=== PATIENT | male | born 1945 | race Caucasian/White ===

== ENCOUNTER 2017-12-19 10:21 | Emergency (ER) | payer MEDICARE, SELFPAY ==
[2017-12-19] VITALS (24 sets, daily range): BP systolic 137–190; BP diastolic 75–97; PULSE 69–99; RESP 9–35; TEMP 36.6–36.7; O2SAT 96–100
--- NOTE | 2017-12-19 10:35 | DI.RAD_ITS ---
SYMPTOMS/DIAGNOSIS: TACHYCARDIA, ? ACUTE DISEASE PORTABLE AP CHEST: The heart is normal in size. The lungs are clear. The mediastinal structures and pleura appear intact. CONCLUSION: Normal chest.
[2017-12-19 11:31] LABS: Abs Immature Grans 0.01 k/cumm (0.0-0.09); Absolute Basophil Count 0.04 k/cumm (0.0-0.2); Absolute Eosinophil Count 0.06 k/cumm (0.0-0.7); Absolute Lymphocyte Count 1.85 k/cumm (1.2-3.4); Absolute Monocyte Count 0.58 k/cumm (0.11-0.7); Absolute Neutrophil Count 5.48 k/cumm (1.2-6.7); Basophils % 0.5; Eosinophils % 0.7; HCT 45.9 % (40.0-50.0); HGB 15.8 g/dL (13.5-17.5); Immature Grans % 0.1; Lymphocytes % 23.1; Mean Corp. HGB Concentration 34.4 g/dL (32.0-36.0); Mean Corpuscular Volume 87.1 fL (80-95); Mean Platelet Volume 9.6 fL (8.0-11.0); Monocytes % 7.2; Neutrophils % 68.4; Platelet Count 258 x1000/uL (130-400); RBC 5.27 m/cumm (4.50-6.00); White Blood Cell Count 8.02 k/cumm (4.4-10.8)
[2017-12-19 11:57] LABS: ALT 37 U/L (12-78); AST 25 U/L (15-37); Albumin 4.1 g/dL (3.4-5.0); Alkaline Phosphatase 103 U/L (46-116); Anion Gap 5.3 mmol/L (3-11); BUN 19 mg/dL (7-18); Bilirubin, Total 0.4 mg/dL (0.2-1.0); CO2 27.7 mmol/L (21.0-32.0); CREATININE 0.86 mg/dL (0.70-1.30); Calcium 8.8 mg/dL (8.5-10.1); Chloride 106 mmol/L (98-107); Glucose 82 mg/dL (70-100); Magnesium 2.1 mg/dL (1.8-2.4); Potassium 3.8 mmol/L (3.5-5.1); Sodium 139 mmol/L (136-145); Total Protein 7.9 g/dL (6.4-8.2)
[2017-12-19 12:00] LABS: Troponin I < 0.02 ng/mL (0.00-0.06)
--- NOTE | 2017-12-19 12:32 | W.ED.GENAD ---
Discharge Plan Discharge Details Chief Complaint: Palpitatns Clinical Impression: Heart palpitations Primary Care Provider: Brooklyn Farah ED Provider: Gabriella Head Disposition Patient Disposition: HOME Home Meds and New Rx's Prescriptions: Continue calcium carbonate [Tums] 200 MG tablet,chewable 200 mg PO DAILY PRNRF: 0 chaga tea 1 DAILY PRNRF: 0 omeprazole 40 MG capsule,delayed release(DR/EC) 40 mg PO DAILY Qty: 90 RF: 3 No Action catheter [Rueda Catheter] 1 EACH misc 1 ea Miscellaneous PRN Qty: 30 RF: 0 Discharge Instructions Instructions: Palpitations (ED) Additional Instructions: Drink plenty of fluids and get plenty of rest. Call your primary care doctor today to schedule follow-up appointment within the next week. Follow the instructions regarding zio patch monitor given to you by respiratory. Return to the emergency department with any worsening or new concerning symptoms. Discharge Data Discharge Date/Time-TO BE ENTERED AT DEPARTURE: 12/19/17 13:37 Discharge Physician: Gabriella Head Medical Decision Making [facility] Narrative Medical decision making narrative: 72-year-old male who is generally healthy who presents with palpitations occurring in the morning for the past several months, worse over the past 4 days and worse today and that it persisted without relief with meditation. Episode today lasted 3 hours and then resolved. He denies any symptoms at present. He denies any chest pain or shortness of breath with his episodes. 1037 -- EKG with a rate of 94 and sinus with no acute ST findings on arrival. QTc 408. QRS 84. Blood pressure 190/97 but patient states he feels this is due to nervousness of being in the ED. He denies a history of hypertension and does not take medication for it. No acute findings on exam. Cardiac workup ordered on arrival. He has no DVT/PE risk factors or symptoms. He smokes marijuana daily but denies any change in this or the type of marijuana. Discussed with patient that as his symptoms are now resolved and if workup here negative, can send him with a cardiac nurse practitioner. Patient also states that he has a history of BPH and occasionally self catheterizes for the past [address] Mcgrath for this. States he has not needed to catheterize for the past 3-4 days and denies any fever or urinary symptoms. Will also check a urinalysis. 1245 --labs and imaging reviewed and negative. Troponin negative. Urinalysis pending. 1310 --urinalysis reviewed and negative. Patient denies any symptoms and states he feels good to go home. Pt states he feels good. Zio patch placed at bedside. Patient instructed to call his primary care doctor for reevaluation and to return to the ER with any worsening symptoms. Lab Data Lab Results 12/19/17 12/19/17 Range/Units 10:43 10:43 WBC 8.02 (4.4-10.8) k/cumm RBC 5.27 (4.50-6.00) m/cumm Hgb 15.8 (13.5-17.5) g/dL Hct 45.9 (40.0-50.0) % MCV 87.1 (80-95) fL MCH 30.0 (27.0-33.0) pg MCHC 34.4 (32.0-36.0) g/dL RDW 13.0 (11.8-14.1) % Plt Count 258 (130-400) x1000/uL MPV 9.6 (8.0-11.0) fL Immature Gran % 0.1 Neutrophils % 68.4 Lymphocytes % 23.1 Monocytes % 7.2 Eosinophils % 0.7 Basophils % 0.5 Absolute Neutrophils 5.48 (1.2-6.7) k/cumm Absolute Lymphocytes 1.85 (1.2-3.4) k/cumm Absolute Monocytes 0.58 (0.11-0.7) k/cumm Absolute Eosinophils 0.06 (0.0-0.7) k/cumm Absolute Basophils 0.04 (0.0-0.2) k/cumm Sodium 139 (136-145) mmol/L Potassium 3.8 (3.5-5.1) mmol/L Chloride 106 (98-107) mmol/L Carbon Dioxide 27.7 (21.0-32.0) mmol/L Anion Gap 5.3 (3-11) mmol/L BUN 19 H (7-18) mg/dL Creatinine 0.86 (0.70-1.30) mg/dL Estimated GFR/1.73 m2 >= 60.00 (mL/min/1.73m2) Glucose 82 (70-100) mg/dL Calcium 8.8 (8.5-10.1) mg/dL Magnesium 2.1 (1.8-2.4) mg/dL Total Bilirubin 0.4 (0.2-1.0) mg/dL AST 25 (15-37) U/L ALT 37 (12-78) U/L Alkaline Phosphatase 103 (46-116) U/L Troponin I < 0.02 (0.00-0.06) ng/mL Total Protein 7.9 (6.4-8.2) g/dL Albumin 4.1 (3.4-5.0) g/dL HPI - General Adult General Mode of arrival: ambulatory. Date/Time Provider Initiated Documentation: 12/19/17 10:35. Limitations to Documentation: no limitations. Information obtained by: patient. HPI Narrative: Patient is a 72-year-old male who presents with daily palpitations for the last few months, worse over the past 4 days. Patient states when he awakes in the morning he stretches in bed and developed heart pounding and palpitations. Patient states he is usually able to meditate and his symptoms have resolved with this over the past 3 mornings but this did not help this morning. Patient denies any chest pain or shortness of breath when these episodes occur. Patient states he wakes up in the morning and stretches his arms out, and feels the palpitations which lasts usually a few minutes and then resolve. Patient states the episode lasted 3 hours this morning and then resolved and this was the longest time so far yet. Patient denies any cardiac or pulmonary history. States he has never worn a cardiac nurse practitioner. Patient states he smokes marijuana daily but states it is the same marijuana he has been smoking for years and denies any new type. He states he drinks 1 beer daily. He denies any other new medications, recent travel, recent surgeries, leg pain or swelling. Related Data Home Medications Medication Instructions Recorded Confirmed catheter [Rueda Catheter] #30 ea 02/09/15 01/09/16 Chaga Tea 1 DAILY PRN 09/06/16 calcium carbonate [Tums] 200 mg PO DAILY PRN tab.chew 09/06/16 12/19/17 Allergies Allergy/AdvReac Type Severity Reaction Status Date / Time finasteride Allergy Unverified 12/19/17 10:42 terazosin HCl [From Hytrin] Allergy Unverified 12/19/17 10:42 General Stated Complaint: Palpitatns BEATRIZ: 2 Review of Systems Constitutional Denies excessive sweating, Denies fatigue, Denies fever(s) and Denies weakness Eyes Patient Denies loss of vision ENT Denies vertigo, Denies dizziness, Denies sore throat, Denies throat swelling and Denies tongue swelling Cardiovascular Denies chest pain and Denies dyspnea Respiratory Denies pain on inspiration, Denies dyspnea and Denies wheezing Gastrointestinal Denies abdominal pain, Denies diarrhea and Denies vomiting Genitourinary Denies dysuria and Denies urinary urgency Musculoskeletal Denies arthralgias and Denies joint swelling Neurologic Denies confusion, Denies vertigo, Denies dizziness, Denies loss of vision, Denies memory loss and Denies weakness Psychiatric Denies confusion and Denies memory loss Endocrine Denies excessive sweating and Denies fatigue Allergic/Immunologic Denies throat swelling, Denies tongue swelling and Denies wheezing PFSH Family History Mother No problems noted. Father No problems noted. Sister No problems noted. Medical History Benign prostate hyperplasia (12/11/07) Social History Smoking/Tobacco Use Status: Former Tobacco Use Surgical History EGD w/ BX (12/06/11) Repair of inguinal hernia (~1979) Tonsillectomy Vasectomy Exam Const General: cooperative, healthy appearing and comfortable Nutritional Appearance: average body habitus Orientation: alert and awake Limitations: mental status not altered [facility] Head: normal to inspection Ears: hearing grossly normal bilaterally General nose exam: external nose normal Mouth: moist mucous membranes Eyes General: appearance normal, both eyes and all related structures Eyelids: eyelids normal Pupils: PERRL EOM: EOM intact bilaterally Neck Neck: normal visual inspection Chest Chest: normal inspection of the chest Resp Effort & Inspection: normal respiratory effort Auscultation: clear to auscultation bilaterally Cardio Rate: regular rate Rhythm: regular rhythm GI Inspection: normal to inspection Palpation: soft, no hepatosplenomegaly and nontender Auscultation: normal bowel sounds Back/Spine/Pelvis Back: no CVA tenderness Thoracic/Lumbar Spine: thoracic and lumbar spine normal to inspection Skin General skin exam: no rashes or lesions noted Lesions: no lesions Neuro General: alert and awake Extrem General: normal to inspection, no calf tenderness bilaterally and no edema Psych Appearance: grossly normal Affect: normal affect Attitude: cooperative Course Vital Signs Temperature 98.1 F 12/19/17 10:39 Pulse 94 H 12/19/17 10:39 Respiratory Rate 12 12/19/17 10:39 Blood Pressure 190/97 H 12/19/17 10:39 Pulse Oximetry 98 12/19/17 10:39 Temperature 98.1 F 12/19/17 10:39 Pulse 94 H 12/19/17 10:39 Respiratory Rate 12 12/19/17 10:39 Blood Pressure 190/97 H 12/19/17 10:39 Pulse Oximetry 98 12/19/17 10:39 Lab/Test Results Lab/Test Results: Laboratory Tests 12/19/17 12/19/17 10:43 10:43 WBC 8.02 RBC 5.27 Hgb 15.8 Hct 45.9 MCV 87.1 MCH 30.0 MCHC 34.4 RDW 13.0 Plt Count 258 MPV 9.6 Immature Gran % 0.1 Neutrophils % 68.4 Lymphocytes % 23.1 Monocytes % 7.2 Eosinophils % 0.7 Basophils % 0.5 Absolute Neutrophils 5.48 Absolute Lymphocytes 1.85 Absolute Monocytes 0.58 Absolute Eosinophils 0.06 Absolute Basophils 0.04 Sodium 139 Potassium 3.8 Chloride 106 Carbon Dioxide 27.7 Anion Gap 5.3 BUN 19 H Creatinine 0.86 Estimated GFR/1.73 m2 >= 60.00 Glucose 82 Calcium 8.8 Magnesium 2.1 Total Bilirubin 0.4 AST 25 ALT 37 Alkaline Phosphatase 103 Troponin I < 0.02 Total Protein 7.9 Albumin 4.1
--- NOTE | 2017-12-19 12:36 | ED.GENADUL_ITS ---
Discharge Plan Discharge Details Chief Complaint: Palpitatns Clinical Impression: Heart palpitations Primary Care Provider: Brooklyn Farah ED Provider: Gabriella Head Disposition Patient Disposition: HOME Home Meds and New Rx's Prescriptions: Continue calcium carbonate [Tums] 200 MG tablet,chewable 200 mg PO DAILY PRNRF: 0 chaga tea 1 DAILY PRNRF: 0 omeprazole 40 MG capsule,delayed release(DR/EC) 40 mg PO DAILY Qty: 90 RF: 3 No Action catheter [Rueda Catheter] 1 EACH misc 1 ea Miscellaneous PRN Qty: 30 RF: 0 Discharge Instructions Instructions: Palpitations (ED) Additional Instructions: Drink plenty of fluids and get plenty of rest. Call your primary care doctor today to schedule follow-up appointment within the next week. Follow the instructions regarding zio patch monitor given to you by respiratory. Return to the emergency department with any worsening or new concerning symptoms. Discharge Data Discharge Date/Time-TO BE ENTERED AT DEPARTURE: 12/19/17 13:37 Discharge Physician: Gabriella Head Medical Decision Making [facility] Narrative Medical decision making narrative: 72-year-old male who is generally healthy who presents with palpitations occurring in the morning for the past several months, worse over the past 4 days and worse today and that it persisted without relief with meditation. Episode today lasted 3 hours and then resolved. He denies any symptoms at present. He denies any chest pain or shortness of breath with his episodes. 1037 -- EKG with a rate of 94 and sinus with no acute ST findings on arrival. QTc 408. QRS 84. Blood pressure 190/97 but patient states he feels this is due to nervousness of being in the ED. He denies a history of hypertension and does not take medication for it. No acute findings on exam. Cardiac workup ordered on arrival. He has no DVT/ PE risk factors or symptoms. He smokes marijuana daily but denies any change in this or the type of marijuana. Discussed with patient that as his symptoms are now resolved and if workup here negative, can send him with a financial aid administrator. Patient also states that he has a history of BPH and occasionally self catheterizes for the past [address] Mcgrath for this. States he has not needed to catheterize for the past 3 -4 days and denies any fever or urinary symptoms. Will also check a urinalysis. 1245 --labs and imaging reviewed and negative. Troponin negative. Urinalysis pending. 1310 --urinalysis reviewed and negative. Patient denies any symptoms and states he feels good to go home. Pt states he feels good. Zio patch placed at bedside. Patient instructed to call his primary care doctor for reevaluation and to return to the ER with any worsening symptoms. Lab Data Lab Results 12/19/17 12/19/17 Range/Units 10:43 10:43 WBC 8.02 (4.4-10.8) k/cumm RBC 5.27 (4.50-6.00) m/cumm Hgb 15.8 (13.5-17.5) g/dL Hct 45.9 (40.0-50.0) % MCV 87.1 (80-95) fL MCH 30.0 (27.0-33.0) pg MCHC 34.4 (32.0-36.0) g/dL RDW 13.0 (11.8-14.1) % Plt Count 258 (130-400) x1000/uL MPV 9.6 (8.0-11.0) fL Immature Gran % 0.1 Neutrophils % 68.4 Lymphocytes % 23.1 Monocytes % 7.2 Eosinophils % 0.7 Basophils % 0.5 Absolute Neutrophils 5.48 (1.2-6.7) k/cumm Absolute Lymphocytes 1.85 (1.2-3.4) k/cumm Absolute Monocytes 0.58 (0.11-0.7) k/cumm Absolute Eosinophils 0.06 (0.0-0.7) k/cumm Absolute Basophils 0.04 (0.0-0.2) k/cumm Sodium 139 (136-145) mmol/L Potassium 3.8 (3.5-5.1) mmol/L Chloride 106 (98-107) mmol/L Carbon Dioxide 27.7 (21.0-32.0) mmol/L Anion Gap 5.3 (3-11) mmol/L BUN 19 H (7-18) mg/dL Creatinine 0.86 (0.70-1.30) mg/dL Estimated GFR/1.73 m2 >= 60.00 (mL/min/1.73m2) Glucose 82 (70-100) mg/dL Calcium 8.8 (8.5-10.1) mg/dL Magnesium 2.1 (1.8-2.4) mg/dL Total Bilirubin 0.4 (0.2-1.0) mg/dL AST 25 (15-37) U/L ALT 37 (12-78) U/L Alkaline Phosphatase 103 (46-116) U/L Troponin I < 0.02 (0.00-0.06) ng/mL Total Protein 7.9 (6.4-8.2) g/dL Albumin 4.1 (3.4-5.0) g/dL HPI - General Adult General Mode of arrival: ambulatory . Date/Time Provider Initiated Documentation: 12/19/17 10:35 . Limitations to Documentation: no limitations . Information obtained by: patient . HPI Narrative: Patient is a 72-year-old male who presents with daily palpitations for the last few months, worse over the past 4 days. Patient states when he awakes in the morning he stretches in bed and developed heart pounding and palpitations. Patient states he is usually able to meditate and his symptoms have resolved with this over the past 3 mornings but this did not help this morning. Patient denies any chest pain or shortness of breath when these episodes occur. Patient states he wakes up in the morning and stretches his arms out, and feels the palpitations which lasts usually a few minutes and then resolve. Patient states the episode lasted 3 hours this morning and then resolved and this was the longest time so far yet. Patient denies any cardiac or pulmonary history. States he has never worn a financial aid administrator. Patient states he smokes marijuana daily but states it is the same marijuana he has been smoking for years and denies any new type. He states he drinks 1 beer daily. He denies any other new medications, recent travel, recent surgeries, leg pain or swelling. Related Data Home Medications Medication Instructions Recorded Confirmed catheter [Rueda Catheter] #30 ea 02/09/15 01/09/16 Chaga Tea 1 DAILY PRN 09/06/16 calcium carbonate [Tums] 200 mg PO DAILY PRN tab.chew 09/06/16 12/19/17 Allergies Allergy/AdvReac Type Severity Reaction Status Date / Time finasteride Allergy Unverified 12/19/17 10:42 terazosin HCl [From Hytrin] Allergy Unverified 12/19/17 10:42 General Stated Complaint: Palpitatns BEATRIZ: 2 Review of Systems Constitutional Denies excessive sweating, Denies fatigue, Denies fever(s) and Denies weakness Eyes Patient Denies loss of vision ENT Denies vertigo, Denies dizziness, Denies sore throat, Denies throat swelling and Denies tongue swelling Cardiovascular Denies chest pain and Denies dyspnea Respiratory Denies pain on inspiration, Denies dyspnea and Denies wheezing Gastrointestinal Denies abdominal pain, Denies diarrhea and Denies vomiting Genitourinary Denies dysuria and Denies urinary urgency Musculoskeletal Denies arthralgias and Denies joint swelling Neurologic Denies confusion, Denies vertigo, Denies dizziness, Denies loss of vision, Denies memory loss and Denies weakness Psychiatric Denies confusion and Denies memory loss Endocrine Denies excessive sweating and Denies fatigue Allergic/Immunologic Denies throat swelling, Denies tongue swelling and Denies wheezing PFSH Family History Mother No problems noted. Father No problems noted. Sister No problems noted. Medical History Benign prostate hyperplasia (12/11/07) Social History Smoking/Tobacco Use Status: Former Tobacco Use Surgical History EGD w/ BX (12/06/11) Repair of inguinal hernia (~1979) Tonsillectomy Vasectomy Exam Const General: cooperative, healthy appearing and comfortable Nutritional Appearance: average body habitus Orientation: alert and awake Limitations: mental status not altered [facility] Head: normal to inspection Ears: hearing grossly normal bilaterally General nose exam: external nose normal Mouth: moist mucous membranes Eyes General: appearance normal, both eyes and all related structures Eyelids: eyelids normal Pupils: PERRL EOM: EOM intact bilaterally Neck Neck: normal visual inspection Chest Chest: normal inspection of the chest Resp Effort & Inspection: normal respiratory effort Auscultation: clear to auscultation bilaterally Cardio Rate: regular rate Rhythm: regular rhythm GI Inspection: normal to inspection Palpation: soft, no hepatosplenomegaly and nontender Auscultation: normal bowel sounds Back/Spine/Pelvis Back: no CVA tenderness Thoracic/Lumbar Spine: thoracic and lumbar spine normal to inspection Skin General skin exam: no rashes or lesions noted Lesions: no lesions Neuro General: alert and awake Extrem General: normal to inspection, no calf tenderness bilaterally and no edema Psych Appearance: grossly normal Affect: normal affect Attitude: cooperative Course Vital Signs Temperature 98.1 F 12/19/17 10:39 Pulse 94 H 12/19/17 10:39 Respiratory Rate 12 12/19/17 10:39 Blood Pressure 190/97 H 12/19/17 10:39 Pulse Oximetry 98 12/19/17 10:39 Temperature 98.1 F 12/19/17 10:39 Pulse 94 H 12/19/17 10:39 Respiratory Rate 12 12/19/17 10:39 Blood Pressure 190/97 H 12/19/17 10:39 Pulse Oximetry 98 12/19/17 10:39 Lab/Test Results Lab/Test Results: Laboratory Tests 12/19/17 12/19/17 10:43 10:43 WBC 8.02 RBC 5.27 Hgb 15.8 Hct 45.9 MCV 87.1 MCH 30.0 MCHC 34.4 RDW 13.0 Plt Count 258 MPV 9.6 Immature Gran % 0.1 Neutrophils % 68.4 Lymphocytes % 23.1 Monocytes % 7.2 Eosinophils % 0.7 Basophils % 0.5 Absolute Neutrophils 5.48 Absolute Lymphocytes 1.85 Absolute Monocytes 0.58 Absolute Eosinophils 0.06 Absolute Basophils 0.04 Sodium 139 Potassium 3.8 Chloride 106 Carbon Dioxide 27.7 Anion Gap 5.3 BUN 19 H Creatinine 0.86 Estimated GFR/1.73 m2 >= 60.00 Glucose 82 Calcium 8.8 Magnesium 2.1 Total Bilirubin 0.4 AST 25 ALT 37 Alkaline Phosphatase 103 Troponin I < 0.02 Total Protein 7.9 Albumin 4.1
[2017-12-19 12:39] LABS: Bilirubin Negative (Negative); Blood Negative (Negative); Clarity Clear; Glucose Negative (Negative); Ketones Negative (Negative); Leukocyte Esterase Negative (Negative); Nitrite Negative (Negative); Urobilinogen 0.2 EU/dL (Up TO 0.2)
--- NOTE | 2018-01-09 17:08 | ZIOP_ITS ---
ZIO PATCH EVENT RECORDER REPORT DATE OF READING: January 09, 2018 ENROLLMENT: 13 days - 12/19/17 until 01/02/18 PRESCRIBING CLINICIAN: Vipin Cotto M.D. REFERRING CLINICIAN: Brooklyn Farah N.P. INDICATION: Palpitations. FINDINGS: 1. Baseline sinus rhythm, 52-164 bpm, average 84 bpm. 2. Rare PAC, less than 1%, 9 SVT runs, fastest and longest 1 minute and 21 seconds, average 200 bpm, consistent with ectopic atrial tachycardia, no atrial fibrillation. 3. Rare PVC, less than 1%, one 4-beat nonsustained VT run, 212 bpm. 4. No pauses. 5. Six triggered events: All sinus rhythm. 6. Eight symptom events: Fluttering/racing, skipped beats or shortness of breath, all with sinus rhythm, no arrhythmia.
== END 2017-12-19 13:37 | disposition home or self-care (01) ==
PROVIDERS: Emergency Provider Physician Assistant; PCP Nurse Practitioner
DX: R00.2 Palpitations (principal)
CPT/HCPCS: 36415; 80053; 93005; 93225; 99285; 71045; 81003; 83735; 84484; 85025; 93010

== ENCOUNTER 2018-01-09 16:06 | Outpatient (CLI) | payer MEDICARE, SELFPAY | END 2018-01-09 16:26 | PROVIDERS: PCP Nurse Practitioner; Visit Provider Internal Medicine Cardiovascular Disease | DX: R00.2 Palpitations (principal) | CPT/HCPCS: 0298T ==

== ENCOUNTER 2018-01-28 18:03 | Outpatient (REF) | payer MEDICARE, SELFPAY | END 2018-01-28 18:23 | LOC: LBN 18:03 | PROVIDERS: PCP Nurse Practitioner; Visit Provider Nurse Practitioner | DX: R31.9 Hematuria, unspecified (principal) | CPT/HCPCS: 87086 ==

== ENCOUNTER 2018-02-05 00:37 | Outpatient (CLI) | payer MEDICARE, SELFPAY ==
--- NOTE | 2018-02-05 14:05 | MERGE_ITS ---
*[facility]* *[facility]* [address] [place] [address] Date of study: 02/05/2018 Transthoracic Echocardiography M-mode, complete 2D, complete spectral Doppler, and color Doppler *STUDY CONCLUSIONS* Summary: 1. Left ventricle: The cavity size was normal. Wall thickness was increased in a pattern of mild LVH. There was severe focal basal hypertrophy of the septum at 1.7 cm. Systolic function was hyperdynamic. The estimated ejection fraction was 65-70%. There was no dynamic obstruction. Wall motion was normal; there were no regional wall motion abnormalities. Some parameters suggest diastolic dysfunction. 2. Aortic valve: Trileaflet; mildly thickened, mildly calcified leaflets. There was mild regurgitation. 3. Right ventricle: The cavity size was normal. Wall thickness was normal. Systolic function was normal. *PATIENT PRESENTATION* Height: 175.3cm ((69in) ) S/D Pressure: 147 / 73 Weight: 74.8kg ((164.7lb) ) BSA: 1.92m^2 Test start time: 02:15 PM. Test stop time: 03:00 PM. PERFORMING Unknown PERFORMING [facility] ZONING ADMINISTRATOR RT Shaheen Hung)(CT), [facility] ORDERING Brooklyn Farah REFERRING Brooklyn Farah *PROCEDURE DATA* Procedure information: The patient was identified by two identifiers. This study was interpreted by [facility]. Pertinent images and digital data are archived for permanent storage and are available for subsequent review. No prior study was available for comparison. Study status: Routine. Transthoracic echocardiography. M-mode, complete 2D, complete spectral Doppler, and color Doppler. A Transthoracic Echocardiogram was performed. Scanning was performed from the parasternal, apical, subcostal, and suprasternal notch acoustic windows. Images were obtained using an [id number] cardiac ultrasound machine. Image quality was adequate. Study completion: The patient tolerated the procedure well. There were no complications. History: PMH: Palpitations. Essential HTN. *CARDIAC ANATOMY* Left ventricle: The cavity size was normal. Wall thickness was increased in a pattern of mild LVH. There was severe focal basal hypertrophy of the septum at 1.7 cm. Systolic function was hyperdynamic. The estimated ejection fraction was 65-70%. There was no dynamic obstruction. Wall motion was normal; there were no regional wall motion abnormalities. Some parameters suggest diastolic dysfunction. Aortic valve: Trileaflet; mildly thickened, mildly calcified leaflets. Mobility was not restricted. Doppler: Transvalvular velocity was within the normal range. There was no stenosis. There was mild regurgitation. VTI ratio of LVOT to aortic valve: 0.72. Valve area (VTI): 2.6cm^2. Indexed valve area (VTI): 1.4cm^2/m^2. Peak velocity ratio of LVOT to aortic valve: 0.66. Valve area (Vmax): 2.4cm^2. Indexed valve area (Vmax): 1.3cm^2/m^2. Mean velocity ratio of LVOT to aortic valve: 0.68. Valve area (Vmean): 2.5cm^2. Indexed valve area (Vmean): 1.3cm^2/m^2. Mean gradient (S): 6.4mm Hg. Peak gradient (S): 10.3mm Hg. Aorta: Aortic root: The aortic root was normal in size. Ascending aorta: The ascending aorta was normal in size. Mitral valve: Structurally normal valve. Mobility was not restricted. Doppler: Transvalvular velocity was within the normal range. There was no evidence for stenosis. There was trivial regurgitation. Valve area by pressure half-time: 3.4cm^2. Indexed valve area by pressure half-time: 1.8cm^2/m^2. Peak gradient (D): 2.1mm Hg. Left atrium: The atrium was normal in size. Right ventricle: The cavity size was normal. Wall thickness was normal. Systolic function was normal. Pulmonic valve: Structurally normal valve. Doppler: Transvalvular velocity was within the normal range. There was no evidence for stenosis. There was mild regurgitation. Peak gradient (S): 4.3mm Hg. Tricuspid valve: Structurally normal valve. Doppler: Transvalvular velocity was within the normal range. There was no evidence for stenosis. There was mild regurgitation. Pulmonary artery: Pulmonary systolic pressure was within the normal range, in the range of 25mm Hg to 30mm Hg. Right atrium: The atrium was normal in size. Pericardium: There was no pericardial effusion. Systemic veins: Inferior vena cava: Well visualized. The vessel was patent and normal in size. The respirophasic diameter changes were in the normal range (greater than or equal to 50%). Baseline ECG: Normal sinus rhythm. Measurements Left ventricle Value Reference LV ID, ED, PLAX 4.1 cm 3.5 - 6.0 LV ID, ES, PLAX 2.6 cm 2.1 - 4.0 LV PW thickness, ED, PLAX 1.1 cm LV end-diastolic volume, 1-p A2C 59 ml LV ejection fraction, 1-p A2C 73 % LV end-diastolic volume, 1-p A4C 72 ml LV ejection fraction, 1-p A4C 67 % LV e', lateral 0.076 m/sec LV E/e', lateral 10 LV e', medial 0.064 m/sec LV E/e', medial 11 LV e', average 0.07 m/sec LV E/e', average 10 Ventricular septum Value Reference IVS thickness, ED, PLAX 1.2 cm LVOT Value Reference LVOT ID, A-P 2.2 cm LVOT area 3.7 cm^2 LVOT peak velocity, S 1.06 m/sec LVOT mean velocity, S 0.83 m/sec LVOT VTI, S 23.6 cm LVOT peak gradient, S 4.5 mm Hg LVOT mean gradient, S 2.9 mm Hg Stroke volume (SV), LVOT DP 87 ml Stroke index (SV/bsa), LVOT DP 45 ml/m^2 Aortic valve Value Reference Aortic valve peak velocity, S 1.6 m/sec Aortic valve mean velocity, S 1.21 m/sec Aortic valve VTI, S 33.0 cm Aortic mean gradient, S 6.4 mm Hg Aortic peak gradient, S 10.3 mm Hg VTI ratio, LVOT/AV 0.72 Aortic valve area, VTI 2.6 cm^2 Velocity ratio, peak, LVOT/AV 0.66 Aortic valve area, peak velocity 2.4 cm^2 Velocity ratio, mean, LVOT/AV 0.68 Aortic valve area, mean velocity 2.5 cm^2 Aortic valve area/bsa, mean velocity 1.3 cm^2/m^2 Aorta Value Reference Aortic root ID, ED 3.4 cm Ascending aorta ID, A-P, S 3.3 cm RVOT Value Reference RVOT VTI, S 18.5 cm Left atrium Value Reference LA ID, A-P, ES 3.6 cm LA ID/bsa, A-P 1.9 cm/m^2 <=2.2 LA area, ES, A4C 17.8 cm^2 8.8 - 23.4 LA area, ES, A2C 15 cm^2 LA volume/bsa, ES, 1-p A4C 28 ml/m^2 LA volume, ES, 2-p 43 ml LA volume/bsa, ES, 2-p 22 ml/m^2 LA/aortic root ratio 1.07 Mitral valve Value Reference Mitral E-wave peak velocity 0.73 m/sec Mitral A-wave peak velocity 0.74 m/sec Mitral deceleration time 222 ms 150 - 230 Mitral pressure half-time 64 ms Mitral peak gradient, D 2.1 mm Hg Mitral E/A ratio, peak 0.98 Mitral valve area, PHT, DP 3.4 cm^2 Tricuspid valve Value Reference Tricuspid regurg peak velocity 2.5 m/sec Tricuspid peak RV-RA gradient 24.1 mm Hg Right atrium Value Reference RA area, ES, A4C 16.1 cm^2 8.3 - 19.5 Pulmonic valve Value Reference Pulmonic peak gradient, S 4.3 mm Hg Legend: (L) and (H) doug values outside specified reference range. I have personally reviewed the images and have reviewed and edited the reported findings. Electronically signed by Barney Ross 02/05/2018 17:50
== END 2018-02-05 00:57 ==
PROVIDERS: PCP Nurse Practitioner; Visit Provider Nurse Practitioner
DX: R00.2 Palpitations (principal); I10 Essential (primary) hypertension; I35.1 Nonrheumatic aortic (valve) insufficiency
CPT/HCPCS: 93306

== ENCOUNTER → 2018-02-08 12:54 | Outpatient (BNVA) | payer MEDICARE, SELFPAY | PROVIDERS: PCP Nurse Practitioner; Visit Provider Urology | DX: N40.0 Benign prostatic hyperplasia without lower urinary tract symptoms (principal); Z87.898 Personal history of other specified conditions | CPT/HCPCS: 81003; 99213 ==

== ENCOUNTER 2018-02-08 14:18 | Outpatient (CLI) | payer MEDICARE, SELFPAY ==
[2018-02-08 15:02] LABS: HGB 14.2 g/dL (13.5-17.5); Mean Corp. HGB Concentration 33.8 g/dL (32.0-36.0); Mean Corpuscular Hemoglobin 29.3 pg (27.0-33.0); Mean Corpuscular Volume 86.8 fL (80-95); Mean Platelet Volume 8.5 fL (8.0-11.0); Platelet Count 299 x1000/uL (130-400); RBC 4.84 m/cumm (4.50-6.00); RBC Distribution Width 12.9 % (11.8-14.1); White Blood Cell Count 11.04 k/cumm (4.4-10.8)
[2018-02-08 15:39] LABS: ALT 31 U/L (12-78); AST 20 U/L (15-37); Albumin 3.6 g/dL (3.4-5.0); Alkaline Phosphatase 98 U/L (46-116); Anion Gap 8.8 mmol/L (3-11); BUN 19 mg/dL (7-18); Bilirubin, Total 0.3 mg/dL (0.2-1.0); CO2 27.2 mmol/L (21.0-32.0); Calcium 8.7 mg/dL (8.5-10.1); Chloride 104 mmol/L (98-107); Cholesterol 173 mg/dL (50-200); Glucose 87 mg/dL (70-100); HDL Cholesterol 35 mg/dL (40-60); LDL CHOLESTEROL 111 mg/dL (<100); Sodium 140 mmol/L (136-145); TSH (W/Ref FT4) 3.77 uIU/mL (0.358-3.74); Total Protein 6.9 g/dL (6.4-8.2); Triglyceride 183 mg/dL (30-150)
== END 2018-02-08 14:38 ==
PROVIDERS: PCP Nurse Practitioner; Visit Provider Nurse Practitioner
DX: E78.5 Hyperlipidemia, unspecified (principal); R00.2 Palpitations; I10 Essential (primary) hypertension
CPT/HCPCS: 36415; 80053; 80061; 81003; 83721; 85027; 99213; 84439; 84443

== ENCOUNTER 2018-03-25 10:12 | Outpatient (REF) | payer MEDICARE, SELFPAY | END 2018-03-25 10:32 | LOC: LBN 10:12 | PROVIDERS: PCP Nurse Practitioner; Visit Provider Urology | DX: R31.0 Gross hematuria (principal) | CPT/HCPCS: 87077; 87086 ==

== ENCOUNTER → 2018-05-22 12:21 | Outpatient (BNVA) | payer MEDICARE, SELFPAY | PROVIDERS: PCP Nurse Practitioner; Referring Provider Nurse Practitioner; Visit Provider Student in an Organized Health Care Education/Training Program | DX: R00.2 Palpitations (principal); R03.0 Elevated blood-pressure reading, without diagnosis of hypertension; E78.5 Hyperlipidemia, unspecified | CPT/HCPCS: 99204; 99214 ==

== ENCOUNTER 2018-05-30 10:44 | Emergency (ER) | payer MEDICARE, SELFPAY ==
[2018-05-30 11:00] VITALS: BP 175/98; PULSE 106; RESP 16; TEMP 37; O2SAT 97
[2018-05-30 11:36] LABS: Abs Immature Grans 0.01 k/cumm (0.0-0.09); Absolute Basophil Count 0.02 k/cumm (0.0-0.2); Absolute Eosinophil Count 0.03 k/cumm (0.0-0.7); Absolute Monocyte Count 0.43 k/cumm (0.11-0.7); Absolute Neutrophil Count 4.05 k/cumm (1.2-6.7); Basophils % 0.3; Eosinophils % 0.5; HCT 42.3 % (40.0-50.0); HGB 14.7 g/dL (13.5-17.5); Immature Grans % 0.2; Lymphocytes % 27.2; Mean Corp. HGB Concentration 34.8 g/dL (32.0-36.0); Mean Corpuscular Hemoglobin 29.9 pg (27.0-33.0); Mean Platelet Volume 9.2 fL (8.0-11.0); Monocytes % 6.9; Neutrophils % 64.9; Platelet Count 258 x1000/uL (130-400); RBC 4.92 m/cumm (4.50-6.00); RBC Distribution Width 13.2 % (11.8-14.1); White Blood Cell Count 6.24 k/cumm (4.4-10.8)
--- NOTE | 2018-05-30 11:46 | W.ED.GENAD ---
Discharge Plan Disposition Patient Disposition: HOME Condition: Good Discharge Details Chief Complaint: Palpitatns Clinical Impression: Palpitations Primary Care Provider: Brooklyn Farah ED Provider: Jarrett Lund Home Meds and New Rx's Prescriptions: No Action propranolol 10 mg tablet 10 mg PO HS Qty: 90 RF: 1 Rueda Catheter 1 EACH misc 1 ea Miscellaneous PRN Qty: 30 RF: 0 calcium carbonate [Tums] 200 MG tablet,chewable 200 mg PO DAILY PRNRF: 0 chaga tea 1 DAILY PRNRF: 0 omeprazole 40 MG capsule,delayed release(DR/EC) 40 mg PO DAILY Qty: 90 RF: 3 ciprofloxacin HCl 250 mg tablet 250 mg PO Q12H Qty: 20 RF: 0 Discharge Instructions Instructions: Palpitations (ED) Additional Instructions: Please resume taking her propanolol. Please follow-up promptly with your Brooklyn. If you notice any worsening of your symptoms, or any new symptoms such as vomiting, diarrhea, fever, chills, shortness of breath, chest pain, numbness, weakness, or fainting , please return immediately to the emergency department for reevaluation. Please follow up with your primary care provider as soon as possible for reassessment and reevaluation. As always, it was a pleasure participating in your medical care today. Referrals: Brooklyn Farah, [employer] [Primary Care Provider] - Medical Decision Making This is a pleasant 72-year-old male who presents for palpitations that have been present for the last 5 months. They only occur in the morning as he is waking up, they resolve as soon as he stands up. He has no exertional symptoms, no exertional syncope. He has been plowing his driveway and shoveling his driveway every day and has had no lightheadedness, no dizziness, no chest pain or shortness of breath. His symptoms are only present in the morning as he is getting up. He shows no risk flags of recent syncope, history of heart disease, chest pain or chest pressure. He had a Zeo patch which showed occasional elevated rhythm, but no other significant abnormalities. He was evaluated by cardiology who had no additional recommendations aside for continuing the propranolol. His echocardiogram aside from mild left ventricular hypertrophy was otherwise benign. He has been on no new medications otherwise. He has taken Cipro recently for UTI but this is medication is tolerated in the past. Physical exam shows no significant abnormalities, no concerning signs or symptoms. He came in today because he called his grain mill products inspector states that he was out of the office and recommended they come into the ED if he had concerns. Patient's physical exam, is benign, no significant abnormalities. Minimal tachycardia at 90-106, but no other abnormalities. I feel with the patient's extensive recent workup that there is no severe acute abnormality, however we will evaluate for PE, TSH abnormality, or other significant electrolyte disturbance. 12:51 PM Patient's laboratory workup is returned benign, no significant abnormalities. No thyroid abnormalities, signs of anemia, or other significant concerning issues for the electrolytes. EKG shows no significant abnormalities or changes. No evidence of significant tachycardia. D-dimer is negative. Patient is hemodynamically stable and shows no signs of SVT or other concerning cardiac arrhythmia at this time. I had an extensive conversation with the patient I do feel that he would be an appropriate candidate for discharge home with close follow-up with his PCP as he currently demonstrates no concerning emergent cardiac pathology or abnormality with an extensive outpatient workup and no change in his symptomatology for the last 5 months. I contacted Brooklyn Stout, And discussed the scenario with her, the cardiology findings, and the patient's current scenario. She too agrees with the plan. Patient will follow-up either tomorrow or early next week. I do recommend that the patient restart his propranolol at 10 mg. Patient agrees with current plan. I have extensively reviewed the treatment plan and discharge instructions with the patient and their family. I have addressed all patient concerns at this time. The patient and family was made aware of what symptoms to monitor for that would warrant a return to the emergency department. Discussed the plan with the patient and family, they demonstrate verbal understanding and agreement with our assessment and plan at this time. EKG 10: 56 Rate 94, intervals normal, sinus rhythm, no significant ST elevations or depressions, minimal less than 1 mm depression in V3 through V5 which is a nonspecific ST segment abnormality. No reciprocal elevations, no evidence of STEMI. These findings were consistent with EKG from 12/19/17 HPI General Date/Time Provider Initiated Documentation: 05/30/18 10:55. HPI Narrative: This is a 72-year-old male with a past medical history of reflux, prostate hypertrophy, and who was recently diagnosed with urinary tract infection by Dr. Mcgrath and started on Cipro, who presents today for palpitations. The patient states that back in December he started having palpitations that would occur in the morning as he was waking up. When he would get out of bed his symptoms would go away completely. He occasionally has very mild dizziness, but denies any headache, syncope, chest pain, arm, neck or shoulder pain, shortness of breath, chest pressure, tearing sensation in his chest, or other symptoms. Aside for the feeling of palpitations alone he is otherwise completely asymptomatic. The patient has had these symptoms persistently since then only when he wakes up. He had a Holter monitor and an echocardiogram. Holter monitor showed slight supraventricular arrhythmias that were exceedingly rare, and unrelated to the patient's symptoms/timing. He had an echocardiogram that showed minimal left ventricular hypertrophy but no other significant abnormality. He did see Dr. Menjivar just recently for his first evaluation of all of this, which point he was told that there was nothing overly concerning with the Holter monitor, or the echocardiogram, that there was nothing additional that they could do from a cardiology standpoint at this time. The patient continued to have his symptoms, and in an episode of frustration did contact the grain mill products inspector, who is currently not working today it was recommended that he come to the ER for further evaluation. Denies PE risk factors such as recent long car rides, immobilization, recent surgery, prior history of DVT or PE, family history of PE or DVT, morbid obesity, exogenous estrogen and smoking, hemoptysis, history of cancer. Patient denies any IV or illicit drug use, he has no additional complaints at this time. Aside for the Cipro he has not taken any new medications. Related Data Home Medications Medication Instructions Recorded Confirmed catheter [Rueda Catheter] #30 ea 02/09/15 05/22/18 Chaga Tea 1 DAILY PRN 09/06/16 05/22/18 calcium carbonate [Tums] 200 mg PO DAILY PRN tab.chew 09/06/16 05/30/18 omeprazole 40 mg PO DAILY #90 tab-cap 09/11/17 05/30/18 propranolol 10 mg tablet 10 mg PO HS #90 tab 03/20/18 05/30/18 ciprofloxacin 250 mg tablet 250 mg PO Q12H #20 tab 05/29/18 05/30/18 Previous Rx's Medication Instructions Recorded omeprazole 40 mg PO DAILY #90 tab-cap 09/11/17 propranolol 10 mg tablet 10 mg PO HS #90 tab 03/20/18 ciprofloxacin 250 mg tablet 250 mg PO Q12H #20 tab 05/29/18 Allergies Allergy/AdvReac Type Severity Reaction Status Date / Time finasteride Allergy Verified 05/30/18 11:16 terazosin HCl [From Hytrin] AdvReac sweats Verified 05/30/18 11:16 General Stated Complaint: Palpitatns BEATRIZ: 3 Review of Systems Review of Systems All systems reviewed & are unremarkable except as noted in HPI and below PFSH Social History adopted: No household members: spouse housing: house lives independently: Yes number of children: 3 number of grandchildren: 4 current occupational status: retired Smoking and Tabacco status: Former Tobacco Use alcohol intake: current alcohol intake frequency: a few times a week substance use type: marijuana Seatbelt use: always Helmet use: Yes Exam Narrative Exam Narrative: 1.Const: Well-nourished, Well-developed, appearing stated age 2.Eyes: PERRL, no conjunctival injection, and symmetrical lids. 3.ENT: Atraumatic external nose and ears. Moist MM. Neck: Symmetric, trachea midline, No thyromegaly. 4.CVS: +S1/S2, No murmurs or gallops. Peripheral pulses 2+ and equal in all extremities. Brisk capillary refill in all extremities. 5.RESP: Unlabored respiratory effort. Clear to auscultation bilaterally. No wheezes rales or rhonchi 6.GI: Soft, Nontender/Nondistended, No hepatosplenomegaly. No guarding or rebound. 7.MSK: Normocephalic/Atraumatic, Extremities w/o deformity or ttp No cyanosis or clubbing, Normal movement of all extremities 8.Skin: Warm, Dry. No rashes or lesions. 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 Sensation grossly intact, no focal neurologic deficits. 10.Psych: (AAO) x3. Appropriate mood and affect Course Vital Signs Temperature 37 C 05/30/18 11:00 Pulse 106 H 05/30/18 11:00 Respiratory Rate 16 05/30/18 11:00 Blood Pressure 175/98 H 05/30/18 11:00 Pulse Oximetry 97 05/30/18 11:00 Temperature 37 C 05/30/18 11:00 Temperature Source Skin 05/30/18 11:00 Pulse 106 H 05/30/18 11:00 Respiratory Rate 16 05/30/18 11:00 Respiratory Effort Non-Labored 05/30/18 11:00 Blood Pressure 175/98 H 05/30/18 11:00 Blood Pressure Position Supine 05/30/18 11:00 Pulse Oximetry 97 05/30/18 11:00 Oxygen Delivery Method Room Air 05/30/18 11:00 Oxygen Flow Rate 0 05/30/18 11:00 Pain Level 0 05/30/18 11:00 Lab/Test Results Lab/Test Results: Laboratory Tests Range/Units 05/30/18 11:30 WBC (4.4-10.8) k/cumm 6.24 RBC (4.50-6.00) m/cumm 4.92 Hgb (13.5-17.5) g/dL 14.7 Hct (40.0-50.0) % 42.3 MCV (80-95) fL 86.0 MCH (27.0-33.0) pg 29.9 MCHC (32.0-36.0) g/dL 34.8 RDW (11.8-14.1) % 13.2 Plt Count (130-400) x1000/uL 258 MPV (8.0-11.0) fL 9.2 Immature Gran % 0.2 Neutrophils % 64.9 Lymphocytes % 27.2 Monocytes % 6.9 Eosinophils % 0.5 Basophils % 0.3 Absolute Neutrophils (1.2-6.7) k/cumm 4.05 Absolute Lymphocytes (1.2-3.4) k/cumm 1.70 Absolute Monocytes (0.11-0.7) k/cumm 0.43 Absolute Eosinophils (0.0-0.7) k/cumm 0.03 Absolute Basophils (0.0-0.2) k/cumm 0.02
[2018-05-30] MEDS: Normal Saline 1,000 ML 1000 ML IV (11:50)
[2018-05-30 12:03] VITALS: BP 148/75; PULSE 90; RESP 24; O2SAT 97
[2018-05-30 12:05] LABS: ALT 28 U/L (12-78); AST 24 U/L (15-37); Albumin 3.8 g/dL (3.4-5.0); Alkaline Phosphatase 89 U/L (46-116); Anion Gap 11.9 mmol/L (3-11); BUN 18 mg/dL (7-18); Bilirubin, Total 0.3 mg/dL (0.2-1.0); CO2 25.1 mmol/L (21.0-32.0); Chloride 106 mmol/L (98-107); Glucose 93 mg/dL (70-100); Magnesium 1.9 mg/dL (1.8-2.4); Potassium 3.7 mmol/L (3.5-5.1); Sodium 143 mmol/L (136-145); TSH (W/Ref FT4) 2.88 uIU/mL (0.358-3.74); Total Protein 7.7 g/dL (6.4-8.2)
[2018-05-30 12:06] LABS: Troponin I < 0.02 ng/mL (0.00-0.06)
[2018-05-30 12:10] LABS: D-Dimer 453 ng/mlFEU (<500)
== END 2018-05-30 13:03 | disposition home or self-care (01) ==
PROVIDERS: Emergency Provider Student in an Organized Health Care Education/Training Program; PCP Nurse Practitioner
DX: R00.2 Palpitations (principal)
CPT/HCPCS: 36415; 80053; 93005; 96360; 99284; 83735; 84443; 84484; 85025; 85379; 93010

== ENCOUNTER 2018-06-04 15:08 | Outpatient (REF) | payer MEDICARE, SELFPAY | END 2018-06-04 15:28 | LOC: LBN 15:08 | PROVIDERS: PCP Nurse Practitioner; Visit Provider Nurse Practitioner | DX: R82.90 Unspecified abnormal findings in urine (principal) | CPT/HCPCS: 87086 ==

== ENCOUNTER → 2018-08-12 12:27 | Outpatient (BNVA) | payer MEDICARE, SELFPAY | PROVIDERS: PCP Nurse Practitioner; Visit Provider Urology | DX: R31.0 Gross hematuria (principal); Z80.52 Family history of malignant neoplasm of bladder; Z87.891 Personal history of nicotine dependence; I10 Essential (primary) hypertension | CPT/HCPCS: 99213 ==

== ENCOUNTER 2018-08-22 01:34 | Outpatient (CLI) | payer MEDICARE, SELFPAY ==
[2018-08-22 10:02] LABS: CREATININE 0.92 mg/dL (0.70-1.30)
[2018-08-22] MEDS: Omnipaque 350 MG/ML 100 ML BTL IJ (11:00)
--- NOTE | 2018-08-22 11:15 | DI.CT_ITS ---
SYMPTOM/DIAGNOSIS: HEMATURIA, R31.9, ? MASS OR STONE, ETC ABDOMEN AND PELVIC CT: CT examination of the abdomen and pelvis was performed utilizing CT urogram protocol with noncontrast CT followed by venous phase and 7 minute delayed images. Images obtained through the lung bases are unremarkable. Liver, spleen and pancreas appear normal. Abdominal aorta is of normal diameter and no major vascular abnormality is seen. Normal appearance of the appendix. No evidence of diverticulitis or bowel obstruction. No abdominal or pelvic adenopathy. No significant abdominal wall hernia. Adrenals are normal in appearance bilaterally. Prostate is enlarged and heterogenous measuring roughly 9 by 8 by 7 cm. in diameter and markedly indenting the floor of the urinary bladder. Urinary bladder shows markedly thickened wall. Renal cortex enhances normally bilateral except for apparent small bilateral renal cysts. No hydronephrosis. No nephrolithiasis or ureterolithiasis. There is normal transit time of urine to the urinary bladder. CONCLUSION: Marked prostatic enlargement and bladder wall thickening which may reflect chronic bladder outlet obstruction versus cystitis or other cause. No other significant findings.
== END 2018-08-22 01:54 ==
PROVIDERS: PCP Nurse Practitioner; Visit Provider Urology
DX: R31.0 Gross hematuria (principal); N40.0 Benign prostatic hyperplasia without lower urinary tract symptoms; N32.9 Bladder disorder, unspecified; I10 Essential (primary) hypertension
CPT/HCPCS: 99213; 74178; 82565; J3490

== ENCOUNTER → 2018-10-15 09:06 | Outpatient (BNVA) | payer MEDICARE, SELFPAY | PROVIDERS: PCP Nurse Practitioner; Visit Provider Urology | DX: R33.8 Other retention of urine (principal); N40.1 Benign prostatic hyperplasia with lower urinary tract symptoms | CPT/HCPCS: 99213 ==

== ENCOUNTER → 2018-11-04 07:57 | Outpatient (BNVA) | payer MEDICARE, MEDICAID, SELFPAY | PROVIDERS: PCP Nurse Practitioner; Visit Provider Urology | DX: R69 Illness, unspecified (principal) ==

== ENCOUNTER 2018-11-04 09:45 | Inpatient (IN) | payer MEDICARE, SELFPAY ==
[2018-11-04] VITALS (13 sets, daily range): BP systolic 85–155; BP diastolic 44–92; PULSE 66–83; RESP 8–21; TEMP 36.3–37; O2SAT 93–99
--- NOTE | 2018-11-04 11:13 | W.PM.HP.N ---
Date of service: 11/04/18 Time of Service: 11:13 Assessment and Plan (1) 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 hyperplasia: Current visit: No Status: Chronic He is unable to tolerate medical therapy. He is interested in moving away from intermittent catheterization. Since he does have a sensation of when he needs to void and he does void somewhat during the day, I think he is a candidate for his surgical treatment. We will move ahead with transurethral resection of the prostate and vaporization using the bipolar cautery. History of Present Illness Chief Complaint: Urinary retention Narrative: This is a 73-year-old who has a history of urinary retention. He is been unable to tolerate 5 alpha reductase inhibitors and alpha blockers. He has been voiding during the day but is performing intermittent catheterization at night. He is interested in surgical treatment to get away from CIC. He does have a sensation of needing to voidat night. He is now getting up to catheterize 2-3 times a night He does not have any dysuria or gross hematuria. He has no known history of prostate cancer. He has had an elevated PSA however. Review of Systems Review of Systems No fevers or chills No vision change or dysphasia No diabetes or thyroid No shortness of breath, cough or hemoptysis Hx palpatations. No chest pain. Hx GERD. No hepatitis, ulcers, jaundice, diarrhea or constipation No seizures, strokes or peripheral neuropathy No bleeding disorders or anemia No gout or arthralgia PFSH Surgical History (Updated 11/04/18 @ 10:36 by Tangela Mckeon) EGD w/ BX (12/06/11) H/O hernia repair (Chronic) Repair of inguinal hernia (~1979) Tonsillectomy Vasectomy Family History (Updated 11/04/18 @ 10:37 by Tangela Mckeon) Other Cancer Social History Smoking/Tobacco Use Status: Former Tobacco Use Alcohol Intake: current Alcohol Intake frequency: a few times a week Drug use: Occasionally Substance use type: marijuana Adopted: No Household members: spouse Housing: house Number of Children: 3 number of grandchildren: 4 Seatbelt use: always Helmet use: Yes Do you feel safe in your relationship?: Yes Meds Home Medications Medication Instructions Recorded Confirmed Type catheter [Rueda Catheter] #30 ea 02/09/15 10/14/18 History Chaga Tea 1 DAILY PRN 09/06/16 10/14/18 History calcium carbonate [Tums] 200 mg PO DAILY PRN tab.chew 09/06/16 10/30/18 History omeprazole 40 mg capsule,delayed 40 mg PO DAILY #90 tab-cap 09/30/18 11/04/18 Rx release losartan 25 mg tablet 25 mg PO DAILY #30 tab 10/14/18 11/04/18 Rx propranolol 10 mg tablet 10 mg PO HS tab 10/14/18 11/04/18 History Allergies Allergy/AdvReac Type Severity Reaction Status Date / Time finasteride Allergy Verified 11/04/18 10:30 terazosin HCl [From Hytrin] AdvReac sweats Verified 11/04/18 10:30 Exam Narrative Exam Narrative: He is a very pleasant gentleman in no current distress. He is cooperative. He does not appear septic or toxic. His vital signs are documented elsewhere in the chart His neck is supple Lungs are clear on auscultation Cardiac exam regular rate and rhythm Abdomen is soft with no masses He is awake, alert and oriented. Results Last Vital Signs Temp 36.5 C 11/04/18 10:59 Pulse 76 11/04/18 10:59 Resp 16 11/04/18 10:59 BP 153/90 H 11/04/18 10:59 Pulse Ox 99 11/04/18 10:59
[2018-11-04] MEDS: Lactated Ringers 1,000 ML 80 ML IV ×3 (11:26→16:15)
[2018-11-04] MEDS: ceFAZolin 1 GM/50 ML BAG IVPB (12:04)
[2018-11-04] MEDS: Lidocaine 2% Jelly 6 ML SYR (12:22)
--- NOTE | 2018-11-04 13:54 | PROST_PTH ---
PATIENT: Greyson Vicente LOC: U#:[id number] AGE/SX: 73/M ROOM: MS.218 RE11/04/[address]: Fredy Mcgrath MD : 1945 BED: A DIS: 11/06/2018 SPEC #: [id number] RECD: 11/04/18 15:04 STATUS: JAVIER REQ #: [id number] ALEXYS: 11/04/18 13:[address]: Fredy Mcgrath DEPT: Surgical Specimen RECD BY: Lissett Joyce ENTERED: 11/04/18 15:05 SP TYPE: PROST OTHR DR: Brooklyn Farah APRN Tissues: 1 - PROSTATE CURRETTINGS Procedures: GROSS AND MICRO LEVEL 4 Comments: [id number]
--- NOTE | 2018-11-04 16:01 | ROE_ITS ---
DATE OF PROCEDURE: November 04, 2018 PREOPERATIVE DIAGNOSIS: Urinary retention. POSTOPERATIVE DIAGNOSIS: Same. PROCEDURE: Cystoscopy; transurethral resection and vaporization of the prostate. SURGEON: Fredy Mcgrath M.D. ANESTHESIA: General. COMPLICATIONS: None. SPECIMEN: Prostate chips. ESTIMATED BLOOD LOSS: 500 cc's HISTORY: This is a 72-year-old gentleman who has a history of urinary retention. He is able to void through the day but is requiring intermittent catheterization at night. He is unable to tolerate me dical therapy with alpha blockers or 5-alpha reductase inhibitors. He presents for vaporization of h is prostate. OPERATIVE REPORT: The patient was brought to the Operating Room on 11/04/18. After successful induct ion of general anesthesia, he was placed in the dorsal lithotomy position. His genitalia was prepped and draped. A 22 Canadian rigid cystoscope was passed through the urethra into the bladder. The urethra and bladde r were inspected using a 30-degree lens. The pendulous, bulbous and membranous urethras all appeared normal with no strictures. The prostatic urethra was markedly enlarged with the left lobe being larger than the right. A large median lobe w as identified. The bladder was heavily trabeculated with multiple diverticula and cellules present. No bladder tumo rs were identified. We then removed the cystoscope and passed a 26 Canadian resectoscope sheath through the urethra into th e bladder. We began with the resection loop and the Patton resectoscope and took down the markedly enlarged median lobe. Once the median lobe was taken down, we switched to the plasma button and vaporized the lateral lobes from the bladder neck out to the verumontanum. All resected tissue was evacuated and sent to pathology for permanent section. With the markedly enlarged prostate there was a bit more bleeding than we normally see with these pro cedures, but he remained hemodynamically stable throughout the procedure. At the completion of the procedure we filled the bladder with irrigant. We removed the resectoscope and passed a 24 Canadian hematuria catheter through the urethra into the bladder. The catheter balloon was inflated with 50 cc's of sterile water. Traction was placed on the catheter and irrigation was started. The catheter was hand-irrigated until the irrigant became clear. The patient tolerated this procedure well with no complications.
[2018-11-04] MEDS: Docusate Sodium 100 MG CAP PO (20:45)
[2018-11-04] MEDS: Propranolol 10 MG TAB 5 MG PO (21:43)
[2018-11-05] MEDS: Lactated Ringers 1,000 ML 100 ML IV (01:44)
[2018-11-05 07:27] LABS: HGB 12.8 g/dL (13.5-17.5); Mean Corp. HGB Concentration 34.6 g/dL (32.0-36.0); Mean Corpuscular Hemoglobin 30.4 pg (27.0-33.0); Mean Corpuscular Volume 87.9 fL (80-95); Platelet Count 269 x1000/uL (130-400); RBC 4.21 m/cumm (4.50-6.00); RBC Distribution Width 12.2 % (11.8-14.1); White Blood Cell Count 12.41 k/cumm (4.4-10.8)
[2018-11-05 07:30] VITALS: BP 125/79; PULSE 64; RESP 18; TEMP 37.1; O2SAT 98
[2018-11-05 07:41] LABS: Anion Gap 9.7 mmol/L (3-11); BUN 15 mg/dL (7-18); CO2 27.3 mmol/L (21.0-32.0); CREATININE 0.94 mg/dL (0.70-1.30); Calcium 8.5 mg/dL (8.5-10.1); Chloride 103 mmol/L (98-107); Glucose 159 mg/dL (70-100); Sodium 140 mmol/L (136-145)
--- NOTE | 2018-11-05 07:56 | W.PM.PROGNOT ---
Date of Service Date of service: 11/05/18 Time of Service: 07:56 Assessment and Plan (1) 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 hyperplasia: Current visit: No Status: Chronic He had a bit of a rough night but he is doing quite a bit better this morning. As long as he is able to tolerate a regular diet, we can probably wean him off of his IV fluids later today. We will try stopping the bladder irrigation but restart it if the urine appears bloody. If we need to restart the bladder irrigation, he will be here in the hospital with this 1 more day Subjective Interval history since last seen: Chief complaint: Postoperative day #1 The patient had some nausea and emesis overnight. He is able to tolerate some liquid and toast this morning. His blood pressure was a bit low last evening, but has improved with fluids overnight. He is not having any abdominal pain. He had no clot retention. He has no fever or chills. Exam Narrative Exam Narrative: He looks well. He does not appear septic or toxic. His vital signs are documented elsewhere in the chart. His urine is clear with the continuous bladder irrigation running. His hemoglobin and serum creatinine are stable. Objective Objective Clinical Data: Abnormal lab results 11/05/18 11/05/18 Range/Units 07:09 07:09 WBC 12.41 H (4.4-10.8) k/cumm RBC 4.21 L (4.50-6.00) m/cumm Hgb 12.8 L (13.5-17.5) g/dL Hct 37.0 L (40.0-50.0) % Glucose 159 H (70-100) mg/dL Vital Signs Temperature 37.0 C 11/04/18 23:52 Temperature Source Tympanic 11/04/18 23:52 Pulse 72 11/04/18 23:52 Pulse Rhythm Regular 11/04/18 23:40 Respiratory Rate 18 11/04/18 23:52 Respiratory Effort 11/04/18 23:40 Respiratory Depth Normal 11/04/18 23:40 Respiratory Pattern Normal 11/04/18 23:40 Blood Pressure 155/90 H 11/04/18 23:52 Pulse Oximetry 99 11/04/18 23:52 Respiratory End-tidal CO2 29 11/04/18 15:25 Oxygen Delivery Method Room Air 11/04/18 23:52 Oxygen Flow Rate 0 11/04/18 23:52 Pain Level 0 11/04/18 23:52 Intake & Output 11/04/18 11/04/18 11/05/18 11:59 23:59 11:59 Intake Total 1219.333 / 1219.333 553.333 / 553.333 Output Total 500 / 500 400 / 400 Balance 719.333 / 719.333 153.333 / 153.333 Weight 74.2 kg Intake: IV 1219.333 / 1219.333 103.333 / 103.333 Oral 450 / 450 Output: Emesis 400 / 400 Estimated Blood Loss 500 / 500 Other: Urine Color Coleman Urine Appearance Hematuria Comment CBI. U/O IS [place] Emesis Description None Clear/Water Laboratory Results WBC 12.41 k/cumm (4.4-10.8) H 11/05/18 07:09 RBC 4.21 m/cumm (4.50-6.00) L 11/05/18 07:09 Hgb 12.8 g/dL (13.5-17.5) L 11/05/18 07:09 Hct 37.0 % (40.0-50.0) L 11/05/18 07:09 MCV 87.9 fL (80-95) 11/05/18 07:09 MCH 30.4 pg (27.0-33.0) 11/05/18 07:09 MCHC 34.6 g/dL (32.0-36.0) 11/05/18 07:09 RDW 12.2 % (11.8-14.1) 11/05/18 07:09 Plt Count 269 x1000/uL (130-400) 11/05/18 07:09 MPV 9.0 fL (8.0-11.0) 11/05/18 07:09 Sodium 140 mmol/L (136-145) 11/05/18 07:09 Potassium 4.0 mmol/L (3.5-5.1) 11/05/18 07:09 Chloride 103 mmol/L (98-107) 11/05/18 07:09 Carbon Dioxide 27.3 mmol/L (21.0-32.0) 11/05/18 07:09 9.7 mmol/L (3-11) 11/05/18 07:09 BUN 15 mg/dL (7-18) 11/05/18 07:09 0.94 mg/dL (0.70-1.30) 11/05/18 07:09 >= 60.00 (mL/min/1.73m2) 11/05/18 07:09 Glucose 159 mg/dL (70-100) H 11/05/18 07:09 Calcium 8.5 mg/dL (8.5-10.1) 11/05/18 07:09
[2018-11-05] MEDS: Omeprazole 20 MG CAPCR 40 MG PO (08:05)
[2018-11-05] MEDS: Losartan 25 MG TAB PO (09:00)
[2018-11-05 11:00] VITALS: BP 108/70; BP 121/77; PULSE 100; PULSE 114; TEMP 37.1; O2SAT 98
[2018-11-05 15:56] VITALS: BP 102/61; PULSE 112; RESP 20; TEMP 37.1; O2SAT 97
--- NOTE | 2018-11-05 16:02 | PDOC.CMIN ---
- If Service Date Differs Date of service: 11/05/18 Time of Service: 16:02 Care Management Initial Assess REASON FOR HOSPITALIZATION:: urinary retention PAST MEDICAL HISTORY/PAST SURGICAL HISTORY:: Past medical history: BPH. Surgical History: EGD w/ BX (12/06/11). H/O hernia repair (Chronic). Repair of inguinal hernia (~1979). Tonsillectomy. Vasectom PREVIOUS FUNCTIONAL STATUS/SOCIAL/FAMILY SUPPORTS:: Greyson lives in a single family home in [place] with his Monica. They have 3 daughters, 4 grandchildren and 2 great grandchildren. All of their family members live locally and provide strong support to Greyson and Monica. He states selena are very active and healthy for their age. He is independent with all activities and ADLs. 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 CURRENT FUNCTIONAL STATUS:: Greyson was sitting up in bed when CM came to his room. He had a CBI running with blood tinged urine. He stated that the plan was for him to be discharged tomorrow with the catheter in place for a few days. He denied pain but said he had a little bit of discomfort. Greyson was pleasnat and engaged readily in conversation. ADVANCE DIRECTIVES:: on file at [facility]. Monica [facility] [phone] Has patient been provided with information about the portal?: No Did the patient sign up for the portal?: No CODE STATUS:: Full Code INSURANCE COVERAGE / FINANCIAL ISSUES:: Medicare. Financial assist 100 CURRENT HOME/COMMUNITY SERVICES/EQUIPMENT:: none currently PRIMARY CARE PHYSICIAN:: Brooklyn Farah POTENTIAL DISCHARGE NEEDS:: Follow up with Urology and discharge plan of care PATIENT/FAMILY EDUCATION NEEDS:: Discharge plan, limitations, follow up plan, Ask Me Three. ANTICIPATED BARRIERS TO DISCHARGE:: none identified TRANSPORTATION:: via private vehicle with when ready. PLAN:: Greyson will be discharged home with no new services when ready. He will likely leave with a reyez catheter in place for a few days and follow up with Urology for removal. CM to continue to provide support to patient and family and discharge planning concerns and needs.
[2018-11-05] MEDS: Normal Saline Flush 10 ML SYR IV (19:42)
[2018-11-05] MEDS: Ketorolac 15 MG/ML VIAL IVP (19:43)
[2018-11-05] MEDS: Docusate Sodium 100 MG CAP PO (19:52)
[2018-11-05] MEDS: Propranolol 10 MG TAB 5 MG PO (22:50)
[2018-11-05] MEDS: Oxybutynin 5 MG TAB PO (22:53)
[2018-11-05 23:03] VITALS: BP 128/71; PULSE 89; RESP 18; TEMP 36.8; O2SAT 100
[2018-11-06] MEDS: Oxybutynin 5 MG TAB PO (05:23)
--- NOTE | 2018-11-06 07:06 | W.PM.DS.N ---
Date of service: 11/06/18 Time of Service: 07:06 DS: Diagnosis Discharge Diagnosis (1) 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 hyperplasia: Status: Chronic Discharge Plan Disposition Patient Disposition: HOME Condition: Stable Discharge Details Reason For Visit: URINARY RETENTION Admit Date/Time: 11/04/18 09:45 Admit Provider: Fredy Mcgrath Attending Provider: Fredy Mcgrath Primary Care Provider: Brooklyn Farah Hospital Course Hospital Course: The patient was brought to the operating room on 11/04/18. He underwent a TURP and vaporization of the prostate for a very large prostate. He was maintained on bladder irrigation. His Hgb and creatinine levels were stable on POD #1. He had nausea and vomiting throughout the first post op evening, so he remained in the hospital one additional day. He had spasms which have improved with the use of anticholinergics and decreasing the amount of water in his catheter balloon. He is being discharged with his catheter in place. Home Meds and New Rx's Prescriptions: New oxybutynin chloride 5 mg tablet 5 mg PO TID PRN (Reason: bladder spasm) Qty: 15 RF: 0 tramadol 50 mg tablet 50 mg PO Q8H PRN (Reason: pain) Qty: 10 RF: 0 cephalexin 250 mg tablet 250 mg PO Q8H Qty: 12 RF: 0 No Action propranolol 10 mg tablet 10 mg PO HS RF: 0 losartan 25 mg tablet 25 mg PO DAILY Qty: 30 RF: 3 omeprazole 40 mg capsule,delayed release(DR/EC) 40 mg PO DAILY Qty: 90 RF: 3 (DME) Reyez Catheter 1 EACH misc 1 ea Miscellaneous PRN Qty: 30 RF: 0 calcium carbonate [Tums] 200 MG tablet,chewable 200 mg PO DAILY PRNRF: 0 chaga tea 1 DAILY PRNRF: 0 Discharge Instructions Additional Instructions: Followup appt to have catheter removed either Sunday AM or Sunday Followup appt with me 1 to 2 weeks to review pathology results OK to shower Stand Alone Forms: Nursing Discharge Form Referrals: Fredy Mcgrath MD [ [facility] STAFF PHYSICIAN] - Activity:: no straining or lifting over 10 pounds Equipment/Supplies:: reyez to leg bag Diet:: As Tolerated Discharge Orders Discharge Orders: Discharge Order (Routine); Ordered 11/06/18 Ordered By: Fredy Mcgrath Exam Narrative Exam Narrative: He looks comfortable. His vital signs are documented elsewhere in chart His lungs are clear Cardiac exam shows a regular rate and rhythm Abdomen is soft with no mass. His bladder is not distended He is awake, alert and oriented DS: Data Vitals/I&O Vitals and I&O: Vital Signs Temperature 36.8 C 11/05/18 23:03 Temperature Source Tympanic 11/05/18 23:03 Pulse 89 11/05/18 23:03 Pulse Rhythm Regular 11/05/18 20:14 Respiratory Rate 18 11/05/18 23:03 Respiratory Effort Non-Labored 11/05/18 20:14 Respiratory Depth Normal 11/05/18 20:14 Respiratory Pattern Normal 11/05/18 20:14 Blood Pressure 128/71 11/05/18 23:03 Pulse Oximetry 100 11/05/18 23:03 Respiratory End-tidal CO2 29 11/04/18 15:25 Oxygen Delivery Method Room Air 11/05/18 23:03 Oxygen Flow Rate 0 11/05/18 23:03 Pain Level 0 11/05/18 23:03 Intake & Output 11/05/18 11/05/18 11/06/18 11:59 23:59 11:59 Intake Total 803.333 / 1383.333 580 / 1383.333 200 / 200 Output Total 400 / 26807 02862 / 31393 6000 / 6000 Balance 403.333 / -52055.667 -75618 / -39340.667 -5800 / -5800 Intake: IV 113.333 / 213.333 100 / 213.333 Oral 690 / 1170 480 / 1170 200 / 200 Output: Urine 33617 / 15778 6000 / 6000 Emesis 400 / 400 Other: Urine Color Coleman [place] Coleman Urine Appearance Clear Clear Clear Comment pt CBI is draining coleman colored urine with no clots at this time. Flow rate was decreased 11/05 at 0730 and resulting in more dark, thick urine. Flow rate increased shortly after to maintain proper drainage. Patient still complaining of strong urge to void. Dr Mcgrath on hand and i assit him he irrigated the bladder and feels the patient is having bladder spasms he orders medications for spasm relief Stool Occult Blood Positive Stool Size Moderate Stool Characteristics Soft Formed Emesis Description Clear/Water Labs on day of discharge: Labs from last 24 hours 11/05/18 11/05/18 07:09 07:09 WBC 12.41 H RBC 4.21 L Hgb 12.8 L Hct 37.0 L MCV 87.9 MCH 30.4 MCHC 34.6 RDW 12.2 Plt Count 269 MPV 9.0 Sodium 140 Potassium 4.0 Chloride 103 Carbon Dioxide 27.3 Anion Gap 9.7 BUN 15 Creatinine 0.94 Estimated GFR/1.73 m2 >= 60.00 Glucose 159 H Calcium 8.5 PFSH Medical History Benign prostate hyperplasia (12/11/07) Surgical History EGD w/ BX (12/06/11) H/O hernia repair (Chronic) Repair of inguinal hernia (~1979) Tonsillectomy Vasectomy Family History Other Cancer Social History Smoking/Tobacco Use Status: Former Tobacco Use Alcohol Intake: current Alcohol Intake frequency: a few times a week Drug use: Occasionally Substance use type: marijuana Adopted: No Household members: spouse Housing: house Number of Children: 3 number of grandchildren: 4 Seatbelt use: always Helmet use: Yes Do you feel safe in your relationship?: Yes
--- NOTE | 2018-11-06 07:18 | W.PM.PROGNOT ---
Date of Service Date of service: 11/06/18 Time of Service: 07:18 Assessment and Plan (1) 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 hyperplasia: Current visit: No Status: Chronic He can go home with his catheter to a leg bag. He will come to the office Sunday AM (or Sunday AM at the earliest) to have a voiding trial. Subjective Interval history since last seen: He had spasms overnight, but less bothersome since starting Oxybutynin. He no longer has nausea or vomiting Exam Narrative Exam Narrative: He looks well this AM His urine is clear with CBI - once CBI stopped, the urine becomes pink but remains transparent His vital signs are documented elsewhere He is awake and alert Objective Objective Clinical Data: Abnormal lab results 11/05/18 11/05/18 Range/Units 07:09 07:09 WBC 12.41 H (4.4-10.8) k/cumm RBC 4.21 L (4.50-6.00) m/cumm Hgb 12.8 L (13.5-17.5) g/dL Hct 37.0 L (40.0-50.0) % Glucose 159 H (70-100) mg/dL Vital Signs Temperature 36.8 C 11/05/18 23:03 Temperature Source Tympanic 11/05/18 23:03 Pulse 89 11/05/18 23:03 Pulse Rhythm Regular 11/05/18 20:14 Respiratory Rate 18 11/05/18 23:03 Respiratory Effort Non-Labored 11/05/18 20:14 Respiratory Depth Normal 11/05/18 20:14 Respiratory Pattern Normal 11/05/18 20:14 Blood Pressure 128/71 11/05/18 23:03 Pulse Oximetry 100 11/05/18 23:03 Respiratory End-tidal CO2 29 11/04/18 15:25 Oxygen Delivery Method Room Air 11/05/18 23:03 Oxygen Flow Rate 0 11/05/18 23:03 Pain Level 0 11/05/18 23:03 Intake & Output 11/05/18 11/05/18 11/06/18 11:59 23:59 11:59 Intake Total 803.333 / 1383.333 580 / 1383.333 200 / 200 Output Total 400 / 46309 95684 / 44534 6000 / 6000 Balance 403.333 / -38782.667 -60941 / -43590.667 -5800 / -5800 Intake: IV 113.333 / 213.333 100 / 213.333 Oral 690 / 1170 480 / 1170 200 / 200 Output: Urine 50749 / 70059 6000 / 6000 Emesis 400 / 400 Other: Urine Color Coleman [place] Coleman Urine Appearance Clear Clear Clear Comment pt CBI is draining coleman colored urine with no clots at this time. Flow rate was decreased 11/05 at 0730 and resulting in more dark, thick urine. Flow rate increased shortly after to maintain proper drainage. Patient still complaining of strong urge to void. Dr Mcgrath on hand and i assit him he irrigated the bladder and feels the patient is having bladder spasms he orders medications for spasm relief Stool Occult Blood Positive Stool Size Moderate Stool Characteristics Soft Formed Emesis Description Clear/Water Laboratory Results WBC 12.41 k/cumm (4.4-10.8) H 11/05/18 07:09 RBC 4.21 m/cumm (4.50-6.00) L 11/05/18 07:09 Hgb 12.8 g/dL (13.5-17.5) L 11/05/18 07:09 Hct 37.0 % (40.0-50.0) L 11/05/18 07:09 MCV 87.9 fL (80-95) 11/05/18 07:09 MCH 30.4 pg (27.0-33.0) 11/05/18 07:09 MCHC 34.6 g/dL (32.0-36.0) 11/05/18 07:09 RDW 12.2 % (11.8-14.1) 11/05/18 07:09 Plt Count 269 x1000/uL (130-400) 11/05/18 07:09 MPV 9.0 fL (8.0-11.0) 11/05/18 07:09 Sodium 140 mmol/L (136-145) 11/05/18 07:09 Potassium 4.0 mmol/L (3.5-5.1) 11/05/18 07:09 Chloride 103 mmol/L (98-107) 11/05/18 07:09 Carbon Dioxide 27.3 mmol/L (21.0-32.0) 11/05/18 07:09 9.7 mmol/L (3-11) 11/05/18 07:09 BUN 15 mg/dL (7-18) 11/05/18 07:09 0.94 mg/dL (0.70-1.30) 11/05/18 07:09 >= 60.00 (mL/min/1.73m2) 11/05/18 07:09 Glucose 159 mg/dL (70-100) H 11/05/18 07:09 Calcium 8.5 mg/dL (8.5-10.1) 11/05/18 07:09
[2018-11-06 07:25] VITALS: BP 140/70; PULSE 100; RESP 18; TEMP 37.7; O2SAT 98
[2018-11-06] MEDS: Omeprazole 20 MG CAPCR 40 MG PO (08:00)
[2018-11-06] MEDS: Losartan 25 MG TAB PO (08:35)
--- NOTE | 2018-11-06 15:18 | PDOC.CMDIS ---
- If Service Date Differs Date of service: 11/06/18 Time of Service: 15:18 LACE Index Scoring Tool - Questions: Length of Stay (in days): 2 Acuity (Admit via E.D.?): No E.D. Visits: 2 - Answers: Total Score: 4 Risk of Readmission: Low Risk Care Management Discharge Reason for Hospitalization: urinary retention Discharge Plan: Greyson will be discharged home with no new services. He will leave with a reyez catheter in place for a few days and follow up with Urology for removal. Greyson will be transported via private vehicle with his . He will follow up with his PCP and discharge plan of care. Patient/Family Education Needs: Discharge plan, limitations, follow up plan, Ask Me Three.
== END 2018-11-06 09:55 | disposition home or self-care (01) | DRG 714 ==
LOC: PDS 11:41 → MS 15:42
PROVIDERS: Admitting Provider Urology; PCP Nurse Practitioner; Visit Provider Urology
PROC: 0VT08ZZ Resection of Prostate, Via Natural or Artificial Opening Endoscopic (ICD-10-PCS; CPT 52601; principal; 2018-11-04 12:45)
DX: N40.1 Benign prostatic hyperplasia with lower urinary tract symptoms (principal); R33.8 Other retention of urine; N41.1 Chronic prostatitis; R97.20 Elevated prostate specific antigen [PSA]; N32.89 Other specified disorders of bladder; K91.0 Vomiting following gastrointestinal surgery
CPT/HCPCS: 52601; 36415; 80048; 85027; 88305; NC; J0690; J1100; J1885; J2310; J2405

== ENCOUNTER → 2018-11-11 08:10 | Outpatient (BNVA) | payer MEDICARE, SELFPAY | PROVIDERS: PCP Nurse Practitioner; Visit Provider Urology | DX: N40.1 Benign prostatic hyperplasia with lower urinary tract symptoms (principal); R33.9 Retention of urine, unspecified; Z48.816 Encounter for surgical aftercare following surgery on the genitourinary system ==

== ENCOUNTER → 2018-11-21 09:42 | Outpatient (BNVA) | payer MEDICARE, SELFPAY | PROVIDERS: PCP Nurse Practitioner; Visit Provider Urology | DX: Z48.816 Encounter for surgical aftercare following surgery on the genitourinary system (principal); N40.1 Benign prostatic hyperplasia with lower urinary tract symptoms; R33.8 Other retention of urine | CPT/HCPCS: 51798 ==

== ENCOUNTER 2018-12-03 12:14 | Outpatient (REF) | payer MEDICARE, SELFPAY | END 2018-12-03 12:34 | LOC: LBN 12:14 | PROVIDERS: PCP Nurse Practitioner; Visit Provider Urology | DX: R31.9 Hematuria, unspecified (principal) | CPT/HCPCS: 87077; 87086; 87186 ==

== ENCOUNTER → 2018-12-20 09:23 | Outpatient (BNVA) | payer MEDICARE, SELFPAY | PROVIDERS: PCP Nurse Practitioner; Visit Provider Urology | DX: N39.0 Urinary tract infection, site not specified (principal); N40.1 Benign prostatic hyperplasia with lower urinary tract symptoms; R33.8 Other retention of urine; Z48.816 Encounter for surgical aftercare following surgery on the genitourinary system | CPT/HCPCS: 51798; 81003 ==

== ENCOUNTER 2018-12-20 13:55 | Outpatient (REF) | payer MEDICARE, SELFPAY | END 2018-12-20 14:15 | LOC: LBN 13:55 | PROVIDERS: PCP Nurse Practitioner; Visit Provider Urology | DX: N39.0 Urinary tract infection, site not specified (principal) | CPT/HCPCS: 87077; 87086; 87186 ==

== ENCOUNTER 2018-12-26 01:24 | Outpatient (RCR) | payer MEDICARE, SELFPAY ==
[2018-12-24] MEDS: Normal Saline Flush 10 ML SYR IVP (13:43)
[2018-12-24] MEDS: DAPTOmycin 500 MG in Normal Saline 50 ML 100 MG IVPB (13:43)
[2018-12-25] MEDS: Normal Saline Flush 10 ML SYR IVP (13:43)
[2018-12-25] MEDS: DAPTOmycin 500 MG in Normal Saline 50 ML 100 MG IVPB (13:43)
[2018-12-26] MEDS: DAPTOmycin 500 MG in Normal Saline 50 ML 100 MG IVPB (13:43)
[2018-12-26] MEDS: Normal Saline Flush 10 ML SYR IVP (13:44)
== END 2019-01-13 23:59 | disposition home or self-care (01) ==
LOC: INF 01:24
PROVIDERS: PCP Nurse Practitioner; Visit Provider Urology
DX: N39.0 Urinary tract infection, site not specified (principal)
CPT/HCPCS: 96365; J0878

== ENCOUNTER → 2018-12-31 13:00 | Outpatient (BNVA) | payer MEDICARE, SELFPAY | PROVIDERS: PCP Nurse Practitioner; Visit Provider Nurse Practitioner Gerontology | DX: N40.1 Benign prostatic hyperplasia with lower urinary tract symptoms (principal); R33.8 Other retention of urine | CPT/HCPCS: 81003; 99213 ==

== ENCOUNTER 2018-12-31 14:25 | Outpatient (REF) | payer MEDICARE, SELFPAY | END 2018-12-31 14:45 | LOC: LBN 14:25 | PROVIDERS: PCP Nurse Practitioner; Visit Provider Nurse Practitioner Gerontology | DX: R33.8 Other retention of urine (principal); N40.1 Benign prostatic hyperplasia with lower urinary tract symptoms | CPT/HCPCS: 87086 ==

== ENCOUNTER → 2019-03-07 12:43 | Outpatient (BNVA) | payer MEDICARE, SELFPAY | PROVIDERS: PCP Nurse Practitioner; Referring Provider Nurse Practitioner; Visit Provider Urology | DX: N40.1 Benign prostatic hyperplasia with lower urinary tract symptoms (principal); R33.8 Other retention of urine; Z87.440 Personal history of urinary (tract) infections | CPT/HCPCS: 81003; 99213 ==

== ENCOUNTER 2019-09-10 10:16 | Outpatient (CLI) | payer MEDICARE, SELFPAY ==
[2019-09-10 12:04] LABS: ALT 30 U/L (16-63); AST 23 U/L (15-37); Albumin 4.1 g/dL (3.4-5.0); Alkaline Phosphatase 74 U/L (46-116); Anion Gap 9.9 mmol/L (3-11); BUN 20 mg/dL (7-18); Bilirubin, Total 0.6 mg/dL (0.2-1.0); CO2 26.1 mmol/L (21.0-32.0); CREATININE 1.08 mg/dL (0.70-1.30); Calcium 8.9 mg/dL (8.5-10.1); Calculated LDL 126 mg/dL (<100); Chloride 105 mmol/L (98-107); Cholesterol 200 mg/dL (<200); Glucose 85 mg/dL (74-106); HDL Cholesterol 38 mg/dL (40-60); Potassium 4.1 mmol/L (3.5-5.1); Sodium 141 mmol/L (136-145); Total Protein 7.1 g/dL (6.4-8.2); Triglyceride 181 mg/dL (<150)
== END 2019-09-10 10:36 ==
PROVIDERS: PCP Nurse Practitioner; Visit Provider Nurse Practitioner
DX: I10 Essential (primary) hypertension (principal); E78.5 Hyperlipidemia, unspecified
CPT/HCPCS: 36415; 80053; 80061

== ENCOUNTER → 2020-03-02 07:53 | Outpatient (BNVA) | payer MEDICARE, SELFPAY | PROVIDERS: PCP Nurse Practitioner; Referring Provider Nurse Practitioner; Visit Provider Urology | DX: N40.1 Benign prostatic hyperplasia with lower urinary tract symptoms (principal); R33.8 Other retention of urine | CPT/HCPCS: 99212; 99441 ==

== ENCOUNTER 2020-07-08 10:45 | Inpatient (IN) | payer MEDICARE, SELFPAY ==
[2020-07-08] VITALS (40 sets, daily range): BP systolic 131–195; BP diastolic 63–93; PULSE 53–96; RESP 10–27; TEMP 36.5–37.1; O2SAT 95–100
--- NOTE | 2020-07-08 10:45 | RT.EKG_ITS ---
APPROVED REPORT Exam: Resting ECG Patient Location: E HR:62 bpm ECG Measurements Heart Rate 62 AXIS NC 171 P 62 QRSd 80 QRS 6 QT 407 T 24 QTc 412 Conclusion Sinus rhythm...normal P axis, V-rate 60- 99 sinus rhythm at 62, normal axis, no acute ischemic changes, nondiagnostic EKG
[2020-07-08] MEDS: Normal Saline Flush 10 ML SYR IVP ×4 (11:12→19:58)
[2020-07-08] MEDS: nitroGLYcerin 0.4 MG TAB SL (11:12)
--- NOTE | 2020-07-08 11:15 | RT.EKG_ITS ---
APPROVED REPORT Exam: Resting ECG Patient Location: E HR:53 bpm ECG Measurements Heart Rate 53 AXIS NC 166 P 7 QRSd 80 QRS 10 QT 421 T 48 QTc 398 Conclusion Sinus bradycardia...rate< [address] elevation, anterior leads...ST >0.15mV in V1-V4 sinus bradycardia at 53, normal axis, no acute ischemic changes though significant artifact present, nondiagnostic EKG
--- NOTE | 2020-07-08 11:15 | RT.EKG_ITS ---
APPROVED REPORT Exam: Resting ECG Patient Location: E HR:57 bpm ECG Measurements Heart Rate 57 AXIS IL 172 P 6 QRSd 89 QRS 3 QT 434 T 32 QTc 425 Conclusion Sinus bradycardia...rate< 60 sinus bradycardia at 57, normal axis, no acute ischemic changes, nondiagnostic EKG
[2020-07-08 11:20] LABS: Abs Immature Grans 0.02 10^3/uL (0.0-0.06); Absolute Basophil Count 0.06 10^3/uL (0.0-0.2); Absolute Eosinophil Count 0.02 10^3/uL (0.0-0.7); Absolute Lymphocyte Count 1.64 10^3/uL (1.2-3.4); Absolute Monocyte Count 0.34 10^3/uL (0.1-0.8); Absolute Neutrophil Count 8.36 10^3/uL (1.2-6.7); Basophils % 0.6; Eosinophils % 0.2; HCT 45.9 % (40.0-50.0); HGB 15.4 g/dL (13.5-17.5); Immature Grans % 0.2; Lymphocytes % 15.7; MCH 28.7 pg (27.0-33.0); MCHC 33.6 % (32.0-36.0); MCV 85.5 fL (80-95); MPV 9.1 fL (8.0-11.0); Monocytes % 3.3; Nucleated RBC 0 %; Platelet Count 261 10^3/uL (130-400); RBC 5.37 10^6/uL (4.36-5.78); RDW 12.9 % (11.8-14.1); RDW-SD 40.1 fL; WBC 10.44 10^3/uL (4.4-10.8)
[2020-07-08] MEDS: Normal Saline 1,000 ML 1000 ML IV (11:20)
[2020-07-08] MEDS: Mylanta Suspension 30 ML CUP (11:25)
[2020-07-08] MEDS: Lidocaine 2% Viscous 15 ML CUP (11:25)
--- NOTE | 2020-07-08 11:30 | DI.CT_ITS ---
EXAM: CT THORAX ABD/PEL CTA CLINICAL HISTORY: chest pain/epigastric pain. TECHNIQUE: Imaging Protocol: Axial computed tomography images with coronal and sagittal reformatted images were created and reviewed CONTRAST MATERIAL: Intravenous: Omnipaque 350 Contrast volume:100 ml Oral: None COMPARISON: CT CT ABDOMEN PELVIS WO/W from 08/22/2018 FINDINGS: CHEST: LUNGS: There are no confluent infiltrates nor pleural effusions. No ominous pulmonary nodules noted. No significant focal findings in the trachea and mainstem bronchi. There is no bronchiectasis.. MEDIASTINUM: There is no hilar nor mediastinal adenopathy. Visualized thyroid unremarkable. CARDIAC/AORTA: Heart size is upper normal. There is no pericardial effusion. Diameter of the ascend ing thoracic aorta is minimally prominent, measuring 3.9 cm. There is no evidence of aortic dissecti on.. The diameter of the aortic arch is 2.5 cm. Diameter of the proximal descending thoracic aorta is 3 cm. Diameter of the mid-distal thoracic aorta is 2.7 cm. The abdominal aorta is atherosclerotic but without significant dilatation. The maximum external diam eter is 2 cm. Diameter of the common iliac arteries upper normal. There is no prominent stenosis at the origin of the main vessels off of the abdominal aorta. The inferior mesenteric artery is noted to be patent. There is no evidence of embolus within the superior mesenteric artery. Some plaque bu t no critical stenosis at the of the aortic bifurcation. No significant stenosis in the common and e xternal iliac arteries nor within the common femoral arteries. Both internal iliac arteries are barrera nt. The visualized origins of the SFA arteries are patent. ABDOMEN: There is no ascites. LIVER: Liver is hypodense implying steatosis but there are no discrete focal hepatic lesions identifi ed. GALLBLADDER/BILIARY: No obvious gallbladder pathology. CBD is not dilated. PANCREAS: No evidence of pancreatic mass nor dilatation of the pancreatic duct. SPLEEN: Spleen is not enlarged. There are no intrasplenic lesions. Splenic and portal veins are barrera nt. No evidence of aneurysm in the serpiginous splenic artery ADRENALS: There are no significant adrenal masses. KIDNEYS: No significant focal renal findings. No hydronephrosis.. ABDOMINAL AORTA: As above. LYMPH NODES: There is some adenopathy interposed between the aorta and IVC. This measures 2.3 cm wid e by 1.5 cm AP. There is no adenopathy around the aortic bifurcation. Few slightly prominent lymph nodes are noted in the pelvis. No obvious mesenteric masses. ABDOMINAL WALL/GI: No evidence of significant anterior abdominal wall hernia. There are multiple dil ated small bowel loops in the central and left abdomen with average diameter 3 cm. More distal small bowel loops are not dilated. Transition point is somewhat difficult determine because of breathing motion artifact here. Colon is collapsed. PELVIS: LYMPH NODES: Few slightly enlarged lymph nodes. GI: Appendix is not seen due to respiratory motion artifact.The colon is collapsed. URINARY BLADDER: Not distended REPRODUCTIVE: Grossly enlarged prostate gland OSSEOUS: No significant osseous lesions. IMPRESSION: 1. No evidence of aortic dissection, as per request. There is no pericardial effusion. Heart size i s minimally prominent. Diameter of the thoracic aorta is slightly prominent but without evidence int imal flap. No aneurysm nor dissection in the abdominal aorta and aortoiliac segments. Note tight at herosclerotic stenoses evident. 2. Lungs are clear. No pleural effusions. No intrathoracic adenopathy. 3. There is a distal small bowel obstruction pattern. The colon is collapsed. 4. There are few enlarged right para-aortic lymph nodes. Also few slightly enlarged lymph nodes are noted in the pelvis. There is no splenomegaly. There is no ascites. 5. The prostate gland is grossly enlarged and lobulated. The urinary bladder is not distended. RADIATION DOSE DELIVERED: 874.5mGy.cm Total DLP DATA REPOSITORY: All CT scans at this facility are submitted to the National Radiology Data Registry (NRDR) Dose Index Registry (DIR) with the [employer] (ACR). RADIATION OPTIMIZATION: All CT scans at this facility use at least one of these dose optimization te chniques: automated exposure control; mA and/or kV adjustment per patient size (includes targeted exa ms where dose is matched to clinical indication); or iterative reconstruction.
[2020-07-08 11:40] LABS: ALT 34 U/L (16-63); AST 29 U/L (15-37); Albumin 4.3 g/dL (3.4-5.0); Alkaline Phosphatase 88 U/L (46-116); Anion Gap 11.1 mmol/L (3-11); BUN 18 mg/dL (7-18); Bilirubin, Total 0.9 mg/dL (0.2-1.0); CO2 27.9 mmol/L (21.0-32.0); CREATININE 0.9 mg/dL (0.70-1.30); Calcium 9.4 mg/dL (8.5-10.1); Chloride 102 mmol/L (98-107); Glucose 104 mg/dL (74-106); NT-proBNP 144 pg/mL (<300); Potassium 3.5 mmol/L (3.5-5.1); Sodium 141 mmol/L (136-145); Total Protein 8.2 g/dL (6.4-8.2); Troponin I < 0.05 ng/mL (<0.06)
[2020-07-08 11:49] LABS: D-Dimer 658 ng/mlFEU (<500)
[2020-07-08] MEDS: Omnipaque 350 MG/ML 100 ML BTL IJ (12:06)
[2020-07-08] MEDS: Normal Saline - Diluent 50 ML VIAL IV (12:07)
--- NOTE | 2020-07-08 12:47 | SCONE_ITS ---
Date of service: 07/08/20 Time of Service: 12:47 Assessment and Plan Assessment and plan (1) Intra-abdominal lymphadenopathy: Status: Acute (2) GERD with esophagitis: Status: Acute (3) Essential hypertension: Status: Chronic (4) Hyperlipidemia: Status: Acute Qualifiers: Hyperlipidemia type: mixed hyperlipidemia Qualified Code(s): E78.2 - Mixed hyperlipidemia (5) SBO (small bowel obstruction): Status: Acute Assessment and plan: unsure of etiology supportive care- GI/DVT proophalaxis dont think the adenopathy is anything of consequence or concern if not improved in am CT- w/ contrast IV protonix no indication for abx at this time History of Present Illness Narrative: Pt overate last night and just didn't feel good- he can't really quantify it more than that. He does have a hx of reflux. He has been on omprazole for >5yrs, which general relieves his s/s. He c/o generalised abdominal pain, that starts in the epigastric position. no N/v. He had a BM today that was nl for him. He has not been passing gas. He denies eating any different or unusual foods. Today is 14 days from his #2 Covid vaccine. He denies travel outside of the state. He denies any unusual or different foods or supplements. He denies any accide nts or trauma. He was cutting wood yesterday. He has never had any abdominal surgery. He has never had a colonscopy. Pt had a TURP in the past and no problems w/ anesthesia. He denies any pain or difficulty moving his bowels. No changes in his bowels. No blood or back tarry stools. No wt loss. Appetite is good. No pain or difficulty swallowing. He is active and does not get CP or SOB. He denies any recent fevers/sore throat/diarrhea/muscle aches/rashes or other viral type s/s. Consults Consult date: 07/08/20 Review of Systems All systems reviewed & are unremarkable except as noted in HPI and below PFSH Medical History Benign prostate hyperplasia (12/11/07) Done by Colonoscopy refused Erectile dysfunction Essential hypertension (07/27/16) Gastroesophageal reflux disease (07/27/16) GERD with esophagitis (12/06/11) Hyperlipidemia (07/27/16) Statin declined Surgical History EGD w/ BX (12/06/11) Weeks H/O hernia repair Repair of inguinal hernia (~1979) Left S/P right inguinal hernia repair S/P TURP Tonsillectomy Vasectomy Family History Other Cancer Social History Smoking/Tobacco Use Status: Former Tobacco Use Quit Date: 04/16/73 Pack-years: 16 Tobacco: How many years used: 16 Smoking risk assessment performed?: Yes Alcohol Intake: current Alcohol Intake frequency: a few times a week Drug use: Occasionally Substance use type: marijuana Adopted: No Household members: spouse Housing: house Number of Children: 3 number of grandchildren: 4 Seatbelt use: always Helmet use: Yes Do you feel safe at home: Yes Do you feel safe in your relationship?: Yes Exam Const General: cooperative, healthy appearing, comfortable, no acute distress, well developed and well groomed Nutritional Appearance: average body habitus and well nourished Orientation: alert, awake and oriented x3 HENMT Head: normal to inspection, normocephalic and atraumatic Ears: hearing grossly normal bilaterally and external ears normal General nose exam: external nose normal Face and sinus: normal facial exam and sinuses nontender Mouth: oral mucosae normal, lip normal, tongue normal and moist mucous membranes Teeth and gingiva: dentition normal Eyes General: appearance normal, both eyes and all related structures Conjunctivae: conjunctivae normal Sclera: sclerae normal Pupils: PERRL Neck Neck: normal visual inspection and full ROM Chest Chest: normal inspection of the chest Resp Effort & Inspection: normal respiratory effort, able to speak in complete sentences, no cough, no nasal flaring, not tachypneic and no use of accessory muscles Auscultation: clear to auscultation bilaterally, no rales, no rhonchi and no wheezes Cardio Jugular venous pressure: no JVD Rate: regular rate Rhythm: regular rhythm GI Inspection: normal to inspection, no edema and distended Palpation: soft, no masses, tender and No ascites Auscultation: absent bowel sounds Other: no hernias - groin or femeral. Skin General skin exam: no rashes or lesions noted Trauma: no lacerations or abrasions Neuro General: patient alert, patient oriented x3, oriented, gait normal, moves all extremities, no focal motor deficits and CN's II-XI intact bilaterally Cognition: normal cognition Speech: speech normal Gait: normal gait Motor: muscle tone normal throughout Extrem General: normal to inspection, full ROM and no clubbing, cyanosis or edema Psych Appearance: grossly normal and well kempt Mental Status: mental status grossly normal Speech and Movement: speech and movement normal Affect: normal affect Results Last Vital Signs Temp 36.5 C 07/08/20 10:48 Pulse 59 L 07/08/20 11:46 Resp 14 07/08/20 11:46 BP 171/82 H 07/08/20 11:46 Pulse Ox 98 07/08/20 11:40 Labs Result diagrams: 07/08/20 10:55 07/08/20 10:55 Labs: Laboratory Results - last 24 hr 07/08/20 07/08/20 07/08/20 10:55 10:55 10:55 WBC 10.44 RBC 5.37 Hgb 15.4 Hct 45.9 MCV 85.5 MCH 28.7 MCHC 33.6 RDW 12.9 Plt Count 261 MPV 9.1 Immature Gran % 0.2 Neutrophils % 80.0 Lymphocytes % 15.7 Monocytes % 3.3 Eosinophils % 0.2 Basophils % 0.6 Nucleated RBC % 0 Absolute Neutrophils 8.36 H Absolute Lymphocytes 1.64 Absolute Monocytes 0.34 Absolute Eosinophils 0.02 Absolute Basophils 0.06 D-Dimer 658 H Sodium 141 Potassium 3.5 Chloride 102 Carbon Dioxide 27.9 Anion Gap 11.1 H BUN 18 Creatinine 0.9 Estimated GFR/1.73 m2 >= 60.00 Glucose 104 Calcium 9.4 Magnesium 2.0 Total Bilirubin 0.9 AST 29 ALT 34 Alkaline Phosphatase 88 Troponin I < 0.05 NT-Pro-B Natriuret Pep 144 Total Protein 8.2 Albumin 4.3
[2020-07-08 13:32] LABS: Source Nasal/Nares
[2020-07-08] MEDS: Ondansetron 4 MG/2 ML VIAL (13:51)
[2020-07-08 14:18] LABS: Troponin I < 0.05 ng/mL (<0.06)
--- NOTE | 2020-07-08 14:37 | ED.GENADUL_ITS ---
Discharge Plan Discharge Details Chief Complaint: Chest Pain Admit Date/Time: 07/08/20 12:55 Admit Provider: Naya Montiel Attending Provider: Naya Montiel Primary Care Provider: Brooklyn Farah ED Provider: Soila Abdalla Discharge Data Discharge Date/Time-TO BE ENTERED AT DEPARTURE: 07/08/20 14:01 Medical Decision Making Greyson Vicente is a 74 y/o man who presented to the emergency department with chest pain, SOB, lightheadedness this am, now improved. On exam Pt is very well and non-toic appearing. Benign cardiopulmonary exam, benign abd exam. Concern for ACS, GERD, other. Doubt PE, aortic pathology. Exam/hx at this time not c/w sepsis. EKG non-diagnostic. Plan for screening labs, CXR, SLNG, telemetry. Pt reports last dose cialis >2 weeks ago. Pt reported feeling significant worsening after SLNG with general sense of unwell, lightheadedness, and return of chest pain. Pt briefly bradycardic in 40s with SBP 130s, no change in sats. Concern for possible aortic patholog, will obtain CTA c/a/p. Rpt EKG obtained with sig artifact, EKG again repeated without major change from initial. CTA shows SBO. Pt denies h/o abdominal surgeries. I discussed Pt presentation and results with Dr. Frye of surgery, who will follow Pt, requests NGT and admit to medicine. Pt admitted to Dr. Montiel. Clinical Impression: SBO Disposition: [facility] inpt Medical Records Medical records reviewed: Yes I reviewed the patient's medical records. Imaging Data Radiologic Study: Attestation: I personally reviewed and interpreted this imaging study as follows: Radiologist's impression: EXAM: CT THORAX ABD/PEL CTA CLINICAL HISTORY: chest pain/epigastric pain. TECHNIQUE: Imaging Protocol: Axial computed tomography images with coronal and sagittal reformatted images were created and reviewed CONTRAST MATERIAL: Intravenous: Omnipaque 350 Contrast volume:100 ml Oral: None COMPARISON: CT CT ABDOMEN PELVIS WO/W from 08/22/2018 FINDINGS: CHEST: LUNGS: There are no confluent infiltrates nor pleural effusions. No ominous pulmonary nodules noted. No significant focal findings in the trachea and mainstem bronchi. There is no bronchiectasis.. MEDIASTINUM: There is no hilar nor mediastinal adenopathy. Visualized thyroid unremarkable. CARDIAC/AORTA: Heart size is upper normal. There is no pericardial effusion. Diameter of the ascending thoracic aorta is minimally prominent, measuring 3.9 cm. There is no evidence of aortic dissection.. The diameter of the aortic arch is 2.5 cm. Diameter of the proximal descending thoracic aorta is 3 cm. Diameter of the mid-distal thoracic aorta is 2.7 cm. The abdominal aorta is atherosclerotic but without significant dilatation. The maximum external diameter is 2 cm. Diameter of the common iliac arteries upper normal. There is no prominent stenosis at the origin of the main vessels off of the abdominal aorta. The inferior mesenteric artery is noted to be patent. There is no evidence of embolus within the superior mesenteric artery. Some plaque but no critical stenosis at the of the aortic bifurcation. No significant stenosis in the common and external iliac arteries nor within the common femoral arteries. Both internal iliac arteries are patent. The visualized origins of the SFA arteries are patent. ABDOMEN: There is no ascites. LIVER: Liver is hypodense implying steatosis but there are no discrete focal hepatic lesions identified. GALLBLADDER/BILIARY: No obvious gallbladder pathology. CBD is not dilated. PANCREAS: No evidence of pancreatic mass nor dilatation of the pancreatic duct. SPLEEN: Spleen is not enlarged. There are no intrasplenic lesions. Splenic and portal veins are patent. No evidence of aneurysm in the serpiginous splenic artery ADRENALS: There are no significant adrenal masses. KIDNEYS: No significant focal renal findings. No hydronephrosis.. ABDOMINAL AORTA: As above. LYMPH NODES: There is some adenopathy interposed between the aorta and IVC. This measures 2.3 cm wide by 1.5 cm AP. There is no adenopathy around the aortic bifurcation. Few slightly prominent lymph nodes are noted in the pelvis. No obvious mesenteric masses. ABDOMINAL WALL/GI: No evidence of significant anterior abdominal wall hernia. There are multiple dilated small bowel loops in the central and left abdomen with average diameter 3 cm. More distal small bowel loops are not dilated. Transition point is somewhat difficult determine because of breathing motion artifact here. Colon is collapsed. PELVIS: LYMPH NODES: Few slightly enlarged lymph nodes. GI: Appendix is not seen due to respiratory motion artifact.The colon is collapsed. URINARY BLADDER: Not distended REPRODUCTIVE: Grossly enlarged prostate gland OSSEOUS: No significant osseous lesions. IMPRESSION: 1. No evidence of aortic dissection, as per request. There is no pericardial effusion. Heart size is minimally prominent. Diameter of the thoracic aorta is slightly prominent but without evidence intimal flap. No aneurysm nor dissection in the abdominal aorta and aortoiliac segments. Note tight atherosclerotic stenoses evident. 2. Lungs are clear. No pleural effusions. No intrathoracic adenopathy. 3. There is a distal small bowel obstruction pattern. The colon is collapsed. 4. There are few enlarged right para-aortic lymph nodes. Also few slightly enlarged lymph nodes are noted in the pelvis. There is no splenomegaly. There is no ascites. 5. The prostate gland is grossly enlarged and lobulated. The urinary bladder is not distended. Lab Data Lab results reviewed: Yes I reviewed the patient's lab results. Labs: Laboratory Tests Range/Units 07/08/20 07/08/20 07/08/20 10:55 10:55 10:55 WBC (4.4-10.8) 10^3/uL 10.44 RBC (4.36-5.78) 10^6/uL 5.37 Hgb (13.5-17.5) g/dL 15.4 Hct (40.0-50.0) % 45.9 MCV (80-95) fL 85.5 MCH (27.0-33.0) pg 28.7 MCHC (32.0-36.0) % 33.6 RDW (11.8-14.1) % 12.9 Plt Count (130-400) 10^3/uL 261 MPV (8.0-11.0) fL 9.1 Immature Gran % 0.2 Neutrophils % 80.0 Lymphocytes % 15.7 Monocytes % 3.3 Eosinophils % 0.2 Basophils % 0.6 Nucleated RBC % % 0 Absolute Neutrophils (1.2-6.7) 10^3/uL 8.36 H Absolute Lymphocytes (1.2-3.4) 10^3/uL 1.64 Absolute Monocytes (0.1-0.8) 10^3/uL 0.34 Absolute Eosinophils (0.0-0.7) 10^3/uL 0.02 Absolute Basophils (0.0-0.2) 10^3/uL 0.06 D-Dimer (<500) ng/mlFEU 658 H Sodium (136-145) mmol/L 141 Potassium (3.5-5.1) mmol/L 3.5 Chloride (98-107) mmol/L 102 Carbon Dioxide (21.0-32.0) mmol/L 27.9 Anion Gap (3-11) mmol/L 11.1 H BUN (7-18) mg/dL 18 Creatinine (0.70-1.30) mg/dL 0.9 Estimated GFR/1.73 m2 (mL/min/1.73m2) >= 60.00 Glucose (74-106) mg/dL 104 Calcium (8.5-10.1) mg/dL 9.4 Magnesium (1.8-2.4) mg/dL 2.0 Total Bilirubin (0.2-1.0) mg/dL 0.9 AST (15-37) U/L 29 ALT (16-63) U/L 34 Alkaline Phosphatase (46-116) U/L 88 Troponin I (<0.06) ng/mL < 0.05 NT-Pro-B Natriuret Pep (<300) pg/mL 144 Total Protein (6.4-8.2) g/dL 8.2 Albumin (3.4-5.0) g/dL 4.3 ECG Data Attestation: I personally reviewed and interpreted this ECG (s) as follows: Interpretation: EKG 10:51 shows sinus rhythm at 62, normal axis, no acute ischemic changes, nondiagnostic EKG EKG 11:22 shows sinus bradycardia at 53, normal axis, no acute ischemic changes though significant artifact present, nondiagnostic EKG EKG 11: 31 shows sinus bradycardia at 57, normal axis, no acute ischemic changes, nondiagnostic EKG HPI General Mode of arrival: EMS . Date/Time Provider Initiated Documentation: 07/08/20 10:47 . Limitations to Documentation: no limitations . Information obtained by: patient, RN notes reviewed and old records reviewed . HPI Narrative: Greyson Vicente is a 74 y/o man with h/o HTN, HLD, GERD presenting to the emergency department with chest pain. Pt reports that at 7:30 this am he developed chest pressure that he attributed to GERD, however pain was worse than is typical for him. He also felt overall unwell, SOB, and lightheaded. Pt reports that he took an extra dose of omeprazole without change in symptoms. Pt states that symptoms have improved significantly since arriving in the ED, but he reports that he still has mild chest discomfort. Pt reports that he is very active cutting wood and doing other activities daily and has never had symptoms during exertion. He denies fever, cough, vomiting, diarrhea, focal weakness. Normal BM this am. Related Data Home Medications Medication Instructions Recorded Confirmed calcium carbonate [Tums] 200 mg PO DAILY PRN tab.chew 09/06/16 07/08/20 omeprazole 40 mg capsule,delayed 40 mg PO DAILY #90 tab-cap 09/22/19 07/08/20 release propranolol 20 mg tablet 20 mg PO QHS #90 tab 09/22/19 07/08/20 Previous Rx's Medication Instructions Recorded omeprazole 40 mg capsule,delayed 40 mg PO DAILY #90 tab-cap 09/22/19 release propranolol 20 mg tablet 20 mg PO QHS #90 tab 09/22/19 Allergies Allergy/AdvReac Type Severity Reaction Status Date / Time finasteride Allergy Verified 07/08/20 10:54 terazosin HCl [From Hytrin] AdvReac sweats Verified 07/08/20 10:54 General Stated Complaint: Chest Pain BEATRIZ: 2 Review of Systems Narrative: Constitutional: denies fevers Eyes: denies eye pain ENT: denies ear pain, dental pain, sore throat Cardiovascular: denies edema, reports chest pain as per HPI Respiratory: denies cough, SOB as per HPI, no longer occurring GI: denies abdominal pain, vomiting, diarrhea : denies flank pain MSK: denies back pain, neck pain, arthralgias, myalgias Skin: denies rash Neuro: denies headaches, numbness, weakness PFSH Medical History Benign prostate hyperplasia (12/11/07) Done by Colonoscopy refused Erectile dysfunction Essential hypertension (07/27/16) Gastroesophageal reflux disease (07/27/16) GERD with esophagitis (12/06/11) Hyperlipidemia (07/27/16) Statin declined Surgical History EGD w/ BX (12/06/11) Weeks H/O hernia repair Repair of inguinal hernia (~1979) Left S/P right inguinal hernia repair S/P TURP Tonsillectomy Vasectomy Family History Other Cancer Social History Smoking/Tobacco Use Status: Former Tobacco Use Quit Date: 04/16/73 Pack-years: 16 Tobacco: How many years used: 16 Smoking risk assessment performed?: Yes Alcohol Intake: current Alcohol Intake frequency: a few times a week Drug use: Occasionally Substance use type: marijuana Adopted: No Household members: spouse Housing: house Number of Children: 3 number of grandchildren: 4 Seatbelt use: always Helmet use: Yes Do you feel safe at home: Yes Do you feel safe in your relationship?: Yes Exam Narrative Exam Narrative: Constitutional: well and [id number], pleasant, conversing normally HENT: head atraumatic/normocephalic/normal inspection, mucous membranes moist Eyes: conjunctiva normal, sclera normal, pupils 3mm b/l Neck: no stridor, normal ROM, trachea midline Chest: normal inspection Resp: normal work of breathing, LCTAB Cardio: normal rate, normal rhythm, no murmur appreciated GI: abdomen soft, non-tender, non-distended Back: normal inspection, no rash Skin: warm, dry, normal color, no rash Neuro: alert, not altered, grossly non-focal, normal tone Ext: no edema Psych: normal mood, normal affect, normal behavior Course Vital Signs Vital signs: Vital Signs Temperature 36.5 C 07/08/20 10:48 Pulse 62 07/08/20 10:48 Respiratory Rate 15 07/08/20 10:48 Blood Pressure 186/87 H 07/08/20 10:48 Pulse Oximetry 99 07/08/20 10:48 Temperature 36.9 C 07/08/20 14:23 Temperature Source Tympanic 07/08/20 14:23 Pulse 78 07/08/20 14:23 Pulse 85 07/08/20 13:50 Respiratory Rate 14 07/08/20 14:23 Respiratory Effort 07/08/20 11:14 Respiratory Depth Normal 07/08/20 11:14 Respiratory Pattern Normal 07/08/20 11:14 Blood Pressure 152/89 H 07/08/20 14:23 Blood Pressure Mean 107 07/08/20 13:31 Blood Pressure Position Supine 07/08/20 10:48 Pulse Oximetry 99 07/08/20 14:23 Oxygen Delivery Method Room Air 07/08/20 14:23 Oxygen Flow Rate 0 07/08/20 14:23 Pain Level 0 07/08/20 14:23 Lab/Test Results Lab/Test Results: Laboratory Tests Range/Units 07/08/20 07/08/20 07/08/20 10:55 10:55 10:55 WBC (4.4-10.8) 10^3/uL 10.44 RBC (4.36-5.78) 10^6/uL 5.37 Hgb (13.5-17.5) g/dL 15.4 Hct (40.0-50.0) % 45.9 MCV (80-95) fL 85.5 MCH (27.0-33.0) pg 28.7 MCHC (32.0-36.0) % 33.6 RDW (11.8-14.1) % 12.9 Plt Count (130-400) 10^3/uL 261 MPV (8.0-11.0) fL 9.1 Immature Gran % 0.2 Neutrophils % 80.0 Lymphocytes % 15.7 Monocytes % 3.3 Eosinophils % 0.2 Basophils % 0.6 Nucleated RBC % % 0 Absolute Neutrophils (1.2-6.7) 10^3/uL 8.36 H Absolute Lymphocytes (1.2-3.4) 10^3/uL 1.64 Absolute Monocytes (0.1-0.8) 10^3/uL 0.34 Absolute Eosinophils (0.0-0.7) 10^3/uL 0.02 Absolute Basophils (0.0-0.2) 10^3/uL 0.06 D-Dimer (<500) ng/mlFEU 658 H Sodium (136-145) mmol/L 141 Potassium (3.5-5.1) mmol/L 3.5 Chloride (98-107) mmol/L 102 Carbon Dioxide (21.0-32.0) mmol/L 27.9 Anion Gap (3-11) mmol/L 11.1 H BUN (7-18) mg/dL 18 Creatinine (0.70-1.30) mg/dL 0.9 Estimated GFR/1.73 m2 (mL/min/1.73m2) >= 60.00 Glucose (74-106) mg/dL 104 Calcium (8.5-10.1) mg/dL 9.4 Magnesium (1.8-2.4) mg/dL 2.0 Total Bilirubin (0.2-1.0) mg/dL 0.9 AST (15-37) U/L 29 ALT (16-63) U/L 34 Alkaline Phosphatase (46-116) U/L 88 Troponin I (<0.06) ng/mL < 0.05 NT-Pro-B Natriuret Pep (<300) pg/mL 144 Total Protein (6.4-8.2) g/dL 8.2 Albumin (3.4-5.0) g/dL 4.3
[2020-07-08] MEDS: Normal Saline 1,000 ML 125 ML IV ×2 (14:42→21:21)
[2020-07-08] MEDS: Pantoprazole 40 MG VIAL IVP (14:46)
[2020-07-08] MEDS: Heparin 5,000 UNITS/ML VIAL 5000 UNITS SC ×2 (14:47→23:15)
--- NOTE | 2020-07-08 15:46 | DI.RAD_ITS ---
EXAM: XR LINE PLACEMENT PICC/CVA CLINICAL HISTORY: post ng placement. TECHNIQUE: 2D digital imaging was performed. COMPARISON: CR XR PORTABLE CHEST AP from 12/19/2017 FINDINGS: Heart size normal. The mediastinum is not widened. Lungs remain clear. The distal tip of the NG tu be is in the stomach at the proximal aspect of the greater curvature. There is no abnormal kinking o f the NG tube. IMPRESSION: NG tube is in the stomach. Lungs are clear. Sign rib DATA REPOSITORY: RADIATION DOSE DELIVERED:
--- NOTE | 2020-07-08 16:05 | W.PM.HP.N ---
Date of service: 07/08/20 Time of Service: 16:05 Assessment and Plan Assessment and plan (1) SBO (small bowel obstruction): Status: Acute Assessment and plan: Admit with surgical consult. NGT. IVF. Serial acute abdominal series. (2) Intra-abdominal lymphadenopathy: Status: Acute Assessment and plan: Likely related to Moderna COVID-19 vaccination and may be contributing to SBO. (3) Gastroesophageal reflux disease: Status: Chronic Assessment and plan: PPI via IV. (4) 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 tract symptoms: Status: Chronic Assessment and plan: Monitor bladder scans (5) Essential hypertension: Status: Chronic Assessment and plan: Not normally on medications. Will monitor. (6) DVT prophylaxis: Status: Acute Assessment and plan: SC heparin (7) Discharge planning issues: Status: Acute Assessment and plan: DNR/DNI History of Present Illness History of Present Illness Chief Complaint: abdominal pain Narrative: Mr Vicente is a 74 year old male with PMHx of HTN, hyperlipidemia, GERD, palpitations, whom the hospitalist service was asked to admit for an SBO. The patient has had epigastric abdominal pain since this morning. Last BM this morning - normal. No flatus or BM since. He has never had abdominal surgery. He received his 2nd dose of the Moderna Covid vaccine 2 weeks ago. His imaging is c/w SBO as well as para-aortic lymphadenopathy and pelvic lymphadenopathy. General surgery is consulted and recommended NGT placement for the SBO. Review of Systems All systems reviewed & are unremarkable except as noted in HPI and below PFSH Medical History (Updated 07/08/20 @ 16:39 by Naya Montiel MD) Benign prostate hyperplasia (12/11/07) Done by Colonoscopy refused Erectile dysfunction Essential hypertension (07/27/16) Gastroesophageal reflux disease (07/27/16) GERD with esophagitis (12/06/11) Hyperlipidemia (07/27/16) Statin declined Surgical History (Updated 07/08/20 @ 16:37 by Naya Montiel MD) EGD w/ BX (12/06/11) Weeks H/O hernia repair Repair of inguinal hernia (~1979) Left S/P right inguinal hernia repair S/P TURP Tonsillectomy Vasectomy Family History Other Cancer Social History Smoking/Tobacco Use Status: Former Tobacco Use Quit Date: 04/16/73 Pack-years: 16 Tobacco: How many years used: 16 Smoking risk assessment performed?: Yes Alcohol Intake: current Alcohol Intake frequency: a few times a week Drug use: Occasionally Substance use type: marijuana Adopted: No Household members: spouse Housing: house Number of Children: 3 number of grandchildren: 4 Seatbelt use: always Helmet use: Yes Do you feel safe at home: Yes Do you feel safe in your relationship?: Yes Meds Home Medications and Allergies Allergies Allergy/AdvReac Type Severity Reaction Status Date / Time finasteride Allergy Verified 07/08/20 10:54 terazosin HCl [From Hytrin] AdvReac sweats Verified 07/08/20 10:54 Home Medications Medication Instructions Recorded Confirmed Type calcium carbonate [Tums] 200 mg PO DAILY PRN tab.chew 09/06/16 07/08/20 History omeprazole 40 mg capsule,delayed 40 mg PO DAILY #90 tab-cap 09/22/19 07/08/20 Rx release propranolol 20 mg tablet 20 mg PO QHS #90 tab 09/22/19 07/08/20 Rx Exam Narrative Exam Narrative: General: Pleasant elderly male, visibly uncomfortable, NGT in, A&Ox3 Neurological: A&Ox3, no focal deficits Psychiatric: appropriate speech pattern/content Skin: Visible skin intact HEENT: Atraumatic, normocephalic, EOMI, dry MM, clear oropharynx, no submandibular or cervical lymphadenopathy, no goiter or JVD Cardiovascular: RRR, no m/r/g Lungs: CTAB Gastrointestinal: soft, tender in epigastrium, hyperactive bowel sounds Genitourinary: deferred Extremities: no edema BLE's, +1 pedal pulses B Results Labs Result diagrams: 07/08/20 10:55 07/08/20 10:55 Labs: Laboratory Results - last 24 hr 07/08/20 07/08/20 07/08/20 10:55 10:55 10:55 WBC 10.44 RBC 5.37 Hgb 15.4 Hct 45.9 MCV 85.5 MCH 28.7 MCHC 33.6 RDW 12.9 Plt Count 261 MPV 9.1 Immature Gran % 0.2 Neutrophils % 80.0 Lymphocytes % 15.7 Monocytes % 3.3 Eosinophils % 0.2 Basophils % 0.6 Nucleated RBC % 0 Absolute Neutrophils 8.36 H Absolute Lymphocytes 1.64 Absolute Monocytes 0.34 Absolute Eosinophils 0.02 Absolute Basophils 0.06 D-Dimer 658 H Sodium 141 Potassium 3.5 Chloride 102 Carbon Dioxide 27.9 Anion Gap 11.1 H BUN 18 Creatinine 0.9 Estimated GFR/1.73 m2 >= 60.00 Glucose 104 Calcium 9.4 Magnesium 2.0 Total Bilirubin 0.9 AST 29 ALT 34 Alkaline Phosphatase 88 Troponin I < 0.05 NT-Pro-B Natriuret Pep 144 Total Protein 8.2 Albumin 4.3 COVID-19 Source 07/08/20 07/08/20 13:25 13:55 WBC RBC Hgb Hct MCV MCH MCHC RDW Plt Count MPV Immature Gran % Neutrophils % Lymphocytes % Monocytes % Eosinophils % Basophils % Nucleated RBC % Absolute Neutrophils Absolute Lymphocytes Absolute Monocytes Absolute Eosinophils Absolute Basophils D-Dimer Sodium Potassium Chloride Carbon Dioxide Anion Gap BUN Creatinine Estimated GFR/1.73 m2 Glucose Calcium Magnesium Total Bilirubin AST ALT Alkaline Phosphatase Troponin I < 0.05 NT-Pro-B Natriuret Pep Total Protein Albumin COVID-19 Source Nasal/nares Last Vital Signs Temp 36.9 C 07/08/20 14:59 Pulse 78 07/08/20 14:59 Resp 14 07/08/20 14:59 BP 152/89 H 07/08/20 14:59 Pulse Ox 99 07/08/20 14:59 COVID-19 Screening Have you, or household traveled for leisure in last 14 days?: No Had IN PERSON contact w/suspected or confirmed C-19 person: No
--- NOTE | 2020-07-08 16:23 | DI.VRAD_ITS ---
PROCEDURE INFORMATION: Exam: XR Chest Exam date and time: 07/08/2020 4:02 PM Age: 74 years old Clinical indication: Device placement; Patient HX: Ng tube placement TECHNIQUE: Imaging protocol: XR of the chest Views: 1 view. COMPARISON: CT THORAX ABD/PEL CTA 07/08/2020 12:00 PM FINDINGS: Tubes, catheters and devices: The NG tube ends in the mid stomach. Lungs: Unremarkable. No consolidation. Pleural spaces: Unremarkable. No pleural effusion. No pneumothorax. Heart/Mediastinum: Unremarkable. No cardiomegaly. Vasculature: Atherosclerosis. Bones/joints: Degenerative changes in the spine. IMPRESSION: The NG tube ends in the mid stomach. Dictated and Authenticated by: Lorraine Resendez MD. Ordering:ADELIA Almanza MD
[2020-07-08] MEDS: MORPHine 2 MG/ML SYR IVP ×2 (16:37→19:56)
[2020-07-08] MEDS: Ondansetron 4 MG/2 ML VIAL IVP (16:40)
[2020-07-08 21:58] LABS: COVID-19 PCR Negative (Negative)
[2020-07-09 03:51] VITALS: BP 154/78; PULSE 86; RESP 18; TEMP 36.8; O2SAT 98
[2020-07-09] MEDS: Normal Saline 1,000 ML 125 ML IV ×2 (05:20→18:17)
[2020-07-09] MEDS: Heparin 5,000 UNITS/ML VIAL 5000 UNITS SC ×3 (05:55→21:24)
[2020-07-09 06:50] LABS: Abs Immature Grans 0.03 10^3/uL (0.0-0.06); Absolute Basophil Count 0.03 10^3/uL (0.0-0.2); Absolute Eosinophil Count 0.01 10^3/uL (0.0-0.7); Absolute Lymphocyte Count 2.37 10^3/uL (1.2-3.4); Absolute Monocyte Count 0.92 10^3/uL (0.1-0.8); Absolute Neutrophil Count 9.47 10^3/uL (1.2-6.7); Basophils % 0.2; Eosinophils % 0.1; HCT 41.1 % (40.0-50.0); HGB 13.9 g/dL (13.5-17.5); Immature Grans % 0.2; Lymphocytes % 18.5; MCH 28.5 pg (27.0-33.0); MCHC 33.8 % (32.0-36.0); MCV 84.2 fL (80-95); MPV 9.4 fL (8.0-11.0); Monocytes % 7.2; Neutrophils % 73.8; Nucleated RBC 0 %; Platelet Count 256 10^3/uL (130-400); RBC 4.88 10^6/uL (4.36-5.78); RDW 13.2 % (11.8-14.1); RDW-SD 40.6 fL; WBC 12.83 10^3/uL (4.4-10.8)
[2020-07-09 06:57] LABS: Anion Gap 8.5 mmol/L (3-11); BUN 13 mg/dL (7-18); CO2 24.5 mmol/L (21.0-32.0); CREATININE 0.9 mg/dL (0.70-1.30); Calcium 8.1 mg/dL (8.5-10.1); Chloride 107 mmol/L (98-107); Glucose 93 mg/dL (74-106); Magnesium 1.7 mg/dL (1.8-2.4); Potassium 3.3 mmol/L (3.5-5.1); Sodium 140 mmol/L (136-145)
[2020-07-09 07:22] VITALS: BP 149/79; PULSE 85; RESP 19; TEMP 36.9; O2SAT 98
[2020-07-09] MEDS: Pantoprazole 40 MG VIAL IVP (07:50)
[2020-07-09] MEDS: Normal Saline Flush 10 ML SYR IVP ×2 (07:51→11:02)
--- NOTE | 2020-07-09 08:08 | W.PM.PROGNOT ---
Date of Service Date of service: 07/09/20 Time of Service: 08:09 Assessment and Plan Assessment and plan (1) Intra-abdominal lymphadenopathy: Status: Acute (2) GERD with esophagitis: Status: Acute (3) Essential hypertension: Status: Chronic (4) Hyperlipidemia: Status: Acute Qualifiers: Hyperlipidemia type: mixed hyperlipidemia Qualified Code(s): E78.2 - Mixed hyperlipidemia (5) Gastroesophageal reflux disease: Status: Chronic (6) SBO (small bowel obstruction): Status: Acute Assessment and plan: -I do not have a good answer as to why he developed a small bowel obstruction. Dr. Montiel think it the adenopathy. He had his Covid shot 2 weeks ago to the date. It may or may not be related to this person other antecedent viral illness had a subclinical presentation. There is no family history of colon cancer. He has no had no unexplained weight loss. He has never had any signs or symptoms like this before. His bowels are regular with no changes in caliber amount or frequency. He has had no rectal bleeding. He never has had a colonoscopy. He is very active and eats well. Today we are going to clamp his NG tube most likely be able to DC and start clear liquids. Patient will continue walking and pulmonary toilet He will need a small bowel follow-through and colonoscopy and possibly EGD as outpatient. Electrolytes adjusted Continue supportive care 30 minutes spent in follow-up patient reviewing his x-rays, reviewing his labs including CBC/comp/CRP, discussing his current prognosis and diagnosis(or lack thereof) and further abdomen Subjective Subjective Interval history since last seen: Pt is doing well. no headaches. No CP or SOB. no productive cough. no dysuria. no leg pain or swelling. He has had no nausea or distention. He is passing gas. He has had no fevers or chills. He has not had a bowel movement. He is urinating problems. He is up walking around. His x-ray looks normal today Exam Narrative Exam Narrative: PHYSICAL EXAM GENERAL APPEARANCE: Alert, healthy appearance, oriented, in no acute distress SKIN: No rashes. No breakdown HYDRATION: Well hydrated HEAD, EYES, EARS, NECK, THROAT: Head is normocephalic, pupils equal, round, reactive to light and accommodation, ocular movement intact, sclera clear and no jaundice. Dentition intact. No sore throat. No jaw pain. No thrush NECK: Supple, Trachea midline. No JVD. LUNGS: normal respiration/nl chest excursion. Clear to auscultation B/l no R/R/W HEART: Regular rate and rhythm, EXTREMITY: No edema or cyanosis no leg pain, redness, swelling. No IV infiltration ABDOMEN: non tender to palpation, no distention. Normal bowel sounds NEURO: no focal neuro deficits. Objective Last Vital Signs Temp 36.9 C 07/09/20 07:22 Pulse 85 07/09/20 07:22 Resp 19 07/09/20 07:22 BP 149/79 H 07/09/20 07:22 Pulse Ox 98 07/09/20 07:22 Laboratory Results - last 24 hr 07/08/20 07/08/20 07/08/20 10:55 10:55 10:55 WBC 10.44 RBC 5.37 Hgb 15.4 Hct 45.9 MCV 85.5 MCH 28.7 MCHC 33.6 RDW 12.9 Plt Count 261 MPV 9.1 Immature Gran % 0.2 Neutrophils % 80.0 Lymphocytes % 15.7 Monocytes % 3.3 Eosinophils % 0.2 Basophils % 0.6 Nucleated RBC % 0 Absolute Neutrophils 8.36 H Absolute Lymphocytes 1.64 Absolute Monocytes 0.34 Absolute Eosinophils 0.02 Absolute Basophils 0.06 D-Dimer 658 H Sodium 141 Potassium 3.5 Chloride 102 Carbon Dioxide 27.9 Anion Gap 11.1 H BUN 18 Creatinine 0.9 Estimated GFR/1.73 m2 >= 60.00 Glucose 104 Calcium 9.4 Magnesium 2.0 Total Bilirubin 0.9 AST 29 ALT 34 Alkaline Phosphatase 88 Troponin I < 0.05 NT-Pro-B Natriuret Pep 144 Total Protein 8.2 Albumin 4.3 COVID-19 Source SARS-CoV-2 (PCR) 07/08/20 07/08/20 07/09/20 13:25 13:55 06:18 WBC RBC Hgb Hct MCV MCH MCHC RDW Plt Count MPV Immature Gran % Neutrophils % Lymphocytes % Monocytes % Eosinophils % Basophils % Nucleated RBC % Absolute Neutrophils Absolute Lymphocytes Absolute Monocytes Absolute Eosinophils Absolute Basophils D-Dimer Sodium 140 Potassium 3.3 L Chloride 107 Carbon Dioxide 24.5 Anion Gap 8.5 BUN 13 Creatinine 0.9 Estimated GFR/1.73 m2 >= 60.00 Glucose 93 Calcium 8.1 L Magnesium 1.7 L Total Bilirubin AST ALT Alkaline Phosphatase Troponin I < 0.05 NT-Pro-B Natriuret Pep Total Protein Albumin COVID-19 Source Nasal/nares SARS-CoV-2 (PCR) Negative 07/09/20 06:18 WBC 12.83 H RBC 4.88 Hgb 13.9 Hct 41.1 MCV 84.2 MCH 28.5 MCHC 33.8 RDW 13.2 Plt Count 256 MPV 9.4 Immature Gran % 0.2 Neutrophils % 73.8 Lymphocytes % 18.5 Monocytes % 7.2 Eosinophils % 0.1 Basophils % 0.2 Nucleated RBC % 0 Absolute Neutrophils 9.47 H Absolute Lymphocytes 2.37 Absolute Monocytes 0.92 H Absolute Eosinophils 0.01 Absolute Basophils 0.03 D-Dimer Sodium Potassium Chloride Carbon Dioxide Anion Gap BUN Creatinine Estimated GFR/1.73 m2 Glucose Calcium Magnesium Total Bilirubin AST ALT Alkaline Phosphatase Troponin I NT-Pro-B Natriuret Pep Total Protein Albumin COVID-19 Source SARS-CoV-2 (PCR)
--- NOTE | 2020-07-09 08:20 | DI.RAD_ITS ---
EXAM: XR ABDOMEN FLAT UPRIGHT CLINICAL HISTORY: sbo TECHNIQUE: COMPARISON: CT CT THORAX ABD/PEL CTA from 07/08/2020 FINDINGS: Three views were obtained. There is an NG tube in position. Bowel gas pattern appears within normal limits except for a couple of mildly dilated loops of small bowel in mid abdomen. No free intraperi toneal air seen on upright view. Lung bases appear clear IMPRESSION: No evidence of acute process, NG tube in place in the stomach RADIATION DOSE DELIVERED: Total DLP
--- NOTE | 2020-07-09 08:51 | INITIAL_ITS ---
- If Service Date Differs Date of service: 07/09/20 Time of Service: 08:51 Care Management Initial Assess REASON FOR HOSPITALIZATION:: SBO PAST MEDICAL HISTORY/PAST SURGICAL HISTORY:: Medical History (Updated 07/08/20 @ 16:39 by Naya Montiel MD). Benign prostate hyperplasia (12/11/07). Done by . Colonoscopy refused. Erectile dysfunction. Essential hypertension (07/27/16). Gastroesophageal reflux disease (07/27/16). GERD with esophagitis (12/06/11). Hyperlipidemia (07/27/16). Statin declined. Surgical History (Updated 07/08/20 @ 16:37 by Naya Montiel MD). EGD w/ BX (12/06/11). Weeks. H/O hernia repair. Repair of inguinal hernia (~1979). Left. S/P right inguinal hernia repair. S/P TURP. Tonsillectomy. Vasectomy PREVIOUS FUNCTIONAL STATUS/SOCIAL/FAMILY SUPPORTS:: Freya lives in a single [facility] in [place], [place] with his of 58 years, Monica. They have 3 daughters, 2 grand daughters and 2 great granddaughters. Greyson describes himself as very active, as is his . They heat with wood and care for their property and home independently. CURRENT FUNCTIONAL STATUS:: Greyson was sitting up in bed when CM met with him. He was very pleasant and engaged readily with CM. Greyson talked about his many blessings which include good health, a happy family and a good life. He hopes to be able to go home within a day or two. Greyson also talked about how appreciative he is of [facility]. He shared that he feels very nik[place] to have such a wonderful hospital within 25 miles of home. ADVANCE DIRECTIVES:: none on file Has patient been provided with info about the portal/API?: Yes Did the patient sign up for the portal?: No CODE STATUS:: DNR/DNI INSURANCE COVERAGE / FINANCIAL ISSUES:: Medicare CURRENT HOME/COMMUNITY SERVICES/EQUIPMENT:: none PRIMARY CARE PHYSICIAN:: Brooklyn Farah POTENTIAL DISCHARGE NEEDS:: Follow up with PCP anfd dicharge plan of care PATIENT/FAMILY EDUCATION NEEDS:: Review of discharge plan, limitations, follow up plan, Ask Me Three TRANSPORTATION:: via private vehicle with family PLAN:: Greyson will likely be discharged home with no new services. He will follow up with his surgeon and PCP and discharge plan of care and transport with family. CM will continue to support Greyson and his discharge planning needs.
[2020-07-09 10:59] VITALS: BP 153/99; PULSE 80; RESP 20; TEMP 37.1; O2SAT 96
[2020-07-09] MEDS: POTASSIUM CHLORIDE 10 MEQ/100 ML BAG 100 MEQ IVPB ×2 (11:02→13:57)
[2020-07-09] MEDS: MAGNESIUM SULFATE 2 GM/50 ML BAG IVPB (11:03)
--- NOTE | 2020-07-09 12:15 | W.PM.PROGNOT ---
Date of Service Date of service: 07/09/20 Time of Service: 12:15 Assessment and Plan Assessment and plan (1) SBO (small bowel obstruction): Status: Acute Assessment and plan: Improvement on XR today. NGT. Continue IVF. Defer management to surgery. (2) Intra-abdominal lymphadenopathy: Status: Acute Assessment and plan: Likely related to Moderna COVID-19 vaccination. I do not think this warrants further investigation at this time. (3) Gastroesophageal reflux disease: Status: Chronic Assessment and plan: PPI via IV. (4) 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 tract symptoms: Status: Chronic Assessment and plan: Monitor bladder scans (5) Essential hypertension: Status: Chronic Assessment and plan: Not normally on medications. Will monitor. (6) DVT prophylaxis: Status: Acute Assessment and plan: SC heparin (7) Discharge planning issues: Status: Acute Assessment and plan: DNR/DNI Subjective Subjective Interval history since last seen: Feels better today. Denies dizziness, chest pain, shortness of breath, nausea. +flatus this am x 1; no BM. Less pain. Exam Narrative Exam Narrative: General: Pleasant elderly male, NGT in, A&Ox3 HEENT: EOMI, MMM Cardiovascular: RRR, no m/r/g Lungs: CTAB Gastrointestinal: soft, nontender, hyperactive bowel sounds Extremities: no edema BLE's, +1 pedal pulses B Objective Last Vital Signs Temp 37.1 C 07/09/20 10:59 Pulse 80 07/09/20 10:59 Resp 20 07/09/20 10:59 BP 153/99 H 07/09/20 10:59 Pulse Ox 96 07/09/20 10:59 Laboratory Results - last 24 hr 07/08/20 07/08/20 07/09/20 13:25 13:55 06:18 WBC RBC Hgb Hct MCV MCH MCHC RDW Plt Count MPV Immature Gran % Neutrophils % Lymphocytes % Monocytes % Eosinophils % Basophils % Nucleated RBC % Absolute Neutrophils Absolute Lymphocytes Absolute Monocytes Absolute Eosinophils Absolute Basophils Sodium 140 Potassium 3.3 L Chloride 107 Carbon Dioxide 24.5 Anion Gap 8.5 BUN 13 Creatinine 0.9 Estimated GFR/1.73 m2 >= 60.00 Glucose 93 Calcium 8.1 L Magnesium 1.7 L Troponin I < 0.05 COVID-19 Source Nasal/nares SARS-CoV-2 (PCR) Negative 07/09/20 06:18 WBC 12.83 H RBC 4.88 Hgb 13.9 Hct 41.1 MCV 84.2 MCH 28.5 MCHC 33.8 RDW 13.2 Plt Count 256 MPV 9.4 Immature Gran % 0.2 Neutrophils % 73.8 Lymphocytes % 18.5 Monocytes % 7.2 Eosinophils % 0.1 Basophils % 0.2 Nucleated RBC % 0 Absolute Neutrophils 9.47 H Absolute Lymphocytes 2.37 Absolute Monocytes 0.92 H Absolute Eosinophils 0.01 Absolute Basophils 0.03 Sodium Potassium Chloride Carbon Dioxide Anion Gap BUN Creatinine Estimated GFR/1.73 m2 Glucose Calcium Magnesium Troponin I COVID-19 Source SARS-CoV-2 (PCR) Objective Narrative Objective Narrative: XR abdomen flat: No evidence of acute process, NG tube in place in the stomach
[2020-07-09 15:15] VITALS: BP 154/82; PULSE 78; RESP 19; TEMP 37; O2SAT 98
--- NOTE | 2020-07-09 15:18 | CHAPLAIN ---
Greyson was resting in bed when I visited. He talked about uncomfortable he had been, but is feeling better, and shared his appreciation for having such a good hospital 25 miles from home. He has been in touch with this , who is keeping other family members up to date on his progress. He and his live in [place].
[2020-07-09 19:50] VITALS: BP 163/82; PULSE 77; RESP 20; TEMP 36.7; O2SAT 98
[2020-07-10 00:39] VITALS: BP 148/74; PULSE 74; RESP 20; TEMP 36.8; O2SAT 97
[2020-07-10] MEDS: Normal Saline 1,000 ML 125 ML IV (02:36)
[2020-07-10] MEDS: Normal Saline Flush 10 ML SYR IVP ×2 (02:37→07:47)
[2020-07-10 02:55] VITALS: BP 149/67; PULSE 73; RESP 18; TEMP 37.2; O2SAT 99
[2020-07-10] MEDS: Heparin 5,000 UNITS/ML VIAL 5000 UNITS SC (06:56)
[2020-07-10 07:04] LABS: Abs Immature Grans 0.03 10^3/uL (0.0-0.06); Absolute Basophil Count 0.04 10^3/uL (0.0-0.2); Absolute Eosinophil Count 0.07 10^3/uL (0.0-0.7); Absolute Lymphocyte Count 2.35 10^3/uL (1.2-3.4); Absolute Monocyte Count 0.58 10^3/uL (0.1-0.8); Absolute Neutrophil Count 6.07 10^3/uL (1.2-6.7); Basophils % 0.4; Eosinophils % 0.8; HCT 40.4 % (40.0-50.0); HGB 13.3 g/dL (13.5-17.5); Immature Grans % 0.3; Lymphocytes % 25.7; MCH 28.6 pg (27.0-33.0); MCHC 32.9 % (32.0-36.0); MCV 86.9 fL (80-95); Monocytes % 6.3; Neutrophils % 66.5; Nucleated RBC 0 %; Platelet Count 223 10^3/uL (130-400); RBC 4.65 10^6/uL (4.36-5.78); RDW 13.1 % (11.8-14.1); RDW-SD 41.2 fL; WBC 9.14 10^3/uL (4.4-10.8)
[2020-07-10 07:10] LABS: Anion Gap 10.3 mmol/L (3-11); BUN 13 mg/dL (7-18); CO2 24.7 mmol/L (21.0-32.0); CREATININE 0.9 mg/dL (0.70-1.30); Calcium 7.9 mg/dL (8.5-10.1); Chloride 107 mmol/L (98-107); Glucose 77 mg/dL (74-106); Potassium 3.5 mmol/L (3.5-5.1); Sodium 142 mmol/L (136-145)
[2020-07-10] MEDS: Pantoprazole 40 MG VIAL IVP (07:47)
[2020-07-10 08:14] VITALS: BP 136/74; PULSE 73; RESP 19; TEMP 36.5; O2SAT 98
--- NOTE | 2020-07-10 10:26 | CMPROGNOTE_ITS ---
- If Service Date Differs Date of service: 07/10/20 Time of Service: 10:26 Care Management Progress Note S/O: A: Greyson is a 74 year old male admitted to [facility] on 07/08/20 with SBO. P: Greyson will likely be discharged home with no new services. He will follow up with his surgeon and PCP and discharge plan of care and transport with family. CM will continue to support Greyson and his discharge planning needs.
[2020-07-10 11:20] VITALS: BP 121/77; PULSE 83; RESP 20; TEMP 37; O2SAT 97
--- NOTE | 2020-07-10 13:59 | W.PM.DS.N ---
Date of service: 07/10/20 Time of Service: 13:59 DS: Diagnosis Discharge Diagnosis (1) SBO (small bowel obstruction): Status: Acute (2) Intra-abdominal lymphadenopathy: Status: Acute (3) Gastroesophageal reflux disease: Status: Chronic (4) 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 tract symptoms: Status: Chronic (5) Essential hypertension: Status: Chronic (6) DVT prophylaxis: Status: Acute (7) Discharge planning issues: Status: Acute Discharge Plan Disposition Patient Disposition: HOME Condition: Good Discharge Details Reason For Visit: SBO Admit Date/Time: 07/08/20 16:41 Admit Provider: Naya Montiel Attending Provider: Claudette Frye Primary Care Provider: Brooklyn Farah Home Meds and New Rx's Prescriptions: No Action omeprazole 40 mg capsule,delayed release(DR/EC) 40 mg PO DAILY Qty: 90 RF: 3 propranolol 20 mg tablet 20 mg PO QHS Qty: 90 RF: 3 calcium carbonate [Tums] 200 MG tablet,chewable 200 mg PO DAILY PRNRF: 0 Discharge Instructions Additional Instructions: -soft bland diet x 1 week -push fluids. 8-12 glasses of water a day. No alcohol -no strenuous activity/no lifting over 20#'s x1 week. You health care team does want you up walking around to avoid pneumonia and blood clots. -you may find that you are more tired than usual. This is normal and will resolve within the next 5 to 10 days. -You may find that your appetite is normal. Eat small meals throughout the course of the day rather than 3 large meals. -You can take Tylenol or ibuprofen as needed for aches and pains or headache. -Your bowel function should return to normal in a day or two. If you find you are severely constipated you can use a laxative. Try to avoid using laxatives unless absolutely necessary. -Follow-up with Dr. Frye on in the office. My office will contact you on Sunday to schedule an appointment. Gastrointestinal Soft Diet Overview Overview What is a gastrointestinal soft diet? This diet is soft in texture, low in fiber, and easy to digest. The goal is to decrease) in the bowel that may cause and discomfort. This diet is often used after abdominal surgery or as a transitional diet after flares. Meats & Meat Substitutes ? Foods Allowed: Chicken, turkey, fish, tender cuts of beef and pork, ground meats, eggs, creamy nut butters, tofu, skinless hot dogs, sausage patties without whole spices ? Foods to Avoid : Tough, fibrous meats with gristle, meat with casings (hot dogs, sausage, kielbasa), lunch meats with whole spices, shellfish, beans, chunky peanut butter, nuts Fruits and Juices ? Foods Allowed: Fruit juices without pulp, banana, avocado, applesauce, canned peaches and pears, cooked fruit without the skin/seeds ? Foods to Avoid: Juices with pulp, fresh fruit (except banana and avocado), dried fruits, canned fruit cocktail and pineapple, coconut, frozen/thawed berries Vegetables ? Foods Allowed: Well-cooked or canned vegetables, potatoes without skin, tomato sauces, vegetable juice ? Foods to Avoid: Raw vegetables, all corn, all mushrooms, stewed tomatoes, potato skins, stir-brandt vegetables, sauerkraut, pickles, olives, all dried beans, peas, and legumes Cereals and Grains ? Foods Allowed: Low- fiber dry or cooked cereals (less than 2 grams fiber per serving), white rice, pasta, macaroni, or noodles ? Foods to Avoid: Cereals with nuts, berries, dried fruits, whole grain cereals, bran cereals, granola, brown or wild rice, whole grain pasta Breads and Crackers ? Foods Allowed: White/refined breads and rolls, plain bagel, toast, plain crackers, lopez crackers ? Foods to Avoid: Whole grain breads- including white whole grain; bread/ rolls with raisins, nuts or seeds, multi-grain crackers Dairy ? Foods Allowed: Milk, cheese, yogurt, milkshakes, pudding, ice cream, cottage cheese, sherbet ; lactose free or low lactose versions if lactose intolerant ? Foods to Avoid: Dairy product mixed with fresh fruit (except banana), berries, nuts or seeds Desserts ? Foods Allowed: Plain cake, pudding, custard, ice cream, sherbet, gelatin, fruit whips ? Foods to Avoid: Any dessert that contains nuts, dried fruits, coconut, or fruits with seeds Herbs and Spices ? Foods Allowed: All ground spices or herbs, salt ? Foods to Avoid: Whole spices such as peppercorns, whole cloves, anise seeds, celery seeds, dasha, allan seeds, and fresh herbs Snacks/Other Foods ? Foods Allowed: Sugar, honey, jelly, mayonnaise, mustard, soy sauce, oil, butter, margarine, marshmallows, cookies without dried fruits or nuts, snack chips and pretzels using refined flours ? Foods to Avoid: Carbonated beverages, jams or jellies with seeds, popcorn After several weeks, slowly start to reintroduce the ?Foods to Avoid? back into your diet unless your doctor has told you otherwise. Try a small portion of one of these foods each day. If it does not bother you within 24 hours, it can be added to your diet. Continue to add new foods in this way. Some people may continue to have food sensitivities and may need to continue to avoid certain foods. If you cannot tolerate a food, avoid that food for a few weeks before you try it again. Guidelines when eating 1. Avoid any food that you cannot tolerate or that causes gas, bloating, or stomach pain. 2. Make time for your meals. Do not eat while you are in a hurry. Cut your food into small pieces. Chew each bite to a mashed potato consistency. Do not eat when you cannot concentrate on chewing well. 3. Drink at least 6-8 cups of fluid per day Fluids include: water, coffee, tea, juice, milk, popsicles, soups, gelatin, pudding, ice cream, sherbet, and yogurt. In addition, choose caffeine-free beverages more often, especially if you are having diarrhea. Stand Alone Forms: Nursing Discharge Form Activity:: see above Equipment/Supplies:: No Equipment Needed Diet:: see above Discharge Orders Discharge Orders: Discharge Order (Routine); Ordered 07/10/20 Ordered By: Claudette Frye DS: Summary Time Spent with Patient providing and/or coordinating discharge services: Less than 30 minutes Status at Discharge Functional status at discharge: independent ambulation Overall status at discharge: patient is back to baseline Mental Status: mental status grossly normal Speech and Movement: speech and movement normal Mood: congruent mood Affect: normal affect Exam Psych Mental Status: mental status grossly normal Speech and Movement: speech and movement normal Mood: congruent mood Affect: normal affect DS: Data Vitals/I&O Vitals and I&O: Vital Signs Temperature 37.0 C 07/10/20 11:20 Temperature Source Tympanic 07/10/20 11:20 Pulse 83 07/10/20 11:20 Pulse Rhythm Regular 07/10/20 07:50 Pulse 85 07/08/20 13:50 Respiratory Rate 20 07/10/20 11:20 Respiratory Effort Non-Labored 07/10/20 07:50 Respiratory Depth Normal 07/10/20 07:50 Respiratory Pattern Normal 07/10/20 07:50 Blood Pressure 121/77 07/10/20 11:20 Blood Pressure Mean 107 07/08/20 13:31 Blood Pressure Position Supine 07/08/20 10:48 Pulse Oximetry 97 07/10/20 11:20 Oxygen Delivery Method Room Air 07/10/20 11:20 Oxygen Flow Rate 0 07/10/20 11:20 Pain Level 0 07/10/20 11:20 Intake & Output 07/09/20 07/10/20 07/10/20 23:59 11:59 23:59 Intake Total 935.417 / 2247.917 1000 / 1150 150 / 1150 Output Total 1050 / 1700 1425 / 1425 Balance -114.583 / 547.917 -425 / -275 150 / -275 Intake: IV 935.417 / 2247.917 1000 / 1000 Oral 150 / 150 Output: Urine 1050 / 1700 1425 / 1425 Other: Urine Color Yellow Yellow Urine Appearance Clear Clear Urine Odor Normal Normal Comment Patient had 320mL post void in his bladder. Patient informed that he needs to be straight cathed but he refused at this time. Will continue to educate on straight cathing. Patient had 320mL post void in his bladder. Patient informed that he needs to be straight cathed but he refused at this time. Will continue to educate on straight cathing. Voiding Methods Urinal Urinal Data Completed and Pending Labs on day of discharge: Labs from last 24 hours 07/10/20 07/10/20 06:40 06:40 WBC 9.14 RBC 4.65 Hgb 13.3 L Hct 40.4 MCV 86.9 MCH 28.6 MCHC 32.9 RDW 13.1 Plt Count 223 MPV 9.0 Immature Gran % 0.3 Neutrophils % 66.5 Lymphocytes % 25.7 Monocytes % 6.3 Eosinophils % 0.8 Basophils % 0.4 Nucleated RBC % 0 Absolute Neutrophils 6.07 Absolute Lymphocytes 2.35 Absolute Monocytes 0.58 Absolute Eosinophils 0.07 Absolute Basophils 0.04 Sodium 142 Potassium 3.5 Chloride 107 Carbon Dioxide 24.7 Anion Gap 10.3 BUN 13 Creatinine 0.9 Estimated GFR/1.73 m2 >= 60.00 Glucose 77 Calcium 7.9 L Magnesium 2.0 PFSH Medical History Benign prostate hyperplasia (12/11/07) Done by Colonoscopy refused Erectile dysfunction Essential hypertension (07/27/16) Gastroesophageal reflux disease (07/27/16) GERD with esophagitis (12/06/11) Hyperlipidemia (07/27/16) Statin declined Surgical History EGD w/ BX (12/06/11) Weeks H/O hernia repair Repair of inguinal hernia (~1979) Left S/P right inguinal hernia repair S/P TURP Tonsillectomy Vasectomy Family History Other Cancer Social History Smoking/Tobacco Use Status: Former Tobacco Use Quit Date: 04/16/73 Pack-years: 16 Tobacco: How many years used: 16 Smoking risk assessment performed?: Yes Alcohol Intake: current Alcohol Intake frequency: a few times a week Drug use: Occasionally Substance use type: marijuana Adopted: No Household members: spouse Housing: house Number of Children: 3 number of grandchildren: 4 Seatbelt use: always Helmet use: Yes Do you feel safe at home: Yes Do you feel safe in your relationship?: Yes
--- NOTE | 2020-07-10 14:10 | W.PM.PROGNOT ---
Date of Service Date of service: 07/10/20 Time of Service: 14:10 Assessment and Plan Assessment and plan (1) Intra-abdominal lymphadenopathy: Status: Acute (2) GERD with esophagitis: Status: Acute (3) Essential hypertension: Status: Chronic (4) Hyperlipidemia: Status: Acute Qualifiers: Hyperlipidemia type: mixed hyperlipidemia Qualified Code(s): E78.2 - Mixed hyperlipidemia (5) Gastroesophageal reflux disease: Status: Chronic (6) SBO (small bowel obstruction): Status: Acute Assessment and plan: pt is feeling good. He is up walking around. He feels good and would like to go home. I still don't have a good answer to why he had SBO. He should stay on a soft diet and continue to walk. avoid strenuous activity F/u in clinic on - will schedule for a CE and SB follow through. 20 min spent in f/u today Subjective Subjective Interval history since last seen: Pt is doing well. no headaches. No CP or SOB. no productive cough. no dysuria. no leg pain or swelling. He is tolerating a full liquid diet. He is not having any pain or nausea. He is passing gas. He has not had a BM. Exam Narrative Exam Narrative: PHYSICAL EXAM GENERAL APPEARANCE: Alert, healthy appearance, oriented, in no acute distress SKIN: No rashes. No breakdown HYDRATION: Well hydrated HEAD, EYES, EARS, NECK, THROAT: Head is normocephalic, pupils equal, round, reactive to light and accommodation, ocular movement intact, sclera clear and no jaundice. Dentition intact. No sore throat. No jaw pain. No thrush NECK: Supple, Trachea midline. No JVD. LUNGS: normal respiration/nl chest excursion. Clear to auscultation B/l no R/R/W HEART: Regular rate and rhythm, EXTREMITY: No edema or cyanosis no leg pain, redness, swelling. No IV infiltration ABDOMEN: non tender to palpation, no masses or distention, no hernias. Normal bowel sounds NEURO: no focal neuro deficits. Objective Last Vital Signs Temp 37.0 C 07/10/20 11:20 Pulse 83 07/10/20 11:20 Resp 20 07/10/20 11:20 BP 121/77 07/10/20 11:20 Pulse Ox 97 07/10/20 11:20 Laboratory Results - last 24 hr 07/10/20 07/10/20 06:40 06:40 WBC 9.14 RBC 4.65 Hgb 13.3 L Hct 40.4 MCV 86.9 MCH 28.6 MCHC 32.9 RDW 13.1 Plt Count 223 MPV 9.0 Immature Gran % 0.3 Neutrophils % 66.5 Lymphocytes % 25.7 Monocytes % 6.3 Eosinophils % 0.8 Basophils % 0.4 Nucleated RBC % 0 Absolute Neutrophils 6.07 Absolute Lymphocytes 2.35 Absolute Monocytes 0.58 Absolute Eosinophils 0.07 Absolute Basophils 0.04 Sodium 142 Potassium 3.5 Chloride 107 Carbon Dioxide 24.7 Anion Gap 10.3 BUN 13 Creatinine 0.9 Estimated GFR/1.73 m2 >= 60.00 Glucose 77 Calcium 7.9 L Magnesium 2.0
--- NOTE | 2020-07-10 17:31 | PDOC.CMDIS ---
- If Service Date Differs Date of service: 07/10/20 Time of Service: 17:31 LACE Index Scoring Tool - Questions: Length of Stay (in days): 2 Acuity (Admit via E.D.?): Yes E.D. Visits: 1 - Answers: Total Score: 6 Risk of Readmission: Low Risk Care Management Discharge Reason for Hospitalization: SBO Discharge Plan: Greyson will return home today with no additional services. His will drive him home via private vehicle. He will follow up with his PCP and discharge plan of care. He is happy to be going home. Patient/Family Education Needs: Review discharge instructions regarding activity levels and medications, discussion of self care needs and goals of care.
== END 2020-07-10 14:42 | disposition home or self-care (01) | DRG 389 ==
LOC: ER 11:42 → MS 14:05
PROVIDERS: Admitting Provider Internal Medicine; Emergency Provider Student in an Organized Health Care Education/Training Program; PCP Nurse Practitioner; Visit Provider Surgery
DX: K56.609 Unspecified intestinal obstruction, unspecified as to partial versus complete obstruction (principal); T88.1XXA Other complications following immunization, not elsewhere classified, initial encounter; R59.0 Localized enlarged lymph nodes; I10 Essential (primary) hypertension; E78.2 Mixed hyperlipidemia; N40.0 Benign prostatic hyperplasia without lower urinary tract symptoms; T50.B95A Adverse effect of other viral vaccines, initial encounter; K21.9 Gastro-esophageal reflux disease without esophagitis
CPT/HCPCS: 36415; 71275; 74177; 77001; 80048; 80053; 87635; 93005; 96361; 96374; 99214; 99223; 99231; 99232; 99238; 99252; 99285; 74019; 83735; 83880; 84484; 85025; 85379; 93010; 94667; 99220; J1644; J2270; J2405; J3480; J3490

== ENCOUNTER → 2020-07-15 13:43 | Outpatient (BNVA) | payer MEDICARE, SELFPAY | PROVIDERS: PCP Nurse Practitioner; Referring Provider Nurse Practitioner; Visit Provider Surgery | DX: K56.609 Unspecified intestinal obstruction, unspecified as to partial versus complete obstruction (principal); R59.0 Localized enlarged lymph nodes | CPT/HCPCS: 99213 ==

== ENCOUNTER 2020-07-28 02:22 | Outpatient (CLI) | payer MEDICARE, SELFPAY ==
--- NOTE | 2020-07-28 06:30 | DI.RAD_ITS ---
EXAM: RF SMALL BOWEL SERIES CLINICAL HISTORY: SMALL BOWEL OBSTRUCTION,UNKNOWN ETIOLOGY,NL CT,ENLARGED LYMPH NODES TECHNIQUE: 2D and realtime digital imaging was performed. CONTRAST MATERIAL: Oral barium Oral water soluble contrast was administered. COMPARISON: Recent plain films July 09, 2020 reviewed FINDINGS: This study revealed normal course and caliber of small bowel loops with no abnormal fold thickening n or abnormal nodularity. Stomach was not distended. Spot views of the terminal ileum appear unremark able No delayed transit time to the colon. Oral contrast was seen in the colon in less than 1 hour post i ngestion oral contrast. There is also no evidence of malrotation. IMPRESSION: No evidence of small-bowel obstruction. No obvious focal lesion nor stricture in the small bowel. N o abnormal fold pattern. No abnormal dilatation of small bowel loops. RADIATION DOSE DELIVERED: margy Granados= mGy
[2020-07-28] MEDS: Barium Sulfate 60% W/V 355 ML BTL PO ×2 (10:32→10:33)
== END 2020-07-28 02:42 ==
PROVIDERS: PCP Nurse Practitioner; Visit Provider Surgery
DX: K56.609 Unspecified intestinal obstruction, unspecified as to partial versus complete obstruction (principal); R59.0 Localized enlarged lymph nodes
CPT/HCPCS: 74250

== ENCOUNTER 2020-08-04 02:37 | Outpatient (CLI) | payer MEDICARE, SELFPAY ==
[2020-08-04 10:30] LABS: Source Nasal/Nares
[2020-08-04 15:51] LABS: COVID-19 PCR Negative (Negative)
== END 2020-08-04 02:38 | disposition home or self-care (01) ==
LOC: LBO 02:37
PROVIDERS: PCP Nurse Practitioner; Visit Provider Surgery
DX: Z20.822 Contact with and (suspected) exposure to COVID-19 (principal); Z01.818 Encounter for other preprocedural examination
CPT/HCPCS: 87635

== ENCOUNTER 2020-08-06 07:42 | Day surgery (SDC) | payer MEDICARE, SELFPAY ==
[2020-08-06 08:08] VITALS: BP 149/84; PULSE 81; RESP 16; TEMP 36.2; O2SAT 98
[2020-08-06] MEDS: Lactated Ringers 1,000 ML 100 ML IV (08:23)
--- NOTE | 2020-08-06 11:03 | BOWEL_PTH ---
PATIENT: Greyson Vicente LOC: [facility] U#:[id number] AGE/SX: 74/M ROOM: RE08/06/[address]: Claudette Frye : 1945 BED: DIS: 08/06/2020 SPEC #: [id number] RECD: 08/06/20 12:47 STATUS: JAVIER RE #: [id number] ALEXYS: 08/06/20 11:[address]: Claudette Frye DEPT: Surgical Specimen RECD BY: Rosie Lau ENTERED: 08/06/20 12:49 SP TYPE: Bowel OTHR DR: Brooklyn Farah APRN Tissues: 1 - BIOPSY BOWEL 2 - BIOPSY BOWEL 3 - STOMACH BIOPSY 4 - STOMACH BIOPSY 5 - ESOPHAGUS BIOPSY 6 - ESOPHAGUS BIOPSY Procedures: GROSS AND MICRO LEVEL 4 Comments: [id number]
--- NOTE | 2020-08-06 11:31 | W.PM.ENDDOP ---
Date of service: 08/06/20 Time of Service: 11:32 Endoscopy Report DATE OF PROCEDURE: 08/06/20 PRE-OP DIAGNOSIS: SBO POST-OP DIAGNOSIS: other (very small hiatal hernia ) SURGEON: Claudette Frye ANESTHESIA TYPE: General:No Airway ESTIMATED BLOOD LOSS: 0 PATHOLOGY: other COMPLICATIONS: None DISPOSITION: same day PROCEDURE DESCRIPTION: After informed consent was obtained the patient was take to the procedure room and placed in a supine position. Monitors were applied and a time out was done. The patients name, date of , procedure type, allergies to medications and metal in their body was reviewed. A bite block was placed and the patient was sedated. Once sedated and comfortable the gastroscope was advanced through the oropharynx which was grossly normal into the esophagus. The proximal and mid-esophagus were nl. In the distal esophagus there are no: Esophageal erosions, varices, diverticula or stricture apparent. He does have a very small hiatal hernia. The scope was advanced into the stomach and through the pylorus into the 3rd portion of the duodenum. The duodenum was noted to be normal. Biopsies were done, all specimens are retrieved and no bleeding is noted. The scope was retracted back into the stomach and biopsies were done to rule out H. pylori. There were no ulcers or gastritis . The scope was retroflexed. The cardia and fundus were noted to be normal. There small a hiatal hernia noted. The scope was retracted back into the esophagus and biopsies were done of the GE junction to rule out Dc's. The Z line was regular. The scope was removed and the patient was woken up and taken back to [facility] in stable condition. Follow up: prn
--- NOTE | 2020-08-06 11:34 | W.COLOREPORT ---
Date of service: 08/06/20 Time of Service: 11:34 Colonoscopy Report Date of procedure: 08/06/20 Pre-op diagnosis general: SBO Post-op diagnosis procedure note: other (Nl) Surgeon: Claudette Frye Anesthesia Type: General:No Airway Estimated blood loss (mL): 0 Pathology: none sent Complications: None Disposition: same day Prep: Miralax/Dulcolax Retraction Time: 8 mins Procedure Description: After informed consent was obtained the patient was taken to the procedure room and placed in a left decubitous position. Monitors were applied and a time out was done. The patients name, date of , procedure, allergies to medications and metal in their body was reviewed. The patient was then sedated. Once sedated and comfortable a rectal exam was done. External exam was normal. Internal exam revealed a normal sphincter tone and no palpable masses. The prostate nl. The scope was then introduced and retrofelexed. Grade I internal hemorrhoids were identified. The scope was then advanced to the cecum w/out difficulty. The TI and appendiceal orifice were identified. The prep was good. The scope was then slowly retracted over 8 minutes back into the rectum. There were no polyps, AVMs, or diverticula apparent. The mucosa appears pink and healthy. The scope was removed and the patient was woken up and taken back to Same day surgery in stable condition. The patient tolerated the procedure well and there were no immediate complications. Follow up: The patient does not require any further colonoscopies, unless they develop changes in bowel habits or other new gastrointestinal complaints.
--- NOTE | 2020-08-06 11:37 | W.PM.DSUDISC ---
Discharge Plan Disposition Patient Disposition: HOME Condition: Good Discharge Details Reason For Visit: stomach and colon scope Attending Provider: Claudette Frye Primary Care Provider: Brooklyn Faarh Home Meds and New Rx's Prescriptions: No Action omeprazole 40 mg capsule,delayed release(DR/EC) 40 mg PO DAILY Qty: 90 RF: 3 propranolol 20 mg tablet 20 mg PO QHS Qty: 90 RF: 3 calcium carbonate [Tums] 200 MG tablet,chewable 200 mg PO DAILY PRNRF: 0 Discharge Instructions Additional Instructions: Findings: small hiatal hernia otherwise normal esophagus/stomach colon is normal Follow up: as needed Please call if you develop: fevers >101.5 Nausea or Vomiting Abdominal pain that is not transient DAY SURGERY UNIT POST COLONOSCOPY INSTRUCTIONS 1. Because there will be medication in your system for the next 24 hours, you may feel a little sleepy. Your coordination will be affected. Therefore: a. Do not drive or operate dangerous equipment for 24 hours. b. Do not drink alcohol beverages for 24 hours (not even beer). c. Plan to go home and rest for the day. 2. Generally there are no restrictions on your activity after a day or so has gone by, but you may feel a bit fatigued for a few days. 3 After you arrive home you may have a light meal and return to a normal diet as you can tolerate it without feeling sick to your stomach. 4. After surgery, you may feel pain or discomfort. This should be only transient, but if it persists please contact your doctor. 5. If there are any questions regarding the findings of your procedure, please feel free to contact your doctor. 6. If you are unable to contact your doctor with a problem, contact the hospital at [phone]. 7. Continue all your regular medications unless directed otherwise. I understand the above instructions and have no questions. Signature of Patient or Responsible Adult Escort Date/Time Name of Responsible Adult Escort Signature of Nurse Date/Time Activity:: No strenuous activity or lifting over 20 pounds x 24 hours. Diet:: Small light meals x24 hours Discharge Orders Discharge Orders: Discharge Order (Routine); Ordered 08/06/20 Ordered By: Claudette Frye DS: Diagnosis Discharge Diagnosis (1) GERD with esophagitis: Status: Acute (2) Gastroesophageal reflux disease: Status: Chronic (3) SBO (small bowel obstruction): Status: Acute
[2020-08-06 12:14] VITALS: BP 138/90; PULSE 77; RESP 16; TEMP 36.2; O2SAT 99
== END 2020-08-06 12:50 | disposition home or self-care (01) ==
PROVIDERS: PCP Nurse Practitioner; Visit Provider Surgery
PROC: (CPT 43239; principal; 2020-08-06 09:15)
DX: K56.609 Unspecified intestinal obstruction, unspecified as to partial versus complete obstruction (principal); K44.9 Diaphragmatic hernia without obstruction or gangrene; K64.0 First degree hemorrhoids
CPT/HCPCS: 43239; 45378; 88305; J2001

== ENCOUNTER → 2020-11-19 11:37 | Outpatient (BNVA) | payer MEDICARE, SELFPAY | PROVIDERS: PCP Nurse Practitioner; Referring Provider Nurse Practitioner; Visit Provider Urology | DX: N40.1 Benign prostatic hyperplasia with lower urinary tract symptoms (principal); R33.8 Other retention of urine; R31.0 Gross hematuria | CPT/HCPCS: 81003; 99213 ==

== ENCOUNTER 2021-05-04 09:03 | Outpatient (CLI) | payer MEDICARE, SELFPAY ==
--- NOTE | 2021-05-04 09:00 | RT.EKG_ITS ---
APPROVED REPORT Exam: Resting ECG Reason for Exam: Racing heart Patient Location: O HR:70 bpm ECG Measurements Heart Rate 70 AXIS MO 171 P 12 QRSd 79 QRS 11 QT 360 T 14 QTc 388 Conclusion Sinus rhythm...normal P axis, V-rate 60- 99 Normal Electrocardiogram
== END 2021-05-04 09:04 | disposition home or self-care (01) ==
LOC: DI.KIM 09:05
PROVIDERS: PCP Nurse Practitioner; Visit Provider Nurse Practitioner
DX: R00.0 Tachycardia, unspecified (principal)
CPT/HCPCS: 93010

== ENCOUNTER 2021-05-04 10:03 | Outpatient (REF) | payer MEDICARE, SELFPAY ==
[2021-05-04 15:03] LABS: HCT 45.6 % (40.0-50.0); HGB 15.3 g/dL (13.5-17.5); MCH 30.2 pg (27.0-33.0); MCHC 33.6 % (32.0-36.0); MCV 89.9 fL (80-95); MPV 9.6 fL (8.0-11.0); Platelet Count 261 10^3/uL (130-400); RBC 5.07 10^6/uL (4.36-5.78); RDW 12.4 % (11.8-14.1); RDW-SD 40.9 fL; WBC 8.78 10^3/uL (4.4-10.8)
[2021-05-04 16:22] LABS: ALT 30 U/L (16-63); AST 20 U/L (15-37); Alkaline Phosphatase 71 U/L (46-116); BUN 20 mg/dL (7-18); Bilirubin, Total 0.6 mg/dL (0.2-1.0); CREATININE 0.9 mg/dL (0.70-1.30); Calcium 8.8 mg/dL (8.5-10.1); Calculated LDL 139 mg/dL (<100); Chloride 105 mmol/L (98-107); Cholesterol 217 mg/dL (<200); Glucose 82 mg/dL (74-106); HDL Cholesterol 42 mg/dL (40-60); Potassium 4.2 mmol/L (3.5-5.1); Sodium 140 mmol/L (136-145); TSH (W/Ref FT4) 2.26 uIU/mL (0.36-3.74); Total Protein 7.1 g/dL (6.4-8.2); Triglyceride 184 mg/dL (<150)
== END 2021-05-04 10:04 | disposition home or self-care (01) ==
LOC: LBN 10:03
PROVIDERS: PCP Nurse Practitioner; Visit Provider Nurse Practitioner
DX: I10 Essential (primary) hypertension (principal); K21.00 Gastro-esophageal reflux disease with esophagitis, without bleeding; R00.2 Palpitations; R00.0 Tachycardia, unspecified
CPT/HCPCS: 80053; 80061; 85027; 84443

== ENCOUNTER 2021-05-06 07:30 | Outpatient (CLI) | payer MEDICARE, SELFPAY ==
--- NOTE | 2021-05-23 08:35 | W.CARDEVENT ---
Date of service: 05/23/21 Time of Service: 08:35 Cardiac Event Recorder Referring Provider:: Brooklyn Farah Indications:: Palpitations Cardiac Event Note: This is a 14-day event monitor ordered for symptoms of palpitations. Predominant rhythm was sinus with an average heart rate of 77. Minimum was 52, maximum 159 There were occasional atrial premature beats. A total of 17 self-limited atrial runs occurred, the longest of which was 11 beats in duration. There were rare ventricular ectopic beats. There was no ventricular tachycardia. The episode labeled ventricular tachycardia appeared to be SVT with aberrancy There was no atrial fibrillation, no high-grade AV block, no pauses greater than 3 seconds Patient symptoms did not correspond to any dysrhythmia
== END 2021-05-06 07:31 | disposition home or self-care (01) ==
PROVIDERS: PCP Nurse Practitioner; Visit Provider Nurse Practitioner
DX: R00.2 Palpitations (principal)
CPT/HCPCS: 93246

== ENCOUNTER 2021-05-23 08:35 | Outpatient (CLI) | payer MEDICARE, SELFPAY | END 2021-05-23 08:36 | LOC: CARDO 05-25 10:28 | PROVIDERS: PCP Nurse Practitioner; Referring Provider Nurse Practitioner; Visit Provider Internal Medicine Cardiovascular Disease | DX: R00.2 Palpitations (principal); I49.1 Atrial premature depolarization | CPT/HCPCS: 93248 ==

== ENCOUNTER 2021-05-23 11:29 | Outpatient (REF) | payer MEDICARE, SELFPAY | END 2021-05-23 11:30 | disposition home or self-care (01) | LOC: LBN 11:29 | PROVIDERS: PCP Nurse Practitioner; Visit Provider Nurse Practitioner | DX: R35.0 Frequency of micturition (principal) | CPT/HCPCS: 87086 ==

== ENCOUNTER 2021-05-26 02:20 | Outpatient (CLI) | payer MEDICARE, SELFPAY ==
--- NOTE | 2021-05-26 14:03 | DI.US_ITS ---
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 Estimated ejection fraction is 60%. Wall m otion is normal Normal right ventricular size and systolic function Both atria are normal in size Very mildly sclerotic trileaflet aortic valve with mild regurgitation Mildly dilated ascending aorta measuring 3.54 cm Wall motion Left Ventricle The left ventricle is normal size. The left ventricular systolic function is normal. The left ventric ular ejection fraction is within the normal range. There is normal left ventricular wall thickness. T here is normal LV segmental wall motion. There is no ventricular septal defect visualized. LVEF is 59 %. Right Ventricle The right ventricle is normal size. The right ventricular systolic function is normal. Atria The left atrium size is normal. The right atrium size is normal. The interatrial septum is intact wit h no evidence for an atrial septal defect. Aortic Valve Aortic valve is trileaflet, very mild sclerosis There is no aortic valvular stenosis. Mild aortic reg urgitation. Mitral Valve The mitral valve is normal in structure. No evidence of mitral valve stenosis. Trace mitral regurgita tion. Tricuspid Valve The tricuspid valve is normal in structure. There is no tricuspid valve stenosis. Trace tricuspid reg urgitation. Pulmonic Valve The pulmonary valve is normal in structure. There is no pulmonic valvular stenosis. Trace pulmonic re gurgitation. Great Vessels The aortic root is normal in size. The ascending aorta is mildly dilated.3.54 cm Aortic arch is not w ell visualized. IVC is normal in size and collapses >50% with inspiration. Pericardium There is no pericardial effusion. 2D Dimensions IVSD d PLAX 0.97 cm M: 0.6-1.2 LV Vol A2C d MOD 88.4 mL LVPW d PLAX 0.93 cm M: 0.6 - 1.2 LV Vol A4C d MOD 111.2 mL LVID d PLAX 4.41 cm M: 4.2 - 5.8 LA vol/ BSA A2C s A-L 24.2 mL/m2 LVDs 2.95 cm M: 2.5 - 4.0 LA vol/ BSA A4C s A-L 26.3 mL/m2 Ao Root d 3.30 cm M: 3.1 - 3.7 LA Vol/ BSA Biplane s A-L 26.4 mL/m2 RA Area A4C 16.85 cm2 LA Area A4C s MOD 17.79 cm2 RA Vol/ BSA A4C s A-L 25.1 mL/m2 LA Area A2C s MOD 16.32 cm2 Ao Asc Diam d 3.54 cm M: 2.6 - 3.4 LV EF A4C MOD 58.1 % LV EF Teichholz 60.9 % LV EF A2C MOD 58.9 % LVEF (Zamarripa's) 58.42 % M: 52 - 72 LV EF Biplane MOD 58.4 % LV Volume 76.92 mL M: 62 - 150 SV 59.13 mL LV Volume Index 40.06 mL/m2 M: 34 - 74 SV Index 30.74 mL/m2 LV Vol Biplane MOD 101.2 mL FS 32.35 % M-Mode TAPSE 2.20 cm (M/F) >1.7 LV Diastology MV E' medial 0.083 (>0.07 m/s) E/A Ratio 0.9 LV E/e MED 7.70 (<14) MV E Vmax 0.64 (0.4-1.3 m/s) MV E' lateral 0.087 (>0.1 m/s) MV A Vmax 0.70 (0.4-1.3 m/s) LV E/e LAT 7.35 (<14) MV E/A Ratio 0.89 MV E/E' medial 7.70 MV E/E' lateral 7.36 Aortic Valve LVOT Area 3.03 cm2 AoV Area Vmax 2.08 cm2 LVOT Vmax 0.99 m/s AoV Area/ BSA (Vmax) 1.08 cm2/m2 LVOT Mean Saud. 0.66 m/s DEAN Mean Saud. 2.14 cm2 LVOT Peak Grad 3.9 mmHg DEAN Mean Saud. Index 1.11 cm2/m2 LVOT Mean Grad 2.0 mmHg AR DT 1873 msec LVOT VTI 0.209 m AR PHT 543 msec LVOT Diam s 1.95 cm AoV Vmax 1.43 m/s Velocity Ratio 0.69 AoV Mean Saud. 0.93 m/s AoV Peak Grad 8.2 mmHg LVOT SV 63.22 mL AoV Mean Grad 4.0 mmHg AoV VTI 0.258 m AoV Area VTI 2.45 cm2 AoV Area/ BSA (VTI) 1.27 cm/m2 Mitral Valve MV DT 236 (160-240 msec) MV PHT 68 msec MV Area PHT 3.21 cm2 MV VTI 0.184 m MV Area VTI 3.44 (4.0-6.0 cm2) Pulmonary Valve PV Vmax 0.90 (0.5-1.5 m/s) RVOT Peak Gr. 2.36 mmHg PV Peak Grad 3.3 mmHg RVOT Mean Gr. 1.15 mmHg PV Mean Grad 1.9 mmHg RVOT VTI 0.152 m PV VTI 0.151 m RVOT Vmax 0.77 m/s Tricuspid Valve TR Peak Grad 17.5 mmHg TR Vmax 2.10 m/s RA Pressure 3.00 mmHg RVSP (TR) 20.6 mmHg
== END 2021-05-26 02:40 ==
PROVIDERS: PCP Nurse Practitioner; Visit Provider Nurse Practitioner
DX: I10 Essential (primary) hypertension (principal); R00.0 Tachycardia, unspecified; R00.2 Palpitations
CPT/HCPCS: 93306

== ENCOUNTER → 2021-06-07 15:59 | Outpatient (BNVA) | payer MEDICARE, SELFPAY | PROVIDERS: PCP Nurse Practitioner; Referring Provider Nurse Practitioner; Visit Provider Urology | DX: R31.0 Gross hematuria (principal) | CPT/HCPCS: 81003 ==

== ENCOUNTER 2021-06-07 17:19 | Outpatient (REF) | payer MEDICARE, SELFPAY | END 2021-06-07 17:20 | disposition home or self-care (01) | LOC: LBN 17:19 | PROVIDERS: PCP Nurse Practitioner; Visit Provider Urology | DX: R31.0 Gross hematuria (principal); N40.0 Benign prostatic hyperplasia without lower urinary tract symptoms | CPT/HCPCS: 87086 ==

== ENCOUNTER 2021-06-10 21:03 | Emergency (ER) | payer MEDICARE, SELFPAY ==
[2021-06-10 21:07] VITALS: BP 170/96; PULSE 82; RESP 20; TEMP 36.7; O2SAT 98
[2021-06-10 21:48] LABS: Abs Immature Grans 0.02 10^3/uL (0.0-0.06); Absolute Basophil Count 0.06 10^3/uL (0.0-0.2); Absolute Eosinophil Count 0.11 10^3/uL (0.0-0.7); Absolute Lymphocyte Count 3.41 10^3/uL (1.2-3.4); Absolute Monocyte Count 0.53 10^3/uL (0.1-0.8); Absolute Neutrophil Count 5.23 10^3/uL (1.2-6.7); Basophils % 0.6; Eosinophils % 1.2; HCT 43.6 % (40.0-50.0); HGB 14.7 g/dL (13.5-17.5); Immature Grans % 0.2; Lymphocytes % 36.4; MCH 30.2 pg (27.0-33.0); MCHC 33.7 % (32.0-36.0); MCV 89.5 fL (80-95); MPV 8.6 fL (8.0-11.0); Monocytes % 5.7; Neutrophils % 55.9; Nucleated RBC 0 %; Platelet Count 255 10^3/uL (130-400); RBC 4.87 10^6/uL (4.36-5.78); RDW 12.1 % (11.8-14.1); RDW-SD 40.1 fL; WBC 9.36 10^3/uL (4.4-10.8)
[2021-06-10 21:55] LABS: Clarity Turbid (Clear)
[2021-06-10 21:56] LABS: Bilirubin Color Interference (Negative); Blood Color Interference (Negative); Glucose Color Interference mg/dL (Negative); Ketones Color Interference mg/dL (Negative); Leukocyte Esterase Color Interference (Negative); Nitrite Color Interference (Negative); Urobilinogen Color Interference EU/dL (Up TO 0.2)
[2021-06-10 21:57] LABS: C & S Indicated? Yes; RBC >50 HPF (0-2)
[2021-06-10 22:02] LABS: ALT 25 U/L (16-63); AST 20 U/L (15-37); Albumin 4.1 g/dL (3.4-5.0); Alkaline Phosphatase 77 U/L (46-116); BUN 20 mg/dL (7-18); Bilirubin, Total 0.6 mg/dL (0.2-1.0); CREATININE 0.9 mg/dL (0.70-1.30); Calcium 8.9 mg/dL (8.5-10.1); Chloride 104 mmol/L (98-107); Glucose 101 mg/dL (74-106); Potassium 3.6 mmol/L (3.5-5.1); Sodium 140 mmol/L (136-145); Total Protein 7.4 g/dL (6.4-8.2)
--- NOTE | 2021-06-10 22:12 | ED.GENADUL_ITS ---
Discharge Plan Disposition Patient Disposition: HOME Condition: Stable Discharge Details Clinical Impression: Hematuria, Acute UTI Primary Care Provider: Brooklyn Farah ED Provider: Lex Ardon Home Meds and New Rx's Prescriptions: Continued omeprazole 40 mg capsule,delayed release(DR/EC) 40 mg PO DAILY Qty: 90 3RF calcium carbonate [Tums] 200 MG tablet,chewable 200 mg PO DAILY PRN0RF sildenafil 100 mg tablet See Rx Instructions PO DAILY PRN (Reason: sexual activity) Qty: 4 6RF Rx Instructions: 1/2 to 1 tab PO daily PRN; metoprolol succinate 25 mg tablet extended release 24 hr 12.5 mg PO DAILY Qty: 30 0RF Rx Instructions: Trial 1/2 tab at HS. If tolerates, increase to 1 tab. No Action cephalexin 500 mg tablet 500 mg PO QHS Qty: 90 1RF Rx Instructions: may increase to 4 times/day if UTI occurs Discharge Instructions Instructions: Urinary Tract Infection in Men (ED), Hematuria (ED) Additional Instructions: Please continue to stay well-hydrated and feel free to return to the emergency department for any new or significant worsening of your symptoms. If you develop fever chills, nausea vomiting, flank pain or further concerns you should return immediately. Otherwise please follow-up with urology for further evaluation if your hematuria continues. Referrals: Fredy Mcgrath MD [ [facility] STAFF PHYSICIAN] - Discharge Data Discharge Date/Time-TO BE ENTERED AT DEPARTURE: 06/10/21 22:43 Medical Decision Making Patient presenting to the emergency department for chief complaint of hematuria. Patient states previous issues with hematuria due to BPH but since TURP has significantly minimized these complaints. 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 Patient denies flank pain, fever chills, nausea vomiting, pain with urination sores or lesions. Physical exam is unremarkable for any acute findings. Patient does state that earlier in the week he had cloudy urine which she was told was not infectious but then today started having more bleeding. Plan to check labs and UA. Labs were reviewed and show unremarkable CBC with only slight elevation of lymphocytes, CMP unremarkable again with only slight elevation of BUN. Due to significant amount of blood in urine urinalysis was difficult to determine but culture was reflexed. Reviewed patient's previous cultures that seem to be contaminated specimens with gram-positive mat. Given this I do feel that treating patient with antibiotics pending culture is appropriate due to suspicion of cystitis. Patient agreeable to this plan of care and was placed upon care management list for follow-up with urology for further evaluation of hematuria if not improving. HPI General Mode of arrival: ambulatory . Date/Time Provider Initiated Documentation: 06/10/21 21:16 . Limitations to Documentation: no limitations . Information obtained by: patient . History of Present Illness 75 year old M presents to the emergency department with the chief complaint of Hematuria, described as similar to prior episodes, Quality is described as other (Denies pain), Patient started experiencing this hour(s) (5) and it has been constant. improves with No relieving factors improve symptom(s), Patient notes no other symptoms.. Patient did receive the following treatments prior to arrival, none Related Data Home Medications Medication Instructions Recorded Confirmed calcium carbonate 200 mg calcium 200 mg PO DAILY PRN tab.chew 09/06/16 06/17/21 (500 mg) chewable tablet (Tums) omeprazole 40 mg capsule,delayed 40 mg PO DAILY #90 tab-cap 09/20/20 06/17/21 release sildenafil 100 mg tablet See Rx Instructions PO DAILY PRN 11/09/20 06/17/21 #4 tab metoprolol succinate 25 mg 12.5 mg PO DAILY #30 tab 05/19/21 06/17/21 tablet,extended release 24 hr cephalexin 500 mg tablet 500 mg PO QHS #90 tab 06/16/21 06/16/21 Previous Rx's Medication Instructions Recorded omeprazole 40 mg capsule,delayed 40 mg PO DAILY #90 tab-cap 09/20/20 release sildenafil 100 mg tablet See Rx Instructions PO DAILY PRN 11/09/20 #4 tab metoprolol succinate 25 mg 12.5 mg PO DAILY #30 tab 05/19/21 tablet,extended release 24 hr cephalexin 500 mg tablet 500 mg PO QHS #90 tab 06/16/21 Allergies Allergy/AdvReac Type Severity Reaction Status Date / Time finasteride Allergy Verified 05/12/21 11:22 terazosin HCl [From Hytrin] AdvReac sweats Verified 05/12/21 11:22 General Stated Complaint: Urinary BEATRIZ: 3 Review of Systems Constitutional Constitutional: Denies body ache(s), Denies chills, Denies fever(s), Denies malaise and Denies weakness Cardiovascular Cardiovascular: Denies chest pain Respiratory Respiratory: Reports system reviewed and no additional complaints, except as documented Gastrointestinal Gastrointestinal: Denies abdominal pain, Denies nausea and Denies vomiting Genitourinary Genitourinary: Reports as per HPI, Reports hematuria, Denies difficulty urinating, Denies dysuria and Denies urinary urgency Neurologic Neurologic: Denies confusion and Denies weakness Psychiatric Psychiatric: Denies confusion PFSH All Active Problems Hematuria (Acute) Acute UTI (Acute) Palpitations (Chronic) Intra-abdominal lymphadenopathy (Acute) GERD with esophagitis (Acute 12/06/11) Essential hypertension (Chronic 07/27/16) Hyperlipidemia (Acute 07/27/16) Gastroesophageal reflux disease (Chronic 07/27/16) Discharge planning issues (Acute) DVT prophylaxis (Acute) SBO (small bowel obstruction) (Acute) Statin declined (Acute) Erectile dysfunction (Acute) 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 tract symptoms (Chronic 02/09/15) Elevated BP without diagnosis of hypertension (Acute 12/21/16) History of elevated prostate specific antigen (PSA) (Acute 01/18/16) 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) Medical History Benign prostate hyperplasia (12/11/07) Done by Surgical History EGD w/ BX (07/2020) Weeks, 07/2020 @ [facility] H/O hernia repair History of colonoscopy (~08/06/20) History of esophagogastroduodenoscopy (EGD) (~08/06/20) Repair of inguinal hernia (~1979) Left S/P right inguinal hernia repair S/P TURP Tonsillectomy Vasectomy Family History Other Cancer Social History Smoking/Tobacco Use Status: Former Tobacco Use Quit Date: 04/16/73 Pack-years: 16 Tobacco: How many years used: 16 Smoking risk assessment performed?: Yes Alcohol Intake: current Alcohol Intake frequency: a few times a week Drug use: Occasionally Substance use type: marijuana Adopted: No Household members: spouse Housing: house Number of Children: 3 number of grandchildren: 4 Seatbelt use: always Helmet use: Yes Do you feel safe at home: Yes Do you feel safe in your relationship?: Yes Exam Const General: cooperative and no acute distress Orientation: alert, awake and oriented x3 Resp Effort & Inspection: normal respiratory effort and able to speak in complete sentences Auscultation: clear to auscultation bilaterally Cardio Rate: regular rate Rhythm: regular rhythm Heart Sounds: S1 normal and S2 normal GI Palpation: nontender Back/Spine/Pelvis Back: no CVA tenderness Neuro General: patient alert, patient awake and patient oriented x3 Extrem General: capillary refill normal Course Vital Signs Vital signs: Vital Signs Temperature 36.7 C 06/10/21 21:07 Pulse 82 06/10/21 21:07 Respiratory Rate 20 06/10/21 21:07 Blood Pressure 170/96 H 06/10/21 21:07 Pulse Oximetry 98 06/10/21 21:07 Temperature 36.7 C 06/10/21 21:07 Temperature Source Temporal Artery Scan 06/10/21 21:07 Pulse 82 06/10/21 21:07 Respiratory Rate 20 06/10/21 21:07 Blood Pressure 170/96 H 06/10/21 21:07 Blood Pressure Position Sitting 06/10/21 21:07 Pulse Oximetry 98 06/10/21 21:07 Oxygen Delivery Method Room Air 06/10/21 21:07 Oxygen Flow Rate 0 06/10/21 21:07 Pain Level 1 06/10/21 22:04 Lab/Test Results Lab/Test Results: 06/10/21 21:37 Urine - Reflex from Ua Urine Culture - Pending Laboratory Tests Range/Units 06/10/21 06/10/21 06/10/21 21:37 21:37 21:37 WBC (4.4-10.8) 10^3/uL 9.36 RBC (4.36-5.78) 10^6/uL 4.87 Hgb (13.5-17.5) g/dL 14.7 Hct (40.0-50.0) % 43.6 MCV (80-95) fL 89.5 MCH (27.0-33.0) pg 30.2 MCHC (32.0-36.0) % 33.7 RDW (11.8-14.1) % 12.1 Plt Count (130-400) 10^3/uL 255 MPV (8.0-11.0) fL 8.6 Immature Gran % 0.2 Neutrophils % 55.9 Lymphocytes % 36.4 Monocytes % 5.7 Eosinophils % 1.2 Basophils % 0.6 Nucleated RBC % % 0 Absolute Neutrophils (1.2-6.7) 10^3/uL 5.23 Absolute Lymphocytes (1.2-3.4) 10^3/uL 3.41 H Absolute Monocytes (0.1-0.8) 10^3/uL 0.53 Absolute Eosinophils (0.0-0.7) 10^3/uL 0.11 Absolute Basophils (0.0-0.2) 10^3/uL 0.06 Sodium (136-145) mmol/L 140 Potassium (3.5-5.1) mmol/L 3.6 Chloride (98-107) mmol/L 104 Carbon Dioxide (21.0-32.0) mmol/L 26.0 Anion Gap (3-11) mmol/L 10.0 BUN (7-18) mg/dL 20 H Creatinine (0.70-1.30) mg/dL 0.9 Estimated GFR/1.73 m2 (mL/min/1.73m2) >= 60.00 Glucose (74-106) mg/dL 101 Calcium (8.5-10.1) mg/dL 8.9 Total Bilirubin (0.2-1.0) mg/dL 0.6 AST (15-37) U/L 20 ALT (16-63) U/L 25 Alkaline Phosphatase (46-116) U/L 77 Total Protein (6.4-8.2) g/dL 7.4 Albumin (3.4-5.0) g/dL 4.1 Urine Color (Yellow) Red Urine Clarity (Clear) Turbid Urine pH (5-8) Ur Specific [place] (1.005-1.025) Urine Protein (Negative) mg/dL Color Interference Urine Ketones (Negative) mg/dL Color Interference Urine Blood (Negative) Color Interference Urine Nitrite (Negative) Color Interference Urine Bilirubin (Negative) Color Interference Urine Urobilinogen (Up TO 0.2) EU/dL Color Interference Ur Leukocyte Esterase (Negative) Color Interference Urine RBC (0-2) HPF >50 H Urine WBC Not Applicable Ur Epithelial Cells Not Applicable Urine Crystals Not Applicable Urine Bacteria Not Applicable Urine Mucus Not Applicable Ur Culture Indicated? Yes Urine Glucose (Negative) mg/dL Color Interference
[2021-06-10] MEDS: Cephalexin 500 MG CAP PO (22:28)
[2021-06-10 22:29] VITALS: BP 148/97; PULSE 82; RESP 16; O2SAT 98
== END 2021-06-10 22:43 | disposition home or self-care (01) ==
PROVIDERS: Emergency Provider Nurse Practitioner Family; PCP Nurse Practitioner
DX: N31.9 Neuromuscular dysfunction of bladder, unspecified (principal); N39.0 Urinary tract infection, site not specified; B96.89 Other specified bacterial agents as the cause of diseases classified elsewhere
CPT/HCPCS: 80053; 99283; 81003; 81015; 85025; 87086

== ENCOUNTER → 2021-06-16 14:32 | Outpatient (BNVA) | payer MEDICARE, SELFPAY | PROVIDERS: PCP Nurse Practitioner; Referring Provider Nurse Practitioner; Visit Provider Urology | DX: R31.0 Gross hematuria (principal) | CPT/HCPCS: 99214 ==

== ENCOUNTER → 2021-06-27 09:23 | Outpatient (BNVA) | payer MEDICARE, SELFPAY | PROVIDERS: PCP Nurse Practitioner; Referring Provider Nurse Practitioner; Visit Provider Internal Medicine Cardiovascular Disease | DX: R00.2 Palpitations (principal); R03.0 Elevated blood-pressure reading, without diagnosis of hypertension | CPT/HCPCS: 99203; 99214 ==

== ENCOUNTER → 2021-09-16 09:36 | Outpatient (BNVA) | payer MEDICARE, SELFPAY | PROVIDERS: PCP Nurse Practitioner; Referring Provider Nurse Practitioner; Visit Provider Urology | DX: N40.1 Benign prostatic hyperplasia with lower urinary tract symptoms (principal); R31.0 Gross hematuria; R33.8 Other retention of urine | CPT/HCPCS: 81003; 99213 ==

== ENCOUNTER 2022-08-25 16:31 | Emergency (ER) | payer MEDICARE, SELFPAY ==
--- NOTE | 2022-08-25 16:30 | RT.EKG_ITS ---
APPROVED REPORT Exam: Resting ECG Reason for Exam: chest pain Patient Location: E HR:72 bpm ECG Measurements Heart Rate 72 AXIS UT 185 P 25 QRSd 85 QRS 14 QT 379 T 19 QTc 417 Conclusion Sinus rhythm...normal P axis, V-rate 60- 99 nO INTERUM CHANGE
[2022-08-25 16:35] VITALS: BP 171/87; PULSE 90; RESP 18; O2SAT 95
--- NOTE | 2022-08-25 17:05 | W.ED.GENAD ---
Discharge Plan Disposition Patient Disposition: Home Discharge Details Clinical Impression: Acute dehydration Primary Care Provider: Brooklyn Farah ED Provider: Kamille Kendrick Home Meds and New Rx's Prescriptions: Continued cephalexin 500 mg tablet 500 mg PO QHS Qty: 90 1RF Hold Instructions: Home Medication placed on hold at Doctor's office Patient Comments: pt states finished Rx Instructions: may increase to 4 times/day if UTI occurs calcium carbonate [Tums] 200 MG tablet,chewable 200 mg PO DAILY PRN omeprazole 40 mg capsule,delayed release(DR/EC) 40 mg PO DAILY Qty: 90 3RF sildenafil 100 mg tablet See Rx Instructions PO DAILY PRN (Reason: sexual activity) Qty: 4 6RF Rx Instructions: 1/2 to 1 tab PO daily PRN; Discharge Instructions Instructions: Dehydration (ED) Additional Instructions: Drink plenty of fluids over the next few days. Recheck with your primary care doc on Sunday if still feeling poorly. Return to the ED for fever of 100.4 or above, shaking chills, chest pain, abdominal pain, difficulty breathing, any other concerns. Discharge Data Discharge Date/Time-TO BE ENTERED AT DEPARTURE: 08/25/22 19:55 Medical Decision Making Patient's BUN/creatinine ratio are greater than 20 and he was only able to give a small amount of urine. Think he may have been a little bit dry. He has had a liter of fluid and is no longer dizzy when he stands up. He has been up and able to walk to the bathroom without any difficulty. He is certain that the tick he found on his leg was a dog tick and not a deer tick. He certainly has no symptoms to suggest Elsie spotted fever or tularemia. He will keep an eye out for fever, shaking chills, URI symptoms, chest pain, shortness of breath, abdominal pain, or any other concerns. Imaging Data Radiologic Study: Attestation: I personally reviewed and interpreted this imaging study as follows: (NAD) Lab Data Lab results reviewed: Yes I reviewed the patient's lab results. Lab results narrative: Labs are benign with the exception of an elevated BUN. ECG Data Attestation: I personally reviewed and interpreted this ECG (s) as follows: (EKG: Normal sinus rhythm at 70, T wave flattening in 3 and aVF, no other ST-T changes, no change versus 05/04/2021) HPI General Date/Time Provider Initiated Documentation: 08/25/22 17:05. HPI Narrative: This 76-year-old male patient presents with a chief complaint of weakness, dizziness, decreased energy, and fatigue that began yesterday. The patient states that he was doing some outdoor work yesterday and ran out of energy more quickly than normal. This morning he ended up taking a long nap that was a little bit unusual; he does nap every day. He states that usually after weed whacking he is a little bit achy and he does complain somewhat of this in his upper thorax. He reports that it is a discomfort and not a pain; it has been constant since yesterday. He says it is very mild though he cannot give me an estimate on the 0-10 scale. The patient denies fever or URI symptoms. There is no shortness of breath. He has no abdominal pain, nausea, vomiting, or diarrhea. There is no dysuria. He was recently on antibiotics for UTI. He has no pedal edema or calf pain. He has no back pain. He denies headache or focal neurologic change. He describes the dizziness as lightheadedness when he stands up. He says he feels like he is under the influence of something when he stands up. He denies spinning or movement. Related Data Home Medications Medication Instructions Recorded Confirmed calcium carbonate 200 mg calcium 200 mg PO DAILY PRN 09/06/16 08/25/22 (500 mg) chewable tablet (Tums) cephalexin 500 mg tablet 500 mg PO QHS antibiotic #90 tabs 09/16/21 06/22/22 omeprazole 40 mg capsule,delayed 40 mg PO DAILY #90 tab-caps 10/24/21 08/25/22 release sildenafil 100 mg tablet See Rx Instructions PO DAILY PRN 01/02/22 08/25/22 sexual activity #4 tabs Previous Rx's Medication Instructions Recorded cephalexin 500 mg tablet 500 mg PO QHS antibiotic #90 tabs 09/16/21 omeprazole 40 mg capsule,delayed 40 mg PO DAILY #90 tab-caps 10/24/21 release sildenafil 100 mg tablet See Rx Instructions PO DAILY PRN 01/02/22 sexual activity #4 tabs Allergies Allergy/AdvReac Type Severity Reaction Status Date / Time finasteride Allergy Verified 06/22/22 09:14 terazosin HCl [From Hytrin] AdvReac sweats Verified 06/22/22 09:14 General Stated Complaint: GenMedical BEATRIZ: 3 Review of Systems Constitutional Constitutional: Denies chills, Denies fever(s), Denies headache(s) and Reports weakness Eyes Eyes: Denies diplopia and Reports other (no redness) ENT Ears, Nose, Mouth, and Throat: Denies vertigo, Reports dizziness, Denies otalgia, Denies headache(s), Denies nasal congestion, Denies nasal discharge, Denies neck pain and Denies sore throat Cardiovascular Cardiovascular: Reports chest pain (Vague discomfort), Denies palpitations and Denies dyspnea Respiratory Respiratory: Denies cough and Denies dyspnea Gastrointestinal Gastrointestinal: Denies abdominal pain, Denies diarrhea, Denies nausea and Denies vomiting Genitourinary Genitourinary: Denies difficulty urinating and Denies dysuria Musculoskeletal Musculoskeletal: Denies myalgias, Denies muscle weakness, Denies neck pain, Denies numbness and Reports other (edema) Integumentary/Breasts Skin/Breast: Denies change in pigmentation and Denies rash Neurologic Neurologic: Denies vertigo, Reports dizziness, Denies headache(s), Denies numbness and Reports weakness Endocrine Endocrine: Denies palpitations PFSH All Active Problems (Updated 08/25/22 @ 19:01 by Kamille Kendrick MD) Acute dehydration (Acute) Palpitations (Chronic) Intra-abdominal lymphadenopathy (Acute) GERD with esophagitis (Acute 12/06/11) Essential hypertension (Chronic 07/27/16) Hyperlipidemia (Acute 07/27/16) Gastroesophageal reflux disease (Chronic 07/27/16) Discharge planning issues (Acute) DVT prophylaxis (Acute) SBO (small bowel obstruction) (Acute) Statin declined (Acute) Erectile dysfunction (Acute) 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 tract symptoms (Chronic 02/09/15) Elevated BP without diagnosis of hypertension (Acute 12/21/16) History of elevated prostate specific antigen (PSA) (Acute 01/18/16) 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) Medical History Benign prostate hyperplasia (12/11/07) Done by Surgical History EGD w/ BX (07/2020) Weeks, 07/2020 @ [place] H/O hernia repair History of colonoscopy (~08/06/20) History of esophagogastroduodenoscopy (EGD) (~08/06/20) Repair of inguinal hernia (~1979) Left S/P right inguinal hernia repair S/P TURP Tonsillectomy Vasectomy Family History Other Cancer Social History Smoking/Tobacco Use Status: Former Tobacco Use Quit Date: 04/16/73 Pack-years: 16 Tobacco: How many years used: 16 Smoking risk assessment performed?: Yes Alcohol Intake: current Alcohol Intake frequency: a few times a week Alcohol type: beer and hard liquor Counseling given: No Drug use: Occasionally Substance use type: marijuana Adopted: No Household members: spouse Housing: house Number of Children: 3 number of grandchildren: 4 Communication Needs: Corrective Lenses Do you need help understanding health information?: Rarely 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 What is your relationship status?: How often do you talk on the phone with friends or family?: three or more times per week How often do you get together with friends or relatives?: three or more times per week Panel score (0-1 are the most socially isolated patients): 2 What type of physical activity do you participate in: other Details: physically active daily with work around his home Seatbelt use: always Helmet use: Yes Working smoke detector in home: Yes Carbon monox detector in home: Yes Do you feel safe at home: Yes Do you feel safe in your relationship?: Yes Exam Const General: no acute distress, well developed, well groomed and not in acute distress Nutritional Appearance: well nourished Orientation: alert and oriented x3 HENMT Head: normocephalic and atraumatic Ears: external ears normal Mouth: oropharynx normal and moist mucous membranes Throat: posterior oropharynx normal Eyes Conjunctivae: conjunctivae normal Neck Neck: full ROM and supple Chest Chest: normal inspection of the chest and normal palpation of entire chest wall Resp Effort & Inspection: normal respiratory effort Auscultation: clear to auscultation bilaterally Cardio Rate: regular rate Rhythm: regular rhythm Heart Sounds: no murmurs and no rubs GI Inspection: normal to inspection Palpation: soft, nontender and other (non distended) Auscultation: normal bowel sounds Skin General skin exam: no rashes or lesions noted and other (pink, warm, dry) Neuro General: patient alert, patient awake and patient oriented x3 Cranial Nerves: CN's II-XI intact bilaterally Speech: speech normal Gait: normal gait Motor: strength 5/5 throughout and other (CORDOVA) Sensory Exam: no sensory deficits noted Extrem General: normal to inspection, full ROM and pedal edema present Psych Mental Status: mental status grossly normal Speech and Movement: speech and movement normal Affect: normal affect Course Vital Signs Vital signs: Vital Signs Pulse 90 08/25/22 16:35 Respiratory Rate 18 08/25/22 16:35 Blood Pressure 171/87 H 08/25/22 16:35 Pulse Oximetry 95 08/25/22 16:35 Temperature Source Temporal Artery Scan 08/25/22 16:35 Pulse 90 08/25/22 16:35 Respiratory Rate 18 08/25/22 16:35 Blood Pressure 171/87 H 08/25/22 16:35 Blood Pressure Position Sitting 08/25/22 16:35 Pulse Oximetry 95 08/25/22 16:35 Oxygen Delivery Method Room Air 08/25/22 16:35 Oxygen Flow Rate 0 08/25/22 16:35
--- NOTE | 2022-08-25 17:15 | DI.RAD_ITS ---
Exam(s) XR CHEST 2V PA LATERAL EXAM: XR CHEST 2V PA LATERAL CLINICAL HISTORY: cp TECHNIQUE: 2D digital imaging was performed. COMPARISON: CR,XR XR LINE PLACEMENT PICC/CVA from 07/08/2020 CR,RF RF SMALL BOWEL SERIES from 07/28/2020 FINDINGS: HEART: Normal size. Aorta: Not dilated. Mildly tortuous. PULMONARY VASCULATURE: Normal. LUNGS: Clear. PLEURAL SPACE: No pleural effusion or pneumothorax. BONE: Degenerative changes. IMPRESSION: No acute abnormality. DATA REPOSITORY: RADIATION DOSE DELIVERED:
[2022-08-25 17:29] VITALS: PULSE 74; O2SAT 99
[2022-08-25] MEDS: Normal Saline 1,000 ML 1000 ML IV (17:29)
[2022-08-25 17:30] VITALS: PULSE 72
[2022-08-25 17:33] VITALS: RESP 18
[2022-08-25 17:40] VITALS: PULSE 70
[2022-08-25 17:40] LABS: Abs Immature Grans 0.03 10^3/uL (0.0-0.06); Absolute Basophil Count 0.05 10^3/uL (0.0-0.2); Absolute Eosinophil Count 0.09 10^3/uL (0.0-0.7); Absolute Lymphocyte Count 3.24 10^3/uL (1.2-3.4); Absolute Monocyte Count 0.46 10^3/uL (0.1-0.8); Absolute Neutrophil Count 5.75 10^3/uL (1.2-6.7); Basophils % 0.5; Eosinophils % 0.9; HCT 40.3 % (40.0-50.0); HGB 13.3 g/dL (13.5-17.5); Immature Grans % 0.3; Lymphocytes % 33.7; MCH 27.6 pg (27.0-33.0); MCV 84 fL (80-95); MPV 8.8 fL (8.0-11.0); Monocytes % 4.8; Neutrophils % 59.8; Platelet Count 238 10^3/uL (130-400); RBC 4.82 10^6/uL (4.36-5.78); RDW 14.1 % (11.8-14.1); RDW-SD 42.8 fL; WBC 9.62 10^3/uL (4.4-10.8)
[2022-08-25 17:52] LABS: Lipase 34 U/L (16-77); Troponin I < 50 ng/L (<or=60)
[2022-08-25 18:06] LABS: ALT 29 U/L (16-63); AST 25 U/L (15-37); Alkaline Phosphatase 86 U/L (46-116); Anion Gap 8.7 mmol/L (3-11); BUN 23 mg/dL (7-18); Bilirubin, Total 0.3 mg/dL (0.2-1.0); CO2 26.3 mmol/L (21.0-32.0); Chloride 107 mmol/L (98-107); Estimated GFR 77.04 (mL/min/1.73m2); Glucose 94 mg/dL (74-106); Magnesium 1.9 mg/dL (1.8-2.4); Potassium 3.6 mmol/L (3.5-5.1); Sodium 142 mmol/L (136-145); Total Protein 7.3 g/dL (6.4-8.2)
--- NOTE | 2022-08-25 18:14 | DI.VRAD_ITS ---
PROCEDURE INFORMATION: Exam: XR Chest Exam date and time: 08/25/2022 5:46 PM Age: 76 years old Clinical indication: Other: Chest pain TECHNIQUE: Imaging protocol: Radiologic exam of the chest. Views: 2 views. COMPARISON: CT THORAX ABD/PEL CTA 07/08/2020 12:00 PM FINDINGS: Lungs: Unremarkable. No consolidation. Pleural spaces: Unremarkable. No pleural effusion. No pneumothorax. Heart/Mediastinum: Unremarkable. No cardiomegaly. Bones/joints: Moderate degenerative changes noted in the spine and shoulders. IMPRESSION: No acute disease Dictated and Authenticated by: Hamilton Martinez MD. Ordering:YUMIKO Simental MD
[2022-08-25 18:51] LABS: Bilirubin Negative (Negative); Blood Negative (Negative); Clarity Clear (Clear); Glucose Negative (Negative); Ketones Negative (Negative); Leukocyte Esterase Negative (Negative); Nitrite Negative (Negative); Specific Gravity 1.015 (1.005-1.025); Urobilinogen 0.2 mg/dL (Up to 0.2); pH 6.5 (5-8)
[2022-08-25 18:59] LABS: Bacteria Negative HPF (Negative); C & S Indicated? No; Casts Negative LPF (Negative); Crystals Negative HPF (Negative); Epithelial Cells Rare HPF (Negative); Mucus Negative (Negative); RBC 0-2 HPF (0-2); WBC 0-2 HPF (0-5)
[2022-08-25 19:53] VITALS: BP 128/82; PULSE 75; RESP 18; O2SAT 98
--- NOTE | 2022-08-26 08:48 | NUR.NOTE ---
Nursing Note:Accessed chart to determine orders for EKG and to determine whether or not one needs to be cancelled.
== END 2022-08-25 19:55 | disposition home or self-care (01) ==
PROVIDERS: Emergency Provider Emergency Medicine; PCP Nurse Practitioner
DX: E86.0 Dehydration (principal); R07.9 Chest pain, unspecified
CPT/HCPCS: 36415; 80053; 83690; 93005; 96360; 99284; 71046; 81003; 81015; 83735; 84484; 85025; 93010

== ENCOUNTER 2022-10-05 08:48 | Inpatient (IN) | payer MEDICARE, SELFPAY ==
[2022-10-05] VITALS (42 sets, daily range): BP systolic 72–189; BP diastolic 55–115; PULSE 66–89; RESP 10–22; TEMP 36.1–36.6; O2SAT 94–100
--- NOTE | 2022-10-05 | DI.MRI_ITS ---
Exam(s) MR ANGIO BRAIN WO CLINICAL HISTORY: CVA. TECHNIQUE: 3D [id number] study was performed without contrast. COMPARISON: Brain MRI performed earlier the same day FINDINGS: Carotid Arteries: Petrous: Normal. Cavernous: Normal. Cerebral: Normal. Middle Cerebral Arteries: Right: No aneurysm or significant stenosis. Left: No aneurysm or significant stenosis. Anterior Cerebral Arteries: Right: No aneurysm or significant stenosis. Left: No aneurysm or significant stenosis. Posterior cerebral arteries: Right: No aneurysm or significant stenosis Left: No aneurysm or significant stenosis Vertebral Arteries: Right: Dominant. No aneurysm or significant stenosis. No dissection. Left: No aneurysm or significant stenosis. No dissection.. Basilar Artery: No aneurysm or significant stenosis. Small Vessels: No evidence of beading. IMPRESSION: Normal MRA examination of the [place] [address]. DATA REPOSITORY:
--- NOTE | 2022-10-05 08:45 | RT.EKG_ITS ---
APPROVED REPORT Exam: Resting ECG Reason for Exam: stroke Patient Location: E HR:70 bpm ECG Measurements Heart Rate 70 AXIS NJ 168 P 24 QRSd 78 QRS -1 QT 375 T 11 QTc 405 Conclusion Sinus rhythm...normal P axis, V-rate 60- 99 Ventricular premature complex...V complex w/ short R-R interval Consider anteroseptal infarct...Q >30mS, dimin R, V1-V2 Sinus rhythm with PVC. When compared to 08/25/22 PVC is new.
--- NOTE | 2022-10-05 09:00 | DI.CT_ITS ---
Exam(s) CT HEAD - STROKE PROTOCOL EXAM: CT HEAD - STROKE PROTOCOL CLINICAL HISTORY: speech difficulty. TECHNIQUE: Imaging Protocol: Axial computed tomography images with coronal and sagittal reformatted images were created and reviewed COMPARISON: No exams were available for comparison FINDINGS: Ventricles and Extra axial spaces: Normal in size and morphology for the patient's age. Hemorrhage: None. Cerebral parenchyma: Mild atrophy consistent with the patient's age. No infarct or mass visible. Midline shift: None. Brainstem/Cerebellum: Normal. Calvarium: Normal. Visualized Paranasal sinuses/Mastoids: Clear. Soft Tissues: Unremarkable. IMPRESSION: No acute intracranial process. RADIATION DOSE DELIVERED: 863.43mGy.cm Total DLP DATA REPOSITORY: All CT scans at this facility are submitted to the National Radiology Data Registry (NRDR) Dose Index Registry (DIR) with the [employer] (ACR). RADIATION OPTIMIZATION: All CT scans at this facility use at least one of these dose optimization te chniques: automated exposure control; mA and/or kV adjustment per patient size (includes targeted exa ms where dose is matched to clinical indication); or iterative reconstruction.
--- NOTE | 2022-10-05 09:00 | DI.RAD_ITS ---
Exam(s) XR PORTABLE CHEST AP EXAM: XR PORTABLE CHEST AP CLINICAL HISTORY: speech difficulty TECHNIQUE: 2D digital imaging was performed. COMPARISON: CR,XR XR CHEST 2V PA LATERAL from 08/25/2022 FINDINGS: LUNGS: Clear. No pleural abnormality seen. HEART: Normal size. AORTA: Normal diameter. Mildly tortuous. BONES: Unremarkable for age. Degenerative changes in the spine. Soft tissues: Unremarkable. IMPRESSION: No acute findings. DATA REPOSITORY: RADIATION DOSE DELIVERED:
--- NOTE | 2022-10-05 09:01 | ED.GENADUL_ITS ---
Discharge Plan Disposition Patient Disposition: Admit to [facility] Condition: Stable Discharge Details Clinical Impression: Stroke Primary Care Provider: Brooklyn Farah ED Provider: Debra Alexis Home Meds and New Rx's Prescriptions: No Action cephalexin 500 mg tablet 500 mg PO QHS Qty: 90 1RF Hold Instructions: Home Medication placed on hold at Doctor's office Patient Comments: pt states finished Rx Instructions: may increase to 4 times/day if UTI occurs calcium carbonate [Tums] 200 MG tablet,chewable 200 mg PO DAILY PRN omeprazole 40 mg capsule,delayed release(DR/EC) 40 mg PO DAILY Qty: 90 3RF sildenafil 100 mg tablet See Rx Instructions PO DAILY PRN (Reason: sexual activity) Qty: 4 6RF Rx Instructions: 1/2 to 1 tab PO daily PRN; Medical Decision Making 76-year-old male presents for evaluation of dizziness, gait instability, speech difficulty, and left arm weakness. Last known well was 10 PM 10/04/2022. At time of my evaluation NIH stroke score = 3 mild facial droop and speech difficulties. Stroke protocol was initiated. Head CT was unremarkable. Patient was able to swallow without difficulty and therefore given aspirin. MRI, echo, carotid ultrasound were ordered. Laboratory studies were unremarkable with normal troponin. EKG was unremarkable. Case was discussed with neurology at [facility] who recommended completion of stroke work-up. MRI confirmed acute stroke. Patient was able to ambulate to the bathroom without difficulty. He is not having any limb weakness at this time. He is not a candidate for tPA given the time since last known well. Patient was given low- dose statin at this time awaiting remainder of work-up to determine if they will require high-dose statin. Case was discussed with hospitalist will admit to their service. HPI General Date/Time Provider Initiated Documentation: 10/05/22 08:51 . HPI Narrative: 76-year-old male presents for evaluation of dizziness, speech difficulty, and difficulty with coordination. Patient last known well was 10 PM last night upon going to bed. 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 This morning upon awakening he felt dizzy and had some difficulty with ambulation. He states when he went to the bathroom he had difficulty wiping with his left arm. He is having difficulty coordinating his left arm at this time. He states that she wanted to touch his ear and he was unable to reach it. His also noted that he had some difficulty getting his words out prior to arrival. Patient does not have a history of stroke. He is not on any blood thinners. He has had some intermittent high blood pressure in the past but currently is not being treated for hypertension. No history of high cholesterol or diabetes. Non-smoker. He denies any chest pain or shortness of breath. No fevers or chills. No cough or cold. Denies any leg pain or weakness. At time of my evaluation he felt that his hands and feet were tingly bilaterally. Related Data Home Medications Medication Instructions Recorded Confirmed calcium carbonate 200 mg calcium 200 mg PO DAILY PRN 09/06/16 08/25/22 (500 mg) chewable tablet (Tums) cephalexin 500 mg tablet 500 mg PO QHS antibiotic #90 tabs 09/16/21 06/22/22 omeprazole 40 mg capsule,delayed 40 mg PO DAILY #90 tab-caps 10/24/21 08/25/22 release sildenafil 100 mg tablet See Rx Instructions PO DAILY PRN 01/02/22 08/25/22 sexual activity #4 tabs Previous Rx's Medication Instructions Recorded cephalexin 500 mg tablet 500 mg PO QHS antibiotic #90 tabs 09/16/21 omeprazole 40 mg capsule,delayed 40 mg PO DAILY #90 tab-caps 10/24/21 release sildenafil 100 mg tablet See Rx Instructions PO DAILY PRN 01/02/22 sexual activity #4 tabs Allergies Allergy/AdvReac Type Severity Reaction Status Date / Time finasteride Allergy Verified 06/22/22 09:14 terazosin HCl [From Hytrin] AdvReac sweats Verified 06/22/22 09:14 General Stated Complaint: CVA/TIA BEATRIZ: 2 Review of Systems Narrative: Remainder of review of systems otherwise negative except for as noted in the HPI x10. PFSH All Active Problems (Updated 10/05/22 @ 11:31 by Debra Alexis MD) Stroke (Chronic) Palpitations (Chronic) Intra-abdominal lymphadenopathy (Acute) GERD with esophagitis (Acute 12/06/11) Essential hypertension (Chronic 07/27/16) Hyperlipidemia (Acute 07/27/16) Gastroesophageal reflux disease (Chronic 07/27/16) Discharge planning issues (Acute) DVT prophylaxis (Acute) SBO (small bowel obstruction) (Acute) Statin declined (Acute) Erectile dysfunction (Acute) 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 tract symptoms (Chronic 02/09/15) Elevated BP without diagnosis of hypertension (Acute 12/21/16) History of elevated prostate specific antigen (PSA) (Acute 01/18/16) 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) Medical History Benign prostate hyperplasia (12/11/07) Done by Surgical History EGD w/ BX (07/2020) Weeks, 07/2020 @ [facility] H/O hernia repair History of colonoscopy (~08/06/20) History of esophagogastroduodenoscopy (EGD) (~08/06/20) Repair of inguinal hernia (~1979) Left S/P right inguinal hernia repair S/P TURP Tonsillectomy Vasectomy Family History Other Cancer Social History Smoking/Tobacco Use Status: Former Tobacco Use Quit Date: 04/16/73 Pack-years: 16 Tobacco: How many years used: 16 Smoking risk assessment performed?: Yes Alcohol Intake: current Alcohol Intake frequency: a few times a week Alcohol type: beer and hard liquor Counseling given: No Drug use: Occasionally Substance use type: marijuana Adopted: No Household members: spouse Housing: house Number of Children: 3 number of grandchildren: 4 Communication Needs: Corrective Lenses Do you need help understanding health information?: Rarely 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 What is your relationship status?: How often do you talk on the phone with friends or family?: three or more times per week How often do you get together with friends or relatives?: three or more times per week Panel score (0-1 are the most socially isolated patients): 2 What type of physical activity do you participate in: other Details: physically active daily with work around his home Seatbelt use: always Helmet use: Yes Working smoke detector in home: Yes Carbon monox detector in home: Yes Do you feel safe at home: Yes Do you feel safe in your relationship?: Yes Exam Narrative Exam Narrative: General: non-toxic, no respiratory distress, comfortable HEENT: normocephalic, atraumatic, lids and lashes normal, PERRL, EOMI, anicteric sclera, no conjunctival injection, moist oral mucosa, mild right facial droop Card: regular rate and rhythm, S1S2, no murmurs, rubs, or gallops Lungs: good air entry, clear to auscultation bilaterally. no wheezes, rales, rhonchi, or retractions Abd: soft, non-tender, non-distended, normal bowel sounds, no rebound or guarding, no peritoneal signs Musculoskeletal: full range of motion of arms and legs, no tenderness to palpation. no clubbing, cyanosis, or edema Neurologic: GSC 15, CN 2-12 intact bilaterally, slow slurred speech, strength normal, sensation intact distally in all four extremities, 2+ biceps tendon reflexes, slow [id number] on left, right finger to nose normal, normal rapid alternating movements, no pronator drift Psych: alert and oriented Skin: no petechiae, no lesions, warm and dry Course Consultations Consultation #1: [facility] neurology Dr. Jernigan -recommends dual antiplatelet therapy. Will review MRI results. Vital Signs Vital signs: Vital Signs Temperature 36.4 C L 10/05/22 08:50 Pulse 80 10/05/22 08:50 Respiratory Rate 16 10/05/22 08:50 Blood Pressure 189/91 H 10/05/22 08:50 Pulse Oximetry 98 10/05/22 08:50 Temperature 36.4 C L 10/05/22 08:50 Temperature Source Skin 10/05/22 08:50 Pulse 80 10/05/22 08:50 Respiratory Rate 16 10/05/22 08:50 Blood Pressure 189/91 H 10/05/22 08:50 Pulse Oximetry 98 10/05/22 08:50 Oxygen Delivery Method Room Air 10/05/22 08:50 Oxygen Flow Rate 0 10/05/22 08:50 Pain Level 0 10/05/22 08:50
[2022-10-05 09:12] LABS: Abs Immature Grans 0.03 10^3/uL (0.0-0.06); Absolute Basophil Count 0.05 10^3/uL (0.0-0.2); Absolute Eosinophil Count 0.04 10^3/uL (0.0-0.7); Absolute Monocyte Count 0.34 10^3/uL (0.1-0.8); Absolute Neutrophil Count 4.73 10^3/uL (1.2-6.7); Basophils % 0.7; Eosinophils % 0.5; HCT 42.7 % (40.0-50.0); HGB 14.2 g/dL (13.5-17.5); Immature Grans % 0.4; Lymphocytes % 28.8; MCHC 33.3 % (32.0-36.0); MCV 84 fL (80-95); MPV 9.1 fL (8.0-11.0); Monocytes % 4.7; Neutrophils % 64.9; Platelet Count 224 10^3/uL (130-400); RBC 5.08 10^6/uL (4.36-5.78); RDW 13.4 % (11.8-14.1); RDW-SD 41.4 fL; WBC 7.29 10^3/uL (4.4-10.8)
--- NOTE | 2022-10-05 09:15 | DI.US_ITS ---
APPROVED REPORT EXAM: Comprehensive 2D, Doppler, and color-flow Echocardiogram Patient Location: ER Room/Bed: 3 Catering Administrative Assistant: Nirav Bishop RDMS, RVT Indications: stroke symptoms, HTN Other Information Study Quality: Adequate Conclusion Normal left ventricular wall thickness and chamber size. Ejection fraction is 55 to 60%. Wall motio n is normal Normal right ventricular size and systolic function Both atria are normal in size Aortic valve is mildly sclerotic and trileaflet with mild regurgitation Estimated right ventricular systolic pressure is 26 mmHg Wall motion Left Ventricle The left ventricle is normal size. The left ventricular systolic function is normal. The left ventric ular ejection fraction is within the normal range. There is normal left ventricular wall thickness. T here is normal LV segmental wall motion. There is no ventricular septal defect visualized. LVEF is 57 %. Right Ventricle The right ventricle is normal size. The right ventricular systolic function is normal. The RVSP is 26 .0 mmHg. Atria The left atrium size is normal. The right atrium size is normal. The interatrial septum is intact wit h no evidence for an atrial septal defect. Aortic Valve The Aortic valve is mildly sclerotic. Aortic valve is trileaflet. There is no aortic valvular stenosi s. mild aortic regurgitation. Mitral Valve The mitral valve is normal in structure. No evidence of mitral valve stenosis. Trace mitral regurgita tion. Tricuspid Valve The tricuspid valve is normal in structure. There is no tricuspid valve stenosis. Mild tricuspid regu rgitation. Pulmonic Valve The pulmonary valve is normal in structure. There is no pulmonic valvular stenosis. Trace pulmonic re gurgitation. Great Vessels Aortic root is normal in size. Ascending aorta is not well visualized. Aortic arch is normal in calib er. IVC is normal in size and collapses >50% with inspiration. Pericardium There is no pericardial effusion. 2D Dimensions IVSD d PLAX 0.73 cm M: 0.6-1.2 LV Vol A2C d MOD 86.0 mL LVPW d PLAX 0.73 cm M: 0.6 - 1.2 LV Vol A4C d MOD 84.2 mL LVID d PLAX 3.07 cm M: 4.2 - 5.8 LA vol/ BSA A4C s A-L 22.4 mL/m2 LVDs 2.00 cm M: 2.5 - 4.0 LA Area A4C s MOD 17.04 cm2 Ao Root d 3.35 cm M: 3.1 - 3.7 LV EF A4C MOD 56.3 % LV EF Teichholz 63.5 % LV EF A2C MOD 57.6 % LVEF (Zamarripa's) 57.90 % M: 52 - 72 LV EF Biplane MOD 57.9 % LV Volume 68.13 mL M: 62 - 150 SV 51.53 mL LV Volume Index 36.23 mL/m2 M: 34 - 74 SV Index 27.36 mL/m2 LV Vol Biplane MOD 89.0 mL FS 33.25 % M-Mode TAPSE 2.85 cm (M/F) >1.7 LV Diastology MV E' medial 0.074 (>0.07 m/s) E/A Ratio 0.8 LV E/e MED 7.85 (<14) MV E Vmax 0.59 (0.4-1.3 m/s) MV E' lateral 0.105 (>0.1 m/s) MV A Vmax 0.70 (0.4-1.3 m/s) LV E/e LAT 5.60 (<14) MV E/A Ratio 0.81 MV E/E' medial 7.89 MV E/E' lateral 5.61 Aortic Valve LVOT Area 3.49 cm2 AoV Area Vmax 2.41 cm2 LVOT Vmax 0.86 m/s AoV Area/ BSA (Vmax) 1.28 cm2/m2 LVOT Mean Saud. 0.54 m/s DEAN Mean Saud. 2.13 cm2 LVOT Peak Grad 3.0 mmHg DEAN Mean Saud. Index 1.13 cm2/m2 LVOT Mean Grad 1.4 mmHg AR DT 1946 msec LVOT VTI 0.189 m AR PHT 564 msec LVOT Diam s 2.10 cm AoV Vmax 1.25 m/s Velocity Ratio 0.69 AoV Mean Saud. 0.88 m/s AoV Peak Grad 6.2 mmHg LVOT SV 66.11 mL AoV Mean Grad 3.5 mmHg AoV VTI 0.248 m AoV Area VTI 2.67 cm2 AoV Area/ BSA (VTI) 1.42 cm/m2 Mitral Valve MV DT 193 (160-240 msec) MV PHT 56 msec MV Area PHT 3.94 cm2 MV VTI 0.173 m MV Area VTI 3.83 (4.0-6.0 cm2) Pulmonary Valve PV Vmax 0.77 (0.5-1.5 m/s) RVOT Peak Gr. 0.87 mmHg PV Peak Grad 2.3 mmHg RVOT Mean Gr. 0.40 mmHg PV Mean Grad 1.3 mmHg RVOT VTI 0.089 m PV VTI 0.126 m RVOT Vmax 0.47 m/s Tricuspid Valve TR Peak Grad 22.9 mmHg TR Vmax 2.40 m/s RA Pressure 3.00 mmHg RVSP (TR) 26.0 mmHg
--- NOTE | 2022-10-05 09:15 | DI.US_ITS ---
Exam(s) US CAROTID EXAM: US CAROTID CLINICAL HISTORY: stroke symptoms. TECHNIQUE: Ultrasound carotids performed using grayscale, color-flow, and spectral Doppler imaging. COMPARISON: No exams were available for comparison FINDINGS: RIGHT CAROTID ARTERY: Plaque: Moderate mixed plaque in the common carotid bulbs and proximal internal carotid artery Velocity elevation: None. LEFT CAROTID ARTERY: Plaque: Moderate mixed plaque in the common carotid bulb and proximal internal carotid artery. Velocity elevation: None. VERTEBRAL ARTERIES: Antegrade flow. Measurements: R Bulb: 65cm/s PS / 13.2cm/s ED R CCA: 60.8cm/s PS / 15.4cm/s ED R ECA: 74.5cm/s PS / 9.1cm/s ED R ICA Prox: 67.6cm/s PS / 16.2cm/s ED R ICA Mid: 54.8cm/s PS / 13.6cm/s ED R ICA Distal: 73cm/s PS /22.1cm/s ED R Vert: 68.1cm/s PS / 14.8cm/s ED R SVR: 1.2 R DVR: 1.4 L Bulb: 75.2cm/s PS / 20.4cm/s ED L CCA: 58.4cm/s PS / 14.8cm/s ED L ECA: 73.4cm/s PS / 7.7cm/s ED L ICA Prox: 78.9cm/s PS / 24.1cm/s ED L ICA Mid: 46.8cm/s PS / 19.8cm/s ED L ICA Distal: 78.4cm/s PS / 27.6cm/s ED L Vert: 44.8cm/s PS / 12.7cm/s ED L SVR: 1.3 L DVR: 1.6 IMPRESSION: Moderate mixed plaque in the common carotid bulbs and proximal internal carotid arteries. No velocit y elevations. Findings consistent with less than 50 percent stenosis. Criteria for Carotid Stenosis: Normal: ICA PSV <125 cm/s no plaque or intimal thickening is visible. <50% stenosis: ICA PSV <125 cm/s and plaque or intimal thickening is visible. 50-69% stenosis: ICA PSV is 125-250 cm/s and plaque is visible. >70% stenosis to near occlusion: ICA PSV >250 cm/s with visible plaque and luminal narrowing. DATA REPOSITORY:
[2022-10-05 09:23] LABS: Prothrombin Time 9.8 sec (9.3-11.0)
--- NOTE | 2022-10-05 09:26 | DI.MRI_ITS ---
Exam(s) MR BRAIN WO EXAM: MR BRAIN WO CLINICAL HISTORY: stroke symptoms TECHNIQUE: Multiplanar multisequence MRI of the brain was performed. COMPARISON: CT CT HEAD - STROKE PROTOCOL from 10/05/2022 FINDINGS: VENTRICLES AND EXTRA AXIAL SPACES: Normal in size and morphology for the patient's age. MIDLINE SHIFT: None. CEREBRAL PARENCHYMA: Small areas of restricted diffusion seen along the cortex of the high right goran etal lobe. Findings consistent with acute peripheral cortical infarcts. No space-occupying lesion i dentified. HEMORRHAGE: None. BRAINSTEM/CEREBELLUM: Normal. VISUALIZED PARANASAL SINUSES/MASTOIDS:Clear. Vasculature: Normal flow void. PITUITARY GLAND: Unremarkable. ORBITS: Unremarkable. IMPRESSION: Acute peripheral cortical infarcts in the high right parietal lobe. Findings called to Dr. Trinidad of the emergency department. DATA REPOSITORY:
[2022-10-05] MEDS: Aspirin 325 MG TAB PO (09:29)
[2022-10-05 09:30] LABS: ALT 28 U/L (16-63); AST 22 U/L (15-37); Albumin 4.3 g/dL (3.4-5.0); Alkaline Phosphatase 87 U/L (46-116); Anion Gap 8.9 mmol/L (3-11); BUN 17 mg/dL (7-18); Bilirubin, Total 0.6 mg/dL (0.2-1.0); CO2 28.1 mmol/L (21.0-32.0); Calcium 9.1 mg/dL (8.5-10.1); Chloride 107 mmol/L (98-107); Estimated GFR 77.04 (mL/min/1.73m2); Glucose 98 mg/dL (74-106); Magnesium 2.1 mg/dL (1.8-2.4); Potassium 4.1 mmol/L (3.5-5.1); Sodium 144 mmol/L (136-145); Total Protein 7.8 g/dL (6.4-8.2); Troponin I < 50 ng/L (<or=60)
--- NOTE | 2022-10-05 09:43 | NUR.NOTE ---
Nursing Note: this RN had patient sip water before swallowing pill. Patient reported he did not need to cough and it seemed to go down okay This RN administered ASA tablet patient had no swallowing difficultly with tablet
[2022-10-05 10:00] LABS: Calculated LDL 127 mg/dL (<100); Cholesterol 202 mg/dL (<200); HDL Cholesterol 47 mg/dL (40-60); Triglyceride 143 mg/dL (<150)
[2022-10-05] MEDS: Clopidogrel 300 MG TAB PO (10:50)
[2022-10-05 12:13] LABS: Lab Add On Test DONE
[2022-10-05] MEDS: Atorvastatin 40 MG TAB PO ×2 (13:01→20:10)
[2022-10-05] MEDS: Normal Saline 1,000 ML 80 ML IV (15:05)
[2022-10-05] MEDS: Normal Saline Flush 10 ML SYR IVP (15:05)
[2022-10-05 15:36] LABS: Troponin I < 50 ng/L (<or=60)
--- NOTE | 2022-10-05 16:48 | W.NEUROCONSU ---
Date of service: 10/05/22 Time of Service: 16:48 Assessment and Plan Assessment and plan (1) Stroke: Status: Chronic Assessment and plan: Mr. Vicente is a 76 year-old admitted with ischemic stroke manifested by transient L face and arm weakness and dysarthria with ?L arm discooridination, ?imbalance, ?dizziness. Etiology unclear at this time. Work-up: -Telemetry with 30 day potline monitor at discharge -A1c Medications: -aspirin 81mg daily for secondary stroke prevention -clopidogrel 75mg daily for secondary stroke prevention x30 days -atrovastatin 80mg daily for secondary stroke prevention which can be reduced to 40mg at discharge Other: -Allow permissive hypertension He should follow-up with the neurology clinic in 6-8 weeks. History of Present Illness History of Present Illness Chief Complaint: stroke Narrative: Handedness: right. HPI: Mr. Vicente is a 76 year-old man with hypertension, hyperlipidemia, GERD, BPH, and ED. He awoke this am with feeling dizzy, imbalanced, and L arm weakness/discooridination. On the way to the ER, he developed dysarthria. In the ER, he was noted to have L face weakness and dysarthria. His symptoms have since resolved. He was started on DAPT + statin, none of which he was on at home; and underwent the work-up as below. Work-up: -CTH (10/05/22): No acute findings. I reviewed these images personally and this is my personal interpretation. -MRI brain w/o (10/05/22): Acute R parietal high cortical scattered ischemia. I reviewed these images personally and this is my personal interpretation. -MRA head (10/05/22): Rad report pending. 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 I reviewed these images personally and this is my personal interpretation. -CUS (10/05/22): plaques bilaterally at the carotids without significant stenosis. -TTE (10/05/22): EF 55-60% with no wall motion abnormalities. LA normal. -LDL 127 Review of Systems All systems reviewed & are unremarkable except as noted in HPI and below PFSH All Active Problems (Updated 10/05/22 @ 11:31 by Debra Alexis MD) Stroke (Chronic) Palpitations (Chronic) Intra-abdominal lymphadenopathy (Acute) GERD with esophagitis (Acute 12/06/11) Essential hypertension (Chronic 07/27/16) Hyperlipidemia (Acute 07/27/16) Gastroesophageal reflux disease (Chronic 07/27/16) Discharge planning issues (Acute) DVT prophylaxis (Acute) SBO (small bowel obstruction) (Acute) Statin declined (Acute) Erectile dysfunction (Acute) 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 tract symptoms (Chronic 02/09/15) Elevated BP without diagnosis of hypertension (Acute 12/21/16) History of elevated prostate specific antigen (PSA) (Acute 01/18/16) 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) Medical History Benign prostate hyperplasia (12/11/07) Done by Surgical History EGD w/ BX (07/2020) Weeks, 07/2020 @ [facility] H/O hernia repair History of colonoscopy (~08/06/20) History of esophagogastroduodenoscopy (EGD) (~08/06/20) Repair of inguinal hernia (~1979) Left S/P right inguinal hernia repair S/P TURP Tonsillectomy Vasectomy Family History Other Cancer Social History Smoking/Tobacco Use Status: Former Tobacco Use Quit Date: 04/16/73 Pack-years: 16 Tobacco: How many years used: 16 Smoking risk assessment performed?: Yes Alcohol Intake: current Alcohol Intake frequency: a few times a week Alcohol type: beer and hard liquor Counseling given: No Drug use: Occasionally Substance use type: marijuana Adopted: No Household members: spouse Housing: house Number of Children: 3 number of grandchildren: 4 Communication Needs: Corrective Lenses Do you need help understanding health information?: Rarely 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 What is your relationship status?: How often do you talk on the phone with friends or family?: three or more times per week How often do you get together with friends or relatives?: three or more times per week Panel score (0-1 are the most socially isolated patients): 2 What type of physical activity do you participate in: other Details: physically active daily with work around his home Seatbelt use: always Helmet use: Yes Working smoke detector in home: Yes Carbon monox detector in home: Yes Do you feel safe at home: Yes Do you feel safe in your relationship?: Yes Visit Medication and Allergies Active Medications Generic Name Dose Route Start Last Admin Trade Name Freq PRN Reason Stop Dose Admin Acetaminophen 0 mg 10/05/22 11:43 Acetaminophen 325 Mg Tab PO Q4H PRN PRN Al Hydrox/Mg Hydrox/Simethicone 30 ml 10/05/22 11:43 Mylanta Suspension 30 Ml Cup PO Q2H PRN PRN Aspirin 81 mg 10/06/22 08:30 Aspirin 81 Mg Chew PO DAILY [facility] Atorvastatin Calcium 80 mg 10/06/22 20:00 Atorvastatin 40 Mg Tab PO QPM SRAVAN Atorvastatin Calcium 40 mg 10/05/22 20:00 Atorvastatin 40 Mg Tab PO 10/05/22 20:01 ONCE ONE Clopidogrel Bisulfate 75 mg 10/06/22 08:30 Clopidogrel 75 Mg Tab PO DAILY SRAVAN Dimethicone/Zinc Oxide 0 gm 10/05/22 11:43 Jj Protect Cream 142 Gm Tube TP PRN PRN Sodium Chloride 1,000 mls @ 80 mls/hr 10/05/22 11:45 10/05/22 15:05 Saline 1000ml Bag IV 80 mls/hr INFUSION [facility] Administration IV Miscellaneous Supplies 1 each 10/05/22 09:00 Iv Access-Emergency Dept IV DIRECTED [facility] Magnesium Hydroxide 30 ml 10/05/22 11:43 Milk Of Magnesia 30 Ml Cup PO DAILY PRN PRN Pantoprazole Sodium 20 mg 10/06/22 07:30 Pantoprazole 20 Mg Tabcr PO DAILY@0730 SRAVAN Polyethylene Glycol 17 gm 10/05/22 11:43 Polyethylene Glycol 3350 17 Gm Packet PO DAILY PRN PRN Constipation Sodium Chloride 0 ml 10/05/22 08:59 10/05/22 15:05 Normal Saline Flush 10 Ml Syr IVP 20 ml PRN PRN Administration Allergies finasteride Allergy (Verified 06/22/22 09:14) terazosin HCl [From Hytrin] Adverse Reaction (Verified 06/22/22 09:14) sweats Exam Narrative Exam Narrative: Physical Exam: Gen: Patient of apparent stated age, NAD Head and face: no facial or cranial abnormalities Neck: Supple, no meningismus, no occipital tenderness CV: + S1, S2, RRR, no murmur Resp: CTA B/L Abd: soft, nontender, nondistended Ext: No edema. No clubbing or cyanosis. No bony deformity. Neuro Exam: Language: fluency, naming, repetition, and comprehension intact; Mental Status: AAOx3, current events intact, fund of knowledge intact; Speech: no dysarthria Cranial nerves: Funduscopy: not performed CN II: visual espinal intact CN III, IV, : extraocular movements intact, no nystagmus, pupils symmetric and reactive to light CN V: face sensation intact to LT and PP CN VII: no facial asymmetry noted CN VIII: hearing intact bilaterally CN IX, X: palate rises symmetrically CN XI: trapezius/SCM 5/5 bilaterally CN XII: protrudes tongue symmetrically Sensory: intact to LT, PP, vibration, and joint position in all extremities Motor: bulk and tone intact. Fine motor movements intact bilaterally. No pronator drift. Strength 5/5 throughout including the deltoids, biceps, triceps, wrist extensors, hip flexors, knee flexors, knee extensors, ankle flexors, and ankle extensors. Reflexes: 2+ at the biceps, triceps, brachioradialis, patella, and achilles tendons bilaterally; toes neutral bilaterally; Coordination: FTN and HTS intact bilaterally Gait: not tested Results Last Vital Signs Temp 97.0 F L 10/05/22 15:10 Pulse 77 10/05/22 15:10 Resp 16 10/05/22 15:10 BP 181/86 H 10/05/22 15:10 Pulse Ox 96 10/05/22 15:10 Labs 10/05/22 09:00 10/05/22 09:00 Labs: Laboratory Results - last 24 hr 10/05/22 10/05/22 10/05/22 09:00 09:00 09:00 WBC 7.29 RBC 5.08 Hgb 14.2 Hct 42.7 MCV 84 MCH 28.0 MCHC 33.3 RDW 13.4 Plt Count 224 MPV 9.1 Immature Gran % 0.4 Neutrophils % 64.9 Lymphocytes % 28.8 Monocytes % 4.7 Eosinophils % 0.5 Basophils % 0.7 Nucleated RBC % 0.0 Absolute Neutrophils 4.73 Absolute Lymphocytes 2.10 Absolute Monocytes 0.34 Absolute Eosinophils 0.04 Absolute Basophils 0.05 PT 9.8 INR 1.0 Sodium 144 Potassium 4.1 Chloride 107 Carbon Dioxide 28.1 Anion Gap 8.9 BUN 17 Creatinine 1.0 Est GFR (CKD-EPI 2020) 77.04 Glucose 98 Calcium 9.1 Magnesium 2.1 Total Bilirubin 0.6 AST 22 ALT 28 Alkaline Phosphatase 87 Troponin I < 50 Total Protein 7.8 Albumin 4.3 Triglycerides Total Cholesterol LDL Cholesterol, Calc HDL Cholesterol Add-On Test Request 10/05/22 10/05/22 10/05/22 09:00 09:00 15:10 WBC RBC Hgb Hct MCV MCH MCHC RDW Plt Count MPV Immature Gran % Neutrophils % Lymphocytes % Monocytes % Eosinophils % Basophils % Nucleated RBC % Absolute Neutrophils Absolute Lymphocytes Absolute Monocytes Absolute Eosinophils Absolute Basophils PT INR Sodium Potassium Chloride Carbon Dioxide Anion Gap BUN Creatinine Est GFR (CKD-EPI 2020) Glucose Calcium Magnesium Total Bilirubin AST ALT Alkaline Phosphatase Troponin I < 50 Total Protein Albumin Triglycerides 143 Total Cholesterol 202 H LDL Cholesterol, Calc 127 H HDL Cholesterol 47 Add-On Test Request DONE
--- NOTE | 2022-10-05 19:01 | W.PM.HP.N ---
Date of service: 10/05/22 Time of Service: 19:01 Assessment and Plan Assessment and plan (1) Stroke: Status: Chronic Assessment and plan: acute peripheral cortical infarcts in the high right parietal lobe. Neurology consulted. Telemetry overnight and then, on discharge, 30 day cardiac rehabilitation specialist. ASA 81 mg daily. Clopidogrel 75mg daily. Atorvastatin 80mg daily; reduce to 40mg at discharge. Permissive HTN No PT/OT/Speech given resolution of symptoms. Neurology f/u in 6-8 weeks. (2) Gastroesophageal reflux disease: Status: Chronic Assessment and plan: On omeprazole at home. Change to pantoprazole d/t interaction with clopidogrel. (3) 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 hyperplasia: Status: Chronic Assessment and plan: Previous TURP. Still has intermittent need for self catheterization. (4) Discharge planning issues: Status: Acute Assessment and plan: Likely home tomorrow on above secondary prevention medications. History of Present Illness History of Present Illness Chief Complaint: Left sided incoordination, dizziness, difficulty with speech. Narrative: This is a 76 yo male with a PMH of GERD on a PPI, BPH s/p TURP. He presented after getting out of bed at 6 AM on the morning of admission and noting dizziness and difficulty ambulation. He had trouble wiping after a BM and using his left arm/hand to scratch his ear. No falls. He had woken at 5 AM and self catheterized, which he does prn but not routinely, and did not have difficulty coordinating the procedure. He gone to bed at 10PM feeling well. His noted a mild left sided facial droop and mild intermittent slurring of some words. No SOB, CP/palpitations. No F/C, GONCALVES. In the ED his NIH score was 3. CT head unremarkable. An aspirin was administered. A loading 300mg dose of Plavix initiated. [facility] neurology consulted. MRI performed with finding of acute peripheral cortical infarcts in the high right parietal lobe. Carotid US showed moderate mixed plaque in the common carotid bulbs and proximal internal carotid arteries.? No velocity elevations.? Findings consistent with less than 50 percent stenosis. Echocardiogram: Normal left ventricular wall thickness and chamber size.? Ejection fraction is 55 to 60%.? Wall motion is normal Normal right ventricular size and systolic function Both atria are normal in size Aortic valve is mildly sclerotic and trileaflet with mild regurgitation Estimated right ventricular systolic pressure is [address] Garzon consulted. In the ED his symptoms essentially resolved. Review of Systems All systems reviewed & are unremarkable except as noted in HPI and below PFSH All Active Problems (Updated 10/05/22 @ 11:31 by Debra Alexis MD) Stroke (Chronic) Palpitations (Chronic) Intra-abdominal lymphadenopathy (Acute) GERD with esophagitis (Acute 12/06/11) Essential hypertension (Chronic 07/27/16) Hyperlipidemia (Acute 07/27/16) Gastroesophageal reflux disease (Chronic 07/27/16) Discharge planning issues (Acute) DVT prophylaxis (Acute) SBO (small bowel obstruction) (Acute) Statin declined (Acute) Erectile dysfunction (Acute) 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 tract symptoms (Chronic 02/09/15) Elevated BP without diagnosis of hypertension (Acute 12/21/16) History of elevated prostate specific antigen (PSA) (Acute 01/18/16) 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) Medical History Benign prostate hyperplasia (12/11/07) Done by Surgical History EGD w/ BX (07/2020) Weeks, 07/2020 @ [facility] H/O hernia repair History of colonoscopy (~08/06/20) History of esophagogastroduodenoscopy (EGD) (~08/06/20) Repair of inguinal hernia (~1979) Left S/P right inguinal hernia repair S/P TURP Tonsillectomy Vasectomy Family History Other Cancer Social History Smoking/Tobacco Use Status: Former Tobacco Use Quit Date: 04/16/73 Pack-years: 16 Tobacco: How many years used: 16 Smoking risk assessment performed?: Yes Alcohol Intake: current Alcohol Intake frequency: a few times a week Alcohol type: beer and hard liquor Counseling given: No Drug use: Occasionally Substance use type: marijuana Adopted: No Household members: spouse Housing: house Number of Children: 3 number of grandchildren: 4 Communication Needs: Corrective Lenses Do you need help understanding health information?: Rarely 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 What is your relationship status?: How often do you talk on the phone with friends or family?: three or more times per week How often do you get together with friends or relatives?: three or more times per week Panel score (0-1 are the most socially isolated patients): 2 What type of physical activity do you participate in: other Details: physically active daily with work around his home Seatbelt use: always Helmet use: Yes Working smoke detector in home: Yes Carbon monox detector in home: Yes Do you feel safe at home: Yes Do you feel safe in your relationship?: Yes Meds Allergies and Home Medications Allergies Allergy/AdvReac Type Severity Reaction Status Date / Time finasteride Allergy Verified 06/22/22 09:14 terazosin HCl [From Hytrin] AdvReac sweats Verified 06/22/22 09:14 Home Medications Medication Instructions Recorded Confirmed Type calcium carbonate 200 mg calcium 200 mg PO DAILY PRN 09/06/16 08/25/22 History (500 mg) chewable tablet (Tums) cephalexin 500 mg tablet 500 mg PO QHS antibiotic #90 tabs 09/16/21 06/22/22 Rx omeprazole 40 mg capsule,delayed 40 mg PO DAILY #90 tab-caps 10/24/21 08/25/22 Rx release sildenafil 100 mg tablet See Rx Instructions PO DAILY PRN 01/02/22 08/25/22 Rx sexual activity #4 tabs Exam Narrative Exam Narrative: General: Lying in bed. Pleasant. Articulate and conversant. HEENT: MMM, sclera clear. EOMI. Card: regular rate and rhythm, S1S2, no murmur Lungs: Clear. Nonlabored breathing. Abd: soft, non-tender, non-distended, normal bowel sounds Musculoskeletal: full range of motion of arms and legs. Neurologic: GSC 15, CN 2-12 intact bilaterally,speech clear, strength normal, sensation intact distally in all four extremities, no pronator drift. Psych: alert and oriented. Affect appropriate. Skin: No rashes, lesions. Results Labs 10/05/22 09:00 10/05/22 09:00 Labs: Laboratory Results - last 24 hr 10/05/22 10/05/22 10/05/22 09:00 09:00 09:00 WBC 7.29 RBC 5.08 Hgb 14.2 Hct 42.7 MCV 84 MCH 28.0 MCHC 33.3 RDW 13.4 Plt Count 224 MPV 9.1 Immature Gran % 0.4 Neutrophils % 64.9 Lymphocytes % 28.8 Monocytes % 4.7 Eosinophils % 0.5 Basophils % 0.7 Nucleated RBC % 0.0 Absolute Neutrophils 4.73 Absolute Lymphocytes 2.10 Absolute Monocytes 0.34 Absolute Eosinophils 0.04 Absolute Basophils 0.05 PT 9.8 INR 1.0 Sodium 144 Potassium 4.1 Chloride 107 Carbon Dioxide 28.1 Anion Gap 8.9 BUN 17 Creatinine 1.0 Est GFR (CKD-EPI 2020) 77.04 Glucose 98 Calcium 9.1 Magnesium 2.1 Total Bilirubin 0.6 AST 22 ALT 28 Alkaline Phosphatase 87 Troponin I < 50 Total Protein 7.8 Albumin 4.3 Triglycerides Total Cholesterol LDL Cholesterol, Calc HDL Cholesterol Add-On Test Request 10/05/22 10/05/22 10/05/22 09:00 09:00 15:10 WBC RBC Hgb Hct MCV MCH MCHC RDW Plt Count MPV Immature Gran % Neutrophils % Lymphocytes % Monocytes % Eosinophils % Basophils % Nucleated RBC % Absolute Neutrophils Absolute Lymphocytes Absolute Monocytes Absolute Eosinophils Absolute Basophils PT INR Sodium Potassium Chloride Carbon Dioxide Anion Gap BUN Creatinine Est GFR (CKD-EPI 2020) Glucose Calcium Magnesium Total Bilirubin AST ALT Alkaline Phosphatase Troponin I < 50 Total Protein Albumin Triglycerides 143 Total Cholesterol 202 H LDL Cholesterol, Calc 127 H HDL Cholesterol 47 Add-On Test Request DONE Last Vital Signs Temp 36.1 C L 10/05/22 15:10 Pulse 77 10/05/22 15:10 Resp 16 10/05/22 15:10 BP 181/86 H 10/05/22 15:10 Pulse Ox 96 10/05/22 15:10 PAWSS Have you Been Recently Intoxicated or Drunk Within the Last 30 days?: No Have you Ever Experienced Previous Episodes of Alcohol Withdrawal?: No Have you ever Experienced Withdrawal Seizures?: No Have you ever Experienced Delirium Tremens(DT)s?: No Have you ever undergone Alcohol Rehabilitation Treatment (i.e, inpt ot outpatient treatment programs)?: No Have you ever Experienced Blackouts?: No Have you ever Combined Alcohol with other Downers within the last 90 days?: No Have you ever Combined Alcohol with any other Substance of Abuse during the last 90 days?: No Result: 0 Time Spent Time spent with Patient: 40-54 minutes Time was spent: preparing to see the patient(eg.review tests), obtaining and/or reviewing separately otained hiistory, ordering medications,tests, procedures, referring, communicating with other health post acute care nurse practitioner, indepentently interpreting results and counseling the patient
[2022-10-05 22:27] LABS: PSA, Diagnostic 21.1 ng/mL (<=6.5)
[2022-10-06 04:36] VITALS: BP 149/70; PULSE 75; RESP 20; TEMP 36.4; O2SAT 99
[2022-10-06 06:59] VITALS: PULSE 73
[2022-10-06] MEDS: Pantoprazole 20 MG TABCR PO (07:55)
[2022-10-06] MEDS: Aspirin 81 MG CHEW PO (07:55)
[2022-10-06] MEDS: Clopidogrel 75 MG TAB PO (07:55)
[2022-10-06 08:09] VITALS: BP 156/86; PULSE 93; RESP 16; TEMP 37.4; O2SAT 98
[2022-10-06 08:41] VITALS: PULSE 97
--- NOTE | 2022-10-06 09:00 | DI.RAD_ITS ---
Exam(s) XR PORTABLE CHEST AP EXAM: XR PORTABLE CHEST AP CLINICAL HISTORY: speech difficulty TECHNIQUE: 2D digital imaging was performed of the chest. One image was obtained. An AP view was ob tained. COMPARISON: CR XR PORTABLE CHEST AP from 10/05/2022 FINDINGS: MEDIASTINUM: Normal. HEART: Normal. PULMONARY VASCULATURE: There is atherosclerosis and tortuosity of the thoracic aorta. LUNGS: No focal consolidating infiltrates are present. PLEURAL SPACE: No pleural effusion or pneumothorax. BONE:Within normal limits for the patient's age. OTHER FINDINGS:Normal. IMPRESSION: No acute pulmonary findings. DATA REPOSITORY: RADIATION DOSE DELIVERED:
--- NOTE | 2022-10-06 09:42 | W.PM.DS.N ---
Date of service: 10/06/22 Time of Service: 09:42 DS: Diagnosis Discharge Diagnosis (1) Stroke: Status: Chronic Discharge Plan Disposition Patient Disposition: Home Condition: Good Discharge Details Reason For Visit: CVA Admit Date/Time: 10/05/22 11:43 Admit Provider: Guillermo Jaffe Attending Provider: Guillermo Jaffe Primary Care Provider: Brooklyn Farah Hospital Course Hospital Course: This is a 76 yo male with a PMH of GERD on a PPI, BPH s/p TURP.? He presented after getting out of bed at 6 AM on the morning of admission and noting dizziness and difficulty ambulation. He had trouble wiping after a BM and using his left arm/hand to scratch his ear.? No falls. He had woken at 5 AM and self catheterized, which he does prn but not routinely, and did not have difficulty coordinating the procedure.? He gone to bed at 10PM feeling well.? His noted a mild left sided facial droop and mild intermittent slurring of some words.? No SOB, CP/palpitations.? No F/C, GONCALVES. In the ED his NIH score was 3.? CT head unremarkable.? An aspirin was administered. A loading 300mg dose of Plavix initiated. [facility]. MRI performed with finding of?acute peripheral cortical infarcts in the high right parietal lobe. Carotid US showed moderate mixed plaque in the common carotid bulbs and proximal internal carotid arteries.? No velocity elevations.? Findings consistent with less than 50 percent stenosis. Echocardiogram: Normal left ventricular wall thickness and chamber size.? Ejection fraction is 55 to 60%.? Wall motion is normal Normal right ventricular size and systolic function Both atria are normal in size Aortic valve is mildly sclerotic and trileaflet with mild regurgitation Estimated right ventricular systolic pressure is [address] Garzon consulted. In the ED his symptoms essentially resolved. Famotadine substituted for omeprazole d/t omeprazole and atorvastatin interaction. He ambulated w/o assistance. No dysarthria, facial droop or extremity weakness noted. Discharged with a 30 day cardiac rn. Discharged on DAPT and atorvastatin 40mg nightly. PCP f/u in 1-2 weeks. Neurology f/u in 6-8 weeks. Home Meds and New Rx's Prescriptions: New aspirin [Children's Aspirin] 81 mg Tablet,Chewable 81 mg PO DAILY Qty: 0 0RF atorvastatin 40 mg Tablet 40 mg PO QPM Qty: 30 0RF clopidogrel 75 mg Tablet 75 mg PO DAILY Qty: 30 0RF famotidine 40 mg tablet 40 mg PO DAILY Qty: 30 0RF Continued calcium carbonate [Tums] 200 MG tablet,chewable 200 mg PO DAILY PRN sildenafil 100 mg tablet See Rx Instructions PO DAILY PRN (Reason: sexual activity) Qty: 4 6RF Rx Instructions: 1/2 to 1 tab PO daily PRN; Discontinued cephalexin 500 mg tablet 500 mg PO QHS Qty: 90 1RF Hold Instructions: Home Medication placed on hold at Doctor's office Patient Comments: pt states finished Rx Instructions: may increase to 4 times/day if UTI occurs omeprazole 40 mg capsule,delayed release(DR/EC) 40 mg PO DAILY Qty: 90 3RF Discharge Instructions Referrals: Eliza Garzon MD [ [facility] STAFF PHYSICIAN] - (CVA f/u in 6-8 weeks.) Brooklyn Farah NP [Primary Care Provider] - (Follow up CVA) Activity:: Activity as Tolerated Equipment/Supplies:: No Equipment Needed Diet:: Heart Healthy Diet Discharge Orders Discharge Orders: Discharge Order (Routine); Ordered 10/06/22 Ordered By: Guillermo Jaffe Other Ambulatory Orders: Cardiac Event Recorder (Routine) Timeframe: 1 Month Facility: [facility] - Location: Respiratory Therapy Ordered By: Guillermo Jaffe DS: Summary Time Spent with Patient providing and/or coordinating discharge services: Greater than 30 minutes Status at Discharge Functional status at discharge: independent ambulation Overall status at discharge: patient is back to baseline Mental Status: mental status grossly normal Speech and Movement: speech and movement normal Mood: congruent mood Affect: normal affect Exam Narrative Exam Narrative: General: Walking in hallway. Pleasant. NAD HEENT: MMM, sclera clear. EOMI. Card: regular rate and rhythm, S1S2, no murmur Lungs: Clear. Nonlabored breathing. Neurologic: Ambulating w/o ataxia, shuffling, hesitancy. No facial droop. BUE strength 5/5. Psych: alert and oriented. Affect appropriate. Psych Mental Status: mental status grossly normal Speech and Movement: speech and movement normal Mood: congruent mood Affect: normal affect DS: Data Vitals/I&O Vitals and I&O: Vital Signs Temperature 37.4 C 10/06/22 08:09 Temperature Source Tympanic 10/06/22 08:09 Pulse 93 H 10/06/22 08:09 Pulse Rhythm Regular 10/06/22 07:30 Pulse 71 10/05/22 14:01 Respiratory Rate 16 10/06/22 08:09 Respiratory Effort Normal, Non-Labored 10/06/22 07:30 Respiratory Depth Normal 10/06/22 07:30 Respiratory Pattern Normal 10/06/22 07:30 Blood Pressure 156/86 H 10/06/22 08:09 Blood Pressure Mean 102 10/05/22 14:01 Pulse Oximetry 98 10/06/22 08:09 Oxygen Delivery Method Room Air 10/06/22 08:09 Oxygen Flow Rate 0 10/06/22 08:09 Pain Level 0 10/06/22 08:09 Comment Notified rn hemodialysis chargeDEION Meraz of BP 10/05/22 15:10 Intake & Output 10/05/22 10/05/22 10/06/22 11:59 23:59 11:59 Intake Total Output Total 930 / 930 Balance -930 / -930 Weight 71.5 kg 74.843 kg Intake: IV Output: Urine 930 / 930 Other: Urine Color Pale Urine Appearance Clear Urine Odor None Comment occasional straight cath Voiding Methods Urinal Data Completed and Pending Labs on day of discharge: Labs from last 24 hours 10/05/22 10/05/22 10/05/22 15:10 09:00 09:00 Troponin I < 50 Triglycerides Total Cholesterol LDL Cholesterol, Calc HDL Cholesterol Prostate Specific Ag 21.1 H Add-On Test Request DONE 10/05/22 09:00 Troponin I Triglycerides 143 Total Cholesterol 202 H LDL Cholesterol, Calc 127 H HDL Cholesterol 47 Prostate Specific Ag Add-On Test Request PFSH All Active Problems Stroke (Chronic) Palpitations (Chronic) Intra-abdominal lymphadenopathy (Acute) GERD with esophagitis (Acute 12/06/11) Essential hypertension (Chronic 07/27/16) Hyperlipidemia (Acute 07/27/16) Gastroesophageal reflux disease (Chronic 07/27/16) Discharge planning issues (Acute) DVT prophylaxis (Acute) SBO (small bowel obstruction) (Acute) Statin declined (Acute) Erectile dysfunction (Acute) 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 tract symptoms (Chronic 02/09/15) Elevated BP without diagnosis of hypertension (Acute 12/21/16) History of elevated prostate specific antigen (PSA) (Acute 01/18/16) 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) Medical History Benign prostate hyperplasia (12/11/07) Done by Surgical History EGD w/ BX (07/2020) Weeks, 07/2020 @ [place] H/O hernia repair History of colonoscopy (~08/06/20) History of esophagogastroduodenoscopy (EGD) (~08/06/20) Repair of inguinal hernia (~1979) Left S/P right inguinal hernia repair S/P TURP Tonsillectomy Vasectomy Family History Other Cancer Social History Smoking/Tobacco Use Status: Former Tobacco Use Quit Date: 04/16/73 Pack-years: 16 Tobacco: How many years used: 16 Smoking risk assessment performed?: Yes Alcohol Intake: current Alcohol Intake frequency: a few times a week Alcohol type: beer and hard liquor Counseling given: No Drug use: Occasionally Substance use type: marijuana Adopted: No Household members: spouse Housing: house Number of Children: 3 number of grandchildren: 4 Communication Needs: Corrective Lenses Do you need help understanding health information?: Rarely 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 What is your relationship status?: How often do you talk on the phone with friends or family?: three or more times per week How often do you get together with friends or relatives?: three or more times per week Panel score (0-1 are the most socially isolated patients): 2 What type of physical activity do you participate in: other Details: physically active daily with work around his home Seatbelt use: always Helmet use: Yes Working smoke detector in home: Yes Carbon monox detector in home: Yes Do you feel safe at home: Yes Do you feel safe in your relationship?: Yes Time Spent with Patient Time Spent with Patient: 45-69 minutes Time was spent: preparing to see the patient(eg.review tests), obtaining and/or reviewing separately otained hiistory, referring, communicating with other health rn progressive care unit, indepentently interpreting results, counseling the patient and care coordination
--- NOTE | 2022-10-06 09:45 | W.PALLCONSUL ---
History of Present Illness Narrative: Mr. Mix is a 77-year-old gentleman from [facility] who was admitted from [facility] yesterday with new right-sided ischemic parietal stroke manifesting as transient left face and arm weakness and dysarthria along with imbalance. Other medical problems include hypertension hyperlipidemia, GERD, BPH. 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 Palliative care team has been asked to meet with him to discuss goals of care. Care Team: Primary Care physician: Dr. Brooklyn Farah Social HX: Impression of currents health status: What bothers you the most: What worries you the most: Current information preferences: Function: Ambulation: ADLs: iADLs: Hearing: Vision: Spiritual history: Palliative review of systems: Pain: Dyspnea: GI symptoms: Appetite: Depression: Anxiety: None Emotional Distress: Spiritual/Existential Distress: Labs: Cr: 1.0 Liver panel: Normal Albumin: Normal CBC: Normal Advanced Care Planning: Advanced Directive: Health Care Agent: COLST: Limitations: PFSH All Active Problems Stroke (Chronic) Palpitations (Chronic) Intra-abdominal lymphadenopathy (Acute) GERD with esophagitis (Acute 12/06/11) Essential hypertension (Chronic 07/27/16) Hyperlipidemia (Acute 07/27/16) Gastroesophageal reflux disease (Chronic 07/27/16) Discharge planning issues (Acute) DVT prophylaxis (Acute) SBO (small bowel obstruction) (Acute) Statin declined (Acute) Erectile dysfunction (Acute) 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 tract symptoms (Chronic 02/09/15) Elevated BP without diagnosis of hypertension (Acute 12/21/16) History of elevated prostate specific antigen (PSA) (Acute 01/18/16) 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) Medical History Benign prostate hyperplasia (12/11/07) Done by Surgical History EGD w/ BX (07/2020) Weeks, 07/2020 @ [facility] H/O hernia repair History of colonoscopy (~08/06/20) History of esophagogastroduodenoscopy (EGD) (~08/06/20) Repair of inguinal hernia (~1979) Left S/P right inguinal hernia repair S/P TURP Tonsillectomy Vasectomy Family History Other Cancer Social History Smoking/Tobacco Use Status: Former Tobacco Use Quit Date: 04/16/73 Pack-years: 16 Tobacco: How many years used: 16 Smoking risk assessment performed?: Yes Alcohol Intake: current Alcohol Intake frequency: a few times a week Alcohol type: beer and hard liquor Counseling given: No Drug use: Occasionally Substance use type: marijuana Adopted: No Household members: spouse Housing: house Number of Children: 3 number of grandchildren: 4 Communication Needs: Corrective Lenses Do you need help understanding health information?: Rarely 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 What is your relationship status?: How often do you talk on the phone with friends or family?: three or more times per week How often do you get together with friends or relatives?: three or more times per week Panel score (0-1 are the most socially isolated patients): 2 What type of physical activity do you participate in: other Details: physically active daily with work around his home Seatbelt use: always Helmet use: Yes Working smoke detector in home: Yes Carbon monox detector in home: Yes Do you feel safe at home: Yes Do you feel safe in your relationship?: Yes Results Last Vital Signs Temp 37.4 C 10/06/22 08:09 Pulse 93 H 10/06/22 08:09 Resp 16 10/06/22 08:09 BP 156/86 H 10/06/22 08:09 Pulse Ox 98 10/06/22 08:09 Labs 10/05/22 09:00 10/05/22 09:00 Labs: Laboratory Results - last 24 hr 10/05/22 10/05/22 10/05/22 09:00 09:00 09:00 Troponin I Triglycerides 143 Total Cholesterol 202 H LDL Cholesterol, Calc 127 H HDL Cholesterol 47 Prostate Specific Ag 21.1 H Add-On Test Request DONE 10/05/22 15:10 Troponin I < 50 Triglycerides Total Cholesterol LDL Cholesterol, Calc HDL Cholesterol Prostate Specific Ag Add-On Test Request
[2022-10-06 11:10] VITALS: BP 130/84; PULSE 82; RESP 18; TEMP 37; O2SAT 98
--- NOTE | 2022-10-06 13:12 | PT.INNT ---
PT Notes Visit Reasons: Cerebrovascular accident PT referral cancelled per Dr. Jaffe on 10/05/22 given resolution of symptoms. Patient discharged home early today. No skilled services provided for this episode of care.
== END 2022-10-06 11:49 | disposition home or self-care (01) | DRG 66 ==
LOC: ER 11:31 → MS 14:28
PROVIDERS: Admitting Provider Family Medicine; Emergency Provider Emergency Medicine Emergency Medical Services; PCP Nurse Practitioner; Visit Provider Family Medicine
DX: I63.9 Cerebral infarction, unspecified (principal); I10 Essential (primary) hypertension; E78.5 Hyperlipidemia, unspecified; R29.810 Facial weakness; R47.1 Dysarthria and anarthria; R59.0 Localized enlarged lymph nodes; K21.00 Gastro-esophageal reflux disease with esophagitis, without bleeding; N40.1 Benign prostatic hyperplasia with lower urinary tract symptoms; R33.9 Retention of urine, unspecified; I65.23 Occlusion and stenosis of bilateral carotid arteries; R29.703 NIHSS score 3
CPT/HCPCS: 70544; 80053; 80061; 93005; 93270; 93306; 99223; 70450; 70551; 71045; 83735; 84153; 84484; 85025; 85610; 93010; 93880; 99239

== ENCOUNTER → 2022-10-13 07:50 | Outpatient (BNVA) | payer MEDICARE, SELFPAY | PROVIDERS: PCP Nurse Practitioner; Visit Provider Urology | DX: N40.0 Benign prostatic hyperplasia without lower urinary tract symptoms (principal); Z87.898 Personal history of other specified conditions | CPT/HCPCS: 99213 ==

== ENCOUNTER 2022-11-13 08:36 | Outpatient (CLI) | payer MEDICARE, SELFPAY ==
--- NOTE | 2022-11-13 09:16 | W.CARDEVENT ---
Date of service: 11/13/22 Time of Service: 09:16 Cardiac Event Recorder Referring Provider:: Brooklyn Farah Indications:: Stroke Cardiac Event Note: This is a cardiac event monitor ordered for stroke. Patient was monitored for 17 days and 20 hours Rhythm throughout was sinus. Average heart rate was 79. Minimum was 57, maximum 109 There were occasional ventricular ectopic beats There was no atrial fibrillation, no SVT, no high-grade AV block, no pauses greater than 3 seconds No patient symptoms were reported
== END 2022-11-13 08:37 | disposition home or self-care (01) ==
LOC: CARDOPNVT 08:36
PROVIDERS: PCP Nurse Practitioner; Visit Provider Internal Medicine Cardiovascular Disease
DX: I63.9 Cerebral infarction, unspecified (principal); I49.3 Ventricular premature depolarization
CPT/HCPCS: 93272

== ENCOUNTER 2022-11-13 12:26 | Outpatient (REF) | payer MEDICARE, SELFPAY ==
[2022-11-13 13:09] LABS: Clarity Cloudy (Clear); Glucose Color Interference mg/dL (Negative); Leukocyte Esterase Color Interference (Negative); Nitrite Color Interference (Negative); Specific Gravity 1.012 (1.005-1.025)
[2022-11-13 13:10] LABS: Bilirubin Color Interference (Negative); Blood Color Interference (Negative); Ketones Color Interference mg/dL (Negative); Urobilinogen Color Interference mg/dL (Up to 0.2)
[2022-11-13 13:11] LABS: C & S Indicated? C&S Done As Ordered; RBC >50 HPF (0-2)
== END 2022-11-13 12:27 | disposition home or self-care (01) ==
LOC: LBN 12:26
PROVIDERS: PCP Nurse Practitioner; Visit Provider Urology
DX: R31.9 Hematuria, unspecified (principal)
CPT/HCPCS: 81003; 81015; 87086

== ENCOUNTER 2022-11-14 07:22 | Emergency (ER) | payer MEDICARE, SELFPAY ==
[2022-11-14] VITALS (33 sets, daily range): BP systolic 120–199; BP diastolic 69–166; PULSE 68–102; RESP 18; O2SAT 98–100
--- NOTE | 2022-11-14 07:14 | W.ED.GENAD ---
Discharge Plan Discharge Details Chief Complaint: Male Reproductive Problem Clinical Impression: Gross hematuria Primary Care Provider: Brooklyn Farah ED Provider: Jose Luis Muir Home Meds and New Rx's Prescriptions: No Action calcium carbonate [Tums] 200 MG tablet,chewable 200 mg PO DAILY PRN sildenafil 100 mg tablet See Rx Instructions PO DAILY PRN (Reason: sexual activity) Qty: 4 6RF Rx Instructions: 1/2 to 1 tab PO daily PRN; pantoprazole 20 mg tablet,delayed release (DR/EC) 20 mg PO DAILY Qty: 90 0RF Hold Instructions: per Brooklyn Farah Rx Instructions: Take 20 mg daily once daily in the morning at least 30-60 minutes before first meal of the day atorvastatin 40 mg tablet 20 mg PO DAILY Patient Comments: -pt is questioning side effects. Trial of decr dose ok per JV-LH clopidogrel 75 mg tablet 75 mg PO DAILY Qty: 90 0RF pantoprazole 20 mg tablet,delayed release (DR/EC) 10 mg PO DAILY Rx Instructions: 11/07/22- per JV try taking half (10mg) daily. previous rx for 20mg placed on hold. aspirin [Children's Aspirin] 81 mg Tablet,Chewable 81 mg PO DAILY Qty: 0 0RF atorvastatin 40 mg Tablet 40 mg PO QPM Qty: 30 0RF Hold Instructions: trialing decr dose Medical Decision Making 77-year-old male with history of stroke, BPH status post TURP and still intermittently self caths is now presenting with bloody urine. Certainly could be from starting aspirin and Plavix 1 month ago. His initial bladder scan is only showing to 91 mL in his bladder postvoid. He is peeing philly blood so will place Rueda catheter and will attempt to place a three-way catheter in case the patient needs irrigation for retention. We will get urinalysis to look presented to UTI though I think that this is less likely. We will check broad labs look for electrolyte or metabolic derangement secondary to the hematuria and any renal dysfunction. Other causes of the hematuria are still possible but less likely. Will await initial testing and response to therapy and reevaluate. 0746 Labs and urine testing still pending. Not about 300 mL out immediately when irrigating Rueda catheter was placed. It is all gross hematuria. No blood clots. Labs and urine testing still pending. I, Jose Luis Muir, have signed out care to the oncoming team pending labs and urine testing and reevaluation. Medical Records Medical records reviewed: Yes I reviewed the patient's medical records. HPI General Mode of arrival: EMS. Date/Time Provider Initiated Documentation: 11/14/22 07:45. Limitations to Documentation: no limitations. Information obtained by: EMS. HPI Narrative: 77-year-old gentleman history of stroke, BPH status post TURP and intermittently caths for retention is now presenting with bloody urine and retention. Over the last 24 hours has been peeing blood. Called his urology office yesterday as he sees Dr. Mcgrath. He dropped off a urine sample that they ordered. Overnight he started to develop more frequent urination and then had incomplete bladder emptying this morning. [place] very weak. Was worried and came here. Denies any other complaints. He was just started on the aspirin and Plavix 1 month ago after his admission for a TIA. Related Data Home Medications Medication Instructions Recorded Confirmed calcium carbonate 200 mg calcium 200 mg PO DAILY PRN 09/06/16 10/13/22 (500 mg) chewable tablet (Tums) sildenafil 100 mg tablet See Rx Instructions PO DAILY PRN 01/02/22 10/13/22 sexual activity #4 tabs aspirin 81 mg chewable tablet 81 mg PO DAILY #0 tabs 10/06/22 10/13/22 (Children's Aspirin) atorvastatin 40 mg tablet 40 mg PO QPM #30 tabs 10/06/22 10/13/22 pantoprazole 20 mg tablet,delayed 20 mg PO DAILY #90 tab-caps 10/19/22 release atorvastatin 40 mg tablet 20 mg PO DAILY 10/31/22 clopidogrel 75 mg tablet 75 mg PO DAILY #90 tabs 11/07/22 pantoprazole 20 mg tablet,delayed 10 mg PO DAILY 11/07/22 release Previous Rx's Medication Instructions Recorded sildenafil 100 mg tablet See Rx Instructions PO DAILY PRN 01/02/22 sexual activity #4 tabs aspirin 81 mg chewable tablet 81 mg PO DAILY #0 tabs 10/06/22 (Children's Aspirin) atorvastatin 40 mg tablet 40 mg PO QPM #30 tabs 10/06/22 pantoprazole 20 mg tablet,delayed 20 mg PO DAILY #90 tab-caps 10/19/22 release clopidogrel 75 mg tablet 75 mg PO DAILY #90 tabs 11/07/22 Allergies Allergy/AdvReac Type Severity Reaction Status Date / Time finasteride AdvReac Verified 11/14/22 07:24 terazosin HCl [From Hytrin] AdvReac sweats Verified 10/13/22 09:58 General Stated Complaint: Male Reproductive Problem BEATRIZ: 3 Review of Systems Constitutional Constitutional: Denies chills, Denies fever(s) and Denies headache(s) Eyes Eyes: Denies change in vision ENT Ears, Nose, Mouth, and Throat: Denies headache(s) and Denies odynophagia Cardiovascular Cardiovascular: Denies chest pain and Denies dyspnea Respiratory Respiratory: Denies dyspnea Gastrointestinal Gastrointestinal: Denies abdominal pain, Denies diarrhea, Denies nausea, Denies odynophagia and Denies vomiting Genitourinary Genitourinary: Reports hematuria and Denies dysuria Comments: Urinary retention Musculoskeletal Musculoskeletal: Denies myalgias Integumentary/Breasts Skin/Breast: Denies changing lesions Neurologic Neurologic: Denies behavioral changes and Denies headache(s) Psychiatric Psychiatric: Denies behavioral changes Endocrine Endocrine: Denies heat intolerance Hematologic/Lymphatic Hematologic/Lymphatic: Denies lymphadenopathy PFSH All Active Problems (Updated 11/14/22 @ 07:50 by Jose Luis Muir MD) Gross hematuria (Acute) Stroke (Chronic) Palpitations (Chronic) Intra-abdominal lymphadenopathy (Acute) GERD with esophagitis (Acute 12/06/11) Essential hypertension (Chronic 07/27/16) Hyperlipidemia (Acute 07/27/16) Gastroesophageal reflux disease (Chronic 07/27/16) SBO (small bowel obstruction) (Acute) Statin declined (Acute) Erectile dysfunction (Acute) 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 tract symptoms (Chronic 02/09/15) Elevated BP without diagnosis of hypertension (Acute 12/21/16) History of elevated prostate specific antigen (PSA) (Acute 01/18/16) 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) Medical History Benign prostate hyperplasia (12/11/07) Done by Surgical History EGD w/ BX (07/2020) Weeks, 07/2020 @ [facility] H/O hernia repair History of colonoscopy (~08/06/20) History of esophagogastroduodenoscopy (EGD) (~08/06/20) Repair of inguinal hernia (~1979) Left S/P right inguinal hernia repair S/P TURP Tonsillectomy Vasectomy Family History Other Cancer Social History Smoking/Tobacco Use Status: Former Tobacco Use Quit Date: 04/16/73 Pack-years: 16 Tobacco: How many years used: 16 Smoking risk assessment performed?: Yes Alcohol Intake: current Alcohol Intake frequency: a few times a week Alcohol type: beer and hard liquor Counseling given: No Drug use: Occasionally Substance use type: marijuana Adopted: No Household members: spouse Housing: house Number of Children: 3 number of grandchildren: 4 Communication Needs: Corrective Lenses Do you need help understanding health information?: Rarely 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 What is your relationship status?: How often do you talk on the phone with friends or family?: three or more times per week How often do you get together with friends or relatives?: three or more times per week Panel score (0-1 are the most socially isolated patients): 2 What type of physical activity do you participate in: other Details: physically active daily with work around his home Seatbelt use: always Helmet use: Yes Working smoke detector in home: Yes Carbon monox detector in home: Yes Do you feel safe at home: Yes Do you feel safe in your relationship?: Yes Exam Const General: cooperative Nutritional Appearance: average body habitus Orientation: alert, awake and oriented x3 HENMT Head: normal to inspection Ears: external ears normal Mouth: moist mucous membranes Eyes Pupils: PERRL EOM: EOM intact bilaterally and No nystagmus Neck Neck: full ROM and no tracheal deviation Chest Chest: normal inspection of the chest Resp Auscultation: clear to auscultation bilaterally Cardio Rate: regular rate Rhythm: regular rhythm GI Inspection: normal to inspection Palpation: soft, no guarding, not rigid and nontender Back/Spine/Pelvis Back: No no CVA tenderness Thoracic/Lumbar Spine: thoracic and lumbar spine normal to inspection Skin General skin exam: no rashes or lesions noted Neuro General: patient alert, patient awake and patient oriented x3 Cranial Nerves: CN's II-XI intact bilaterally, PERRL and no nystagmus Cognition: normal cognition Motor: muscle tone normal throughout and strength 5/5 throughout Sensory Exam: no sensory deficits noted Extrem General: normal to inspection Course Vital Signs Vital signs: Vital Signs Pulse 98 H 11/14/22 07:06 Respiratory Rate 18 11/14/22 07:06 Blood Pressure 185/112 H 11/14/22 07:06 Pulse Oximetry 99 11/14/22 07:06 Pulse 98 H 11/14/22 07:06 Respiratory Rate 18 11/14/22 07:06 Blood Pressure 185/112 H 11/14/22 07:06 Blood Pressure Position Sitting 11/14/22 07:06 Pulse Oximetry 99 11/14/22 07:06 Oxygen Delivery Method Room Air 11/14/22 07:06 Oxygen Flow Rate 0 11/14/22 07:06
[2022-11-14 07:48] LABS: Abs Immature Grans 0.04 10^3/uL (0.0-0.06); Absolute Basophil Count 0.04 10^3/uL (0.0-0.2); Absolute Eosinophil Count 0.04 10^3/uL (0.0-0.7); Absolute Lymphocyte Count 1.95 10^3/uL (1.2-3.4); Absolute Monocyte Count 0.42 10^3/uL (0.1-0.8); Absolute Neutrophil Count 7.34 10^3/uL (1.2-6.7); Basophils % 0.4; Eosinophils % 0.4; HCT 41.9 % (40.0-50.0); HGB 13.6 g/dL (13.5-17.5); Immature Grans % 0.4; Lymphocytes % 19.8; MCH 27.9 pg (27.0-33.0); MCHC 32.5 % (32.0-36.0); MCV 86 fL (80-95); MPV 8.8 fL (8.0-11.0); Monocytes % 4.3; Neutrophils % 74.7; Platelet Count 229 10^3/uL (130-400); RBC 4.88 10^6/uL (4.36-5.78); RDW 13.5 % (11.8-14.1); RDW-SD 42.3 fL; WBC 9.83 10^3/uL (4.4-10.8)
[2022-11-14 08:01] LABS: PTT Activated 22.9 sec (21.5-31.9); Prothrombin Time 9.8 sec (9.3-11.0)
[2022-11-14 08:02] LABS: ALT 28 U/L (16-63); AST 24 U/L (15-37); Albumin 4.1 g/dL (3.4-5.0); Alkaline Phosphatase 81 U/L (46-116); Anion Gap 9.8 mmol/L (3-11); BUN 17 mg/dL (7-18); Bilirubin, Total 0.6 mg/dL (0.2-1.0); CO2 26.2 mmol/L (21.0-32.0); Calcium 8.7 mg/dL (8.5-10.1); Chloride 104 mmol/L (98-107); Estimated GFR 76.56 (mL/min/1.73m2); Glucose 103 mg/dL (74-106); Lipase 37 U/L (16-77); Potassium 3.7 mmol/L (3.5-5.1); Sodium 140 mmol/L (136-145); Total Protein 7.3 g/dL (6.4-8.2)
[2022-11-14] MEDS: Lidocaine 2% Jelly 6 ML SYR ×2 (08:06)
[2022-11-14 08:30] LABS: Bilirubin Negative (Negative); Blood Large (Negative); Clarity Cloudy (Clear); Glucose Negative (Negative); Ketones Negative (Negative); Leukocyte Esterase Trace (Negative); Nitrite Negative (Negative); Urobilinogen 0.2 mg/dL (Up to 0.2); pH 8.5 (5-8)
[2022-11-14 08:38] LABS: C & S Indicated? Yes; RBC >50 HPF (0-2)
[2022-11-14] MEDS: Normal Saline 500 ML IV (09:20)
--- NOTE | 2022-11-14 10:34 | NUR.NOTE ---
Nursing Note: RN continuing irrigation and also intermittently pushing saline into the bladder with syringe and drawing back clots and bloody urine.
--- NOTE | 2022-11-14 12:02 | ED.PROG_ITS ---
Date of service: 11/14/22 Time of Service: 12:04 Medical Decision Making Patient was signed out to me by my colleague Dr. Muir. Please refer to his HPI, physical exam, assessment and plan. At time of signout we are awaiting reassessment after labs and bladder washout. After multiple liters of washout the patient's clots have now resolved for the most part. He is able to urinate freely with the Rueda catheter in. There does not appear to be any clogging from blood clots at this time. Patient feels much better. I did discuss the case with Dr. Mcgrath, and at this time he recommends Avodart for treatment as the patient has had finasteride reactions in the past. We will trial this at home. We are unable to get a hold of the patient's primary care provider when we called their office, for further discussion of antiplatelet therapy. So at this time we will continue the dual antiplatelet therapy secondary to his previous risk factors. Rueda catheter will remain in and he will follow-up closely with Dr. Mcgrath. Discussed red flags for which to return. I have extensively reviewed the treatment plan and discharge instructions with the patient and their family. I have addressed all patient concerns at this time. The patient and family was made aware of what symptoms to monitor for that would warrant a return to the emergency department. Discussed the plan with the patient and family, they demonstrate verbal understanding and agreement with our assessment and plan at this time. The documentation in this chart was dictated using [employer] dictation software. Please excuse any dictation errors. Sign Out Sign Out Data: Sign Out Comment: 77-year-old male presents with gross hematuria. History of BPH with TURP. Stroke 1 month ago and started on aspirin and clopidogrel. 24 hours of gross hematuria. Some borderline retention and had 300 and Rueda catheter that was placed. Irrigating Rueda catheter placed. Labs still pending. If no signs of retention after labs are unremarkable may be able to go home. Otherwise would recommend consider urology consult. Last updated by Jose Luis Muir MD at 11/14/22 07:51 Discharge Plan Disposition Patient Disposition: Home Condition: Good Discharge Details Clinical Impression: Gross hematuria Primary Care Provider: Brooklyn Farah ED Provider: Jarrett Lund Home Meds and New Rx's Prescriptions: New dutasteride [Avodart] 0.5 mg capsule 0.5 mg PO DAILY Qty: 30 0RF No Action calcium carbonate [Tums] 200 MG tablet,chewable 200 mg PO DAILY PRN sildenafil 100 mg tablet See Rx Instructions PO DAILY PRN (Reason: sexual activity) Qty: 4 6RF Rx Instructions: 1/2 to 1 tab PO daily PRN; pantoprazole 20 mg tablet,delayed release (DR/EC) 20 mg PO DAILY Qty: 90 0RF Hold Instructions: per Brooklyn Farah Rx Instructions: Take 20 mg daily once daily in the morning at least 30-60 minutes before first meal of the day atorvastatin 40 mg tablet 20 mg PO DAILY Patient Comments: -pt is questioning side effects. Trial of decr dose ok per [facility] clopidogrel 75 mg tablet 75 mg PO DAILY Qty: 90 0RF pantoprazole 20 mg tablet,delayed release (DR/EC) 10 mg PO DAILY Rx Instructions: 11/07/22- per JV try taking half (10mg) daily. previous rx for 20mg placed on hold. aspirin [Children's Aspirin] 81 mg Tablet,Chewable 81 mg PO DAILY Qty: 0 0RF atorvastatin 40 mg Tablet 40 mg PO QPM Qty: 30 0RF Hold Instructions: trialing decr dose Discharge Instructions Instructions: Hematuria (ED) Additional Instructions: At this time urology does recommend utilizing Avodart to help decrease the bleeding. Please keep the leg bag on and follow-up closely with Dr. Mcgrath's office. Please take the medication as directed. We were unable to get a hold of your family doctor, please continue to take your Plavix and aspirin as directed. If you do have continued bleeding even with the Avodart you may need to change these medications. Please discuss this closely with your primary care provider. If you notice any worsening of your symptoms, or any new symptoms such as vomiting, diarrhea, fever, chills, shortness of breath, chest pain, numbness, weakness, or fainting , please return immediately to the emergency department for reevaluation. Please follow up with your primary care provider as soon as possible for reassessment and reevaluation. As always, it was a pleasure participating in your medical care today. Referrals: Brooklyn Farah NP [Primary Care Provider] -
--- NOTE | 2022-11-14 12:09 | NUR.NOTE ---
Referral sent to [facility] Urology for hematuria. next two days.Nursing Note:
== END 2022-11-14 13:28 | disposition home or self-care (01) ==
PROVIDERS: Student in an Organized Health Care Education/Training Program; Emergency Provider Student in an Organized Health Care Education/Training Program; PCP Nurse Practitioner
DX: R31.9 Hematuria, unspecified (principal); N40.1 Benign prostatic hyperplasia with lower urinary tract symptoms; R33.8 Other retention of urine; I10 Essential (primary) hypertension; E78.5 Hyperlipidemia, unspecified; Z79.02 Long term (current) use of antithrombotics/antiplatelets; Z86.73 Personal history of transient ischemic attack (TIA), and cerebral infarction without residual deficits; Z87.891 Personal history of nicotine dependence
CPT/HCPCS: 36415; 51702; 80053; 83690; 99284; 81003; 81015; 83735; 85025; 85610; 85730; 87086

== ENCOUNTER → 2022-11-15 08:30 | Outpatient (BNVA) | payer MEDICARE, SELFPAY | PROVIDERS: PCP Nurse Practitioner; Referring Provider Nurse Practitioner; Visit Provider Nurse Practitioner Gerontology | DX: R31.0 Gross hematuria (principal); Z96.0 Presence of urogenital implants | CPT/HCPCS: 99213 ==

== ENCOUNTER 2022-12-03 06:54 | Inpatient (IN) | payer MEDICARE, SELFPAY ==
[2022-12-03] VITALS (50 sets, daily range): BP systolic 116–178; BP diastolic 57–109; PULSE 67–99; RESP 16; TEMP 36.8–37; O2SAT 94–100
--- NOTE | 2022-12-03 07:19 | W.ED.GENAD ---
Discharge Plan Discharge Details Chief Complaint: Urinary Primary Care Provider: Brooklyn Farah ED Provider: Vipin Muir Home Meds and New Rx's Prescriptions: No Action atorvastatin 40 mg tablet 40 mg PO QPM Qty: 90 3RF Hold Instructions: trialing decr dose pantoprazole 20 mg tablet,delayed release (DR/EC) 10 mg PO DAILY Qty: 45 3RF calcium carbonate [Tums] 200 MG tablet,chewable 200 mg PO DAILY PRN sildenafil 100 mg tablet See Rx Instructions PO DAILY PRN (Reason: sexual activity) Qty: 4 6RF Rx Instructions: 1/2 to 1 tab PO daily PRN; aspirin [Children's Aspirin] 81 mg Tablet,Chewable 81 mg PO DAILY Qty: 0 0RF dutasteride [Avodart] 0.5 mg capsule 0.5 mg PO DAILY Qty: 30 0RF Medical Decision Making 77 year male with hx of bph s/p turp who self catheterizes, earlier this month required reyez placement and irrigation due to hematuria with clots, and comes in with similar problem. HE states yesterday he noticed blood in his urine, and this morning he catheterized him self and the catheter got clogged and he got out a clot so came here. Denies other symptoms, no fevers, chills, back pain abdomen pain. Arrives stable and appears well in no distress. Soft nondistended abdomen. Suspect he again has clots causing intermittent obstuction of his catheter, will have nursing place reyez and irrigate. pt signed out to oncoming provider pending reyez placement and reassessment after irrigation Differential Diagnosis Differential Diagnosis: hematuria, blood clots HPI General Mode of arrival: ambulatory. Date/Time Provider Initiated Documentation: 12/03/22 06:56. Limitations to Documentation: no limitations. Information obtained by: patient. History of Present Illness 77 year old M presents to the emergency department with the chief complaint of bloody urine, described as moderate, Patient started experiencing this day(s) (1) and it has been constant. No relieving factors improve symptom(s), No exacerbating factors reported . Patient notes no other symptoms.. Patient did receive the following treatments prior to arrival, none Related Data Home Medications Medication Instructions Recorded Confirmed calcium carbonate 200 mg calcium 200 mg PO DAILY PRN 09/06/16 12/03/22 (500 mg) chewable tablet (Tums) sildenafil 100 mg tablet See Rx Instructions PO DAILY PRN 01/02/22 12/03/22 sexual activity #4 tabs aspirin 81 mg chewable tablet 81 mg PO DAILY #0 tabs 10/06/22 12/03/22 (Children's Aspirin) dutasteride 0.5 mg capsule 0.5 mg PO DAILY #30 caps 11/14/22 12/03/22 (Avodart) atorvastatin 40 mg tablet 40 mg PO QPM #90 tabs 11/29/22 12/03/22 pantoprazole 20 mg tablet,delayed 10 mg PO DAILY #45 tabs 11/29/22 12/03/22 release Previous Rx's Medication Instructions Recorded sildenafil 100 mg tablet See Rx Instructions PO DAILY PRN 01/02/22 sexual activity #4 tabs aspirin 81 mg chewable tablet 81 mg PO DAILY #0 tabs 10/06/22 (Children's Aspirin) dutasteride 0.5 mg capsule 0.5 mg PO DAILY #30 caps 11/14/22 (Avodart) atorvastatin 40 mg tablet 40 mg PO QPM #90 tabs 11/29/22 pantoprazole 20 mg tablet,delayed 10 mg PO DAILY #45 tabs 11/29/22 release Allergies Allergy/AdvReac Type Severity Reaction Status Date / Time finasteride AdvReac Intermediate pale, weak Verified 12/03/22 07:14 sweating terazosin HCl [From Hytrin] AdvReac sweats Verified 12/03/22 07:14 General Stated Complaint: Urinary BEATRIZ: 3 Review of Systems All systems reviewed & are unremarkable except as noted in HPI and below Constitutional Constitutional: Denies chills and Denies fever(s) Cardiovascular Cardiovascular: Denies chest pain and Denies dyspnea Respiratory Respiratory: Denies cough and Denies dyspnea Gastrointestinal Gastrointestinal: Denies abdominal pain, Denies nausea and Denies vomiting Integumentary/Breasts Skin/Breast: Denies rash PFSH All Active Problems (Updated 11/14/22 @ 07:50 by Jose Luis Muir MD) Gross hematuria (Acute) Stroke (Chronic) Palpitations (Chronic) Intra-abdominal lymphadenopathy (Acute) GERD with esophagitis (Acute 12/06/11) Essential hypertension (Chronic 07/27/16) Hyperlipidemia (Acute 07/27/16) Gastroesophageal reflux disease (Chronic 07/27/16) SBO (small bowel obstruction) (Acute) Statin declined (Acute) Erectile dysfunction (Acute) 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 tract symptoms (Chronic 02/09/15) Elevated BP without diagnosis of hypertension (Acute 12/21/16) History of elevated prostate specific antigen (PSA) (Acute 01/18/16) 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) Medical History Benign prostate hyperplasia (12/11/07) Done by Surgical History EGD w/ BX (07/2020) Weeks, 07/2020 @ [place] H/O hernia repair History of colonoscopy (~08/06/20) History of esophagogastroduodenoscopy (EGD) (~08/06/20) Repair of inguinal hernia (~1979) Left S/P right inguinal hernia repair S/P TURP Tonsillectomy Vasectomy Family History Other Cancer Social History Smoking/Tobacco Use Status: Former Tobacco Use Quit Date: 04/16/73 Pack-years: 16 Tobacco: How many years used: 16 Smoking risk assessment performed?: Yes Alcohol Intake: current Alcohol Intake frequency: a few times a week Alcohol type: beer and hard liquor Counseling given: No Drug use: Occasionally Substance use type: marijuana Adopted: No Household members: spouse Housing: house Number of Children: 3 number of grandchildren: 4 Communication Needs: Corrective Lenses Do you need help understanding health information?: Rarely 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 What is your relationship status?: How often do you talk on the phone with friends or family?: three or more times per week How often do you get together with friends or relatives?: three or more times per week Panel score (0-1 are the most socially isolated patients): 2 What type of physical activity do you participate in: other Details: physically active daily with work around his home Seatbelt use: always Helmet use: Yes Working smoke detector in home: Yes Carbon monox detector in home: Yes Do you feel safe at home: Yes Do you feel safe in your relationship?: Yes Exam Const General: no acute distress Orientation: alert HENMT Head: normal to inspection Ears: external ears normal General nose exam: external nose normal Mouth: moist mucous membranes Eyes General: appearance normal, both eyes and all related structures Neck Neck: normal visual inspection Resp Effort & Inspection: normal respiratory effort and able to speak in complete sentences Cardio Rate: regular rate GI Palpation: soft and nontender Skin General skin exam: no rashes or lesions noted Neuro General: patient alert and patient oriented x3 Extrem General: normal to inspection Psych Mental Status: mental status grossly normal Course Vital Signs Vital signs: Vital Signs Temperature 36.8 C 12/03/22 07:02 Pulse 81 12/03/22 07:02 Respiratory Rate 16 12/03/22 07:02 Blood Pressure 178/78 H 12/03/22 07:02 Pulse Oximetry 100 12/03/22 07:02 Temperature 36.8 C 12/03/22 07:02 Temperature Source Temporal Artery Scan 12/03/22 07:02 Pulse 81 12/03/22 07:02 Respiratory Rate 16 12/03/22 07:02 Respiratory Effort Normal, Non-Labored 12/03/22 07:06 Blood Pressure 178/78 H 12/03/22 07:02 Blood Pressure Position Sitting 12/03/22 07:02 Pulse Oximetry 100 12/03/22 07:02 Oxygen Delivery Method Room Air 12/03/22 07:02 Oxygen Flow Rate 0 12/03/22 07:02 Pain Level 0 12/03/22 07:06
--- NOTE | 2022-12-03 09:15 | DI.CT_ITS ---
Exam(s) CT ABDOMEN PELVIS W EXAM: CT ABDOMEN PELVIS W CLINICAL HISTORY: urinary outflow obstruction, hx BPH. TECHNIQUE: Imaging Protocol: Axial computed tomography images with coronal and sagittal reformatted images were created and reviewed CONTRAST MATERIAL: Intravenous: Omnipaque-350 100cc Oral: None COMPARISON: CT CT THORAX ABD/PEL CTA from 07/08/2020 FINDINGS: VISUALIZED LUNG BASES: No nodules nor pleural effusions evident. ABDOMEN: There is no ascites. LIVER: There are no focal hepatic lesions evident. No dilated intrahepatic ducts. GALLBLADDER/BILIARY: No obvious gallbladder pathology. CBD is not dilated. PANCREAS: No evidence of pancreatic mass nor dilatation of the pancreatic duct. SPLEEN: Spleen is not enlarged. No obvious intrasplenic lesions. Splenic and portal veins are paten t. ADRENALS: There are no significant adrenal masses. KIDNEYS:There is a small benign cyst in the superior pole of the right kidney measuring 0.8 x 0.8 cm. Does not require imaging follow-up. No solid renal masses nor calculi. The ureters are slightly d ilated bilaterally, not previously the case. This is most probably related to the findings in the bl adder and enlarged prostate.. URINARY BLADDER: There is now a Rueda catheter in the urinary bladder. The prostate gland is a again noted be grossly enlarged and lobulated and there is now abnormal thickening of the urinary bladder wall, both generalize and asymmetric. Suspect neoplasm, probably related to the enlarged and lobulat ed prostate ingrowth into the bladder wall and/or bladder wall neoplasm. There is also some density in the bladder lumen which may be clot. ABDOMINAL AORTA: Atherosclerotic. Mild fusiform aneurysmal dilatation but unchanged from previous. Maximum diameter 2.3 cm. There is mild arterial megaly of the left common iliac artery at its origin . LYMPH NODES:There is no retroperitoneal nor paraaortic adenopathy. ABDOMINAL WALL: No evidence of significant anterior abdominal wall nor inguinal hernia. GI: There is no evidence of bowel obstruction, free air, nor abscess. PELVIS: GI: No evidence of appendicitis.No evidence of sigmoid diverticulitis. LYMPH NODES: There is no intrapelvic nor inguinal adenopathy. REPRODUCTIVE: See above. Grossly enlarged prostate URINARY BLADDER: Abnormal. See above. OSSEOUS: No fractures and no significant osseous lesions. No lytic nor blastic osseous lesions. IMPRESSION: 1. Grossly enlarged and lobulated prostate gland which measures approximately 8 x 9 cm. Projects int o the urinary bladder with bladder wall mass. Rueda catheter in place. Urology consultation recomme nded. Suspect neoplasm here. 2. There is mild dilatation of both ureters, most probably related to the obstruction caused by the b ladder wall/prostate mass. First read by [facility]. RADIATION DOSE DELIVERED: 668.24mGy.cm Total DLP DATA REPOSITORY: All CT scans at this facility are submitted to the National Radiology Data Registry (NRDR) Dose Index Registry (DIR) with the [employer] (ACR). RADIATION OPTIMIZATION: All CT scans at this facility use at least one of these dose optimization te chniques: automated exposure control; mA and/or kV adjustment per patient size (includes targeted exa ms where dose is matched to clinical indication); or iterative reconstruction.
[2022-12-03 09:17] LABS: Clarity Cloudy (Clear)
[2022-12-03 09:18] LABS: Bilirubin Color Interference (Negative); Blood Color Interference (Negative); Glucose Color Interference mg/dL (Negative); Ketones Color Interference mg/dL (Negative); Leukocyte Esterase Color Interference (Negative); Nitrite Color Interference (Negative); Specific Gravity 1.005 (1.005-1.025); Urobilinogen Color Interference mg/dL (Up to 0.2)
--- NOTE | 2022-12-03 09:19 | ED.PROG_ITS ---
Date of service: 12/03/22 Time of Service: 09:19 Medical Decision Making Patient resting comfortably no acute distress, three-way Reyez catheter inserted at bedside however is not irrigating, bedside ultrasound showing what appears to be large amount of hypoechoic mixed echogenicity within the bladder likely large clot, able to get some flow through irrigation system when performing fundal massage however immediately stops after ceasing massage. Will obtain basic labs, coags, CT abdomen pelvis to assess bladder contour prostate anatomy and presumed clot burden within the bladder. May benefit from uroscopic guided irrigation. 12: [address] Mcgrath of urology who will admit for uroscopy tomorrow. Patient be kept n.p.o. at midnight. Sign Out Sign Out Data: Sign Out Comment: earlier this month had hematuria with clots requiring reyez and irrigation, started again yesterday with hematuria and now has clots. Pending reyez placement and irrigation, reassessment Last updated by Vipin Muir MD at 12/03/22 07:27 Discharge Plan Disposition Patient Disposition: Admit to [facility] Condition: Stable Discharge Details Chief Complaint: Urinary Clinical Impression: Hematuria Primary Care Provider: Brooklyn Farah ED Provider: Guillermo Garrison Home Meds and New Rx's Prescriptions: No Action atorvastatin 40 mg tablet 40 mg PO QPM Qty: 90 3RF Hold Instructions: trialing decr dose pantoprazole 20 mg tablet,delayed release (DR/EC) 10 mg PO DAILY Qty: 45 3RF calcium carbonate [Tums] 200 MG tablet,chewable 200 mg PO DAILY PRN sildenafil 100 mg tablet See Rx Instructions PO DAILY PRN (Reason: sexual activity) Qty: 4 6RF Rx Instructions: 1/2 to 1 tab PO daily PRN; aspirin [Children's Aspirin] 81 mg Tablet,Chewable 81 mg PO DAILY Qty: 0 0RF dutasteride [Avodart] 0.5 mg capsule 0.5 mg PO DAILY Qty: 30 0RF
[2022-12-03 09:22] LABS: C & S Indicated? Yes; RBC >50 HPF (0-2)
[2022-12-03 09:54] LABS: Abs Immature Grans 0.02 10^3/uL (0.0-0.06); Absolute Basophil Count 0.03 10^3/uL (0.0-0.2); Absolute Eosinophil Count 0.01 10^3/uL (0.0-0.7); Absolute Lymphocyte Count 1.72 10^3/uL (1.2-3.4); Absolute Monocyte Count 0.32 10^3/uL (0.1-0.8); Absolute Neutrophil Count 6.77 10^3/uL (1.2-6.7); Basophils % 0.3; Eosinophils % 0.1; HCT 36.3 % (40.0-50.0); Immature Grans % 0.2; Lymphocytes % 19.4; MCH 27.7 pg (27.0-33.0); MCHC 33.1 % (32.0-36.0); MCV 84 fL (80-95); MPV 8.8 fL (8.0-11.0); Monocytes % 3.6; Neutrophils % 76.4; Platelet Count 296 10^3/uL (130-400); RBC 4.33 10^6/uL (4.36-5.78); RDW-SD 39.4 fL; WBC 8.87 10^3/uL (4.4-10.8)
[2022-12-03 10:09] LABS: ALT 29 U/L (16-63); AST 22 U/L (15-37); Albumin 3.9 g/dL (3.4-5.0); Alkaline Phosphatase 88 U/L (46-116); Anion Gap 12.3 mmol/L (3-11); BUN 12 mg/dL (7-18); Bilirubin, Total 0.8 mg/dL (0.2-1.0); CO2 23.7 mmol/L (21.0-32.0); CREATININE 0.9 mg/dL (0.70-1.30); Calcium 8.9 mg/dL (8.5-10.1); Chloride 108 mmol/L (98-107); Estimated GFR 86.88 (mL/min/1.73m2); Glucose 100 mg/dL (74-106); Potassium 3.7 mmol/L (3.5-5.1); Sodium 144 mmol/L (136-145); Total Protein 6.8 g/dL (6.4-8.2)
[2022-12-03 10:17] LABS: PTT Activated 23.6 sec (21.5-31.9)
[2022-12-03] MEDS: Normal Saline - Diluent 50 ML VIAL IJ (10:41)
[2022-12-03] MEDS: Omnipaque 350 MG/ML 100 ML BTL IJ (10:41)
[2022-12-03] MEDS: Normal Saline Flush 10 ML SYR IVP (10:42)
--- NOTE | 2022-12-03 11:21 | DI.VRAD_ITS ---
Addendum created by Haider Brambila MD on 12/03/2022 11:24:55 AM EDT: THIS REPORT CONTAINS FINDINGS THAT MAY BE CRITICAL TO PATIENT CARE. The findings were verbally communicated via telephone conference with Guillermo Garrison at 11:24 AM EDT on 12/03/2022. The findings were acknowledged and understood. Initial report created on 12/03/2022 11:21:23 AM EDT: PROCEDURE INFORMATION: Exam: CT Abdomen And Pelvis With Contrast Exam date and time: 12/03/2022 10:43 AM Age: 77 years old Clinical indication: Other: Urinary outflow obstruction, HX bph TECHNIQUE: Imaging protocol: Computed tomography of the abdomen and pelvis with contrast. Contrast material: OMNIPAQUE 350; Contrast volume: 100 ml; Contrast route: INTRAVENOUS (IV); COMPARISON: CT THORAX ABD/PEL CTA 07/08/2020 12:00 PM FINDINGS: Liver: Normal. No mass. Gallbladder and bile ducts: Normal. No calcified stones. No ductal dilation. Pancreas: Normal. No ductal dilation. Spleen: Normal. No splenomegaly. Adrenal glands: Normal. No mass. Kidneys and ureters: 10 mm simple cyst posterior right kidney. Mild dilatation of both ureters. Both ureters are likely obstructed by the enlarged prostate Stomach and bowel: The stomach is not distended. Gastric pathology cannot be ruled out Appendix: No evidence of appendicitis. Intraperitoneal space: Unremarkable. No free air. No significant fluid collection. Vasculature: Varices in the hilum of the spleen. Series 6, image 270 Lymph nodes: Unremarkable. No enlarged lymph nodes. Urinary bladder: Rueda catheter in the bladder. The bladder wall measures 8-9 mm. This is nonspecific and may represent inflammation or infection. Neoplastic process is included in the differential. . Reproductive: Grossly enlarged prostate. It measures 7.6 by 9.1 cm.. Possible mass projecting from the prostate into the bladder. This asymmetric density measures 3 x 2 cm in the right anterior bladder. Series 7, image 70 Bones/joints: Unremarkable. No acute fracture. Soft tissues: Unremarkable. IMPRESSION: 1. Grossly enlarged prostate. It measures 7.6 by 9.1 cm.. Recommend urology consult 2. Possible mass projecting from the prostate into the bladder. This asymmetric density measures 3 x 2 cm in the right anterior bladder. Series 7, image 70 3. The bladder wall measures 8-9 mm. This is nonspecific and may represent inflammation or infection. Neoplastic process is included in the differential. . 4. Mild dilatation of both ureters. They are most likely obstructed by the enlarged prostate Dictated and Authenticated by: Haider Brambila MD. Ordering:NIGEL Li MD
--- NOTE | 2022-12-03 13:48 | NUR.NOTE ---
Nursing Note: Urinary catheter filling very slowly. MD aware. Trial of no irrigation attempted in concert with bladder massage. Urine color improving and few clots observed in reyez bag. Nursing will continue to monitor.
[2022-12-04] VITALS (10 sets, daily range): BP systolic 107–157; BP diastolic 62–90; PULSE 78–109; RESP 16–27; TEMP 36.3–36.9; O2SAT 93–100; BMI 23.6
--- NOTE | 2022-12-04 07:25 | HPE_ITS ---
Date of service: 12/04/22 Time of Service: 07:25 Assessment and Plan Assessment and plan (1) Gross hematuria: Status: Acute Assessment and plan: We will bring him to the OR later today for a cystoscopy and clot evacuation. We will be prepared to cauterize any obvious bleeding site. His ultimate treatment plan will depend on what we see during cystoscopy. History of Present Illness History of Present Illness Chief Complaint: Clot retention Narrative: This is a 77-year-old gentleman who has a history of urinary retention. For years, he was managed with intermittent catheterization. Ultimately, he underwent a channel TURP and was able to void on his own. Recently, he had a stroke, was started on anticoagulants. He then developed gross hematuria with clots. His anticoagulant was discontinued and he was started on Avodart. His hematuria improved until the day prior to this admission. He performed self catheterization when he was unable to void. The catheter became completely occluded with what sounds to be old blood clots. He then presented to the emergency department. While in the emergency room, an irrigating catheter was placed and continuous b ladder irrigation was begun. He does have a history of an elevated PSA, but has no diagnosis of prostate cancer. Review of Systems Narrative: No fevers or chills No vision change or dysphasia No diabetes or thyroid dysfunction No shortness of breath, cough or hemoptysis No chest pain or palpitations Hx GERD. No hepatitis, ulcers, jaundice Recent stroke. No seizures or peripheral neuropathy No bleeding disorders or anemia No gout PFSH All Active Problems (Updated 12/03/22 @ 12:16 by Guillermo Garrison MD) Hematuria (Acute) Gross hematuria (Acute) Stroke (Chronic) Palpitations (Chronic) Intra-abdominal lymphadenopathy (Acute) GERD with esophagitis (Acute 12/06/11) Essential hypertension (Chronic 07/27/16) Hyperlipidemia (Acute 07/27/16) Gastroesophageal reflux disease (Chronic 07/27/16) SBO (small bowel obstruction) (Acute) Statin declined (Acute) Erectile dysfunction (Acute) 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 tract symptoms (Chronic 02/09/15) Elevated BP without diagnosis of hypertension (Acute 12/21/16) History of elevated prostate specific antigen (PSA) (Acute 01/18/16) 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) Medical History Benign prostate hyperplasia (12/11/07) Done by Surgical History EGD w/ BX (07/2020) Weeks, 07/2020 @ [facility] H/O hernia repair History of colonoscopy (~08/06/20) History of esophagogastroduodenoscopy (EGD) (~08/06/20) Repair of inguinal hernia (~1979) Left S/P right inguinal hernia repair S/P TURP Tonsillectomy Vasectomy Family History Other Cancer Social History Smoking/Tobacco Use Status: Former Tobacco Use Quit Date: 04/16/73 Pack-years: 16 Tobacco: How many years used: 16 Smoking risk assessment performed?: Yes Alcohol Intake: current Alcohol Intake frequency: a few times a week Alcohol type: beer and hard liquor Counseling given: No Drug use: Occasionally Substance use type: marijuana Adopted: No Household members: spouse Housing: house Number of Children: 3 number of grandchildren: 4 Communication Needs: Corrective Lenses Do you need help understanding health information?: Rarely 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 What is your relationship status?: How often do you talk on the phone with friends or family?: three or more times per week How often do you get together with friends or relatives?: three or more times per week Panel score (0-1 are the most socially isolated patients): 2 What type of physical activity do you participate in: other Details: physically active daily with work around his home Seatbelt use: always Helmet use: Yes Working smoke detector in home: Yes Carbon monox detector in home: Yes Do you feel safe at home: Yes Do you feel safe in your relationship?: Yes Meds Allergies and Home Medications Allergies Allergy/AdvReac Type Severity Reaction Status Date / Time finasteride AdvReac Intermediate pale, weak Verified 12/03/22 07:14 sweating terazosin HCl [From Hytrin] AdvReac sweats Verified 12/03/22 07:14 Home Medications Medication Instructions Recorded Confirmed Type calcium carbonate 200 mg calcium 200 mg PO DAILY PRN 09/06/16 12/03/22 History (500 mg) chewable tablet (Tums) sildenafil 100 mg tablet See Rx Instructions PO DAILY PRN 01/02/22 12/03/22 Rx sexual activity #4 tabs aspirin 81 mg chewable tablet 81 mg PO DAILY #0 tabs 10/06/22 12/03/22 Rx (Children's Aspirin) dutasteride 0.5 mg capsule 0.5 mg PO DAILY #30 caps 11/14/22 12/03/22 Rx (Avodart) atorvastatin 40 mg tablet 40 mg PO QPM #90 tabs 11/29/22 12/03/22 Rx pantoprazole 20 mg tablet,delayed 10 mg PO DAILY #45 tabs 11/29/22 12/03/22 Rx release Exam Const General: cooperative and comfortable Neck Neck: supple Resp Effort & Inspection: normal respiratory effort Auscultation: clear to auscultation bilaterally Cardio Rate: regular rate Rhythm: regular rhythm GI Palpation: soft Other: reyez in place with clear irrigation Neuro General: patient alert, patient awake and patient oriented x3 Other: facial droop Results Labs 12/03/22 09:30 12/03/22 09:30 Labs: Laboratory Results - last 24 hr 12/03/22 12/03/22 12/03/22 08:27 09:30 09:30 WBC 8.87 RBC 4.33 L Hgb 12.0 L Hct 36.3 L MCV 84 MCH 27.7 MCHC 33.1 RDW 13.0 Plt Count 296 MPV 8.8 Immature Gran % 0.2 Neutrophils % 76.4 Lymphocytes % 19.4 Monocytes % 3.6 Eosinophils % 0.1 Basophils % 0.3 Nucleated RBC % 0.0 Absolute Neutrophils 6.77 H Absolute Lymphocytes 1.72 Absolute Monocytes 0.32 Absolute Eosinophils 0.01 Absolute Basophils 0.03 PT INR APTT Sodium 144 Potassium 3.7 Chloride 108 H Carbon Dioxide 23.7 Anion Gap 12.3 H BUN 12 Creatinine 0.9 Est GFR (CKD-EPI 2020) 86.88 Glucose 100 Calcium 8.9 Total Bilirubin 0.8 AST 22 ALT 29 Alkaline Phosphatase 88 Total Protein 6.8 Albumin 3.9 Urine Color Red Urine Clarity Cloudy Urine pH Ur Specific [place] 1.005 Urine Protein Color Interference Urine Ketones Color Interference Urine Blood Color Interference Urine Nitrite Color Interference Urine Bilirubin Color Interference Urine Urobilinogen Color Interference Ur Leukocyte Esterase Color Interference Urine RBC >50 H Urine WBC Not Applicable Ur Epithelial Cells Not Applicable Urine Crystals Not Applicable Urine Bacteria Not Applicable Urine Mucus Not Applicable Ur Culture Indicated? Yes Urine Glucose Color Interference 12/03/22 09:30 WBC RBC Hgb Hct MCV MCH MCHC RDW Plt Count MPV Immature Gran % Neutrophils % Lymphocytes % Monocytes % Eosinophils % Basophils % Nucleated RBC % Absolute Neutrophils Absolute Lymphocytes Absolute Monocytes Absolute Eosinophils Absolute Basophils PT 10.0 INR 1.0 APTT 23.6 Sodium Potassium Chloride Carbon Dioxide Anion Gap BUN Creatinine Est GFR (CKD-EPI 2020) Glucose Calcium Total Bilirubin AST ALT Alkaline Phosphatase Total Protein Albumin Urine Color Urine Clarity Urine pH Ur Specific [place] Urine Protein Urine Ketones Urine Blood Urine Nitrite Urine Bilirubin Urine Urobilinogen Ur Leukocyte Esterase Urine RBC Urine WBC Ur Epithelial Cells Urine Crystals Urine Bacteria Urine Mucus Ur Culture Indicated? Urine Glucose Last Vital Signs Temp 36.8 C 12/04/22 06:45 Pulse 85 12/04/22 06:45 Resp 16 12/04/22 06:45 BP 125/79 12/04/22 06:45 Pulse Ox 95 12/04/22 06:45 Time Spent Time spent with Patient: 40-54 minutes Time was spent: preparing to see the patient(eg.review tests), obtaining and/or reviewing separately otained hiistory, referring, communicating with other health cattle care worker, indepentently interpreting results and counseling the patient
[2022-12-04] MEDS: Pantoprazole 20 MG TABCR 10 MG PO (08:24)
--- NOTE | 2022-12-04 08:54 | PDOC.CMIN ---
Date of service: 12/04/22 Time of Service: 08:54 Care Management Initial Assmt Initial Assessment REASON FOR HOSPITALIZATION:: hematuria PREVIOUS FUNCTIONAL STATUS/SOCIAL/FAMILY SUPPORTS:: Greyson lives in a single family home in [place], [place] with his Monica and marcella Hoyt. They have 4 grown children and 4 grandchildren, all of whom live locally and are supportive. 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 He was very active until the past few months when he developed problems with his urinary tract. He had a TURP performed about [address] Mcgrath and was ok until recently, when he began to develop hematuria with large clots. Darshan also a mild stroke in September, however his deficits are mainly visual. CURRENT FUNCTIONAL STATUS:: Greyson was in the OR when CM came to see him, however his was in the room and was able to provide information. She stated that until recently Greyson has always been very active. They continue to heat with wood and have been working on the woodpile this summer. Monica informed CM that Darshan has become very weak and fatigues easily. She stated that out of 7 days, he might feel good on 2 of those days. She verbalized that they hope to get more information about what is causing the hematuria and what can be done to address the issue. ADVANCE DIRECTIVES:: On file. Monica ACKERMAN and daughter Garret Tejeda alternate Has patient been provided with info about the portal/API?: Yes Did the patient sign up for the portal?: No CODE STATUS:: Full Code INSURANCE COVERAGE / FINANCIAL ISSUES:: Medicare CURRENT HOME/COMMUNITY SERVICES/EQUIPMENT:: none currently PRIMARY CARE PHYSICIAN:: Brooklyn Farah POTENTIAL DISCHARGE NEEDS:: follow up with Urology, PCP and plan of care PATIENT/FAMILY EDUCATION NEEDS:: review of discharge instructions, limitations, activity, follow up plan, discuss Ask Me Three TRANSPORTATION:: via private vehicle with family PLAN:: Anticipate Greyson will be discharged home, possibly with new home health services, when medically cleared . He will follow up with his community providers ands plan of care and transport with family. CM will follow and assess for discharge needs. PFSH All Active Problems (Updated 12/03/22 @ 12:16 by Guillermo Garrison MD) Hematuria (Acute) Gross hematuria (Acute) Stroke (Chronic) Palpitations (Chronic) Intra-abdominal lymphadenopathy (Acute) GERD with esophagitis (Acute 12/06/11) Essential hypertension (Chronic 07/27/16) Hyperlipidemia (Acute 07/27/16) Gastroesophageal reflux disease (Chronic 07/27/16) SBO (small bowel obstruction) (Acute) Statin declined (Acute) Erectile dysfunction (Acute) 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 tract symptoms (Chronic 02/09/15) Elevated BP without diagnosis of hypertension (Acute 12/21/16) History of elevated prostate specific antigen (PSA) (Acute 01/18/16) 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) Medical History Benign prostate hyperplasia (12/11/07) Done by Surgical History EGD w/ BX (07/2020) Weeks, 07/2020 @ [facility] H/O hernia repair History of colonoscopy (~08/06/20) History of esophagogastroduodenoscopy (EGD) (~08/06/20) Repair of inguinal hernia (~1979) Left S/P right inguinal hernia repair S/P TURP Tonsillectomy Vasectomy Family History Other Cancer Social History Smoking/Tobacco Use Status: Former Tobacco Use Quit Date: 04/16/73 Pack-years: 16 Tobacco: How many years used: 16 Smoking risk assessment performed?: Yes Alcohol Intake: current Alcohol Intake frequency: a few times a week Alcohol type: beer and hard liquor Counseling given: No Drug use: Occasionally Substance use type: marijuana Adopted: No Household members: spouse Housing: house Number of Children: 3 number of grandchildren: 4 Communication Needs: Corrective Lenses Do you need help understanding health information?: Rarely 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
--- NOTE | 2022-12-04 10:24 | W.ANESPRE ---
General Info Date of Service Date Performed: 12/04/22 Height: 5 ft 10 in Weight: 74.843 kg Body Mass Index (BMI): 23.6 Surgical Procedure: Operation Date: 12/04/22 11:40 Proposed Procedure Side Surgeon p Cystoscopy w/Clot Evacuation Fredy Mcgrath MD Meds Allergies and Home Medications Allergies Allergy/AdvReac Type Severity Reaction Status Date / Time finasteride AdvReac Intermediate pale, weak Verified 12/03/22 07:14 sweating terazosin HCl [From Hytrin] AdvReac sweats Verified 12/03/22 07:14 Home Medication Medication Instructions Recorded calcium carbonate 200 mg calcium 200 mg PO DAILY PRN 09/06/16 (500 mg) chewable tablet (Tums) sildenafil 100 mg tablet See Rx Instructions PO DAILY PRN 01/02/22 sexual activity #4 tabs aspirin 81 mg chewable tablet 81 mg PO DAILY #0 tabs 10/06/22 (Children's Aspirin) dutasteride 0.5 mg capsule 0.5 mg PO DAILY #30 caps 11/14/22 (Avodart) atorvastatin 40 mg tablet 40 mg PO QPM #90 tabs 11/29/22 pantoprazole 20 mg tablet,delayed 10 mg PO DAILY #45 tabs 11/29/22 release Current Visit Medications: Current Medications Generic Name Dose Route Start Last Admin Trade Name Freq PRN Reason Stop Dose Admin Atorvastatin Calcium 40 mg 12/04/22 20:00 Atorvastatin 40 Mg Tab PO QPM SRAVAN Cefazolin Sodium/Dextrose 2 gm in 50 mls @ 100 mls/hr 12/04/22 07:45 Ancef Duplex IVPB PREOP SRAVAN IV Miscellaneous Supplies 1 each 12/03/22 12:30 Iv Access-Emergency Dept IV DIRECTED SRAVAN Pantoprazole Sodium 10 mg 12/04/22 08:30 12/04/22 08:24 Pantoprazole 20 Mg Tabcr PO 10 mg DAILY SRAVAN Administration Sodium Chloride 0 ml 12/03/22 12:16 Normal Saline Flush 10 Ml Syr IVP PRN PRN PFSH Active Problems Active Problems: Problem Status Onset Code Hematuria R31.9 Gross hematuria R31.0 Stroke I63.9 Palpitations R00.2 Intra-abdominal lymphadenopathy R59.0 GERD with esophagitis 12/06/11 K21.0 Essential hypertension 07/27/16 I10 Hyperlipidemia 07/27/16 E78.5 Gastroesophageal reflux disease 07/27/16 K21.9 SBO (small bowel obstruction) K56.609 Statin declined Z53.20 Erectile dysfunction N52.9 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 tract symptoms 02/09/15 N40.0 Elevated BP without diagnosis of hypertension 12/21/16 R03.0 History of elevated prostate specific antigen (PSA) 01/18/16 Z87.898 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 hyperplasia N40.1, R33.8 Medical History Medical History Benign prostate hyperplasia (12/11/07) Done by Surgical History Surgical History EGD w/ BX (07/2020) Weeks, 07/2020 @ [facility] H/O hernia repair History of colonoscopy (~08/06/20) History of esophagogastroduodenoscopy (EGD) (~08/06/20) Repair of inguinal hernia (~1979) Left S/P right inguinal hernia repair S/P TURP Tonsillectomy Vasectomy Tobacco Smoking/Tobacco Use Status: Former Tobacco Use Alcohol Alcohol Intake: current Alcohol intake frequency: a few times a week Alcohol type: beer and hard liquor Substance Use Substance use: Occasionally Substance use type: marijuana Vital Signs and Lab Results Vital Signs Most Recent Vital Signs in EMR: Most Recent Vital Signs Temp Pulse Resp BP Pulse Ox 36.8 C 85 16 125/79 95 12/04/22 06:45 12/04/22 06:45 12/04/22 06:45 12/04/22 06:45 12/04/22 06:45 Lab Results 12/03/22 09:30 12/03/22 09:30 Blood Type / Crossmatch: No Data to Display Complete Blood Count: White Blood Count 8.87 10^3/uL (4.4-10.8) 12/03/22 09:30 Red Blood Count 4.33 10^6/uL (4.36-5.78) L 12/03/22 09:30 Hemoglobin 12.0 g/dL (13.5-17.5) L 12/03/22 09:30 Hematocrit 36.3 % (40.0-50.0) L 12/03/22 09:30 Platelet Count 296 10^3/uL (130-400) 12/03/22 09:30 Complete Metabolic Panel: Sodium 144 mmol/L (136-145) 12/03/22 09:30 Potassium 3.7 mmol/L (3.5-5.1) 12/03/22 09:30 Chloride 108 mmol/L (98-107) H 12/03/22 09:30 Carbon Dioxide 23.7 mmol/L (21.0-32.0) 12/03/22 09:30 BUN 12 mg/dL (7-18) 12/03/22 09:30 Creatinine 0.9 mg/dL (0.70-1.30) 12/03/22 09:30 Est GFR (CKD-EPI 2020) 86.88 (mL/min/1.73m2) 12/03/22 09:30 Magnesium 2.0 mg/dL (1.8-2.4) 11/14/22 07:15 Calcium 8.9 mg/dL (8.5-10.1) 12/03/22 09:30 Albumin 3.9 g/dL (3.4-5.0) 12/03/22 09:30 Glucose 100 mg/dL (74-106) 12/03/22 09:30 Liver Function Panel: Alanine Aminotransferase (ALT/SGPT) 29 U/L (16-63) 12/03/22 09:30 Aspartate Amino Transf (AST/SGOT) 22 U/L (15-37) 12/03/22 09:30 Coagulation Panel: INR International Normalized Ratio 1.0 (0.9-1.1) 12/03/22 09:30 Prothrombin Time 10.0 sec (9.3-11.0) 12/03/22 09:30 Activated Partial Thromboplast Time 23.6 sec (21.5-31.9) 12/03/22 09:30 Cardiac Panel: No Data to Display Arterial Blood Gas: No Data to Display Venous Blood Gas: No Data to Display Pancreas Panel: Lipase 37 U/L (16-77) 11/14/22 07:15 Thyroid Panel: No Data to Display Infectious Disease: No Data to Display Blood Cultures: No Data to Display Toxicology Panel: No Data to Display Imaging and Studies Imaging and Studies Study information below may be from another EMR and interpreted by another provider. Please see original notes in EMR for more complete details. EKG Summary: 10/06: sinus rhythm, PVCs. Echocardiogram Summary: 10/06: LVEF 55-60%, mild Av sclerosis, mild AR, RVSP 26 mmhg. Carotid Artery Summary:: 10/06: Moderate mixed plaque in the common carotid bulbs and proximal internal carotid arteries. No velocity elevations. Findings consistent with less than 50 percent stenosis Anesthesia Assessment and Plan Anesthesia History Personal History: No History of Anesthesia Complications Family History: No Family History of Anesthesia Complications Exercise Tolerance Exercise Tolerance: Metabolic Equivalents>4 Cardiac & Pulmonary Exam Cardiac Exam: Normal S1/S2 Heart Sounds Pulmonary Exam: Clear Bilateral Breath Sounds Implantable Cardiac Device Does patient have a Pacemaker or an ICD?: No Airway Exam Known Difficult Airway: No Mallampati Class: 1 Mouth Opening: Normal (> 3cm) Thyromental Distance: Greater than 3 cm Neck Range of Motion: Full ROM Neck Circumference: Normal Teeth Condition: Generalized Poor Dentition ASA Classification ASA Score: ASA 2 Emergency Case?: No NPO Status NPO Status: NPO Clears >2 hours, Solids >8 hours Anesthesia Plan Resuscitation Status: Full Code Anesthesia Technique: MAC Anesthesia Airway Planned: Natural Airway Monitors Used: Standard Monitors Preoperative Comments:: 77 yo male with hematuria for cyst. Sig PMHx: HTN, GERD, CVA (10/06 ischemia, transient left face and arm numbness/right parietal scattered ischemia. started on plavix, aspirin, atorvastatin, and to allow permissive hypertension) , former smoker, occ EtOH. Previous Anes: - TURP, LMA 4 with leak -> mac 4 grade 1 - egd/colo, prop, natural airway, no issues. Discussed risks associated with recent stroke and performing anesthesia here. He would like to have his clot evacuation performed here today. He understands that he is at increased risk for stroke given his history. He understands that he would likely better served at a larger center given his recent stoke, but would like to proceed today with clot evacuation.
[2022-12-04] MEDS: Lactated Ringers 1,000 ML 30 ML IV (11:36)
[2022-12-04] MEDS: ceFAZolin 2 GM/50 ML BAG IVPB (11:43)
[2022-12-04] MEDS: Lidocaine 2% Jelly 11 ML SYR (11:53)
--- NOTE | 2022-12-04 11:59 | ROE_ITS ---
Date of service: 12/04/22 Time of Service: 11:59 Operative Note Operative Note DATE OF PROCEDURE: 12/04/22 PRE-OP DIAGNOSIS: Clot retention PROCEDURE: cystoscopy with clot evacuation SURGEON: Fredy Mcgrath ANESTHESIA TYPE: Local By Surgeon and General:No Airway Refer to Anesthesia Record ESTIMATED BLOOD LOSS: 5 PATHOLOGY: none sent COMPLICATIONS: None Patient was transported to: PACU Patient's condition: stable Implants: 20 Georgian Coude tipped irrigating catheter with 10 cc sterile water in balloon Indications: This is a 77-year-old gentleman who has a history of urinary retention. He had been performing CIC 4 years, but ultimately had a channel TURP which allowed him to void spontaneously. About 2 months ago, he had a stroke. He was started on anticoagulants and he began having gross hematuria. The anticoagulants were discontinued and he was started on Avodart. He presented to the emergency department this weekend with clot retention. He presents for cystoscopy with clot evacuation Findings: Clot in bladder No bladder mass Diffusely enlarged prostate with multiple erythematous polyps at the bladder neck Procedure Description: The patient was brought to the operating room on 12/04/2022. He was given p reoperative IV antibiotics. After successful induction of general anesthesia without intubation, he was placed in the dorsal lithotomy position. His indwelling catheter balloon was deflated and the catheter was removed. His genitalia was prepped and draped. 2% Xylocaine jelly was instilled into the urethra to act as a local anesthetic. The 22 Georgian rigid cystoscope was passed through the urethra into the bladder. The urethra and bladder were inspected with the 30 degree lens. The pendulous, bulbar and membranous urethra's appeared normal with no strictures. The prostatic urethra showed lateral lobe enlargement. There were multiple small cystic lesions present at the bladder neck. These had an appearance more consistent with inflammatory changes rather than neoplastic changes. The bladder neck was entered and the bladder mucosa was inspected. Several large clots were found at the base of the bladder. These were irrigated free using a Gladys syringe. The remainder of the bladder was trabeculated with no active bleeding sites and no papillary or nodular lesions seen. The bladder was filled with irrigant and the cystoscope was withdrawn. A 20 Georgian hematuria catheter was passed through the urethra into the bladder. The catheter balloon with this filled with 10 cc of sterile water. Continuous bladder irrigation with saline was begun.
--- NOTE | 2022-12-04 12:29 | W.ANESPOSTOP ---
Postoperative Evaluation Date, Time and Location Date Performed: 12/04/22 Time Performed: 12:29 Patient Location: PACU Vital Signs Most Recent Imported Vital Signs: Most Recent Vital Signs Temp Pulse Resp BP Pulse Ox 36.6 C 80 16 157/65 H 100 12/04/22 12:17 12/04/22 12:25 12/04/22 12:25 12/04/22 12:25 12/04/22 12:25 Pain Score Most Recent Pain Score: Most Recent Pain Score Pain Level 2 12/04/22 12:25 Assessment Mental Status: Awake (Alert & Oriented to Patient Baseline) Airway and Respiratory Function: Patent airway with normal (patient baseline) respiratory exam Cardiovascular Function: Hemodynamically Stable Hydration Status: Adequately Hydrated Nausea & Vomiting: No Nausea or Vomiting Pain: Pt. Denies Any Pain Peripheral Nerve Block: Patient did not receive a nerve block
--- NOTE | 2022-12-04 12:43 | NUR.NOTE ---
Pt transferred back from PACU to med surg. Patient transferred to bed. VS stable. patient is awake and alert. Patient drinking janet vonda. Nursing Note:
[2022-12-04] MEDS: Atorvastatin 40 MG TAB PO (19:59)
[2022-12-04] MEDS: traMADol 50 MG TAB PO (23:23)
--- NOTE | 2022-12-05 07:32 | W.PM.DS.N ---
Date of service: 12/05/22 Time of Service: 07:32 DS: Diagnosis Discharge Diagnosis (1) Gross hematuria: Status: Acute Discharge Plan Disposition Patient Disposition: Home Condition: Stable Discharge Details Reason For Visit: Hematuria Admit Date/Time: 12/03/22 12:16 Admit Provider: Fredy Mcgrath Attending Provider: Fredy Mcgrath Primary Care Provider: Brooklyn Farah Hospital Course Hospital Course: The patient was admitted and an irrigating catheter was placed. Continuous bladder irrigation was maintained overnight. He was then taken to the operating room on 12/04/2022. He underwent a cystoscopy and we identified 2 large clots within his bladder. The clots were evacuated. No active bleeding was seen, but the presumed site of his hematuria was from an enlarged, vascular prostate. No bladder tumor was seen. At the completion of the cystoscopy, we replaced his irrigating catheter and maintained bladder irrigation for an additional 24 hours. On postoperative day #1, the irrigant remained clear. He had no episodes of clot retention. His bladder irrigation and catheter are being discontinued and he is being discharged to home. Home Meds and New Rx's Prescriptions: No Action atorvastatin 40 mg tablet 40 mg PO QPM Qty: 90 3RF Hold Instructions: trialing decr dose pantoprazole 20 mg tablet,delayed release (DR/EC) 10 mg PO DAILY Qty: 45 3RF calcium carbonate [Tums] 200 MG tablet,chewable 200 mg PO DAILY PRN sildenafil 100 mg tablet See Rx Instructions PO DAILY PRN (Reason: sexual activity) Qty: 4 6RF Rx Instructions: 1/2 to 1 tab PO daily PRN; aspirin [Children's Aspirin] 81 mg Tablet,Chewable 81 mg PO DAILY Qty: 0 0RF dutasteride [Avodart] 0.5 mg capsule 0.5 mg PO DAILY Qty: 30 0RF Discharge Instructions Additional Instructions: The patient already had has an appointment in our clinic on 01/16/2023, so no additional appointment is needed The patient should call us if he begins to see gross hematuria again No new medications are being prescribed at the time of discharge The patient may resume intermittent catheterization as needed. Activity:: Activity as Tolerated Equipment/Supplies:: No Equipment Needed Diet:: As Tolerated Discharge Orders Discharge Orders: Discharge Order (Routine); Ordered 12/05/22 Ordered By: Fredy Mcgrath DS: Summary Time Spent with Patient providing and/or coordinating discharge services: Less than 30 minutes Status at Discharge Functional status at discharge: independent ambulation Overall status at discharge: patient is back to baseline Mental Status: mental status grossly normal Speech and Movement: speech and movement normal Mood: congruent mood Affect: normal affect Exam Narrative Exam Narrative: On the morning of discharge, the patient appears comfortable His vital signs are documented elsewhere in the chart His chest wall motion is normal. He is not short of breath at rest. Cardiac exam shows a regular rate and rhythm His abdomen is soft with no guarding or rebound tenderness He is awake and alert Psych Mental Status: mental status grossly normal Speech and Movement: speech and movement normal Mood: congruent mood Affect: normal affect DS: Data Vitals/I&O Vitals and I&O: Vital Signs Temperature 36.3 C L 12/04/22 23:36 Temperature Source Tympanic 12/04/22 23:36 Pulse 84 12/04/22 23:36 Pulse Rhythm Regular 12/04/22 21:55 Respiratory Rate 16 12/04/22 23:36 Respiratory Effort Normal, Non-Labored 12/04/22 21:55 Respiratory Depth Normal 12/04/22 21:55 Respiratory Pattern Normal 12/04/22 21:55 Blood Pressure 136/78 12/04/22 23:36 Blood Pressure Mean 77 12/03/22 14:01 Blood Pressure Position Sitting 12/03/22 07:02 Pulse Oximetry 97 12/04/22 23:36 Oxygen Delivery Method Room Air 12/04/22 23:36 Oxygen Flow Rate 0 12/04/22 23:36 Pain Level 0 12/04/22 23:36 Intake & Output 12/04/22 12/04/22 12/05/22 11:59 23:59 11:59 Intake Total 210 / 277.0 67.0 / 277.0 Balance 210 / 277.0 67.0 / 277.0 Weight 74.843 kg Intake: IV 210 / 277.0 67.0 / 277.0 Other: Urine Color Dark Red Straw Urine Appearance Hematuria Clear Clots Emesis Description None Data Completed and Pending Labs on day of discharge: Preliminary micro results at discharge 12/03/22 08:27 Urine Culture - Preliminary Urine - Reflex from Ua Gram Positive Kelsi PFSH All Active Problems Hematuria (Acute) Gross hematuria (Acute) Stroke (Chronic) Palpitations (Chronic) Intra-abdominal lymphadenopathy (Acute) GERD with esophagitis (Acute 12/06/11) Essential hypertension (Chronic 07/27/16) Hyperlipidemia (Acute 07/27/16) Gastroesophageal reflux disease (Chronic 07/27/16) SBO (small bowel obstruction) (Acute) Statin declined (Acute) Erectile dysfunction (Acute) 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 tract symptoms (Chronic 02/09/15) Elevated BP without diagnosis of hypertension (Acute 12/21/16) History of elevated prostate specific antigen (PSA) (Acute 01/18/16) 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) Medical History Benign prostate hyperplasia (12/11/07) Done by Surgical History EGD w/ BX (07/2020) Weeks, 07/2020 @ [facility] H/O hernia repair History of colonoscopy (~08/06/20) History of esophagogastroduodenoscopy (EGD) (~08/06/20) Repair of inguinal hernia (~1979) Left S/P right inguinal hernia repair S/P TURP Tonsillectomy Vasectomy Family History Other Cancer Social History Smoking/Tobacco Use Status: Former Tobacco Use Quit Date: 04/16/73 Pack-years: 16 Tobacco: How many years used: 16 Smoking risk assessment performed?: Yes Alcohol Intake: current Alcohol Intake frequency: a few times a week Alcohol type: beer and hard liquor Counseling given: No Drug use: Occasionally Substance use type: marijuana Adopted: No Household members: spouse Housing: house Number of Children: 3 number of grandchildren: 4 Communication Needs: Corrective Lenses Do you need help understanding health information?: Rarely 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 What is your relationship status?: How often do you talk on the phone with friends or family?: three or more times per week How often do you get together with friends or relatives?: three or more times per week Panel score (0-1 are the most socially isolated patients): 2 What type of physical activity do you participate in: other Details: physically active daily with work around his home Seatbelt use: always Helmet use: Yes Working smoke detector in home: Yes Carbon monox detector in home: Yes Do you feel safe at home: Yes Do you feel safe in your relationship?: Yes Time Spent with Patient Time Spent with Patient: <45 minutes Time was spent: care coordination
[2022-12-05 07:37] VITALS: BP 122/72; PULSE 82; RESP 17; TEMP 36.3; O2SAT 100
[2022-12-05] MEDS: Pantoprazole 20 MG TABCR 10 MG PO (07:38)
--- NOTE | 2022-12-05 11:27 | PDOC.CMDIS ---
Date of service: 12/05/22 Time of Service: 11:27 LACE Index Scoring Tool Questions: Length of Stay (in days): 2 Was the patient admitted via the E.D.?: Yes Comorbidities: Cerebrovascular Disease E.D. Visits: 4 Answers: Total Score: 10 Risk of Readmission: High Risk Care Management Discharge Plan Reason for Hospitalization: hematuria Discharge Plan: Greyson will be discharged home with no new services. He will follow up with his community providers including Urology and his PCP and transport with family. Patient/Family Education Needs: review of discharge instructions, limitations, activity, follow up plan, discuss Ask Me Three
== END 2022-12-05 09:20 | disposition home or self-care (01) | DRG 696 ==
LOC: ER 12:25 → MS 14:40
PROVIDERS: Emergency Medicine; Admitting Provider Urology; Emergency Provider Emergency Medicine; PCP Nurse Practitioner; Visit Provider Urology
PROC: 0TJB8ZZ Inspection of Bladder, Via Natural or Artificial Opening Endoscopic (ICD-10-PCS; CPT 52000; principal; 2022-12-04 11:30)
DX: R31.0 Gross hematuria (principal); T83.091A Other mechanical complication of indwelling urethral catheter, initial encounter; R33.9 Retention of urine, unspecified; Z86.73 Personal history of transient ischemic attack (TIA), and cerebral infarction without residual deficits; Z79.01 Long term (current) use of anticoagulants; K21.9 Gastro-esophageal reflux disease without esophagitis; I10 Essential (primary) hypertension; E78.5 Hyperlipidemia, unspecified; N40.1 Benign prostatic hyperplasia with lower urinary tract symptoms; D41.4 Neoplasm of uncertain behavior of bladder
CPT/HCPCS: 52001; 36415; 51702; 80053; 96374; 99222; 99238; 99285; 74177; 81003; 81015; 85025; 85610; 85730; 87086; 99284; J0690; J2371; J3490

== ENCOUNTER → 2022-12-11 10:06 | Outpatient (BNVA) | payer MEDICARE, SELFPAY | PROVIDERS: PCP Nurse Practitioner; Referring Provider Nurse Practitioner; Visit Provider Psychiatry & Neurology Neurology | CPT/HCPCS: 99214 ==

== ENCOUNTER → 2023-01-16 09:40 | Outpatient (BNVA) | payer MEDICARE, SELFPAY | PROVIDERS: PCP Nurse Practitioner; Referring Provider Nurse Practitioner; Visit Provider Nurse Practitioner Gerontology | DX: R31.0 Gross hematuria (principal); Z87.898 Personal history of other specified conditions; I10 Essential (primary) hypertension | CPT/HCPCS: 51798; 81003; 99213 ==

== ENCOUNTER 2023-01-16 10:34 | Outpatient (REF) | payer MEDICARE, SELFPAY | END 2023-01-16 10:35 | disposition home or self-care (01) | LOC: LBN 10:34 | PROVIDERS: PCP Nurse Practitioner; Visit Provider Nurse Practitioner Gerontology | DX: R31.0 Gross hematuria (principal) | CPT/HCPCS: 87086 ==

== ENCOUNTER 2023-01-19 04:49 | Emergency (ER) | payer MEDICARE, SELFPAY ==
[2023-01-19 04:52] VITALS: BP 168/66; PULSE 89; RESP 16; TEMP 36.8; O2SAT 99
--- NOTE | 2023-01-19 05:02 | W.ED.GENAD ---
Discharge Plan Discharge Details Chief Complaint: Urinary Clinical Impression: Hematuria, Glucosuria, Proteinuria Primary Care Provider: Brooklyn Farah ED Provider: Ilia White Home Meds and New Rx's Prescriptions: Continued pantoprazole 20 mg tablet,delayed release (DR/EC) 10 mg PO DAILY Qty: 45 3RF calcium carbonate [Tums] 200 MG tablet,chewable 200 mg PO DAILY PRN sildenafil 100 mg tablet See Rx Instructions PO DAILY PRN (Reason: sexual activity) Qty: 4 6RF Rx Instructions: 1/2 to 1 tab PO daily PRN; dutasteride [Avodart] 0.5 mg capsule 0.5 mg PO DAILY Qty: 30 0RF rosuvastatin 5 mg tablet 5 mg PO DAILY Qty: 30 3RF aspirin [Children's Aspirin] 81 mg Tablet,Chewable 81 mg PO DAILY Qty: 0 0RF Discharge Instructions Instructions: Hematuria (ED) Additional Instructions: You are seen in the emergency department for your bloody urination. A catheter was placed in your urine cleared. Please return to the emergency department if you develop any clots in your catheter if you develop any abdominal pain or if you develop any fevers. The urology team will call you for follow-up. Referrals: Fredy Mcgrath MD [ [facility] STAFF PHYSICIAN] - 3 days HPI General Date/Time Provider Initiated Documentation: 01/19/23 05:02. HPI Narrative: HPI This is a 77-year-old male on 81 mg of aspirin daily arrived to the emergency department via private vehicle in the setting of hematuria. Patient reports that he remotely had a TURP performed. He reports that he has had struggled with clot hematuria in the past and has had to have Rueda catheters placed. He follows with Dr. Mcgrath from urology. He reports that he had had urological follow-up earlier this week and had a reassuring urinalysis. Subsequently at home this evening at approximately 7 PM after showering he went to urinate and had bright red blood along with his urine. He had not taken any falls. He is not having any abdominal pain. He denied fevers chills nausea vomiting. He denies diarrhea. He is not having any chest pain or shortness of breath. He does feel that he is not voiding completely. He denies routine tobacco, ethanol, and illicits. Exam General: Well-appearing in no acute distress speaking in complete sentences. Head: Normocephalic, atraumatic. Eye: Extraocular eye movements intact. No conjunctival injection. No scleral icterus. Ear, nose, mouth, throat: Grossly normal inspection. Normal voice, handling secretions normally. Neck: Trachea midline. Cardiovascular: Well-perfused distal extremities. Respiratory: Nonlabored respiration. Clear lungs bilaterally. Gastrointestinal: Nondistended abdomen. Soft nontender. Musculoskeletal: No edema. Moving all 4 extremities spontaneously. Skin: Normal for age and race, grossly normal temperature and turgor. No acute rash. Neurologic: Alert and appropriate, no apparent acute deficits. Psychiatric: Mood and manner are appropriate. Grooming and personal hygiene are appropriate. MDM This is an overall very well-appearing normothermic and not tachycardic 77-year-old male with history of longstanding urinary retention and prior TURP with history of intermittent catheterization now with recurrent gross hematuria for which patient will undergo catheter placement to prevent clot hematuria. Nondistended abdomen and no abdominal pain nor hypotension so low suspicion for ruptured AAA. No flank pain to suggest ureterolithiasis. No pain out of proportion to suggest necrotizing soft tissue infection. No nausea nor vomiting no right lower quadrant tenderness to suggest appendicitis. No left lower quadrant tenderness nor diarrhea to suggest diverticulitis. No history of recent falls or trauma so will defer CT scan at this point time. Will obtain urinalysis to assess for any nitrites which could represent infection. Urinalysis from 3 days ago showing gram-positive mixed mat most likely contaminant. 5:27 AM Rueda catheter inserted following bladder scan which showed 288 cc urine per nursing. Urinalysis is showing proteinuria large blood large leuk esterase but nitrite negative.Glucosuria new compared to prior. 5:48 AM Nursing is hand irrigating catheter to ensure resolution of hematuria. I have asked health community support specialist Lucy to have the patient seen next week by urology. Will give patient return indications including any abdominal pain any persistent hematuria with abdominal pain or any clot hematuria. 6:04 AM Rueda catheter draining pink-tinged urine. Patient given return indications. Will discharge now with empiric trial of expectant outpatient management. Chronic conditions affecting the care of the patient: Prior episodes of clot hematuria History obtained from an outside historian: N/A External record review: [facility] [place] EMR Medications: N/A Social determinants of health affecting disposition: N/A Management discussed with: N/A Treatment/interventions considered: Three-way catheter but deferred Response to therapies provided: Improved hematuria following irrigation and catheter placement Related Data Home Medications Medication Instructions Recorded Confirmed calcium carbonate 200 mg calcium 200 mg PO DAILY PRN 09/06/16 01/19/23 (500 mg) chewable tablet (Tums) sildenafil 100 mg tablet See Rx Instructions PO DAILY PRN 01/02/22 01/19/23 sexual activity #4 tabs aspirin 81 mg chewable tablet 81 mg PO DAILY #0 tabs 10/06/22 01/19/23 (Children's Aspirin) pantoprazole 20 mg tablet,delayed 10 mg PO DAILY #45 tabs 11/29/22 01/19/23 release dutasteride 0.5 mg capsule 0.5 mg PO DAILY #30 caps 12/11/22 01/19/23 (Avodart) rosuvastatin 5 mg tablet 5 mg PO DAILY #30 tabs 12/25/22 Previous Rx's Medication Instructions Recorded sildenafil 100 mg tablet See Rx Instructions PO DAILY PRN 01/02/22 sexual activity #4 tabs aspirin 81 mg chewable tablet 81 mg PO DAILY #0 tabs 10/06/22 (Children's Aspirin) pantoprazole 20 mg tablet,delayed 10 mg PO DAILY #45 tabs 11/29/22 release dutasteride 0.5 mg capsule 0.5 mg PO DAILY #30 caps 12/11/22 (Avodart) rosuvastatin 5 mg tablet 5 mg PO DAILY #30 tabs 12/25/22 Allergies Allergy/AdvReac Type Severity Reaction Status Date / Time finasteride AdvReac Intermediate pale, weak Verified 01/19/23 05:00 sweating terazosin HCl [From Hytrin] AdvReac sweats Verified 01/19/23 05:00 General Stated Complaint: Urinary BEATRIZ: 3 PFSH All Active Problems (Updated 01/19/23 @ 05:29 by Ilia White MD) Hematuria (Acute) Glucosuria (Acute) Proteinuria (Acute) Vertebral artery occlusion (Acute) Stroke (Chronic) Palpitations (Chronic) Intra-abdominal lymphadenopathy (Acute) GERD with esophagitis (Acute 12/06/11) Essential hypertension (Chronic 07/27/16) Hyperlipidemia (Acute 07/27/16) Gastroesophageal reflux disease (Chronic 07/27/16) SBO (small bowel obstruction) (Acute) Statin declined (Acute) Erectile dysfunction (Acute) 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 tract symptoms (Chronic 02/09/15) Elevated BP without diagnosis of hypertension (Acute 12/21/16) History of elevated prostate specific antigen (PSA) (Acute 01/18/16) 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) Medical History Benign prostate hyperplasia (12/11/07) Done by Dr.Killeen Cervantes hematuria Surgical History EGD w/ BX (07/2020) Weeks, 07/2020 @ [facility] H/O hernia repair History of colonoscopy (~08/06/20) History of esophagogastroduodenoscopy (EGD) (~08/06/20) Repair of inguinal hernia (~1979) Left S/P right inguinal hernia repair S/P TURP Tonsillectomy Vasectomy Family History Other Cancer Social History Smoking/Tobacco Use Status: Former Tobacco Use Quit Date: 04/16/73 Pack-years: 16 Tobacco: How many years used: 16 Smoking risk assessment performed?: Yes Alcohol Intake: current Alcohol Intake frequency: a few times a week Alcohol type: beer and hard liquor Counseling given: No Drug use: Occasionally Substance use type: marijuana Adopted: No Household members: spouse Housing: house Number of Children: 3 number of grandchildren: 4 Communication Needs: Corrective Lenses Do you need help understanding health information?: Rarely 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 What is your relationship status?: How often do you talk on the phone with friends or family?: three or more times per week How often do you get together with friends or relatives?: three or more times per week Panel score (0-1 are the most socially isolated patients): 2 What type of physical activity do you participate in: other Details: physically active daily with work around his home Seatbelt use: always Helmet use: Yes Working smoke detector in home: Yes Carbon monox detector in home: Yes Do you feel safe at home: Yes Do you feel safe in your relationship?: Yes Course Vital Signs Vital signs: Vital Signs Temperature 36.8 C 01/19/23 04:52 Pulse 89 01/19/23 04:52 Respiratory Rate 16 01/19/23 04:52 Blood Pressure 168/66 H 01/19/23 04:52 Pulse Oximetry 99 01/19/23 04:52 Temperature 36.8 C 01/19/23 04:52 Temperature Source Oral 01/19/23 04:52 Pulse 89 01/19/23 04:52 Respiratory Rate 16 01/19/23 04:52 Respiratory Effort Normal 01/19/23 04:52 Blood Pressure 168/66 H 01/19/23 04:52 Pulse Oximetry 99 01/19/23 04:52 Oxygen Delivery Method Room Air 01/19/23 04:52 Oxygen Flow Rate 0 01/19/23 04:52
[2023-01-19] MEDS: Lidocaine 2% Jelly 6 ML SYR (05:20)
[2023-01-19 05:23] LABS: Bilirubin Large (Negative); Blood Large (Negative); Clarity Cloudy (Clear); Glucose 100 mg/dL (Negative); Ketones 15 mg/dL (Negative); Leukocyte Esterase Large (Negative); Nitrite Negative (Negative); Specific Gravity 1.015 (1.005-1.025); pH 8.5 (5-8)
[2023-01-19 05:30] LABS: C & S Indicated? Yes; RBC >50 HPF (0-2)
--- NOTE | 2023-01-19 05:51 | NUR.NOTE ---
Pt placed on care management for Urology for blood in urine to be seen kevin .
[2023-01-19 06:06] VITALS: BP 168/66; PULSE 89; RESP 16; TEMP 36.8; O2SAT 99
[2023-01-19 06:10] VITALS: BP 176/78; PULSE 70; RESP 16; TEMP 36.8; O2SAT 96
== END 2023-01-19 06:16 | disposition home or self-care (01) ==
PROVIDERS: Emergency Provider Emergency Medicine; PCP Nurse Practitioner
DX: R31.9 Hematuria, unspecified; R81 Glycosuria; R80.9 Proteinuria, unspecified
CPT/HCPCS: 51702; 99283; 81003; 81015; 87086; 99284

== ENCOUNTER 2023-01-22 11:24 | Emergency (ER) | payer MEDICARE, SELFPAY ==
[2023-01-22 11:28] VITALS: BP 162/81; PULSE 99; RESP 16; TEMP 36.8; O2SAT 99
--- NOTE | 2023-01-22 11:32 | ED.GENADUL_ITS ---
Discharge Plan Disposition Patient Disposition: Home Discharge Details Clinical Impression: Complication of Rueda catheter Primary Care Provider: Brooklyn Farah ED Provider: Jarrett Lund Home Meds and New Rx's Prescriptions: No Action pantoprazole 20 mg tablet,delayed release (DR/EC) 10 mg PO DAILY Qty: 45 3RF calcium carbonate [Tums] 200 MG tablet,chewable 200 mg PO DAILY PRN sildenafil 100 mg tablet See Rx Instructions PO DAILY PRN (Reason: sexual activity) Qty: 4 6RF Rx Instructions: 1/2 to 1 tab PO daily PRN; dutasteride [Avodart] 0.5 mg capsule 0.5 mg PO DAILY Qty: 30 0RF rosuvastatin 5 mg tablet 5 mg PO DAILY Qty: 30 3RF aspirin [Children's Aspirin] 81 mg Tablet,Chewable 81 mg PO DAILY Qty: 0 0RF Discharge Instructions Additional Instructions: At this time your bladder, prostate and urinary tract seems to be functioning well. We have decided to hold off on replacing the Rueda catheter. Please follow-up closely with Dr. Mcgrath. If you notice any worsening of your symptoms, or any new symptoms such as vomiting, diarrhea, fever, chills, shortness of breath, chest pain, numbness, weakness, or fainting , please return immediately to the emergency department for reevaluation. Please follow up with your primary care provider as soon as possible for reassessment and reevaluation. As always, it was a pleasure participating in your medical care today. Referrals: Fredy Mcgrath MD [ [facility] STAFF PHYSICIAN] - Brooklyn Farah NP [Primary Care Provider] - Discharge Data Discharge Date/Time-TO BE ENTERED AT DEPARTURE: 01/22/23 12:43 Medical Decision Making 77-year-old male with a past medical history of hematuria, high cholesterol, reflux, hypertension, notable sensitivity to various medications, presents today for evaluation of hematuria. Patient has been seen here in the emergency department a few times for hematuria, most recent time was about 3 and half days ago where he was seen by Dr. White, Rueda catheter was placed at that time, and he was subsequently discharged. Unfortunately since then he s tates that he has had clots,. Since the Rueda catheter was placed recently he is not filled his bag with urine in 2 days. He has been urinating around the Rueda catheter and will see some blood and occasional clots. He does admit to suprapubic pressure consistent with the sensation of having to urinate. He denies any other complaints at this time. He is scheduled to follow-up with Dr. Mcgrath in 2 days on Sunday. No other complaints at this time. No other modifying factors. Exam demonstrates well-appearing male, vital signs stable. Mild suprapubic pressure is noted. Rueda catheter is in place, no active drainage at this time. No current flow around the Rueda catheter itself. We will remove the current catheter to see if he can urinate, place a new one if he cannot. Unfortunately Dr. Mcgrath is off all week, and Carolina is off today. We will monitor closely and reassess. 12:26 PM Patient had Rueda catheter removed, there was a small old clot on the tip of it, and that seemed to have been preventing drainage. No blood otherwise. Patient was able to pee after Rueda catheter was removed and he peed successfully fair amount of urine. Repeat bladder scan shows no evidence of retained fluid. Patient feels well. With no evidence of bleeding, with the patient able to urinate well without the Rueda catheter, and no signs of obstruction at this time, I do not see immediate indication for Rueda catheter reinsertion. Additionally he was supposed to have the catheter removed in 48 hours anyway. Weighing the risk and benefits with the patient the patient has elected to keep it out. We will hold off on placing any new one. Patient will be discharged home with close follow-up with Dr. Mcgrath and Carolina Mcfarlane. Discussed red flags for which to return. I have extensively reviewed the treatment plan and discharge instructions with the patient. I have addressed all patient concerns at this time. The patient was made aware of what symptoms to monitor for that wo uld warrant a return to the emergency department. Discussed the plan with the patient, they demonstrate verbal understanding and agreement with our assessment and plan at this time. The documentation in this chart was dictated using [employer] dictation software. Please excuse any dictation errors. HPI General Date/Time Provider Initiated Documentation: 01/22/23 11:25 . HPI Narrative: 77-year-old male with a past medical history of hematuria, high cholesterol, reflux, hypertension, notable sensitivity to various medications, presents today for evaluation of hematuria. Patient has been seen here in the emergency department a few times for hematuria, most recent time was about 3 and half days ago where he was seen by Dr. White, Rueda catheter was placed at that time, and he was subsequently discharged. Unfortunately since then he states that he has had clots,. Since the Rueda catheter was placed recently he is not filled his bag with urine in 2 days. He has been urinating around the Rueda catheter and will see some blood and occasional clots. He does admit to suprapubic pressure consistent with the sensation of having to urinate. He denies any other complaints at this time. He is scheduled to follow-up with Dr. Mcgrath in 2 days on Sunday. No other complaints at this time. No other modifying factors. Related Data Home Medications Medication Instructions Recorded Confirmed calcium carbonate 200 mg calcium 200 mg PO DAILY PRN 09/06/16 01/19/23 (500 mg) chewable tablet (Tums) sildenafil 100 mg tablet See Rx Instructions PO DAILY PRN 01/02/22 01/19/23 sexual activity #4 tabs aspirin 81 mg chewable tablet 81 mg PO DAILY #0 tabs 10/06/22 01/19/23 (Children's Aspirin) pantoprazole 20 mg tablet,delayed 10 mg PO DAILY #45 tabs 11/29/22 01/19/23 release dutasteride 0.5 mg capsule 0.5 mg PO DAILY #30 caps 12/11/22 01/19/23 (Avodart) rosuvastatin 5 mg tablet 5 mg PO DAILY #30 tabs 12/25/22 Previous Rx's Medication Instructions Recorded sildenafil 100 mg tablet See Rx Instructions PO DAILY PRN 01/02/22 sexual activity #4 tabs aspirin 81 mg chewable tablet 81 mg PO DAILY #0 tabs 10/06/22 (Children's Aspirin) pantoprazole 20 mg tablet,delayed 10 mg PO DAILY #45 tabs 11/29/22 release dutasteride 0.5 mg capsule 0.5 mg PO DAILY #30 caps 12/11/22 (Avodart) rosuvastatin 5 mg tablet 5 mg PO DAILY #30 tabs 12/25/22 Allergies Allergy/AdvReac Type Severity Reaction Status Date / Time finasteride AdvReac Intermediate pale, weak Verified 01/22/23 11:31 sweating terazosin HCl [From Hytrin] AdvReac sweats Verified 01/22/23 11:31 General Stated Complaint: Urinary BEATRIZ: 4 Review of Systems All systems reviewed & are unremarkable except as noted in HPI and below PFSH All Active Problems (Updated 01/22/23 @ 12:29 by Jarrett Lund DO) Hematuria (Acute) Glucosuria (Acute) Proteinuria (Acute) Complication of Rueda catheter (Acute) Vertebral artery occlusion (Acute) Stroke (Chronic) Palpitations (Chronic) Intra-abdominal lymphadenopathy (Acute) GERD with esophagitis (Acute 12/06/11) Essential hypertension (Chronic 07/27/16) Hyperlipidemia (Acute 07/27/16) Gastroesophageal reflux disease (Chronic 07/27/16) SBO (small bowel obstruction) (Acute) Statin declined (Acute) Erectile dysfunction (Acute) 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 tract symptoms (Chronic 02/09/15) Elevated BP without diagnosis of hypertension (Acute 12/21/16) History of elevated prostate specific antigen (PSA) (Acute 01/18/16) 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) Medical History Benign prostate hyperplasia (12/11/07) Done by Gross hematuria Surgical History EGD w/ BX (07/2020) Weeks, 07/2020 @ [facility] H/O hernia repair History of colonoscopy (~08/06/20) History of esophagogastroduodenoscopy (EGD) (~08/06/20) Repair of inguinal hernia (~1979) Left S/P right inguinal hernia repair S/P TURP Tonsillectomy Vasectomy Family History Other Cancer Social History Smoking/Tobacco Use Status: Former Tobacco Use Quit Date: 04/16/73 Pack-years: 16 Tobacco: How many years used: 16 Smoking risk assessment performed?: Yes Alcohol Intake: current Alcohol Intake frequency: a few times a week Alcohol type: beer and hard liquor Counseling given: No Drug use: Occasionally Substance use type: marijuana Adopted: No Household members: spouse Housing: house Number of Children: 3 number of grandchildren: 4 Communication Needs: Corrective Lenses Do you need help understanding health information?: Rarely 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 What is your relationship status?: How often do you talk on the phone with friends or family?: three or more times per week How often do you get together with friends or relatives?: three or more times per week Panel score (0-1 are the most socially isolated patients): 2 What type of physical activity do you participate in: other Details: physically active daily with work around his home Seatbelt use: always Helmet use: Yes Working smoke detector in home: Yes Carbon monox detector in home: Yes Do you feel safe at home: Yes Do you feel safe in your relationship?: Yes Exam Narrative Exam Narrative: 1.Const: Well-nourished, Well-developed, appearing stated age 2.Eyes: PERRL, no conjunctival injection, and symmetrical lids. 3.ENT: Atraumatic external nose and ears. Moist MM. Neck: Symmetric, trachea midline, No thyromegaly. 4.CVS: +S1/S2, No murmurs or gallops. Peripheral pulses 2+ and equal in all extremities. Brisk capillary refill in all extremities. 5.RESP: Unlabored respiratory effort. Clear to auscultation bilaterally. No wheezes rales or rhonchi 6.GI: Soft, Nontender/Nondistended, No hepatosplenomegaly. No guarding or rebound. Genital exam demonstrates evidence of in place Rueda catheter, no current active leaking around the Rueda catheter site. 7.MSK: Normocephalic/Atraumatic, Extremities w/o deformity or ttp No cyanosis or clubbing, Normal movement of all extremities 8.Skin: Warm, Dry. No rashes or lesions. 9.Neuro: shank maker II-XII grossly intact. Sensation grossly intact, no focal neurologic deficits. 10.Psych: (AAO) x3. Appropriate mood and affect Course Vital Signs Vital signs: Vital Signs Temperature 36.8 C 01/22/23 11:28 Pulse 99 H 01/22/23 11:28 Respiratory Rate 16 01/22/23 11:28 Blood Pressure 162/81 H 01/22/23 11:28 Pulse Oximetry 99 01/22/23 11:28 Temperature 36.8 C 01/22/23 11:28 Temperature Source Skin 01/22/23 11:28 Pulse 99 H 01/22/23 11:28 Respiratory Rate 16 01/22/23 11:28 Blood Pressure 162/81 H 01/22/23 11:28 Blood Pressure Position Sitting 01/22/23 11:28 Pulse Oximetry 99 01/22/23 11:28 Oxygen Delivery Method Room Air 01/22/23 11:28 Oxygen Flow Rate 0 01/22/23 11:28
== END 2023-01-22 12:43 | disposition home or self-care (01) ==
PROVIDERS: Emergency Provider Student in an Organized Health Care Education/Training Program; PCP Nurse Practitioner
DX: T83.9XXA Unspecified complication of genitourinary prosthetic device, implant and graft, initial encounter (principal)
CPT/HCPCS: 51798; 99284

== ENCOUNTER 2023-01-23 13:47 | Outpatient (REF) | payer MEDICARE, SELFPAY ==
[2023-01-23 15:29] LABS: Bilirubin Negative (Negative); Blood Moderate (Negative); Clarity Cloudy (Clear); Glucose Negative (Negative); Ketones Negative (Negative); Leukocyte Esterase Large (Negative); Nitrite Positive (Negative); Specific Gravity 1.025 (1.005-1.025); Urobilinogen 0.2 mg/dL (Up to 0.2); pH 5.5 (5-8)
[2023-01-23 15:41] LABS: Bacteria Many HPF (Negative); C & S Indicated? C&S Done As Ordered; Casts 0-2 Hyaline LPF (Negative); Crystals Negative HPF (Negative); Epithelial Cells Rare HPF (Negative); Mucus Trace (Negative); WBC >50 HPF (0-5)
== END 2023-01-23 13:48 | disposition home or self-care (01) ==
LOC: LBN 13:47
PROVIDERS: PCP Nurse Practitioner; Visit Provider Nurse Practitioner Gerontology
DX: N40.1 Benign prostatic hyperplasia with lower urinary tract symptoms (principal); R31.9 Hematuria, unspecified; R33.8 Other retention of urine; R82.90 Unspecified abnormal findings in urine
CPT/HCPCS: 87077; 81003; 81015; 87086; 87186

== ENCOUNTER → 2023-01-29 07:46 | Outpatient (BNVA) | payer MEDICARE, SELFPAY | PROVIDERS: PCP Nurse Practitioner; Referring Provider Nurse Practitioner; Visit Provider Nurse Practitioner Gerontology | DX: R31.0 Gross hematuria (principal); N40.1 Benign prostatic hyperplasia with lower urinary tract symptoms; R33.8 Other retention of urine; Z87.898 Personal history of other specified conditions | CPT/HCPCS: 81003; 99213 ==

== ENCOUNTER 2023-02-14 18:29 | Outpatient (REF) | payer MEDICARE, SELFPAY ==
[2023-02-14 18:15] LABS: Bilirubin Negative (Negative); Blood Negative (Negative); Clarity Clear (Clear); Glucose Negative (Negative); Ketones Negative (Negative); Leukocyte Esterase Negative (Negative); Nitrite Negative (Negative); Urobilinogen 0.2 mg/dL (Up to 0.2)
[2023-02-14 18:23] LABS: Bacteria Rare HPF (Negative); Crystals Negative HPF (Negative); Epithelial Cells Rare HPF (Negative); RBC Negative HPF (0-2)
[2023-02-14 18:24] LABS: C & S Indicated? C&S Done As Ordered; Casts Negative LPF (Negative); Mucus Trace (Negative)
== END 2023-02-14 18:30 | disposition home or self-care (01) ==
LOC: LBN 18:29
PROVIDERS: PCP Nurse Practitioner; Visit Provider Urology
DX: N40.1 Benign prostatic hyperplasia with lower urinary tract symptoms; R33.8 Other retention of urine
CPT/HCPCS: 81003; 81015; 87086

== ENCOUNTER 2023-03-21 18:00 | Observation (INO) | payer MEDICARE, SELFPAY ==
[2023-03-21 18:10] VITALS: BP 170/104; PULSE 94; RESP 20; TEMP 37; O2SAT 99
--- NOTE | 2023-03-21 18:21 | W.ED.GENAD ---
Discharge Plan Discharge Details Chief Complaint: Urinary Primary Care Provider: Brooklyn Farah ED Provider: Yaakov Escobar Home Meds and New Rx's Prescriptions: No Action calcium carbonate [Tums] 200 MG tablet,chewable 200 mg PO DAILY PRN rosuvastatin 5 mg tablet 5 mg PO DAILY Qty: 30 3RF Hold Instructions: Pt Stopped/Never Started aspirin [Children's Aspirin] 81 mg Tablet,Chewable 81 mg PO DAILY Qty: 0 0RF Medical Decision Making Patient has been able to urinate small amounts. Urinalysis has been sent to the lab. However, given the large amount of clots that he is passing will place three-way Rueda and begin CBI/hand irrigation and attempts to clear. Urinalysis is positive for nitrates with red cells white cells and bacteria all consistent with UTI. IV established and ceftriaxone given. CBC with white count of 13.9, hemoglobin 11.6, normal kidney function. Patient with large amount of clots present. Continues to have gross hematuria and clots after hand irrigation and [address]. Did place a call to Dr. Mcgrath and left a voicemail. Discussed with hospitalist for admission for CBI overnight, treatment of UTI, urology consult in the morning. Lab Data Lab results reviewed: Yes I reviewed the patient's lab results. HPI General Mode of arrival: ambulatory. Date/Time Provider Initiated Documentation: 03/21/23 18:20. Limitations to Documentation: no limitations. Information obtained by: patient. HPI Narrative: Patient presents to ED with hematuria and clots. Patient has had hematuria previously and does straight catheterizations at home. Today he has been passing large clots through his catheter every time he straight caths. He has had persistent hematuria. He denies fever, pain, vomiting. Because of the size of the clots and the persistent hematuria he came to ED for evaluation. Related Data Home Medications Medication Instructions Recorded Confirmed calcium carbonate 200 mg calcium 200 mg PO DAILY PRN 09/06/16 03/21/23 (500 mg) chewable tablet (Tums) aspirin 81 mg chewable tablet 81 mg PO DAILY #0 tabs 10/06/22 03/21/23 (Children's Aspirin) rosuvastatin 5 mg tablet 5 mg PO DAILY #30 tabs 12/25/22 03/21/23 Previous Rx's Medication Instructions Recorded aspirin 81 mg chewable tablet 81 mg PO DAILY #0 tabs 10/06/22 (Children's Aspirin) rosuvastatin 5 mg tablet 5 mg PO DAILY #30 tabs 12/25/22 Allergies Allergy/AdvReac Type Severity Reaction Status Date / Time finasteride AdvReac Intermediate pale, weak Verified 03/21/23 18:09 sweating dutasteride [From Avodart] AdvReac Verified 03/21/23 18:09 terazosin HCl [From Hytrin] AdvReac sweats Verified 03/21/23 18:09 General Stated Complaint: Urinary BEATRIZ: 3 Review of Systems Narrative: Per HPI PFSH All Active Problems Gross hematuria (Acute) Vertebral artery occlusion (Acute) Palpitations (Chronic) Intra-abdominal lymphadenopathy (Acute) GERD with esophagitis (Acute 12/06/11) Gastroesophageal reflux disease (Chronic 07/27/16) SBO (small bowel obstruction) (Acute) Statin declined (Acute) Erectile dysfunction (Acute) 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 tract symptoms (Chronic 02/09/15) Elevated BP without diagnosis of hypertension (Acute 12/21/16) History of elevated prostate specific antigen (PSA) (Acute 01/18/16) 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) Medical History Stroke Hyperlipidemia (07/27/16) Essential hypertension (07/27/16) Benign prostate hyperplasia (12/11/07) Done by Surgical History History of colonoscopy (~08/06/20) History of esophagogastroduodenoscopy (EGD) (~08/06/20) S/P right inguinal hernia repair S/P TURP H/O hernia repair Vasectomy Tonsillectomy Repair of inguinal hernia (~1979) Left EGD w/ BX (07/2020) Weeks, 07/2020 @ [facility] Family History Other Cancer Social History Smoking/Tobacco Use Status: Former Tobacco Use Quit Date: 04/16/73 Pack-years: 16 Tobacco: How many years used: 16 Smoking risk assessment performed?: Yes Alcohol Intake: current Alcohol Intake frequency: a few times a week Alcohol type: beer and hard liquor Counseling given: No Drug use: Occasionally Substance use type: marijuana Adopted: No Household members: spouse Housing: house Number of Children: 3 number of grandchildren: 4 Communication Needs: Corrective Lenses Do you need help understanding health information?: Rarely 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 What is your relationship status?: How often do you talk on the phone with friends or family?: three or more times per week How often do you get together with friends or relatives?: three or more times per week Panel score (0-1 are the most socially isolated patients): 2 What type of physical activity do you participate in: other Details: physically active daily with work around his home Seatbelt use: always Helmet use: Yes Working smoke detector in home: Yes Carbon monox detector in home: Yes Do you feel safe at home: Yes Do you feel safe in your relationship?: Yes Exam Narrative Exam Narrative: Const: WDWN elderly male in NAD. HEENT: NC/AT. Normal facial exam. Eyes: Normal conjunctiva and sclera. Neck: Supple. Trachea midline. Lungs: Normal respiratory effort. GI: Soft. NT/ND. Neuro: A+O x 3. Normal speech, mentation, gait. Cranial nerves II - XII grossly intact. No gross motor or sensory deficit. Skin: Warm and dry. Course Vital Signs Vital signs: Vital Signs Temperature 98.6 F 03/21/23 18:10 Pulse 94 H 03/21/23 18:10 Respiratory Rate 20 03/21/23 18:10 Blood Pressure 170/104 H 03/21/23 18:10 Pulse Oximetry 99 03/21/23 18:10 Temperature 98.6 F 03/21/23 18:10 Temperature Source Oral 03/21/23 18:10 Pulse 94 H 03/21/23 18:10 Respiratory Rate 20 03/21/23 18:10 Respiratory Effort Normal 03/21/23 18:12 Blood Pressure 170/104 H 03/21/23 18:10 Pulse Oximetry 99 03/21/23 18:10 Oxygen Delivery Method Room Air 03/21/23 18:10 Oxygen Flow Rate 0 03/21/23 18:10
[2023-03-21 18:37] LABS: Bilirubin Large (Negative); Blood Large (Negative); Clarity Cloudy (Clear); Glucose Negative (Negative); Ketones 15 mg/dL (Negative); Leukocyte Esterase Large (Negative); Nitrite Positive (Negative); pH 5.5 (5-8)
[2023-03-21 18:48] LABS: Bacteria Moderate HPF (Negative); C & S Indicated? Yes; Casts Negative LPF (Negative); Crystals Negative HPF (Negative); Epithelial Cells Rare HPF (Negative); Mucus Moderate (Negative); RBC >50 HPF (0-2); WBC 20-50 HPF (0-5)
[2023-03-21 19:18] LABS: Abs Immature Grans 0.04 10^3/uL (0.0-0.06); Absolute Basophil Count 0.04 10^3/uL (0.0-0.2); Absolute Eosinophil Count 0.04 10^3/uL (0.0-0.7); Absolute Lymphocyte Count 2.44 10^3/uL (1.2-3.4); Absolute Monocyte Count 0.87 10^3/uL (0.1-0.8); Basophils % 0.3; Eosinophils % 0.3; HCT 37.5 % (40.0-50.0); HGB 11.6 g/dL (13.5-17.5); Immature Grans % 0.3; Lymphocytes % 17.6; MCH 24.7 pg (27.0-33.0); MCHC 30.9 % (32.0-36.0); MCV 80 fL (80-95); MPV 8.4 fL (8.0-11.0); Monocytes % 6.3; Neutrophils % 75.2; Platelet Count 273 10^3/uL (130-400); RBC 4.69 10^6/uL (4.36-5.78); RDW 15.2 % (11.8-14.1); RDW-SD 43.8 fL; WBC 13.88 10^3/uL (4.4-10.8)
[2023-03-21 19:20] LABS: Absolute Neutrophil Count 10.44 10^3/uL (1.2-6.7)
[2023-03-21 19:29] LABS: Anion Gap 10.8 mmol/L (3-11); BUN 19 mg/dL (7-18); CO2 26.2 mmol/L (21.0-32.0); Calcium 9.2 mg/dL (8.5-10.1); Chloride 103 mmol/L (98-107); Estimated GFR 76.56 (mL/min/1.73m2); Glucose 109 mg/dL (74-106); Potassium 3.5 mmol/L (3.5-5.1); Sodium 140 mmol/L (136-145)
[2023-03-21] MEDS: cefTRIAXone 1 GM/50 ML BAG IVPB (19:44)
--- NOTE | 2023-03-21 21:47 | W.PM.HP.N ---
Date of service: 03/21/23 Time of Service: 21:47 Assessment and Plan Assessment and plan (1) Gross hematuria: Status: Acute Assessment and plan: Hematuria. UTI may be the precipitant. Will continue CBI, continue Rocephin and await urine culture, and consult Urology. Reviewed ADs, requests Full Code. History of Present Illness History of Present Illness Chief Complaint: hematuria Narrative: 77 male with h/o urinary retention on program of intermittent self-cath. Reports several days of slight hematuria, but then persistent and gross hematuria today prompting visit to ER. In ER findings of note for gross hematuria with clots, and urinalysis demonstrating pyuria/bacteruria. Patient was started on CBI and currently on 4th bag, with continued bleeding. Patient given Rocephin 1 gr IV. Message left for his Urologist Dr. Mcgrath. I was asked to evaluate for admission. At present time patient does report some suprapubic discomfort, but notes an obstructing clot in line. After this was flushed the pain resolved. Review of Systems Narrative: per HPI PFSH All Active Problems Gross hematuria (Acute) Vertebral artery occlusion (Acute) Palpitations (Chronic) Intra-abdominal lymphadenopathy (Acute) GERD with esophagitis (Acute 12/06/11) Gastroesophageal reflux disease (Chronic 07/27/16) SBO (small bowel obstruction) (Acute) Statin declined (Acute) Erectile dysfunction (Acute) 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 tract symptoms (Chronic 02/09/15) Elevated BP without diagnosis of hypertension (Acute 12/21/16) History of elevated prostate specific antigen (PSA) (Acute 01/18/16) 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) Medical History Stroke Hyperlipidemia (07/27/16) Essential hypertension (07/27/16) Benign prostate hyperplasia (12/11/07) Done by Surgical History History of colonoscopy (~08/06/20) History of esophagogastroduodenoscopy (EGD) (~08/06/20) S/P right inguinal hernia repair S/P TURP H/O hernia repair Vasectomy Tonsillectomy Repair of inguinal hernia (~1979) Left EGD w/ BX (07/2020) Weeks, 07/2020 @ [facility] Family History Other Cancer Social History Smoking/Tobacco Use Status: Former Tobacco Use Quit Date: 04/16/73 Pack-years: 16 Tobacco: How many years used: 16 Smoking risk assessment performed?: Yes Alcohol Intake: current Alcohol Intake frequency: a few times a week Alcohol type: beer and hard liquor Counseling given: No Drug use: Occasionally Substance use type: marijuana Adopted: No Household members: spouse Housing: house Number of Children: 3 number of grandchildren: 4 Communication Needs: Corrective Lenses Do you need help understanding health information?: Rarely 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 What is your relationship status?: How often do you talk on the phone with friends or family?: three or more times per week How often do you get together with friends or relatives?: three or more times per week Panel score (0-1 are the most socially isolated patients): 2 What type of physical activity do you participate in: other Details: physically active daily with work around his home Seatbelt use: always Helmet use: Yes Working smoke detector in home: Yes Carbon monox detector in home: Yes Do you feel safe at home: Yes Do you feel safe in your relationship?: Yes Meds Allergies and Home Medications Allergies Allergy/AdvReac Type Severity Reaction Status Date / Time finasteride AdvReac Intermediate pale, weak Verified 03/21/23 18:09 sweating dutasteride [From Avodart] AdvReac Verified 03/21/23 18:09 terazosin HCl [From Hytrin] AdvReac sweats Verified 03/21/23 18:09 Home Medications Medication Instructions Recorded Confirmed Type calcium carbonate 200 mg calcium 200 mg PO DAILY PRN 09/06/16 03/21/23 History (500 mg) chewable tablet (Tums) aspirin 81 mg chewable tablet 81 mg PO DAILY #0 tabs 10/06/22 03/21/23 Rx (Children's Aspirin) rosuvastatin 5 mg tablet 5 mg PO DAILY #30 tabs 12/25/22 03/21/23 Rx Exam Narrative Exam Narrative: 170/104, 94, 37.0, 20, 99% RA. HEENT traumatic; neck supple; lungs clear; heart RRR; abdomen soft and NT; back -CVAT; extremities w/o edema; neuro Ox3, moves all 4s : CBI catheter in place Results Labs 03/21/23 19:11 03/21/23 19:11 Labs: Laboratory Results - last 24 hr 03/21/23 03/21/23 18:25 19:11 WBC 13.88 H RBC 4.69 Hgb 11.6 L Hct 37.5 L MCV 80 MCH 24.7 L MCHC 30.9 L RDW 15.2 H Plt Count 273 MPV 8.4 Immature Gran % 0.3 Neutrophils % 75.2 Lymphocytes % 17.6 Monocytes % 6.3 Eosinophils % 0.3 Basophils % 0.3 Nucleated RBC % 0.0 Absolute Neutrophils 10.44 H Absolute Lymphocytes 2.44 Absolute Monocytes 0.87 H Absolute Eosinophils 0.04 Absolute Basophils 0.04 Sodium 140 Potassium 3.5 Chloride 103 Carbon Dioxide 26.2 Anion Gap 10.8 BUN 19 H Creatinine 1.0 Est GFR (CKD-EPI 2020) 76.56 Glucose 109 H Calcium 9.2 Urine Color Red Urine Clarity Cloudy Urine pH 5.5 Ur Specific [place] 1.010 Urine Protein >=300 H Urine Ketones 15 H Urine Blood Large H Urine Nitrite Positive H Urine Bilirubin Large H Urine Urobilinogen 1.0 H Ur Leukocyte Esterase Large H Urine RBC >50 H Urine WBC 20-50 H Ur Epithelial Cells Rare Urine Crystals Negative Urine Bacteria Moderate Urine Casts Negative Urine Mucus Moderate Ur Culture Indicated? Yes Urine Glucose Negative Last Vital Signs Temp 37.0 C 03/21/23 18:10 Pulse 94 H 03/21/23 18:10 Resp 20 03/21/23 18:10 BP 170/104 H 03/21/23 18:10 Pulse Ox 99 03/21/23 18:10 Time Spent Time spent with Patient: <40 minutes Time was spent: preparing to see the patient(eg.review tests), obtaining and/or reviewing separately otained hiistory, ordering medications,tests, procedures, referring, communicating with other health senior care provider and indepentently interpreting results
--- NOTE | 2023-03-21 21:52 | NUR.NOTE ---
Nursing Note:pt continues to be on bladder irrigation, x2 manual dislodging of large clots.
--- NOTE | 2023-03-21 22:16 | NUR.NOTE ---
Nursing Note:pt finishing 5 (15,000)
[2023-03-21 22:39] VITALS: BP 150/70; PULSE 80; TEMP 36.5; O2SAT 97
[2023-03-21 23:05] VITALS: BP 158/79; PULSE 79; RESP 16; TEMP 36.9; O2SAT 100
[2023-03-22 00:05] VITALS: BP 158/79; PULSE 79; RESP 16; TEMP 36.9; O2SAT 100
[2023-03-22] MEDS: SODIUM CHLORIDE 0.45% 1,000 ML 100 ML IV ×3 (00:05→18:33)
[2023-03-22 07:27] VITALS: BP 135/76; PULSE 86; RESP 16; TEMP 37; O2SAT 97
[2023-03-22 08:56] LABS: Abs Immature Grans 0.03 10^3/uL (0.0-0.06); Absolute Basophil Count 0.04 10^3/uL (0.0-0.2); Absolute Eosinophil Count 0.04 10^3/uL (0.0-0.7); Absolute Lymphocyte Count 1.87 10^3/uL (1.2-3.4); Absolute Monocyte Count 0.41 10^3/uL (0.1-0.8); Absolute Neutrophil Count 6.71 10^3/uL (1.2-6.7); Basophils % 0.4; Eosinophils % 0.4; HCT 33.6 % (40.0-50.0); HGB 10.5 g/dL (13.5-17.5); Immature Grans % 0.3; Lymphocytes % 20.5; MCH 24.9 pg (27.0-33.0); MCHC 31.3 % (32.0-36.0); MCV 80 fL (80-95); MPV 8.7 fL (8.0-11.0); Monocytes % 4.5; Neutrophils % 73.9; Platelet Count 234 10^3/uL (130-400); RBC 4.21 10^6/uL (4.36-5.78); RDW 15.2 % (11.8-14.1); RDW-SD 44.1 fL
[2023-03-22] MEDS: Normal Saline Flush 10 ML SYR IVP ×2 (09:00→21:34)
[2023-03-22 09:04] LABS: Anion Gap 11.9 mmol/L (3-11); BUN 12 mg/dL (7-18); CO2 23.1 mmol/L (21.0-32.0); CREATININE 0.9 mg/dL (0.70-1.30); Calcium 8.6 mg/dL (8.5-10.1); Chloride 106 mmol/L (98-107); Estimated GFR 86.88 (mL/min/1.73m2); Glucose 175 mg/dL (74-106); Magnesium 1.9 mg/dL (1.8-2.4); Potassium 3.5 mmol/L (3.5-5.1); Sodium 141 mmol/L (136-145)
[2023-03-22 15:29] VITALS: BP 147/67; PULSE 89; RESP 14; TEMP 36.9; O2SAT 98
--- NOTE | 2023-03-22 16:33 | UCONE_ITS ---
Date of service: 03/22/23 Time of Service: 16:36 Assessment and Plan Assessment and plan (1) Gross hematuria: Status: Acute Assessment and plan: I will leave him in p.o. after midnight just in case he develops clot retention again overnight. If he does develop clot retention, we will be prepared to do cystoscopy and clot evacuation. As long as the irrigant remains clear and clot free overnight, I will plan on removing the catheter and removing the IV tomorrow morning. As long as he is able to void, he will be discharged on an oral antibiotic. We will touch base with our anesthesia colleagues again to see exactly when he will qualify for a surgical procedure. Our options would include either a simple open prostatectomy or a cystoscopy and vaporization of the prostate. He only energy source that I could provide for the vaporization procedure here at [facility] is bipolar cautery. History of Present Illness History of Present Illness Chief Complaint: Clot retention Narrative: This is a 77-year-old gentleman who is well-known to our service. He has a long history of urinary retention and was performing clean intermittent catheterization. Ultimately, he underwent transurethral resection of very large prostate. He was then able to void on his own. Lately, he has been having episodes of gross hematuria with clots. The episodes escalated after he had a stroke and received some anticoagulants. We have identified urinary tract infections at times, but most of his bleeding seems to be coming from an enlarged, vascular prostate. He has been unable to tolerate 5 alpha reductase inhibitors, so our recommended treatment will be surgical. Unfortunately, after his stroke, there is a 6-month waiting period before he would qualify for a general anesthetic for elective surgery at our facility. During that 6-month waiting period, he has had 4-5 episodes of hematuria and clot retention requiring catheterization. He came into our emergency room Sunnes night with gross hematuria and clots. A Rueda catheter was placed and continuous bladder irrigation was begun. Since his admission, the staff has had to hand irrigate his catheter periodically. For the last 12 hours or so the irrigant has been clear and there have been no clots. Review of Systems Narrative: No fevers No vision change or dysphasia No diabetes or thyroid dysfunction No shortness of breath, cough or hemoptysis No chest pain or palpitations GERD. No hepatitis, ulcers, jaundice Stroke @ 6months ago. No seizures No bleeding disorders or anemia No gout PFSH All Active Problems Gross hematuria (Acute) Vertebral artery occlusion (Acute) Palpitations (Chronic) Intra-abdominal lymphadenopathy (Acute) GERD with esophagitis (Acute 12/06/11) Gastroesophageal reflux disease (Chronic 07/27/16) SBO (small bowel obstruction) (Acute) Statin declined (Acute) Erectile dysfunction (Acute) 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 tract symptoms (Chronic 02/09/15) Elevated BP without diagnosis of hypertension (Acute 12/21/16) History of elevated prostate specific antigen (PSA) (Acute 01/18/16) 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 What is your relationship status?: How often do you talk on the phone with friends or family?: three or more times per week How often do you get together with friends or relatives?: three or more times per week Panel score (0-1 are the most socially isolated patients): 2 What type of physical activity do you participate in: other Details: physically active daily with work around his home Seatbelt use: always Helmet use: Yes Working smoke detector in home: Yes Carbon monox detector in home: Yes Do you feel safe at home: Yes Do you feel safe in your relationship?: Yes Exam Narrative Exam Narrative: He appears comfortable His vital signs are documented elsewhere His chest wall motion is normal. He is not short of breath at rest. His abdomen is soft with no guarding or rebound tenderness He is catheter is in place and the irrigant from the catheter is clear. I hand irrigated the catheter with with saline and found no additional clots He is awake and alert Results Last Vital Signs Temp 36.9 C 03/22/23 15:29 Pulse 89 03/22/23 15:29 Resp 14 03/22/23 15:29 BP 147/67 H 03/22/23 15:29 Pulse Ox 98 03/22/23 15:29 Labs 03/23/23 05:37 03/23/23 05:37 Labs: Laboratory Results - last 24 hr 03/21/23 03/21/23 03/22/23 18:25 19:11 08:45 WBC 13.88 H 9.10 RBC 4.69 4.21 L Hgb 11.6 L 10.5 L Hct 37.5 L 33.6 L MCV 80 80 MCH 24.7 L 24.9 L MCHC 30.9 L 31.3 L RDW 15.2 H 15.2 H Plt Count 273 234 MPV 8.4 8.7 Immature Gran % 0.3 0.3 Neutrophils % 75.2 73.9 Lymphocytes % 17.6 20.5 Monocytes % 6.3 4.5 Eosinophils % 0.3 0.4 Basophils % 0.3 0.4 Nucleated RBC % 0.0 0.0 Absolute Neutrophils 10.44 H 6.71 H Absolute Lymphocytes 2.44 1.87 Absolute Monocytes 0.87 H 0.41 Absolute Eosinophils 0.04 0.04 Absolute Basophils 0.04 0.04 Sodium 140 141 Potassium 3.5 3.5 Chloride 103 106 Carbon Dioxide 26.2 23.1 Anion Gap 10.8 11.9 H BUN 19 H 12 Creatinine 1.0 0.9 Est GFR (CKD-EPI 2020) 76.56 86.88 Glucose 109 H 175 H Calcium 9.2 8.6 Magnesium 1.9 Urine Color Red Urine Clarity Cloudy Urine pH 5.5 Ur Specific [place] 1.010 Urine Protein >=300 H Urine Ketones 15 H Urine Blood Large H Urine Nitrite Positive H Urine Bilirubin Large H Urine Urobilinogen 1.0 H Ur Leukocyte Esterase Large H Urine RBC >50 H Urine WBC 20-50 H Ur Epithelial Cells Rare Urine Crystals Negative Urine Bacteria Moderate Urine Casts Negative Urine Mucus Moderate Ur Culture Indicated? Yes Urine Glucose Negative
--- NOTE | 2023-03-22 17:11 | INITIAL_ITS ---
Date of service: 03/22/23 Time of Service: 17:11 Care Management Initial Assmt Initial Assessment REASON FOR HOSPITALIZATION:: Hematuria, UTI PREVIOUS FUNCTIONAL STATUS/SOCIAL/FAMILY SUPPORTS:: Greyson lives in [place] with his , Monica. They have three children, all of which live locally. 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 He was very active until the past few months when he developed problems with his urinary tract. He had a TURP performed about [address] Mcgrath and was ok until recently, when he began to develop hematuria with large clots. He reports remaining independent at baseline. CURRENT FUNCTIONAL STATUS:: Greyson was sitting up in bed when CM met with him. He stated that he is doing well, and is hoping to be able to go home today after meeting with Urology. He stated that his catheter is draining clear, and he feels that it is a good indication that things are going well. He reported that he uses a straight catheter at home, so he doesn't feel that he will need any additional support upon discharge. CM will continue to follow. ADVANCE DIRECTIVES:: On file. Monica ACKERMAN and daughter Garret leahy Has patient been provided with info about the portal/API?: Yes Did the patient sign up for the portal?: No CODE STATUS:: Full Code INSURANCE COVERAGE / FINANCIAL ISSUES:: MCR CURRENT HOME/COMMUNITY SERVICES/EQUIPMENT:: none PRIMARY CARE PHYSICIAN:: Brooklyn Farah POTENTIAL DISCHARGE NEEDS:: Evaluations for further needs, follow up appointments. PATIENT/FAMILY EDUCATION NEEDS:: Review discharge instructions and limitations, discussion of self care needs including ask me three ANTICIPATED BARRIERS TO DISCHARGE:: None. TRANSPORTATION:: via private vehicle PLAN:: Anticipate Greyson will return home once medically cleared. He will transport himself via private vehicle. He will follow up with his PCP and discharge plan of care. CM will continue to follow. PFSH All Active Problems Gross hematuria (Acute) Vertebral artery occlusion (Acute) Palpitations (Chronic) Intra-abdominal lymphadenopathy (Acute) GERD with esophagitis (Acute 12/06/11) Gastroesophageal reflux disease (Chronic 07/27/16) SBO (small bowel obstruction) (Acute) Statin declined (Acute) Erectile dysfunction (Acute) 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 tract symptoms (Chronic 02/09/15) Elevated BP without diagnosis of hypertension (Acute 12/21/16) History of elevated prostate specific antigen (PSA) (Acute 01/18/16) 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) Medical History Stroke Hyperlipidemia (07/27/16) Essential hypertension (07/27/16) Benign prostate hyperplasia (12/11/07) Done by Surgical History History of colonoscopy (~08/06/20) History of esophagogastroduodenoscopy (EGD) (~08/06/20) S/P right inguinal hernia repair S/P TURP H/O hernia repair Vasectomy Tonsillectomy Repair of inguinal hernia (~1979) Left EGD w/ BX (07/2020) Weeks, 07/[address] [facility] Family History Other Cancer Social History Smoking/Tobacco Use Status: Former Tobacco Use Quit Date: 04/16/73 Pack-years: 16 Tobacco: How many years used: 16 Smoking risk assessment performed?: Yes Alcohol Intake: current Alcohol Intake frequency: a few times a week Alcohol type: beer and hard liquor Counseling given: No Drug use: Occasionally Substance use type: marijuana Adopted: No Household members: spouse Housing: house Number of Children: 3 number of grandchildren: 4 Communication Needs: Corrective Lenses Do you need help understanding health information?: Rarely 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
[2023-03-22] MEDS: cefTRIAXone 1 GM/50 ML BAG IV (18:33)
[2023-03-23 00:19] VITALS: BP 149/76; PULSE 84; RESP 16; TEMP 36.7; O2SAT 99
[2023-03-23] MEDS: SODIUM CHLORIDE 0.45% 1,000 ML 100 ML IV (03:31)
[2023-03-23 06:43] LABS: Abs Immature Grans 0.02 10^3/uL (0.0-0.06); Absolute Basophil Count 0.06 10^3/uL (0.0-0.2); Absolute Eosinophil Count 0.18 10^3/uL (0.0-0.7); Absolute Lymphocyte Count 2.81 10^3/uL (1.2-3.4); Absolute Monocyte Count 0.51 10^3/uL (0.1-0.8); Basophils % 0.7; Eosinophils % 2.1; HCT 34.9 % (40.0-50.0); HGB 10.7 g/dL (13.5-17.5); Immature Grans % 0.2; Lymphocytes % 32.4; MCH 24.3 pg (27.0-33.0); MCHC 30.7 % (32.0-36.0); MCV 79 fL (80-95); Monocytes % 5.9; Neutrophils % 58.7; Platelet Count 262 10^3/uL (130-400); RDW 15.3 % (11.8-14.1); RDW-SD 43.8 fL; WBC 8.68 10^3/uL (4.4-10.8)
[2023-03-23 06:59] LABS: Anion Gap 9.3 mmol/L (3-11); BUN 13 mg/dL (7-18); CO2 24.7 mmol/L (21.0-32.0); CREATININE 0.9 mg/dL (0.70-1.30); Calcium 8.5 mg/dL (8.5-10.1); Chloride 107 mmol/L (98-107); Estimated GFR 86.88 (mL/min/1.73m2); Glucose 93 mg/dL (74-106); Magnesium 2.1 mg/dL (1.8-2.4); Potassium 3.8 mmol/L (3.5-5.1); Sodium 141 mmol/L (136-145)
--- NOTE | 2023-03-23 07:32 | W.PM.PROGNOT ---
Date of Service Date of service: 03/23/23 Time of Service: 07:32 Assessment and Plan Assessment and plan (1) Gross hematuria: Status: Acute Assessment and plan: We will go ahead and discontinue both his bladder irrigation and his Rueda catheter. We can remove his IV fluids. As long as he is able to void, we will discharge him to home. We already have a follow-up set up for next week. That we will give me a chance to speak with our anesthesia providers to get a better indication of when he will qualify for an elective surgery under general anesthesia here at our facility. We have had to delay any prior surgeries due to his recent stroke. Subjective Subjective Interval history since last seen: He has had a restful night with no episodes of clot retention. He has no fevers or chills. He is tolerating oral nutrition and medications Exam Narrative Exam Narrative: He appears comfort double His bladder irrigation is clear He is awake and alert Objective Last Vital Signs Temp 36.7 C 03/23/23 00:19 Pulse 84 03/23/23 00:19 Resp 16 03/23/23 00:19 BP 149/76 H 03/23/23 00:19 Pulse Ox 99 03/23/23 00:19 Laboratory Results - last 24 hr 03/22/23 03/23/23 08:45 05:37 WBC 9.10 8.68 RBC 4.21 L 4.40 Hgb 10.5 L 10.7 L Hct 33.6 L 34.9 L MCV 80 79 L MCH 24.9 L 24.3 L MCHC 31.3 L 30.7 L RDW 15.2 H 15.3 H Plt Count 234 262 MPV 8.7 9.0 Immature Gran % 0.3 0.2 Neutrophils % 73.9 58.7 Lymphocytes % 20.5 32.4 Monocytes % 4.5 5.9 Eosinophils % 0.4 2.1 Basophils % 0.4 0.7 Nucleated RBC % 0.0 0.0 Absolute Neutrophils 6.71 H 5.10 Absolute Lymphocytes 1.87 2.81 Absolute Monocytes 0.41 0.51 Absolute Eosinophils 0.04 0.18 Absolute Basophils 0.04 0.06 Sodium 141 141 Potassium 3.5 3.8 Chloride 106 107 Carbon Dioxide 23.1 24.7 Anion Gap 11.9 H 9.3 BUN 12 13 Creatinine 0.9 0.9 Est GFR (CKD-EPI 2020) 86.88 86.88 Glucose 175 H 93 Calcium 8.6 8.5 Magnesium 1.9 2.1 Time Spent with Patient Time Spent with Patient: <25 minutes Time was spent: other
--- NOTE | 2023-03-23 07:36 | DSE_ITS ---
Date of service: 03/23/23 Time of Service: 07:36 DS: Diagnosis Discharge Diagnosis (1) Gross hematuria: Status: Acute Discharge Plan Disposition Patient Disposition: Home Condition: Stable Discharge Details Reason For Visit: Hematuria, UTI Admit Date/Time: 03/21/23 21:57 Admit Provider: Fredy Mcgrath Attending Provider: Fredy Mcgrath Primary Care Provider: Brooklyn Farah Hospital Course Hospital Course: The patient was a mated through the emergency department. He was started on broad-spectrum antibiotics. An irrigating catheter was placed and continuous bladder irrigation was started. Intermittently, hand irrigation was performed and clots were extracted from the bladder. By hospital day #2, his bladder irrigation was clear and no additional clots were noted. He was afebrile. The urine culture is growing gram-negative rods but the final sensitivity is not yet available. We removed his catheter and irrigation on hospital day #2. He will be discharged to home once he demonstrates he is able to void. Home Meds and New Rx's Prescriptions: New ciprofloxacin HCl [Cipro] 500 mg tablet 500 mg PO BID Qty: 10 0RF No Action calcium carbonate [Tums] 200 MG tablet,chewable 200 mg PO DAILY PRN rosuvastatin 5 mg tablet 5 mg PO DAILY Qty: 30 3RF Hold Instructions: Pt Stopped/Never Started aspirin [Children's Aspirin] 81 mg Tablet,Chewable 81 mg PO DAILY Qty: 0 0RF Discharge Instructions Additional Instructions: We already have a telehealth visit arranged for March 26. By that time, I will have been able to speak with our anesthesia providers to see when an elective surgery at our facility would be appropriate. I have sent in a prescription for an antibiotic. We may contact you if we need to switch the antibiotic based on in-hospital testing. Activity:: Activity as Tolerated Equipment/Supplies:: No Equipment Needed Diet:: As Tolerated Discharge Orders Discharge Orders: Discharge Order (Routine); Ordered 03/23/23 Ordered By: Fredy Mcgrath DS: Summary Time Spent with Patient providing and/or coordinating discharge services: Less than 30 minutes Status at Discharge Functional status at discharge: independent ambulation Overall status at discharge: patient is back to baseline Mental Status: mental status grossly normal Speech and Movement: speech and movement normal Mood: congruent mood Affect: normal affect Exam Narrative Exam Narrative: At the time of the discharge, he looks comfortable His vital signs are documented elsewhere His chest wall motion is normal. He is not short of breath at rest. His abdomen is soft with no guarding or rebound tenderness He is awake and alert Psych Mental Status: mental status grossly normal Speech and Movement: speech and movement normal Mood: congruent mood Affect: normal affect DS: Data Vitals/I&O Vitals and I&O: Vital Signs Temperature 36.7 C 03/23/23 00:19 Temperature Source Tympanic 03/23/23 00:19 Pulse 84 03/23/23 00:19 Pulse Rhythm Regular 03/22/23 21:05 Respiratory Rate 16 03/23/23 00:19 Respiratory Effort Normal 03/22/23 21:05 Respiratory Depth Normal 03/22/23 21:05 Respiratory Pattern Normal 03/22/23 21:05 Blood Pressure 149/76 H 03/23/23 00:19 Pulse Oximetry 99 03/23/23 00:19 Oxygen Delivery Method Room Air 03/23/23 00:19 Oxygen Flow Rate 0 03/23/23 00:19 Pain Level 0 03/22/23 15:29 Intake & Output 03/22/23 03/22/23 03/23/23 11:59 23:59 11:59 Intake Total 1038.333 / 2726.666 1688.333 / 2726.666 896.667 / 896.667 Balance 1038.333 / 2726.666 1688.333 / 2726.666 896.667 / 896.667 Weight 70.307 kg Intake: IV 888.333 / 1846.666 958.333 / 1846.666 896.667 / 896.667 Oral 150 / 880 730 / 880 Other: Urine Color Jameson Pale Yellow Urine Appearance Clear Clear Hematuria Comment CBI total of 10 bags infused overnight, flowing at half speed. Data Completed and Pending Labs on day of discharge: Labs from last 24 hours 03/23/23 03/22/23 05:37 08:45 WBC 8.68 9.10 RBC 4.40 4.21 L Hgb 10.7 L 10.5 L Hct 34.9 L 33.6 L MCV 79 L 80 MCH 24.3 L 24.9 L MCHC 30.7 L 31.3 L RDW 15.3 H 15.2 H Plt Count 262 234 MPV 9.0 8.7 Immature Gran % 0.2 0.3 Neutrophils % 58.7 73.9 Lymphocytes % 32.4 20.5 Monocytes % 5.9 4.5 Eosinophils % 2.1 0.4 Basophils % 0.7 0.4 Nucleated RBC % 0.0 0.0 Absolute Neutrophils 5.10 6.71 H Absolute Lymphocytes 2.81 1.87 Absolute Monocytes 0.51 0.41 Absolute Eosinophils 0.18 0.04 Absolute Basophils 0.06 0.04 Sodium 141 141 Potassium 3.8 3.5 Chloride 107 106 Carbon Dioxide 24.7 23.1 Anion Gap 9.3 11.9 H BUN 13 12 Creatinine 0.9 0.9 Est GFR (CKD-EPI 2020) 86.88 86.88 Glucose 93 175 H Calcium 8.5 8.6 Magnesium 2.1 1.9 Preliminary micro results at discharge 03/21/23 18:25 Urine Culture - Preliminary Urine - Reflex from Ua Gram Negative [place] PFSH All Active Problems Gross hematuria (Acute) Vertebral artery occlusion (Acute) Palpitations (Chronic) Intra-abdominal lymphadenopathy (Acute) GERD with esophagitis (Acute 12/06/11) Gastroesophageal reflux disease (Chronic 07/27/16) SBO (small bowel obstruction) (Acute) Statin declined (Acute) Erectile dysfunction (Acute) 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 tract symptoms (Chronic 02/09/15) Elevated BP without diagnosis of hypertension (Acute 12/21/16) History of elevated prostate specific antigen (PSA) (Acute 01/18/16) 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) Medical History Stroke Hyperlipidemia (07/27/16) Essential hypertension (07/27/16) Benign prostate hyperplasia (12/11/07) Done by Surgical History History of colonoscopy (~08/06/20) History of esophagogastroduodenoscopy (EGD) (~08/06/20) S/P right inguinal hernia repair S/P TURP H/O hernia repair Vasectomy Tonsillectomy Repair of inguinal hernia (~1979) Left EGD w/ BX (07/2020) Weeks, 07/2020 @ [facility] Family History Other Cancer Social History Smoking/Tobacco Use Status: Former Tobacco Use Quit Date: 04/16/73 Pack-years: 16 Tobacco: How many years used: 16 Smoking risk assessment performed?: Yes Alcohol Intake: current Alcohol Intake frequency: a few times a week Alcohol type: beer and hard liquor Counseling given: No Drug use: Occasionally Substance use type: marijuana Adopted: No Household members: spouse Housing: house Number of Children: 3 number of grandchildren: 4 Communication Needs: Corrective Lenses Do you need help understanding health information?: Rarely 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 What is your relationship status?: How often do you talk on the phone with friends or family?: three or more times per week How often do you get together with friends or relatives?: three or more times per week Panel score (0-1 are the most socially isolated patients): 2 What type of physical activity do you participate in: other Details: physically active daily with work around his home Seatbelt use: always Helmet use: Yes Working smoke detector in home: Yes Carbon monox detector in home: Yes Do you feel safe at home: Yes Do you feel safe in your relationship?: Yes Time Spent with Patient Time Spent with Patient: <45 minutes Time was spent: preparing to see the patient(eg.review tests), obtaining and/or reviewing separately otained hiistory and counseling the patient
[2023-03-23 10:02] VITALS: BP 117/73; PULSE 94; RESP 17; TEMP 36.3; O2SAT 98
--- NOTE | 2023-03-23 11:51 | CMDISCH_ITS ---
Date of service: 03/23/23 Time of Service: 11:51 LACE Index Scoring Tool Questions: Length of Stay (in days): 2 Was the patient admitted via the E.D.?: Yes E.D. Visits: 6 Answers: Total Score: 9 Risk of Readmission: Low Risk Care Management Discharge Plan Reason for Hospitalization: Hematuria, UTI Discharge Plan: Greyson returned home today with no new services. He drove himself home via private vehicle. He will follow up with his PCP and discharge p devon of care. He was happy to be going home, and has a scheduled follow up visit with Urology next week. Patient/Family Education Needs: Review discharge instructions and limitations, discussion of self care needs including ask me three.
== END 2023-03-23 10:47 | disposition home or self-care (01) ==
LOC: ER 22:53 → MS 22:55
PROVIDERS: Internal Medicine; Admitting Provider Urology; Emergency Provider Emergency Medicine; PCP Nurse Practitioner; Visit Provider Urology
DX: R31.0 Gross hematuria (principal); R33.9 Retention of urine, unspecified; R00.2 Palpitations; I10 Essential (primary) hypertension; E78.5 Hyperlipidemia, unspecified; Z86.73 Personal history of transient ischemic attack (TIA), and cerebral infarction without residual deficits; K21.00 Gastro-esophageal reflux disease with esophagitis, without bleeding; N40.1 Benign prostatic hyperplasia with lower urinary tract symptoms; F12.90 Cannabis use, unspecified, uncomplicated; Z87.891 Personal history of nicotine dependence; I65.09 Occlusion and stenosis of unspecified vertebral artery
CPT/HCPCS: 00123; 36415; 80048; 87077; 96361; 96365; 96366; 99222; 99238; 99285; 81003; 81015; 83735; 85025; 87086; 87186; 99221; G0378; J0696

== ENCOUNTER → 2023-03-22 08:03 | Outpatient (BNVA) | payer MEDICARE, SELFPAY | PROVIDERS: PCP Nurse Practitioner; Referring Provider Nurse Practitioner; Visit Provider Urology | DX: R31.0 Gross hematuria (principal) ==

== ENCOUNTER → 2023-03-26 07:52 | Outpatient (BNVA) | payer MEDICARE, SELFPAY | PROVIDERS: PCP Nurse Practitioner; Referring Provider Nurse Practitioner; Visit Provider Urology | DX: R31.0 Gross hematuria (principal) | CPT/HCPCS: 99442 ==

== ENCOUNTER 2023-03-30 12:24 | Emergency (ER) | payer MEDICARE, SELFPAY ==
[2023-03-30] VITALS (30 sets, daily range): BP systolic 136–165; BP diastolic 63–81; PULSE 64–94; RESP 11–24; TEMP 36.7; O2SAT 100
--- NOTE | 2023-03-30 12:30 | RT.EKG_ITS ---
APPROVED REPORT Exam: Resting ECG Reason for Exam: weak Patient Location: E HR:69 bpm ECG Measurements Heart Rate 69 AXIS IN 171 P 61 QRSd 76 QRS -2 QT 366 T 19 QTc 392 Conclusion Sinus rhythm...normal P axis, V-rate 60- 99
[2023-03-30 12:58] LABS: Abs Immature Grans 0.02 10^3/uL (0.0-0.06); Absolute Basophil Count 0.05 10^3/uL (0.0-0.2); Absolute Eosinophil Count 0.06 10^3/uL (0.0-0.7); Absolute Lymphocyte Count 2.68 10^3/uL (1.2-3.4); Absolute Monocyte Count 0.43 10^3/uL (0.1-0.8); Absolute Neutrophil Count 4.76 10^3/uL (1.2-6.7); Basophils % 0.6; Eosinophils % 0.8; HCT 36.6 % (40.0-50.0); HGB 11.4 g/dL (13.5-17.5); Immature Grans % 0.3; Lymphocytes % 33.5; MCHC 31.1 % (32.0-36.0); MCV 80 fL (80-95); MPV 8.4 fL (8.0-11.0); Monocytes % 5.4; Neutrophils % 59.4; Platelet Count 311 10^3/uL (130-400); RBC 4.56 10^6/uL (4.36-5.78); RDW 15.3 % (11.8-14.1); RDW-SD 44.2 fL
[2023-03-30 13:29] LABS: ALT 32 U/L (16-63); AST 23 U/L (15-37); Alkaline Phosphatase 77 U/L (46-116); BUN 19 mg/dL (7-18); Bilirubin, Total 0.3 mg/dL (0.2-1.0); Calcium 9.5 mg/dL (8.5-10.1); Chloride 104 mmol/L (98-107); Estimated GFR 76.56 (mL/min/1.73m2); Glucose 96 mg/dL (74-106); Magnesium 2.1 mg/dL (1.8-2.4); Potassium 3.8 mmol/L (3.5-5.1); Sodium 141 mmol/L (136-145); Total Protein 7.6 g/dL (6.4-8.2); Troponin I < 50 ng/L (<or=60)
[2023-03-30] MEDS: Normal Saline 250 ML 500 ML IV (13:34)
--- NOTE | 2023-03-30 14:31 | ED.GENADUL_ITS ---
Discharge Plan Discharge Details Chief Complaint: GenMedical Primary Care Provider: Brooklyn Farah ED Provider: Lex Ardon Home Meds and New Rx's Prescriptions: No Action calcium carbonate [Tums] 200 MG tablet,chewable 200 mg PO DAILY PRN rosuvastatin 5 mg tablet 5 mg PO DAILY Qty: 30 3RF Hold Instructions: Pt Stopped/Never Started aspirin [Children's Aspirin] 81 mg Tablet,Chewable 81 mg PO DAILY Qty: 0 0RF ciprofloxacin HCl [Cipro] 500 mg tablet 500 mg PO BID Qty: 10 0RF Medical Decision Making Patient presenting to the emergency department with multiple complaints. Patient states that in the middle the night he started having some skin sensitivity and discomfort that has mostly resolved now. He states that he also felt like he had a fast heart rate, generalized weakness and dizziness. He was recently admitted to the hospital for urinary tract infection with hematuria and took his last dose of Cipro this morning. His only complaint now at this time is some mild chest discomfort. He does report that he had been shoveling and using a rough rake yesterday so question of this possibly being muscular. 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 Physical exam is unremarkable with no signs of neurological dysfunction, no sensory deficits, normal cardiac and respiratory exam. Given patient's age and recent admission will perform EKG and laboratory workup along with COVID flu RSV. Pending results will give patient fluid bolus. Please see physician interpretation for full interpretation of EKG but upon my review patient is in sinus rhythm, rate of 69, no acute signs to meet STEMI criteria. Review of labs show an ongoing anemia but slightly improved since admission and discharged home, BUN slightly elevated at 19 otherwise normal CMP, nondetected troponin, urinalysis shows trace protein and blood but no signs of infection at this time, and patient is negative for COVID flu and RSV. Reassessed patient he did state improvement of symptoms and now denying any chest discomfort. Given patient's age and increased strenuous activity yesterday will perform second troponin but I feel high likelihood of home disposition. Consideration of possible medication reaction but lower likelihood, chest discomfort secondary to exertion. Lab Data Lab results reviewed: Yes I reviewed the patient's lab results. HPI General Mode of arrival: ambulatory . Date/Time Provider Initiated Documentation: 03/30/23 12:30 . Limitations to Documentation: no limitations . Information obtained by: patient and RN notes reviewed . History of Present Illness 77 year old M presents to the emergency department with the chief complaint of Abnormal skin sensation, chest tightness, dizziness, fast heart rate, Patient started experiencing this hour(s) (9) and it has been constant. No relieving factors improve symptom(s), No exacerbating factors reported . Patient did receive the following treatments prior to arrival, none Related Data Home Medications Medication Instructions Recorded Confirmed calcium carbonate 200 mg calcium 200 mg PO DAILY PRN 09/06/16 03/26/23 (500 mg) chewable tablet (Tums) aspirin 81 mg chewable tablet 81 mg PO DAILY #0 tabs 10/06/22 03/26/23 (Children's Aspirin) rosuvastatin 5 mg tablet 5 mg PO DAILY #30 tabs 12/25/22 03/26/23 ciprofloxacin HCl 500 mg tablet 500 mg PO BID #10 tabs 03/23/23 03/26/23 (Cipro) Previous Rx's Medication Instructions Recorded aspirin 81 mg chewable tablet 81 mg PO DAILY #0 tabs 10/06/22 (Children's Aspirin) rosuvastatin 5 mg tablet 5 mg PO DAILY #30 tabs 12/25/22 ciprofloxacin HCl 500 mg tablet 500 mg PO BID #10 tabs 03/23/23 (Cipro) Allergies Allergy/AdvReac Type Severity Reaction Status Date / Time finasteride AdvReac Intermediate pale, weak Verified 03/30/23 12:35 sweating dutasteride [From Avodart] AdvReac Verified 03/30/23 12:35 terazosin HCl [From Hytrin] AdvReac sweats Verified 03/30/23 12:35 General Stated Complaint: GenMedical BEATRIZ: 3 Review of Systems Constitutional Constitutional: Reports chills, Denies fever(s), Denies headache(s), Denies night sweats and Denies weakness ENT Ears, Nose, Mouth, and Throat: Reports dizziness, Denies headache(s) and Denies disequilibrium Cardiovascular Cardiovascular: Reports chest pain, Denies syncope, Reports rapid heart rate and Reports dyspnea Respiratory Respiratory: Denies cough and Reports dyspnea Gastrointestinal Gastrointestinal: Denies abdominal pain, Denies nausea and Denies vomiting Integumentary/Breasts Skin/Breast: Reports as per HPI, Reports skin pain and Denies skin swelling Neurologic Neurologic: Reports burning sensations, Reports dizziness, Denies syncope, Denies headache(s), Denies disequilibrium and Denies weakness PFSH All Active Problems Vertebral artery occlusion (Acute) Palpitations (Chronic) Intra-abdominal lymphadenopathy (Acute) GERD with esophagitis (Acute 12/06/11) Gastroesophageal reflux disease (Chronic 07/27/16) SBO (small bowel obstruction) (Acute) Statin declined (Acute) Erectile dysfunction (Acute) 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 tract symptoms (Chronic 02/09/15) Elevated BP without diagnosis of hypertension (Acute 12/21/16) History of elevated prostate specific antigen (PSA) (Acute 01/18/16) 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) Medical History Gross hematuria Stroke Hyperlipidemia (07/27/16) Essential hypertension (07/27/16) Benign prostate hyperplasia (12/11/07) Done by Surgical History History of colonoscopy (~08/06/20) History of esophagogastroduodenoscopy (EGD) (~08/06/20) S/P right inguinal hernia repair S/P TURP H/O hernia repair Vasectomy Tonsillectomy Repair of inguinal hernia (~1979) Left EGD w/ BX (07/2020) Weeks, 07/2020 @ [facility] Family History Other Cancer Social History Smoking/Tobacco Use Status: Former Tobacco Use Quit Date: 04/16/73 Pack-years: 16 Tobacco: How many years used: 16 Smoking risk assessment performed?: Yes Alcohol Intake: current Alcohol Intake frequency: a few times a week Alcohol type: beer and hard liquor Counseling given: No Drug use: Occasionally Substance use type: marijuana Adopted: No Household members: spouse Housing: house Number of Children: 3 number of grandchildren: 4 Communication Needs: Corrective Lenses Do you need help understanding health information?: Rarely 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 What is your relationship status?: How often do you talk on the phone with friends or family?: three or more times per week How often do you get together with friends or relatives?: three or more times per week Panel score (0-1 are the most socially isolated patients): 2 What type of physical activity do you participate in: other Details: physically active daily with work around his home Seatbelt use: always Helmet use: Yes Working smoke detector in home: Yes Carbon monox detector in home: Yes Do you feel safe at home: Yes Do you feel safe in your relationship?: Yes Exam Const General: cooperative, healthy appearing, comfortable, no acute distress, not diaphoretic and not ill appearing Nutritional Appearance: average body habitus Orientation: alert, awake and oriented x3 Limitations: mental status not altered Neck Neck: normal visual inspection, full ROM, trachea midline, supple and no anterior neck swelling Chest Chest: normal inspection of the chest Resp Effort & Inspection: normal respiratory effort and able to speak in complete sentences Auscultation: clear to auscultation bilaterally Cardio Jugular venous pressure: no JVD Palpation: normal PMI Rate: regular rate Rhythm: regular rhythm Heart Sounds: S1 normal, S2 normal, no click, no gallops, no murmurs and no rubs Skin General skin exam: no rashes or lesions noted Neuro General: patient alert, patient awake, patient oriented x3, tone normal, moves all extremities, CN's II-XI intact bilaterally and not confused Cognition: normal cognition Speech: speech normal Gait: normal gait Motor: muscle tone normal throughout and strength 5/5 throughout Sensory Exam: no sensory deficits noted Course Vital Signs Vital signs: Vital Signs Temperature 36.7 C 03/30/23 12:29 Pulse 89 03/30/23 12:29 Respiratory Rate 18 03/30/23 12:29 Blood Pressure 157/78 H 03/30/23 12:29 Pulse Oximetry 100 03/30/23 12:29 Temperature 36.7 C 03/30/23 12:43 Temperature Source Skin 03/30/23 12:29 Pulse 89 03/30/23 12:43 Respiratory Rate 18 03/30/23 12:43 Respiratory Effort Normal 03/30/23 12:43 Respiratory Depth Normal 03/30/23 12:43 Respiratory Pattern Normal 03/30/23 12:43 Blood Pressure 157/78 H 03/30/23 12:43 Blood Pressure Position Sitting 03/30/23 12:43 Pulse Oximetry 100 03/30/23 12:43 Oxygen Delivery Method Room Air 03/30/23 12:43 Oxygen Flow Rate 0 03/30/23 12:29 Pain Level 7 03/30/23 12:43 Lab/Test Results Lab/Test Results: Laboratory Tests Range/Units 03/30/23 12:50 WBC (4.4-10.8) 10^3/uL 8.00 RBC (4.36-5.78) 10^6/uL 4.56 Hgb (13.5-17.5) g/dL 11.4 L Hct (40.0-50.0) % 36.6 L MCV (80-95) fL 80 MCH (27.0-33.0) pg 25.0 L MCHC (32.0-36.0) % 31.1 L RDW (11.8-14.1) % 15.3 H Plt Count (130-400) 10^3/uL 311 MPV (8.0-11.0) fL 8.4 Immature Gran % 0.3 Neutrophils % 59.4 Lymphocytes % 33.5 Monocytes % 5.4 Eosinophils % 0.8 Basophils % 0.6 Nucleated RBC % (0.0-0.3) % 0.0 Absolute Neutrophils (1.2-6.7) 10^3/uL 4.76 Absolute Lymphocytes (1.2-3.4) 10^3/uL 2.68 Absolute Monocytes (0.1-0.8) 10^3/uL 0.43 Absolute Eosinophils (0.0-0.7) 10^3/uL 0.06 Absolute Basophils (0.0-0.2) 10^3/uL 0.05 Sodium (136-145) mmol/L 141 Potassium (3.5-5.1) mmol/L 3.8 Chloride (98-107) mmol/L 104 Carbon Dioxide (21.0-32.0) mmol/L 28.0 Anion Gap (3-11) mmol/L 9.0 BUN (7-18) mg/dL 19 H Creatinine (0.70-1.30) mg/dL 1.0 Est GFR (CKD-EPI 2020) (mL/min/1.73m2) 76.56 Glucose (74-106) mg/dL 96 Calcium (8.5-10.1) mg/dL 9.5 Magnesium (1.8-2.4) mg/dL 2.1 Total Bilirubin (0.2-1.0) mg/dL 0.3 AST (15-37) U/L 23 ALT (16-63) U/L 32 Alkaline Phosphatase (46-116) U/L 77 Troponin I (<or=60) ng/L < 50 Total Protein (6.4-8.2) g/dL 7.6 Albumin (3.4-5.0) g/dL 4.0 Sign Out Sign Out Data: Sign Out Comment: Patient signed out pending delta troponin and reassessment along with expected disposition Home. Last updated by Lex Ardon NP at 03/30/23 15:39
[2023-03-30 14:37] LABS: COVID-19 PCR Negative (Negative); Influenza A PCR Negative (Negative); Influenza B PCR Negative (Negative); RSV PCR Negative (Negative)
[2023-03-30 14:56] LABS: Source Nasopharynx
[2023-03-30 15:04] LABS: Bilirubin Negative (Negative); Blood Trace-intact (Negative); Clarity Clear (Clear); Glucose Negative (Negative); Ketones Negative (Negative); Leukocyte Esterase Negative (Negative); Nitrite Negative (Negative); Urobilinogen 0.2 mg/dL (Up to 0.2); pH 6.5 (5-8)
[2023-03-30 15:16] LABS: Bacteria Negative HPF (Negative); C & S Indicated? No; Crystals Negative HPF (Negative); Epithelial Cells Rare HPF (Negative); Mucus Trace (Negative); WBC 0-2 HPF (0-5)
[2023-03-30 16:30] LABS: Troponin I < 50 ng/L (<or=60)
--- NOTE | 2023-03-30 16:30 | DI.RAD_ITS ---
Exam(s) XR CHEST 2V PA LATERAL EXAM: XR CHEST 2V PA LATERAL CLINICAL HISTORY: Chest tightness TECHNIQUE: 2D digital imaging was performed of the chest. Two images were obtained. PA and lateral views were obtained. COMPARISON: CR,XR XR CHEST 2V PA LATERAL from 08/25/2022 CR XR PORTABLE CHEST AP from 10/06/2022 FINDINGS: MEDIASTINUM: Normal. HEART: Normal. PULMONARY VASCULATURE: Normal. LUNGS: Clear. PLEURAL SPACE: No pleural effusion or pneumothorax. BONE:Within normal limits for the patient's age. OTHER FINDINGS:Normal. IMPRESSION: No acute pulmonary findings. DATA REPOSITORY: RADIATION DOSE DELIVERED:
== END 2023-03-30 17:18 | disposition home or self-care (01) ==
PROVIDERS: Nurse Practitioner Family; Emergency Provider Physician Assistant; PCP Nurse Practitioner
DX: R42 Dizziness and giddiness (principal); R00.2 Palpitations; I10 Essential (primary) hypertension; E78.5 Hyperlipidemia, unspecified; Z86.73 Personal history of transient ischemic attack (TIA), and cerebral infarction without residual deficits; Z87.891 Personal history of nicotine dependence; Z20.822 Contact with and (suspected) exposure to COVID-19; Z79.82 Long term (current) use of aspirin
CPT/HCPCS: 36415; 80053; 87637; 93005; 99283; 71046; 81003; 81015; 83735; 84484; 85025; 93010

== ENCOUNTER 2023-05-31 06:14 | Inpatient (IN) | payer MEDICARE, SELFPAY ==
[2023-05-31] VITALS (33 sets, daily range): BP systolic 79–136; BP diastolic 27–97; PULSE 65–95; RESP 13–20; TEMP 35.9–37.8; O2SAT 96–100; BMI 23.6
--- NOTE | 2023-05-31 06:14 | ANES.PREOP_ITS ---
General Info Date of Service Date Performed: 05/31/23 Height: 5 ft 10 in Weight: 74.843 kg Body Mass Index (BMI): 23.6 Surgical Procedure: Operation Date: 05/31/23 07:40 Proposed Procedure Side Surgeon p Simple Retro Pubic Prostatectomy Fredy Mcgrath MD Meds Allergies and Home Medications Allergies Allergy/AdvReac Type Severity Reaction Status Date / Time finasteride AdvReac Intermediate pale, weak Verified 05/31/23 06:15 sweating dutasteride [From Avodart] AdvReac weak, lame Verified 05/31/23 06:15 terazosin HCl [From Hytrin] AdvReac sweats Verified 05/31/23 06:15 Home Medication Medication Instructions Recorded calcium carbonate 200 mg calcium 200 mg PO DAILY PRN 09/06/16 (500 mg) chewable tablet (Tums) aspirin 81 mg chewable tablet 81 mg PO DAILY #0 tabs 10/06/22 (Children's Aspirin) rosuvastatin 5 mg tablet 5 mg PO DAILY #30 tabs 12/25/22 pantoprazole 20 mg tablet,delayed 20 mg PO DAILY #90 tabs 04/10/23 release Current Visit Medications: Current Medications Generic Name Dose Route Start Last Admin Trade Name Freq PRN Reason Stop Dose Admin Ringer's Solution 1,000 mls @ 80 mls/hr 05/31/23 06:00 IV 05/31/23 23:59 INFUSION SRAVAN Cefazolin Sodium/Dextrose 2 gm in 50 mls @ 100 mls/hr 05/31/23 06:00 Ancef Duplex IVPB 05/31/23 23:59 PREOP SRAVAN IV Miscellaneous Supplies 1 each 05/31/23 06:00 Iv Access IV 05/31/23 23:59 DIRECTED SRAVAN Sodium Chloride 0 ml 05/31/23 06:00 Normal Saline Flush 10 Ml Syr IV 05/31/23 23:59 PRN PRN Sodium Chloride 0 ml 05/31/23 06:00 Normal Saline 10 Ml Vial IJ 05/31/23 23:59 DIRECTED PRN Sterile Water 0 ml 05/31/23 06:00 Water,Injection,Sterile 10 Ml Vial IJ 05/31/23 23:59 DIRECTED PRN PFSH Active Problems Active Problems: Problem Status Onset Code Vertebral artery occlusion I65.09 Intra-abdominal lymphadenopathy R59.0 SBO (small bowel obstruction) K56.609 Statin declined Z53.20 Erectile dysfunction N52.9 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 hyperplasia N40.1, R33.8 Palpitations R00.2 Gastroesophageal reflux disease 07/27/16 K21.9 History of elevated prostate specific antigen (PSA) 01/18/16 Z87.898 GERD with esophagitis 12/06/11 K21.0 Elevated BP without diagnosis of hypertension 12/21/16 R03.0 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 tract symptoms 02/09/15 N40.0 Medical History Medical History Gross hematuria Stroke 10/05/2022 Hyperlipidemia (07/27/16) Essential hypertension (07/27/16) Benign prostate hyperplasia (12/11/07) Done by Surgical History Surgical History History of colonoscopy (~08/06/20) History of esophagogastroduodenoscopy (EGD) (~08/06/20) S/P right inguinal hernia repair S/P TURP H/O hernia repair Vasectomy Tonsillectomy Repair of inguinal hernia (~1979) Left EGD w/ BX (07/2020) Weeks, 07/2020 @ [facility] Tobacco Smoking/Tobacco Use Status: Former Tobacco Use Alcohol Alcohol Intake: current Alcohol intake frequency: a few times a month Alcohol type: beer and hard liquor Substance Use Substance use: Occasionally Substance use type: marijuana Vital Signs and Lab Results Lab Results Blood Type / Crossmatch: No Data to Display Complete Blood Count: No Data to Display Complete Metabolic Panel: No Data to Display Liver Function Panel: No Data to Display Coagulation Panel: No Data to Display Cardiac Panel: No Data to Display Arterial Blood Gas: No Data to Display Venous Blood Gas: No Data to Display Pancreas Panel: No Data to Display Thyroid Panel: No Data to Display Infectious Disease: No Data to Display Blood Cultures: No Data to Display Toxicology Panel: No Data to Display Imaging and Studies Imaging and Studies Study information below may be from another EMR and interpreted by another provider. Please see original notes in EMR for more complete details. EKG Summary: 04/07: sinus. 10/06: sinus rhythm, PVCs. Echocardiogram Summary: 10/06: LVEF 55-60%, mild Av sclerosis, mild AR, RVSP 26 mmhg. Carotid Artery Summary:: 10/06: Moderate mixed plaque in the common carotid bulbs and proximal internal carotid arteries. No velocity elevations. Findings consistent with less than 50 percent stenosis Anesthesia Assessment and Plan Anesthesia History Personal History: No History of Anesthesia Complications Family History: No Family History of Anesthesia Complications Exercise Tolerance Exercise Tolerance: Metabolic Equivalents>4 Cardiac & Pulmonary Exam Cardiac Exam: Normal S1/S2 Heart Sounds Pulmonary Exam: Clear Bilateral Breath Sounds Implantable Cardiac Device Does patient have a Pacemaker or an ICD?: No Airway Exam Known Difficult Airway: No Mallampati Class: 1 Mouth Opening: Normal (> 3cm) Thyromental Distance: Greater than 3 cm Neck Range of Motion: Full ROM Neck Circumference: Normal Teeth Condition: Generalized Poor Dentition ASA Classification ASA Score: ASA 3 Emergency Case?: No NPO Status NPO Status: NPO Clears >2 hours, Solids >8 hours Anesthesia Plan Resuscitation Status: Full Code Anesthesia Technique: General Anesthesia Airway Planned: Endotracheal Tube Pain Management: Surgeon and patient request nerve block Monitors Used: Standard Monitors Preoperative Comments:: 77 yo male with hematuria for cyst. Sig PMHx: HTN, GERD (pantoprazole, well controlled), CVA (10/06 ischemia, transient left face and arm numbness/right parietal scattered ischemia. started on plavix, aspirin, atorvastatin, and to allow permissive hypertension. Currently just on aspirin), former smoker, occ EtOH. Previous Anes: - cysto, prop, phenyl infusion, natural airway, no issues. - TURP, LMA 4 with leak -> mac 4 grade 1 - egd/colo, prop, natural airway, no issues. Discussed elevated risk due to stroke history. He is no longer on Plavix, he has not had aspirin in ~3-4 days. Discussed QL1 vs TAP, 2nd IV, and potential arterial line.
[2023-05-31] MEDS: Lactated Ringers 1,000 ML 80 ML IV ×2 (06:41→10:14)
[2023-05-31] MEDS: Normal Saline Flush 10 ML SYR IV (06:41)
--- NOTE | 2023-05-31 06:51 | HPE_ITS ---
Date of service: 05/31/23 Time of Service: 06:51 Assessment and Plan Assessment and plan (1) Gross hematuria: Assessment and plan: The source of his hematuria seems to be from his markedly enlarged, vascular prostate. He is unable to tolerate medical therapy with 5 alpha reductase inhibitors, so that leaves us with surgical treatments. Given the size of his prostate, I have recommended an open prostatectomy. His most recent episode of gross hematuria occurred 4 days ago. He was able to clear the clots with a straight catheter. We will make sure we have a type and screen done preoperatively. We will plan to admit this gentleman after the surgery for continuous bladder irrigation. History of Present Illness History of Present Illness Chief Complaint: Hematuria Narrative: This is a 77 year old man who has a ;tiffany history of urinary retention. He initially performed CIC. He ultimately had a TURP and was able to void successfully. More recently, he has had recurrent episodes of gross hematuria with clot retention. We have not identified any bladder lesions and the bleeding seems to be coming from his prostate. He has been unable to tolerate 5 alpha reductors. Given the size of the prostate, it is felt that a bipolar TURP would take an inordinate amount of time. He is agreeable to an open simple prostatectomy. Review of Systems Narrative: No fevers or chills No vision change or dysphasia No diabetes or thyroid dysfunction URI about 1 month ago. No shortness of breath, cough or hemoptysis No chest pain Hx GERD. No hepatitis, ulcers, jaundice, diarrhea or constipation Stroke @ 6 months ago. No seizures or peripheral neuropathy No bleeding disorders or anemia No gout PFSH All Active Problems Vertebral artery occlusion (Acute) Intra-abdominal lymphadenopathy (Acute) SBO (small bowel obstruction) (Acute) Statin declined (Acute) Erectile dysfunction (Acute) 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) Palpitations (Chronic) Gastroesophageal reflux disease (Chronic 07/27/16) History of elevated prostate specific antigen (PSA) (Acute 01/18/16) GERD with esophagitis (Acute 12/06/11) Elevated BP without diagnosis of hypertension (Acute 12/21/16) 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 tract symptoms (Chronic 02/09/15) Medical History Gross hematuria Stroke 10/05/2022 Hyperlipidemia (07/27/16) Essential hypertension (07/27/16) Benign prostate hyperplasia (12/11/07) Done by Surgical History History of colonoscopy (~08/06/20) History of esophagogastroduodenoscopy (EGD) (~08/06/20) S/P right inguinal hernia repair S/P TURP H/O hernia repair Vasectomy Tonsillectomy Repair of inguinal hernia (~1979) Left EGD w/ BX (07/2020) Weeks, 07/2020 @ [facility] Family History Other Cancer Social History Smoking/Tobacco Use Status: Former Tobacco Use Quit Date: 04/16/73 Pack-years: 16 Tobacco: How many years used: 16 Smoking risk assessment performed?: Yes Alcohol Intake: current Alcohol Intake frequency: a few times a month Alcohol type: beer and hard liquor Counseling given: No Drug use: Occasionally Substance use type: marijuana Adopted: No Household members: spouse Housing: house Number of Children: 3 number of grandchildren: 4 Communication Needs: Corrective Lenses Do you need help understanding health information?: Rarely 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 What is your relationship status?: How often do you talk on the phone with friends or family?: three or more times per week How often do you get together with friends or relatives?: three or more times per week Panel score (0-1 are the most socially isolated patients): 2 What type of physical activity do you participate in: other Details: physically active daily with work around his home Seatbelt use: always Helmet use: Yes Working smoke detector in home: Yes Carbon monox detector in home: Yes Do you feel safe at home: Yes Do you feel safe in your relationship?: Yes Meds Allergies and Home Medications Allergies Allergy/AdvReac Type Severity Reaction Status Date / Time finasteride AdvReac Intermediate pale, weak Verified 05/31/23 06:15 sweating dutasteride [From Avodart] AdvReac weak, lame Verified 05/31/23 06:15 terazosin HCl [From Hytrin] AdvReac sweats Verified 05/31/23 06:15 Home Medications Medication Instructions Recorded Confirmed Type calcium carbonate 200 mg calcium 200 mg PO DAILY PRN 09/06/16 05/29/23 History (500 mg) chewable tablet (Tums) aspirin 81 mg chewable tablet 81 mg PO DAILY #0 tabs 10/06/22 05/31/23 Rx (Children's Aspirin) rosuvastatin 5 mg tablet 5 mg PO DAILY #30 tabs 12/25/22 05/31/23 Rx pantoprazole 20 mg tablet,delayed 20 mg PO DAILY #90 tabs 04/10/23 05/31/23 Rx release Exam Const General: cooperative and comfortable Neck Neck: supple Resp Effort & Inspection: normal respiratory effort Auscultation: clear to auscultation bilaterally Cardio Rate: regular rate Rhythm: regular rhythm GI Palpation: soft and no masses Neuro General: patient alert, patient awake and patient oriented x3 Speech: abnormal speech (mild expressive aphasia) Results Last Vital Signs Temp 36.7 C 05/31/23 06:21 Pulse 90 05/31/23 06:21 Resp 18 05/31/23 06:21 BP 114/84 05/31/23 06:21 Pulse Ox 99 05/31/23 06:21 Time Spent Time spent with Patient: <40 minutes Time was spent: other
[2023-05-31] MEDS: Norepinephrine in D5W 8 MG/250 ML BAG 2 MG IV (08:00)
[2023-05-31] MEDS: ceFAZolin 2 GM/50 ML BAG IVPB (08:07)
--- NOTE | 2023-05-31 08:21 | W.ANESNERVE ---
Nerve Block Single Injection Procedure Date and Time Date Performed: 05/31/23 Procedure Start: 07:49 Location Where Procedure Performed Procedure Location: Operating Room Procedure Stop: 08:00 Reason Performed: Postoperative Analgesia Requesting Provider: Fredy Mcgrath Timeout Performed Timeout Performed: Yes Monitoring Used ECG, Blood Pressure and SpO2 Sterility Sterility: Hand Hygiene, Surgical Cap, Surgical Mask and Sterile Gloves Sedation Given During Procedure Sedation Given (Indicate Dose Given): No Sedation given Patient Mental Status Patient Mental Status: Performed under general anesthesia Nerve Block 1st Nerve Block: Laterality: Bilateral Block Type: TAP Bilateral Ultrasound Image Saved?: Yes Needle / Catheter Used: 120mm SonoPlex II Local Anesthetic Bolus (Indicate Dose Given): Injected in 3-5ml increments after negative blood aspiration, Half of Total block solution given into each side and Bupivacaine 0.25% Dose:: 40 mL Additives (Indicate Dose Given): Epinephrine to make 1:200,000 (5mcg/ml) Dose:: 200 mcg Ultrasound: Sterile probe cover and gel used Nerve Stimulator: Not Used Paresthesia: None Procedure Tolerated: No Complications Procedure Outcome: Successful Performed By: José Manuel Casanova
[2023-05-31] MEDS: EPINEPHrine 10 MG/10 ML ML (08:47)
[2023-05-31] MEDS: Bupivacaine 0.25% Pres-Free 30 ML VIAL (08:47)
--- NOTE | 2023-05-31 09:17 | PROST_PTH ---
PATIENT: Greyson Vicente LOC: U#:[id number] AGE/SX: 77/M ROOM: [id number] RE05/31/[address]: Fredy Mcgrath MD : 1945 BED: A DIS: 06/02/2023 SPEC #: [id number] RECD: 05/31/23 12:01 STATUS: JAVIER REQ #: [id number] ALEXYS: 05/31/23 09:[address]: Fredy Mcgrath DEPT: Surgical Specimen RECD BY: Rosie Lau ENTERED: 05/31/23 12:02 SP TYPE: PROST OTHR DR: Brooklyn Farah APRN Tissues: 1 - PROSTATE RESECTION Procedures: GROSS AND MICRO LEVEL 5 Comments: [id number]
--- NOTE | 2023-05-31 10:05 | W.BRIEF ---
Date of service: 05/31/23 Time of Service: 10:06 Brief Operative Note Procedure/Pre & Post Op Diagnoses/Substation Designer: Operation Date: 05/31/23 07:40 Actual Procedures p Simple Retro Pubic Prostatectomy(Not Applicable) - Fredy Mcgrath MD Pre-Op Diagnosis: GROSS HEMATURIA Post-Op Diagnosis: GROSS HEMATURIA Case Staff Physician Substation Designer: Rafa Mckeon Anesthesia Anesthesia Type: Local By Surgeon and General LMA/ETT Estimated Blood Loss Output, Estimated Blood Loss 250 Amount Specimen/Culture Specimen(s): 1. PROSTATE Complications Complications: None Additional Procedure Notes Note: 24 faroese hematuria reyez catheter with 50 cc sterile water in balloon
--- NOTE | 2023-05-31 10:07 | ROE_ITS ---
Date of service: 05/31/23 Time of Service: 10:07 Operative Note Operative Note DATE OF PROCEDURE: 05/31/23 PRE-OP DIAGNOSIS: Gross hematuria POST-OP DIAGNOSIS: same BPH PROCEDURE: Simple retropubic prostatectomy SURGEON: Fredy Mcgrath PROFESSIONAL POKER PLAYER: Rafa Mckeon ANESTHESIA TYPE: Local By Surgeon and General LMA/ETT Refer to Anesthesia Record ESTIMATED BLOOD LOSS: 250 PATHOLOGY: other (prostate) COMPLICATIONS: None Patient was transported to: PACU Patient's condition: stable Implants: 24 [place] Citizen hematuria catheter with 50 cc sterile water in balloon Indications: This is a 77-year-old gentleman who has a history of an elevated PSA, an enlarged prostate and gross hematuria. Previously, he had a history of urinary retention that was managed with intermittent catheterization. He ultimately underwent a transurethral resection of the prostate to allow him to void. More recently, he had a stroke and was started on anticoagulants. He has had recurrent episodes of gross hematuria with clots. The source of the hematuria seems to be from his prostate. He has not been able to tolerate medical therapy with 5 alpha reductase inhibitors. Given the size of his prostate, we elected to do a simple open prostatectomy rather than a TURP. Findings: Markedly enlarged prostate Procedure Description: The patient was brought to the operating room on 05/31/2023. He was given preprocedural IV antibiotics. After successful induction of general anesthesia, he underwent bilateral tap blocks. He was placed in the supine position. His lower abdomen and genitalia were prepped and draped sterilely. A 16 [place] Citizen Rueda catheter was passed through the urethra into the bladder. The catheter balloon was inflated with 10 cc of sterile water. The catheter was h ooked to gravity drainage. Clear urine was obtained. We then made a Pfannenstiel incision and extended the incision down through the subcutaneous fat until the fascia was identified. The fascia was opened in the direction of the incision. The bellies of the rectus muscle were retracted laterally allowing us to come down into the retroperitoneum. The bladder was retracted cranially and a plane was developed and each side of the prostate. The overlying fatty and vascular tissue on the anterior surface of the prostate was taken down using the Bovie. We then placed a sutures through the prostatic capsule anteriorly and opened the capsule between the stay sutures. A plane was then developed between the prostate adenoma and the capsule itself. Using blunt dissection, the enlarged prostate adenoma was dissected free from the capsule. Out toward the apex of the prostate, finger fracture of the urethra was performed. At the base, the intravesical portion of the prostate was likewise dissected free. The catheter balloon was deflated and the catheter was removed. The entire prostate adenoma was then removed and sent to pathology for permanent sections. Lap sponges were placed in the prostatic fossa to help with hemostasis. The lap sponges were removed and a 24 [place] Citizen hematuria catheter was passed through the urethra and directed into the bladder. The catheter balloon was inflated with 100 cc of sterile water and traction was placed on the catheter balloon to help tamponade any bleeding. The catheter was then hand irrigated multiple times and any blood product that was in the bladder was removed. The prostatic capsule was then closed with figure of 8-0 Vicryl sutures. Continuous bladder irrigation was begun using saline. The irrigant was crystal- clear. At this point in the case sponge and needle counts were performed and they were correct. The rectus fascia was closed with a #1 looped PDS. The subcuticular's tissue was reapproximated with 3-0 Vicryl sutures and the skin was closed with 4-0 Monocryl subcuticular suture. The patient tolerated this procedure well with no complications. His estimated blood loss was 250 cc. He was taken to the recovery room in stable condition.
[2023-05-31] MEDS: fentaNYL 100 MCG/2 ML VIAL IVP (11:00)
[2023-05-31] MEDS: Lactated Ringers 1,000 ML 100 ML IV (12:35)
--- NOTE | 2023-05-31 13:49 | W.ANESPOSTOP ---
Postoperative Evaluation Date, Time and Location Date Performed: 05/31/23 Time Performed: 13:49 Patient Location: PACU (seen in PACU before heading to floor. ) Vital Signs Most Recent Imported Vital Signs: Most Recent Vital Signs Temp Pulse Resp BP Pulse Ox 36.2 C L 78 16 120/60 100 05/31/23 13:18 05/31/23 13:18 05/31/23 13:18 05/31/23 13:18 05/31/23 13:18 Pain Score Most Recent Pain Score: Most Recent Pain Score Pain Level 3 05/31/23 13:18 Assessment Mental Status: Awake but Confused Airway and Respiratory Function: Patent airway with normal (patient baseline) respiratory exam Cardiovascular Function: Hemodynamically Stable Hydration Status: Adequately Hydrated Nausea & Vomiting: No Nausea or Vomiting Pain: Pain is tolerable per patient Peripheral Nerve Block: Regional nerve block not resolved at time of post operative discharge
[2023-05-31] MEDS: ceFAZolin 1 GM/50 ML BAG IVPB ×2 (14:36→23:27)
[2023-05-31] MEDS: Oxybutynin 5 MG TAB PO (14:43)
[2023-05-31 16:33] LABS: Abs Immature Grans 0.15 10^3/uL (0.0-0.06); Absolute Basophil Count 0.03 10^3/uL (0.0-0.2); Absolute Monocyte Count 1.56 10^3/uL (0.1-0.8); Basophils % 0.1; HCT 24.9 % (40.0-50.0); Immature Grans % 0.6; Lymphocytes % 6.1; MCH 23.8 pg (27.0-33.0); MCHC 30.9 % (32.0-36.0); MCV 77 fL (80-95); Monocytes % 5.8; Neutrophils % 87.4; Platelet Count 289 10^3/uL (130-400); RBC 3.23 10^6/uL (4.36-5.78); RDW 15.2 % (11.8-14.1); RDW-SD 42.3 fL
[2023-05-31 16:37] LABS: Absolute Lymphocyte Count 1.64 10^3/uL (1.2-3.4); Absolute Neutrophil Count 23.44 10^3/uL (1.2-6.7)
[2023-05-31 16:39] LABS: HGB 7.7 g/dL (13.5-17.5); WBC 26.82 10^3/uL (4.4-10.8)
[2023-05-31 16:46] LABS: Anion Gap 10.6 mmol/L (3-11); BUN 20 mg/dL (7-18); CO2 23.4 mmol/L (21.0-32.0); CREATININE 1.2 mg/dL (0.70-1.30); Calcium 8.4 mg/dL (8.5-10.1); Chloride 106 mmol/L (98-107); Estimated GFR 61.52 (mL/min/1.73m2); Glucose 221 mg/dL (74-106); Potassium 4.8 mmol/L (3.5-5.1); Sodium 140 mmol/L (136-145)
[2023-05-31 16:54] LABS: Diff Comment Agrees w/ Instrument; Microcytosis 1+
[2023-05-31] MEDS: Docusate Sodium 100 MG CAP PO (20:16)
[2023-06-01] MEDS: ceFAZolin 1 GM/50 ML BAG IVPB (06:28)
[2023-06-01 06:39] LABS: Abs Immature Grans 0.07 10^3/uL (0.0-0.06); Absolute Basophil Count 0.03 10^3/uL (0.0-0.2); Absolute Lymphocyte Count 3.15 10^3/uL (1.2-3.4); Absolute Monocyte Count 1.12 10^3/uL (0.1-0.8); Absolute Neutrophil Count 10.02 10^3/uL (1.2-6.7); Basophils % 0.2; HGB 9.6 g/dL (13.5-17.5); Immature Grans % 0.5; Lymphocytes % 21.9; MCH 25.3 pg (27.0-33.0); MCV 79 fL (80-95); MPV 9.1 fL (8.0-11.0); Monocytes % 7.8; Neutrophils % 69.6; Platelet Count 192 10^3/uL (130-400); RBC 3.79 10^6/uL (4.36-5.78); RDW 15.5 % (11.8-14.1); RDW-SD 44.5 fL; WBC 14.39 10^3/uL (4.4-10.8)
[2023-06-01 07:21] VITALS: BP 128/67; PULSE 89; RESP 16; TEMP 37; O2SAT 100
[2023-06-01 07:29] LABS: Anion Gap 8.1 mmol/L (3-11); BUN 18 mg/dL (7-18); CO2 24.9 mmol/L (21.0-32.0); Calcium 8.3 mg/dL (8.5-10.1); Chloride 108 mmol/L (98-107); Estimated GFR 76.56 (mL/min/1.73m2); Glucose 100 mg/dL (74-106); Potassium 4.3 mmol/L (3.5-5.1); Sodium 141 mmol/L (136-145)
--- NOTE | 2023-06-01 07:41 | W.PM.PROGNOT ---
Date of Service Date of service: 06/01/23 Time of Service: 07:42 Assessment and Plan Assessment and plan (1) Blood loss anemia: Status: Acute (2) Gross hematuria: (3) Benign prostate hyperplasia: Assessment and plan: His hemoglobin responded appropriately to the transfusions. Clinically, he is now doing well. We will require continuous bladder irrigation for at least 24 more hours. If he is able to tolerate oral medications and nutrition, we can potentially remove his IV fluids. We will ask him to ambulate out in the hallways with assistance. Subjective Subjective Interval history since last seen: He had 2 episodes of orthostasis yesterday afternoon. We suspected a vasovagal reaction, but found that his hemoglobin was 7.7, so we transfused him 2 units of packed red blood cells. He has had no further episodes of orthostasis. His urine becomes red-tinged when he coughs or moves but otherwise has been clear. His appetite is fair. He is not nauseated or having any vomiting. Exam Narrative Exam Narrative: He looks well His vital signs are documented elsewhere His abdomen is soft. His incision is clean with no erythema or ecchymosis His catheter is draining clear irrigation. I hand irrigated the catheter and obtained a very small clot. He is awake and alert Objective Last Vital Signs Temp 37.0 C 06/01/23 07:21 Pulse 89 06/01/23 07:21 Resp 16 06/01/23 07:21 BP 128/67 06/01/23 07:21 Pulse Ox 100 06/01/23 07:21 Laboratory Results - last 24 hr 05/31/23 05/31/23 06/01/23 07:15 16:25 06:14 WBC 26.82 H* 14.39 H RBC 3.23 L 3.79 L Hgb 7.7 L 9.6 L Hct 24.9 L 30.0 L MCV 77 L 79 L MCH 23.8 L 25.3 L MCHC 30.9 L 32.0 RDW 15.2 H 15.5 H Plt Count 289 192 MPV 9.0 9.1 Immature Gran % 0.6 0.5 Neutrophils % 87.4 69.6 Lymphocytes % 6.1 21.9 Monocytes % 5.8 7.8 Eosinophils % 0.0 0.0 Basophils % 0.1 0.2 Nucleated RBC % 0.0 0.0 Absolute Neutrophils 23.44 H 10.02 H Absolute Lymphocytes 1.64 3.15 Absolute Monocytes 1.56 H 1.12 H Absolute Eosinophils 0.00 0.00 Absolute Basophils 0.03 0.03 RBC Morphology See Below Microcytosis 1+ Sodium 140 141 Potassium 4.8 4.3 Chloride 106 108 H Carbon Dioxide 23.4 24.9 Anion Gap 10.6 8.1 BUN 20 H 18 Creatinine 1.2 1.0 Est GFR (CKD-EPI 2020) 61.52 76.56 Glucose 221 H 100 Calcium 8.4 L 8.3 L Patient ABO/Rh O Positive Antibody Screen NEGATIVE Crossmatch See Detail Time Spent with Patient Time Spent with Patient: <25 minutes Time was spent: other
[2023-06-01] MEDS: Rosuvastatin 5 MG TAB PO (08:12)
[2023-06-01] MEDS: Pantoprazole 20 MG TABCR PO (08:12)
[2023-06-01] MEDS: Docusate Sodium 100 MG CAP PO ×2 (08:13→19:36)
--- NOTE | 2023-06-01 08:41 | INITIAL_ITS ---
Date of service: 06/01/23 Time of Service: 15:47 Care Management Initial Assmt Initial Assessment REASON FOR HOSPITALIZATION:: Anemia, hematuria PREVIOUS FUNCTIONAL STATUS/SOCIAL/FAMILY SUPPORTS:: Greyson lives in [place] with his , Monica. They have three children, all of which live locally. 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 He reports remaining independent at baseline. CURRENT FUNCTIONAL STATUS:: Greyson required blood transfusions, and remains on continuous bladder irrigation-per MD anticipate at least another 24 hours. Ambulation encouraged. CM will continue to follow. ADVANCE DIRECTIVES:: On file. Monica ACKERMAN and daughter Garret leahy Has patient been provided with info about the portal/API?: Yes Did the patient sign up for the portal?: No CODE STATUS:: Full Code INSURANCE COVERAGE / FINANCIAL ISSUES:: MCR CURRENT HOME/COMMUNITY SERVICES/EQUIPMENT:: None PRIMARY CARE PHYSICIAN:: Brooklyn Farah POTENTIAL DISCHARGE NEEDS:: Evaluations for further needs, follow up appointments. PATIENT/FAMILY EDUCATION NEEDS:: Review discharge instructions and limitations, discussion of self care needs including ask me three ANTICIPATED BARRIERS TO DISCHARGE:: None. TRANSPORTATION:: Via private vehicle PLAN:: Anticipate Greyson will return home once medically cleared. He will transport himself via private vehicle. He will follow up with his PCP, Urology and discharge plan of care. CM will continue to follow. PFSH All Active Problems (Updated 06/01/23 @ 07:45 by Fredy Mcgrath MD) Blood loss anemia (Acute) Vertebral artery occlusion (Acute) Intra-abdominal lymphadenopathy (Acute) SBO (small bowel obstruction) (Acute) Statin declined (Acute) Erectile dysfunction (Acute) 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) Palpitations (Chronic) Gastroesophageal reflux disease (Chronic 07/27/16) History of elevated prostate specific antigen (PSA) (Acute 01/18/16) GERD with esophagitis (Acute 12/06/11) Elevated BP without diagnosis of hypertension (Acute 12/21/16) 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 tract symptoms (Chronic 02/09/15) Medical History (Updated 06/01/23 @ 07:45 by Fredy Mcgrath MD) Gross hematuria Stroke 10/05/2022 Hyperlipidemia (07/27/16) Essential hypertension (07/27/16) Benign prostate hyperplasia (12/11/07) Done by Surgical History History of colonoscopy (~08/06/20) History of esophagogastroduodenoscopy (EGD) (~08/06/20) S/P right inguinal hernia repair S/P TURP H/O hernia repair Vasectomy Tonsillectomy Repair of inguinal hernia (~1979) Left EGD w/ BX (07/2020) Weeks, 07/2020 @ [facility] Family History Other Cancer Social History Smoking/Tobacco Use Status: Former Tobacco Use Quit Date: 04/16/73 Pack-years: 16 Tobacco: How many years used: 16 Smoking risk assessment performed?: Yes Alcohol Intake: current Alcohol Intake frequency: a few times a month Alcohol type: beer and hard liquor Counseling given: No Drug use: Occasionally Substance use type: marijuana Adopted: No Household members: spouse Housing: house Number of Children: 3 number of grandchildren: 4 Communication Needs: Corrective Lenses Do you need help understanding health information?: Rarely 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 What is your relationship status?: How often do you talk on the phone with friends or family?: three or more times per week How often do you get together with friends or relatives?: three or more times per week Panel score (0-1 are the most socially isolated patients): 2 What type of physical activity do you participate in: other Details: physically active daily with work around his home Seatbelt use: always Helmet use: Yes Working smoke detector in home: Yes Carbon monox detector in home: Yes Do you feel safe at home: Yes Do you feel safe in your relationship?: Yes SDOH(Care Management) Screening Will the Patient Participate in the Screening?: Yes Do you worry about having a steady place to live?: no In the past 12 months, have you had to go without electric, gas, oil or water in your home?: no Have you or anyone in your house had to go without enough food to eat?: no Has lack of transportation kept you from medical appointments or from doing things needed for daily living?: no Has anyone in your support network made you feel unsafe for any reason?: no
[2023-06-01] MEDS: Lactated Ringers 1,000 ML 50 ML IV (10:35)
--- NOTE | 2023-06-01 12:43 | PHA.REVIEW2 ---
Pharmacy Admission Review Admission Clinical Review Admission Pharmacy Review: Blood loss anemia (Acute) finasteride Adverse Reaction (Intermediate, Verified 05/31/23 06:15) pale, weak sweating dutasteride [From Avodart] Adverse Reaction (Verified 05/31/23 06:15) weak, lame terazosin HCl [From Hytrin] Adverse Reaction (Verified 05/31/23 06:15) sweats Resuscitation Status Full Code Height 5 ft 10 in Weight 74.843 kg Comments Comments/Follow Ups: Watch VS, H/H, SCr, labs and for med changes (possible renal dose adjustments). Pharmacy Admission Review Renal Dosing Renal Dosing: BUN 18 mg/dL (7-18) 06/01/23 06:14 Creatinine 1.0 mg/dL (0.70-1.30) 06/01/23 06:14 Medications needing adjustments: Reviewed (Crcl ~63.4 mL/min current meds okay) Anticoagulation Anticoagulation: Hgb 9.6 g/dL (13.5-17.5) L 06/01/23 06:14 Hct 30.0 % (40.0-50.0) L 06/01/23 06:14 Plt Count 192 10^3/uL (130-400) 06/01/23 06:14 Creatinine 1.0 mg/dL (0.70-1.30) 06/01/23 06:14 DVT Prophylaxis: Reviewed (H/H improved following transfusion. Has SCDs ordered) Opiate Usage Evaluate Pain Scale/Pains Meds: Reviewed Scheduled Bowel Reg ordered if on Opiates?: Yes Relevant Labs Relevant Labs: Sodium 141 mmol/L (136-145) 06/01/23 06:14 Potassium 4.3 mmol/L (3.5-5.1) 06/01/23 06:14 Chloride 108 mmol/L (98-107) H 06/01/23 06:14 Electrolytes, C-Reactive P, ESR: Reviewed DM Control DM Control: Glucose 100 mg/dL (74-106) 06/01/23 06:14 DM Control: N/A Cardiac Review BP, HR, EF%: Reviewed QTc Review QTc: N/A IV to PO Switch IV Medications: Reviewed Home Meds Home Med List reviewed: Reviewed Relevent Home Meds Not ordered & why?: aspirin, calcium carbonate (PRN) Current Meds Current Medication Order Review: Reviewed Pharmacy Antibiotic Review Pharmacy Antibiotic Activity: D/C antibiotic Comments: postop cefazolin finished early this morning Comments Comments/Follow Ups: Watch VS, H/H, SCr, labs and for med changes (possible renal dose adjustments).
[2023-06-01] MEDS: Oxybutynin 5 MG TAB PO ×2 (14:18→19:36)
[2023-06-01 15:22] VITALS: BP 126/69; PULSE 108; RESP 17; TEMP 37.8; O2SAT 100
[2023-06-01] MEDS: Acetaminophen 325 MG TAB 650 MG PO (15:26)
--- NOTE | 2023-06-01 16:34 | CHAPLAIN ---
Greyson told me had prostrate surgery yesterday and hopes to be going home tomorrow, which he is happy about. I explained my role and offered support.
[2023-06-01 16:43] VITALS: TEMP 37.4
[2023-06-01] MEDS: traMADol 50 MG TAB PO (19:35)
[2023-06-02 03:41] VITALS: BP 128/77; PULSE 98; RESP 18; TEMP 36.6; O2SAT 97
[2023-06-02] MEDS: Lactated Ringers 1,000 ML 50 ML IV (06:22)
[2023-06-02 07:13] VITALS: BP 135/68; PULSE 87; RESP 16; TEMP 37; O2SAT 98
[2023-06-02] MEDS: Rosuvastatin 5 MG TAB PO (08:17)
[2023-06-02] MEDS: Pantoprazole 20 MG TABCR PO (08:17)
[2023-06-02] MEDS: Docusate Sodium 100 MG CAP PO (08:17)
--- NOTE | 2023-06-02 08:21 | NUR.NOTE ---
Nursing Note: Patient is resting in bed, denies discomfort. A dry cough was noted. When the patient coughs, increased blood outflow is present through the continuous irrigation/catheter and is pink. The catheter is currently draining clear fluid freely.
--- NOTE | 2023-06-02 09:35 | W.PM.PROGNOT ---
Date of Service Date of service: 06/02/23 Time of Service: 09:35 Assessment and Plan Assessment and plan (1) Gross hematuria: Assessment and plan: We will discontinue his bladder irrigation and send him home with a catheter in place. He will return later this week to have his catheter removed Subjective Subjective Interval history since last seen: He has been comfortable with no episodes of clot retention. He has had no further orthostasis after receiving 2 units PRBCs. Exam Narrative Exam Narrative: he appears comfortable his vital signs are documented elsewhere I hand irrigated his catheter and no clots are obtained. He is wake and alert Objective Last Vital Signs Temp 37.0 C 06/02/23 07:13 Pulse 87 06/02/23 07:13 Resp 16 06/02/23 07:13 BP 135/68 06/02/23 07:13 Pulse Ox 98 06/02/23 07:13 Time Spent with Patient Time Spent with Patient: <25 minutes Time was spent: other
--- NOTE | 2023-06-02 09:39 | W.PM.DS.N ---
Date of service: 06/02/23 Time of Service: 09:39 DS: Diagnosis Discharge Diagnosis (1) Gross hematuria: Discharge Plan Disposition Patient Disposition: Home Condition: Good Discharge Details Reason For Visit: prostate surgery Admit Date/Time: 05/31/23 06:14 Admit Provider: Fredy Mcgrath Attending Provider: Fredy Mcgrath Primary Care Provider: Brooklyn Farah Hospital Course Hospital Course: The patient was admitted and taken to the OR where he underwent a simple retropubic prostatectomy. The procedure went well, but later that day, the patient developed hypotension and temporary loss of consciousness. His hemoglogin was low indicating blood loss anemia. He received 2 units of PRBC and his BP remained stable for the remained or the admission. He required continuous bladder irrigation for 2 postoperative days. On the morning of POD #2, his irrigation was clear and no blood clots were identified on hand irrigation. His CBI is being discontinued and he will be discharged to home with his catheter in place. Home Meds and New Rx's Prescriptions: New cephalexin 250 mg capsule 250 mg PO TID 7 Days Qty: 21 0RF oxybutynin chloride 5 mg tablet 5 mg PO Q8H PRN (Reason: bladder spasms) Qty: 20 0RF Continued pantoprazole 20 mg tablet,delayed release (DR/EC) 20 mg PO DAILY Qty: 90 3RF calcium carbonate [Tums] 200 MG tablet,chewable 200 mg PO DAILY PRN rosuvastatin 5 mg tablet 5 mg PO DAILY Qty: 30 3RF Hold Instructions: Pt Stopped/Never Started Held aspirin [Children's Aspirin] 81 mg Tablet,Chewable 81 mg PO DAILY Qty: 0 0RF Hold Instructions: Resume on 06/11/23. Discharge Instructions Additional Instructions: Hold all blood thinners until appointment in office Followup in our office toward the end of the upcoming week to have your catheter removed. You will have an additional followup appointment in about 2 weeks so we can discuss your surgical pathology Catheter plug to irrigation port of your catheter. Drainage port can be hooked to a leg bag or a large drainage bag If the urine becomes pink or bloody appearing at home, increase your water intake until the urine becomes clear No dressing is needed on your incision. It is OK to shower as long as you do not rub hard on the incisison. Stand Alone Forms: Nursing Discharge Form Referrals: Fredy Mcgrath MD [ [facility] STAFF PHYSICIAN] - (Please call on Sunday to make a follow up appointment for the end of the week. ) Activity:: no lifting over 10 pounds Equipment/Supplies:: reyez cateheter Diet:: As Tolerated Discharge Orders Discharge Orders: Discharge Order (Routine); Ordered 06/02/23 Ordered By: Fredy Mcgrath DS: Summary Time Spent with Patient providing and/or coordinating discharge services: Less than 30 minutes Status at Discharge Functional status at discharge: independent ambulation Overall status at discharge: patient is progressing back to baseline Mental Status: mental status grossly normal Speech and Movement: speech and movement normal Mood: congruent mood Affect: normal affect Quality:SDOH Health Related Social Needs: No Data to Display Exam Const General: cooperative and comfortable Resp Effort & Inspection: normal respiratory effort Auscultation: clear to auscultation bilaterally Cardio Rate: regular rate Rhythm: regular rhythm GI Inspection: other (incision well approximated with some blistering laterally where tape adhere) Palpation: soft Percussion: tympanic to percussion Penis: other (reyez with clear output whith CBI running. Hand irrigation shows clear out) Neuro General: patient alert, patient awake and patient oriented x3 Psych Mental Status: mental status grossly normal Speech and Movement: speech and movement normal Mood: congruent mood Affect: normal affect DS: Data Vitals/I&O Vitals and I&O: Vital Signs Temperature 37.0 C 06/02/23 07:13 Temperature Source Tympanic 06/02/23 07:13 Pulse 87 06/02/23 07:13 Pulse Rhythm Regular 06/01/23 22:05 Respiratory Rate 16 06/02/23 07:13 Respiratory Effort Normal, Non-Labored 06/01/23 22:05 Respiratory Depth Normal 06/01/23 22:05 Respiratory Pattern Normal 06/01/23 22:05 Blood Pressure 135/68 06/02/23 07:13 Pulse Oximetry 98 06/02/23 07:13 Respiratory End-tidal CO2 21 05/31/23 11:14 Oxygen Delivery Method Room Air 06/02/23 07:13 Oxygen Flow Rate 0 06/02/23 07:13 Pain Level 0 06/02/23 07:13 Intake & Output 06/01/23 06/01/23 06/02/23 11:59 23:59 11:59 Intake Total 1285.000 / 1645.000 360 / 1645.000 988.333 / 988.333 Balance 1285.000 / 1645.000 360 / 1645.000 988.333 / 988.333 Intake: IV 925.000 / 925.000 988.333 / 988.333 Oral 360 / 720 360 / 720 Other: Urine Color Straw Pale Pale [place] Urine Appearance Clear Clear Hematuria Clots Clots Comment pt reported increased pain/spasm, hand irrigation performed and large clot removed from tubing. Drainage afterward salter, then light pink with minimal clots. Pt reported relief. Stool Size Moderate Stool Characteristics Formed PFSH All Active Problems Blood loss anemia (Acute) Vertebral artery occlusion (Acute) Intra-abdominal lymphadenopathy (Acute) SBO (small bowel obstruction) (Acute) Statin declined (Acute) Erectile dysfunction (Acute) 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) Palpitations (Chronic) Gastroesophageal reflux disease (Chronic 07/27/16) History of elevated prostate specific antigen (PSA) (Acute 01/18/16) GERD with esophagitis (Acute 12/06/11) Elevated BP without diagnosis of hypertension (Acute 12/21/16) 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 tract symptoms (Chronic 02/09/15) Medical History Gross hematuria Stroke 10/05/2022 Hyperlipidemia (07/27/16) Essential hypertension (07/27/16) Benign prostate hyperplasia (12/11/07) Done by Surgical History History of colonoscopy (~08/06/20) History of esophagogastroduodenoscopy (EGD) (~08/06/20) S/P right inguinal hernia repair S/P TURP H/O hernia repair Vasectomy Tonsillectomy Repair of inguinal hernia (~1979) Left EGD w/ BX (07/2020) Weeks, 07/2020 @ [facility] Family History Other Cancer Social History Smoking/Tobacco Use Status: Former Tobacco Use Quit Date: 04/16/73 Pack-years: 16 Tobacco: How many years used: 16 Smoking risk assessment performed?: Yes Alcohol Intake: current Alcohol Intake frequency: a few times a month Alcohol type: beer and hard liquor Counseling given: No Drug use: Occasionally Substance use type: marijuana Adopted: No Household members: spouse Housing: house Number of Children: 3 number of grandchildren: 4 Communication Needs: Corrective Lenses Do you need help understanding health information?: Rarely 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 What is your relationship status?: How often do you talk on the phone with friends or family?: three or more times per week How often do you get together with friends or relatives?: three or more times per week Panel score (0-1 are the most socially isolated patients): 2 What type of physical activity do you participate in: other Details: physically active daily with work around his home Seatbelt use: always Helmet use: Yes Working smoke detector in home: Yes Carbon monox detector in home: Yes Do you feel safe at home: Yes Do you feel safe in your relationship?: Yes Time Spent with Patient Time Spent with Patient: <45 minutes Time was spent: other
--- NOTE | 2023-06-03 12:36 | PDOC.CMDIS ---
Date of service: 06/02/23 Time of Service: 10:00 LACE Index Scoring Tool Questions: Length of Stay (in days): 2 Was the patient admitted via the E.D.?: No Comorbidities: Cerebrovascular Disease E.D. Visits: 8 Answers: Total Score: 7 Risk of Readmission: Low Risk Care Management Discharge Plan Reason for Hospitalization: Anemia, hematuria Discharge Plan: Greyson will be discharged home with no new services. He will follow up with his PCP and Urology and transport with family. Patient/Family Education Needs: review of discharge instructions, limitations, activity, reyez catheter care, follow up plan, discuss Ask Me Three SDIA Health Related Social Needs: No Data to Display
== END 2023-06-02 12:00 | disposition home or self-care (01) | DRG 708 ==
LOC: PDS 10:02 → MS 22:55 → PDS 06-12 12:43 → MS 06-12 12:44
PROVIDERS: Admitting Provider Urology; PCP Nurse Practitioner; Visit Provider Urology
PROC: 0VT00ZZ Resection of Prostate, Open Approach (ICD-10-PCS; CPT 55831; principal; 2023-05-31 07:30)
DX: N40.1 Benign prostatic hyperplasia with lower urinary tract symptoms (principal); R31.0 Gross hematuria; R33.9 Retention of urine, unspecified; Z86.73 Personal history of transient ischemic attack (TIA), and cerebral infarction without residual deficits; I95.81 Postprocedural hypotension; K21.00 Gastro-esophageal reflux disease with esophagitis, without bleeding; E78.5 Hyperlipidemia, unspecified; I10 Essential (primary) hypertension; I65.09 Occlusion and stenosis of unspecified vertebral artery; R59.0 Localized enlarged lymph nodes; R00.2 Palpitations; Z79.899 Other long term (current) drug therapy
CPT/HCPCS: 55831; 36415; 76942; 80048; 86850; 86900; 86901; 86920; 96365; 96366; 85025; 88307; G0378; J0131; J0171; J0665; J0690; J1100; J1805; J2001; J2405; J2704; J3010; J3490; P9016

== ENCOUNTER 2023-06-03 00:37 | Inpatient (IN) | payer MEDICARE, SELFPAY ==
[2023-06-03] VITALS (8 sets, daily range): BP systolic 105–172; BP diastolic 63–138; PULSE 87–120; RESP 14–18; TEMP 36.1–37.9; O2SAT 95–100
--- NOTE | 2023-06-03 00:45 | RT.EKG_ITS ---
APPROVED REPORT Exam: Resting ECG Reason for Exam: Tachy Patient Location: E HR:147 bpm ECG Measurements Heart Rate [address] [id number] P [id number] QRSd 79 QRS 22 QT 291 T 15 QTc 458 Conclusion Atrial fibrillation with rapid V-rate...A-rate [address] segment or T wave abnormalitites to suggest occlusive M
--- NOTE | 2023-06-03 00:51 | W.ED.GENAD ---
HPI General Mode of arrival: EMS. Date/Time Provider Initiated Documentation: 06/03/23 00:40. Limitations to Documentation: no limitations. Information obtained by: patient, family and old records reviewed. HPI Narrative: 77yo M POD #3 s/p prostatectomy dced from hospital yesterday presenting for generalized weakness and increasing bloody drainage into reyez catheter. Drainage after the surgery was initially bloody and heavy, he did require a blood transfusion. It cleared up and was clear/yellow when he was discharged. 3-4 hours ago he again began to have dark red drainage, no clots. Reyez draining well. Feels weak all over, slightly lightheaded. No syncope. No chest pain or shortness of breath. Mild lower abdominal pain unchanged from surgery. He is otherwise in his usual state of health with no fevers, chills, rash, nausea, vomiting, or other concerns. Related Data Home Medications Medication Instructions Recorded Confirmed calcium carbonate 200 mg calcium 200 mg PO DAILY PRN 09/06/16 06/03/23 (500 mg) chewable tablet (Tums) aspirin 81 mg chewable tablet 81 mg PO DAILY #0 tabs 10/06/22 06/03/23 (Children's Aspirin) rosuvastatin 5 mg tablet 5 mg PO DAILY #30 tabs 12/25/22 06/03/23 pantoprazole 20 mg tablet,delayed 20 mg PO DAILY #90 tabs 04/10/23 06/03/23 release cephalexin 250 mg capsule 250 mg PO TID 7 days #21 caps 06/02/23 06/03/23 oxybutynin chloride 5 mg tablet 5 mg PO Q8H PRN bladder spasms #20 06/02/23 06/03/23 tabs Previous Rx's Medication Instructions Recorded aspirin 81 mg chewable tablet 81 mg PO DAILY #0 tabs 10/06/22 (Children's Aspirin) rosuvastatin 5 mg tablet 5 mg PO DAILY #30 tabs 12/25/22 pantoprazole 20 mg tablet,delayed 20 mg PO DAILY #90 tabs 04/10/23 release cephalexin 250 mg capsule 250 mg PO TID 7 days #21 caps 06/02/23 oxybutynin chloride 5 mg tablet 5 mg PO Q8H PRN bladder spasms #20 06/02/23 tabs Allergies Allergy/AdvReac Type Severity Reaction Status Date / Time finasteride AdvReac Intermediate pale, weak Verified 06/03/23 00:47 sweating dutasteride [From Avodart] AdvReac weak, lame Verified 06/03/23 00:47 terazosin HCl [From Hytrin] AdvReac sweats Verified 06/03/23 00:47 General Stated Complaint: Urinary BEATRIZ: 3 Review of Systems Narrative: see HPI Exam Narrative Exam Narrative: General: Alert, well appearing, well nourished, in no acute distress. Head: Normocephalic, atraumatic Neck: Trachea midline, ?Neck supple. Eyes: Pale conjuctiva ENT: ?MMM.? No oropharygeal lesions or exudate. Cardiac: ?Tachycardiac, regular, no murmurs appreciated Resp: No respiratory distress. CTAB. Abd: ?Soft, non-distended, mildly TTP of lower abdomen. Well approximated lower abdominal surgical incision, no surrounding warmth or erythema, no discharge. Extremities: ?No deformities.? No peripheral edema. Neurologic: GCS 15. ? Moves all extremities freely against gravity Course Vital Signs Vital signs: Vital Signs Temperature 36.9 C 06/03/23 00:41 Pulse 120 H 06/03/23 00:41 Respiratory Rate 18 06/03/23 00:41 Blood Pressure 172/138 H 06/03/23 00:41 Temperature 36.9 C 06/03/23 00:41 Temperature Source Skin 06/03/23 00:41 Pulse 120 H 06/03/23 00:41 Respiratory Rate 18 06/03/23 00:41 Respiratory Effort Normal, Non-Labored 06/03/23 00:48 Blood Pressure 172/138 H 06/03/23 00:41 Blood Pressure Position Supine 06/03/23 00:41 Oxygen Delivery Method Room Air 06/03/23 00:41 Oxygen Flow Rate 0 06/03/23 00:41 Pain Level 3 06/03/23 00:41 Medical Decision Making 77yo M POD #3 s/p prostatectomy dced from hospital yesterday presenting for generalized weakness and increasing bloody drainage into reyez catheter. Records from prior admission reviewed; did receive blood transfusion. Has had 3-4 hour of frankly bloody drainage from reyez catheter, no clots. Tachycardiac on arrival to 120, hypertensive with BP 170/s/130's. Physical exam with pale conjunctiva, healing surgical incision, dark red urine in reyez bag. EKG afib with RVR, rate in 140's diffuse ST depressions (suspect rate related), no indication of occlusive HI. Subsequently 150's on the monitor. Patient thinks he may have had afib before, does not currently take any medications for such. Most likely compensatory, will treat underlying cause, presumptively for acute anemia with 1U of PRBCs, consider metoprolol if refractory to treatment. Discussed with Dr. Mcgrath who would like patient admitted to his service, requests bridging orders and holding home blood thinners. Labs reviewed as below, CBC with mild leukocytosis, Hg 9.4 (essentially flat from discharge at 9.6 however would not have had time to equilibrate s/p acute hemmraoghe as described by patient and ), lactate reassuring at 1.5, CMP with no actionable abnormalities. Suspect leukocytosis 2/t surgery, however with tachycardia does raise concern for possible sepsis (though unlikely) and without clear drop in Hg I am hesitant to attribute all of his symptoms to bleeding. Out of an abundance of caution given broad spectrum abx and 1L IVFB. Bridging orders placed and patient transferred to med-surg/telemetry. Lab Data Lab results reviewed: Yes I reviewed the patient's lab results. Labs: 06/03/23 01:24 Urine - Reflex from Ua Urine Culture - Pending Laboratory Tests Range/Units 06/03/23 06/03/23 01:08 01:24 WBC (4.4-10.8) 10^3/uL 13.83 H RBC (4.36-5.78) 10^6/uL 3.67 L Hgb (13.5-17.5) g/dL 9.4 L Hct (40.0-50.0) % 29.2 L MCV (80-95) fL 80 MCH (27.0-33.0) pg 25.6 L MCHC (32.0-36.0) % 32.2 RDW (11.8-14.1) % 15.5 H Plt Count (130-400) 10^3/uL 220 MPV (8.0-11.0) fL 9.4 Immature Gran % 0.4 Neutrophils % 76.5 Lymphocytes % 15.8 Monocytes % 5.8 Eosinophils % 1.1 Basophils % 0.4 Nucleated RBC % (0.0-0.3) % 0.0 Absolute Neutrophils (1.2-6.7) 10^3/uL 10.58 H Absolute Lymphocytes (1.2-3.4) 10^3/uL 2.19 Absolute Monocytes (0.1-0.8) 10^3/uL 0.80 Absolute Eosinophils (0.0-0.7) 10^3/uL 0.15 Absolute Basophils (0.0-0.2) 10^3/uL 0.06 PT (9.1-11.1) sec 10.1 INR (0.9-1.1) 1.0 APTT (23.6-32.8) sec 24.8 VBG Lactate (0.6-1.4) mmol/L 1.5 H Sodium (136-145) mmol/L 141 Potassium (3.5-5.1) mmol/L 3.4 L Chloride (98-107) mmol/L 104 Carbon Dioxide (21.0-32.0) mmol/L 24.9 Anion Gap (3-11) mmol/L 12.1 H BUN (7-18) mg/dL 13 Creatinine (0.70-1.30) mg/dL 0.9 Est GFR (CKD-EPI 2020) (mL/min/1.73m2) 86.88 Glucose (74-106) mg/dL 120 H Calcium (8.5-10.1) mg/dL 8.5 Total Bilirubin (0.2-1.0) mg/dL 0.7 AST (15-37) U/L 39 H ALT (16-63) U/L 23 Alkaline Phosphatase (46-116) U/L 65 Troponin I (< or =60) ng/L < 50 Total Protein (6.4-8.2) g/dL 6.4 Albumin (3.4-5.0) g/dL 3.0 L Urine Color (Yellow) Red Urine Clarity (Clear) Sl Cloudy Urine pH (5-8) 6.5 Ur Specific [place] (1.005-1.025) 1.020 Urine Protein (Neg-Trace) mg/dL >=300 H Urine Ketones (Negative) mg/dL 15 H Urine Blood (Negative) Large H Urine Nitrite (Negative) Positive H Urine Bilirubin (Negative) Small H Urine Urobilinogen (Up to 0.2) mg/dL 1.0 H Ur Leukocyte Esterase (Negative) Large H Urine RBC (0-2) HPF >50 H Urine WBC Not Applicable Ur Epithelial Cells Not Applicable Urine Crystals Not Applicable Urine Bacteria Not Applicable Urine Mucus Not Applicable Ur Culture Indicated? Yes Urine Glucose (Negative) mg/dL Negative Patient ABO/Rh O Positive Antibody Screen NEGATIVE Crossmatch See Detail Quality:SDOH Health Related Social Needs: No Data to Display 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) Palpitations (Chronic) Gastroesophageal reflux disease (Chronic 07/27/16) History of elevated prostate specific antigen (PSA) (Acute 01/18/16) GERD with esophagitis (Acute 12/06/11) Elevated BP without diagnosis of hypertension (Acute 12/21/16) 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 tract symptoms (Chronic 02/09/15) Medical History Gross hematuria Stroke 10/05/2022 Hyperlipidemia (07/27/16) Essential hypertension (07/27/16) Benign prostate hyperplasia (12/11/07) Done by Surgical History History of colonoscopy (~08/06/20) History of esophagogastroduodenoscopy (EGD) (~08/06/20) S/P right inguinal hernia repair S/P TURP H/O hernia repair Vasectomy Tonsillectomy Repair of inguinal hernia (~1979) Left EGD w/ BX (07/2020) Weeks, 07/2020 @ [facility] Family History Other Cancer Social History Smoking/Tobacco Use Status: Former Tobacco Use Quit Date: 04/16/73 Pack-years: 16 Tobacco: How many years used: 16 Smoking risk assessment performed?: Yes Alcohol Intake: current Alcohol Intake frequency: a few times a month Alcohol type: beer and hard liquor Counseling given: No Drug use: Occasionally Substance use type: marijuana Adopted: No Household members: spouse Housing: house Number of Children: 3 number of grandchildren: 4 Communication Needs: Corrective Lenses Do you need help understanding health information?: Rarely 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 What is your relationship status?: How often do you talk on the phone with friends or family?: three or more times per week How often do you get together with friends or relatives?: three or more times per week Panel score (0-1 are the most socially isolated patients): 2 What type of physical activity do you participate in: other Details: physically active daily with work around his home Seatbelt use: always Helmet use: Yes Working smoke detector in home: Yes Carbon monox detector in home: Yes Do you feel safe at home: Yes Do you feel safe in your relationship?: Yes Discharge Plan Disposition Patient Disposition: Admit to [facility] Condition: Serious Discharge Details Chief Complaint: Urinary Clinical Impression: Hematuria, Tachycardia, Atrial fibrillation with RVR Admit Date/Time: 06/03/23 01:40 Admit Provider: Fredy Mcgrath Attending Provider: Fredy Mcgrath Primary Care Provider: Brooklyn Farah ED Provider: Jessy Reyes Discharge Data Discharge Date/Time-TO BE ENTERED AT DEPARTURE: 06/03/23 02:40
[2023-06-03 01:15] LABS: Abs Immature Grans 0.06 10^3/uL (0.0-0.06); Absolute Eosinophil Count 0.15 10^3/uL (0.0-0.7); Basophils % 0.4; Eosinophils % 1.1; HCT 29.2 % (40.0-50.0); HGB 9.4 g/dL (13.5-17.5); Immature Grans % 0.4; Lymphocytes % 15.8; MCH 25.6 pg (27.0-33.0); MCHC 32.2 % (32.0-36.0); MCV 80 fL (80-95); MPV 9.4 fL (8.0-11.0); Monocytes % 5.8; Neutrophils % 76.5; Platelet Count 220 10^3/uL (130-400); RBC 3.67 10^6/uL (4.36-5.78); RDW 15.5 % (11.8-14.1); RDW-SD 45.1 fL; WBC 13.83 10^3/uL (4.4-10.8)
[2023-06-03 01:16] LABS: Absolute Basophil Count 0.06 10^3/uL (0.0-0.2); Absolute Lymphocyte Count 2.19 10^3/uL (1.2-3.4); Absolute Neutrophil Count 10.58 10^3/uL (1.2-6.7)
[2023-06-03 01:28] LABS: PTT Activated 24.8 sec (23.6-32.8); Prothrombin Time 10.1 sec (9.1-11.1)
[2023-06-03 01:28] LABS: Lactate 1.5 mmol/L (0.6-1.4)
[2023-06-03] MEDS: Normal Saline 1,000 ML 1000 ML IV (01:35)
[2023-06-03 01:36] LABS: Bilirubin Small (Negative); Blood Large (Negative); Clarity Sl Cloudy (Clear); Glucose Negative (Negative); Ketones 15 mg/dL (Negative); Leukocyte Esterase Large (Negative); Nitrite Positive (Negative); pH 6.5 (5-8)
[2023-06-03] MEDS: PIPERACILLIN/TAZO 4.5 GM in Normal Saline 100 ML IVPB (01:36)
[2023-06-03 01:38] LABS: ALT 23 U/L (16-63); AST 39 U/L (15-37); Alkaline Phosphatase 65 U/L (46-116); Anion Gap 12.1 mmol/L (3-11); BUN 13 mg/dL (7-18); Bilirubin, Total 0.7 mg/dL (0.2-1.0); CO2 24.9 mmol/L (21.0-32.0); CREATININE 0.9 mg/dL (0.70-1.30); Calcium 8.5 mg/dL (8.5-10.1); Chloride 104 mmol/L (98-107); Estimated GFR 86.88 (mL/min/1.73m2); Glucose 120 mg/dL (74-106); Potassium 3.4 mmol/L (3.5-5.1); Sodium 141 mmol/L (136-145); Total Protein 6.4 g/dL (6.4-8.2)
[2023-06-03 01:40] LABS: Troponin I < 50 ng/L (< or =60)
[2023-06-03 01:42] LABS: C & S Indicated? Yes; RBC >50 HPF (0-2)
[2023-06-03] MEDS: LINEZOLID 600 MG/300 ML BAG 300 MG IVPB (01:50)
[2023-06-03] MEDS: Metoprolol 5 MG/5 ML VIAL IVP (02:29)
--- NOTE | 2023-06-03 03:25 | NUR.NOTE ---
Nursing Note:upon admission it was noticed that patient is in rapid a fib. this was passed along to charge who is contacting doctor, metop 5mg once was given in er with little effect. this was also not noted on er handoff despite being the header for their h and p. pt is comfortable and a symptomatic at this time, mitra.
--- NOTE | 2023-06-03 04:14 | HPE_ITS ---
Date of service: 06/03/23 Time of Service: 04:14 Assessment and Plan Assessment and plan (1) Atrial fibrillation with RVR: Start date: 06/03/23 Start time: 04:30 Status: Acute Assessment and plan: The patient was admitted on 05/31/23 due to hematuria due to BPH and is s/p open prostatectomy. Our service was consulted tonight due to atrial fibrillation w/ RVR w/ HR 130-150. On review of his chart there is no prior history of AFIB. He has had an evaluation by cardiology for palpitations which occurred at night when he would lay on his left side. He has had prior Holter monitoring, EKG and Echo which has been normal in the past. On evaluation tonight in the ER for generalized weakness and hematuria it was noted that his EKG revealed AFIB w/ RVR (HR 140). Currently his HR is still elevated at 130-170 and is sleeping comfortable. He does note of palpitations but no other symptoms at this time. He was given Lopressor 5mg x1 at 2:29am w/ minimal reduction in HR from 120 to 113. WBC 13.83 Hg 9.4 Echo (10/05/22) - EF 57% normal wall thickness. Mildly sclerotic aortic valve. Holter Monitor (11/13/22) - Sinus rhythm w/ average HR 79. Max HR 109. Occasional ventricular ectopic beats. No atrial fibrillation -Obtain EKG -Cont w/ rate control treatment w/ prn bolus Diltiazem 10mg x1. He may require an infusion w/ drip. Goal HR <120 for now. -Will defer from anti-arrhythmic treatment for now -Will defer anticoagulation now due to his hematuria until cleared by Urology. He would benefit from anticoagulation w/ Eliquis as his CHADSVASC score is 5, high (age, hx of stroke and HTN) (2) Hematuria: Status: Acute Assessment and plan: He was admitted w/ hematuria s/p prostatectomy but continued to have hematuria w/ reyez. He is being managed by urology. -Cont w/ IV Zosyn -Cont w/ Oxybutynin 5mg prn History of Present Illness History of Present Illness Chief Complaint: Palpitation Narrative: The patient is a 77 y/o C M w/ PMH BPH complicated with hematuria s/p simple retropubic prostatectomy on 05/31/23 and a consult was put in by urology due to atrial fibrillation w/ rapid ventricular rate. He was discharged on 06/02/23 and comes into the ER tonight due to generalized weakness and hematuria from his catheter. From his chart review there is no prior history of AFIB. He has followed up w/ cardiology in the past as he would have severe palpitations, on- going for many years, which occurs at night if he was sleeping on the left side. He has had prior cardiac monitoring in 2018 and 2022 with rare atrial palpitations. His prior EKG was normal as well as his Echo. Currently he feels some palpitations. He denies any chest pain, worsening coughing, wheezing, orthopnea, weight gain or lower extremity edema. He does not have any severe fatigue, presyncope or syncope. In the past his palpitations can result in profound fatigue. He has no fever, chills or night sweats. HIs PMH also includes of ischemic stroke w/ transietn left upper extremity weakness along w/ ataxia. Currently he does not have any symptoms of dysarthria, dysphagia or focal extremity weakness. Review of Systems All systems reviewed & are unremarkable except as noted in HPI and below Constitutional Constitutional: Denies chills, Denies fever(s), Denies headache(s), Denies night sweats, Denies weakness and Denies weight loss Eyes Eyes: Denies blurry vision, Denies diplopia and Denies loss of vision ENT Ears, Nose, Mouth, and Throat: Denies dysphagia, Denies vertigo, Denies dizziness, Denies otalgia, Denies headache(s), Denies nasal congestion and Denies neck pain Cardiovascular Cardiovascular: Denies chest pain, Denies syncope, Reports rapid heart rate, Reports irregular heart rhythm, Denies lightheadedness, Denies radiating jaw, neck or arm pain and Denies dyspnea Respiratory Respiratory: Denies chest congestion, Denies cough, Denies hemoptysis, Denies dyspnea and Denies wheezing Gastrointestinal Gastrointestinal: Denies abdominal pain, Denies melena, Denies hematochezia, Denies change in stool character, Denies coffee ground emesis, Denies constipation and Denies dysphagia Genitourinary Genitourinary: Reports hematuria and Reports difficulty urinating Musculoskeletal Musculoskeletal: Denies arthralgias, Denies muscle weakness and Denies neck pain Neurologic Neurologic: Denies abnormal speech, Denies vertigo, Denies dizziness, Denies syncope, Denies headache(s), Denies localized weakness, Denies loss of vision and Denies weakness Allergic/Immunologic Allergic/Immunologic: Denies wheezing 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) Palpitations (Chronic) Gastroesophageal reflux disease (Chronic 07/27/16) History of elevated prostate specific antigen (PSA) (Acute 01/18/16) GERD with esophagitis (Acute 12/06/11) Elevated BP without diagnosis of hypertension (Acute 12/21/16) 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 tract symptoms (Chronic 02/09/15) Medical History Gross hematuria Stroke 10/05/2022 Hyperlipidemia (07/27/16) Essential hypertension (07/27/16) Benign prostate hyperplasia (12/11/07) Done by Surgical History History of colonoscopy (~08/06/20) History of esophagogastroduodenoscopy (EGD) (~08/06/20) S/P right inguinal hernia repair S/P TURP H/O hernia repair Vasectomy Tonsillectomy Repair of inguinal hernia (~1979) Left EGD w/ BX (07/2020) Weeks, 07/2020 @ [facility] Family History Other Cancer Social History Smoking/Tobacco Use Status: Former Tobacco Use Quit Date: 04/16/73 Pack-years: 16 Tobacco: How many years used: 16 Smoking risk assessment performed?: Yes Alcohol Intake: current Alcohol Intake frequency: a few times a month Alcohol type: beer and hard liquor Counseling given: No Drug use: Occasionally Substance use type: marijuana Adopted: No Household members: spouse Housing: house Number of Children: 3 number of grandchildren: 4 Communication Needs: Corrective Lenses Do you need help understanding health information?: Rarely 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 What is your relationship status?: How often do you talk on the phone with friends or family?: three or more times per week How often do you get together with friends or relatives?: three or more times per week Panel score (0-1 are the most socially isolated patients): 2 What type of physical activity do you participate in: other Details: physically active daily with work around his home Seatbelt use: always Helmet use: Yes Working smoke detector in home: Yes Carbon monox detector in home: Yes Do you feel safe at home: Yes Do you feel safe in your relationship?: Yes Meds Allergies and Home Medications Allergies Allergy/AdvReac Type Severity Reaction Status Date / Time finasteride AdvReac Intermediate pale, weak Verified 06/03/23 00:47 sweating dutasteride [From Avodart] AdvReac weak, lame Verified 06/03/23 00:47 terazosin HCl [From Hytrin] AdvReac sweats Verified 06/03/23 00:47 Home Medications Medication Instructions Recorded Confirmed Type calcium carbonate 200 mg calcium 200 mg PO DAILY PRN 09/06/16 06/03/23 History (500 mg) chewable tablet (Tums) aspirin 81 mg chewable tablet 81 mg PO DAILY #0 tabs 10/06/22 06/03/23 Rx (Children's Aspirin) rosuvastatin 5 mg tablet 5 mg PO DAILY #30 tabs 12/25/22 06/03/23 Rx pantoprazole 20 mg tablet,delayed 20 mg PO DAILY #90 tabs 04/10/23 06/03/23 Rx release cephalexin 250 mg capsule 250 mg PO TID 7 days #21 caps 06/02/23 06/03/23 Rx oxybutynin chloride 5 mg tablet 5 mg PO Q8H PRN bladder spasms #20 06/02/23 06/03/23 Rx tabs Exam Const General: cooperative, healthy appearing, comfortable, no acute distress, well developed and well groomed Nutritional Appearance: average body habitus Orientation: alert, awake and oriented x3 HENMT Head: normal to inspection Ears: external ears normal General nose exam: external nose normal Face and sinus: normal facial exam Eyes General: appearance normal, both eyes and all related structures Eyelids: eyelids normal Sclera: sclerae normal Pupils: PERRL EOM: EOM intact bilaterally Neck Neck: normal visual inspection Lymphatic: no lymphadenopathy noted Chest Chest: normal inspection of the chest Resp Effort & Inspection: normal respiratory effort, able to speak in complete sentences, no audible wheezes and no cough Auscultation: clear to auscultation bilaterally Cardio Rate: tachycardic Rhythm: abnormal rhythm Heart Sounds: S1 normal and S2 normal GI Inspection: normal to inspection Palpation: soft Percussion: normal to percussion Auscultation: normal bowel sounds Skin General skin exam: no rashes or lesions noted Rashes: no rashes Neuro General: patient alert and moves all extremities Cranial Nerves: CN's II-XI intact bilaterally Results Labs 06/03/23 01:08 06/03/23 01:08 Labs: Laboratory Results - last 24 hr 06/03/23 06/03/23 01:08 01:24 WBC 13.83 H RBC 3.67 L Hgb 9.4 L Hct 29.2 L MCV 80 MCH 25.6 L MCHC 32.2 RDW 15.5 H Plt Count 220 MPV 9.4 Immature Gran % 0.4 Neutrophils % 76.5 Lymphocytes % 15.8 Monocytes % 5.8 Eosinophils % 1.1 Basophils % 0.4 Nucleated RBC % 0.0 Absolute Neutrophils 10.58 H Absolute Lymphocytes 2.19 Absolute Monocytes 0.80 Absolute Eosinophils 0.15 Absolute Basophils 0.06 PT 10.1 INR 1.0 APTT 24.8 VBG Lactate 1.5 H Sodium 141 Potassium 3.4 L Chloride 104 Carbon Dioxide 24.9 Anion Gap 12.1 H BUN 13 Creatinine 0.9 Est GFR (CKD-EPI 2020) 86.88 Glucose 120 H Calcium 8.5 Total Bilirubin 0.7 AST 39 H ALT 23 Alkaline Phosphatase 65 Troponin I < 50 Total Protein 6.4 Albumin 3.0 L Urine Color Red Urine Clarity Sl Cloudy Urine pH 6.5 Ur Specific [place] 1.020 Urine Protein >=300 H Urine Ketones 15 H Urine Blood Large H Urine Nitrite Positive H Urine Bilirubin Small H Urine Urobilinogen 1.0 H Ur Leukocyte Esterase Large H Urine RBC >50 H Urine WBC Not Applicable Ur Epithelial Cells Not Applicable Urine Crystals Not Applicable Urine Bacteria Not Applicable Urine Mucus Not Applicable Ur Culture Indicated? Yes Urine Glucose Negative Patient ABO/Rh O Positive Antibody Screen NEGATIVE Crossmatch See Detail Last Vital Signs Temp 37.3 C 06/03/23 03:24 Pulse 113 H 06/03/23 03:24 Resp 14 06/03/23 03:24 BP 105/63 06/03/23 03:24 Pulse Ox 100 06/03/23 03:24 Time Spent Time spent with Patient: 40-54 minutes Time was spent: preparing to see the patient(eg.review tests), obtaining and/or reviewing separately otained hiistory and ordering medications,tests, procedures
[2023-06-03] MEDS: Cephalexin 250 MG CAP PO ×3 (09:01→21:02)
[2023-06-03] MEDS: Pantoprazole 20 MG TABCR PO (09:01)
[2023-06-03] MEDS: Normal Saline Flush 10 ML SYR IVP ×2 (09:02→23:57)
[2023-06-03] MEDS: Potassium Chloride 20 MEQ TABCR 40 MEQ PO (09:03)
--- NOTE | 2023-06-03 09:30 | PDOC.CMIN ---
Date of service: 06/03/23 Time of Service: 09:30 Care Management Initial Assmt Initial Assessment REASON FOR HOSPITALIZATION:: atrial fibrillation with RVR and hematuria PREVIOUS FUNCTIONAL STATUS/SOCIAL/FAMILY SUPPORTS:: Greyson lives in a single family home in [place], [place] with his Monica and marcella Hoyt. They have 4 grown children and 4 grandchildren, all of whom live locally and are supportive. 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 He was very active until the past few months when he developed problems with his urinary tract. He had a TURP performed about [address] Mcgrath and was ok until recently, when he began to develop hematuria with large clots. Darshan has also had a mild stroke in the past, however his deficits are mainly visual. CURRENT FUNCTIONAL STATUS:: Darshan was sitting up in bed when CM met with him. He was just discharged home yesterday after having an open prostatectomy. Post-operatively he had hematuria and required a CBI for a couple of days. Last night, at home, he developed more hematuria and presented to the ED. He was found to be in newly diagnosed atrial fibrillation with RVR. In conversation, Darshan stated that he has had this (palpitations) for several years. He stated that when he sleeps on his side, his heart sometimes starts beating rapidly and it doesn't return to normal until many hours later. He shared that he has had 2 outpatient cardiac monitors placed but has not been told the results. He did state that the last time he saw the molding line operator he was told there is nothing wrong with your heart, however he does not believe it was in reference to the cardiac event monitors. No history of atrial fibrillation is listed in his medical history. ADVANCE DIRECTIVES:: On file. Monica ACKERMAN and daughter Garret Tejeda alternate Has patient been provided with info about the portal/API?: Yes Did the patient sign up for the portal?: No CODE STATUS:: Full Code INSURANCE COVERAGE / FINANCIAL ISSUES:: Medicare Financial Assist 100 PRIMARY CARE PHYSICIAN:: Brooklyn Farah PATIENT/FAMILY EDUCATION NEEDS:: Review of discharge instructions, activity, limitations, follow up plan, discuss Ask Me Three TRANSPORTATION:: via private vehicle with family PLAN:: Anticipate Greyson will be discharged home with no new services. He will follow up with his community providers including Urology and his PCP, and will transport with family. CM will follow and continue to assess for discharge needs. 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) Palpitations (Chronic) Gastroesophageal reflux disease (Chronic 07/27/16) History of elevated prostate specific antigen (PSA) (Acute 01/18/16) GERD with esophagitis (Acute 12/06/11) Elevated BP without diagnosis of hypertension (Acute 12/21/16) 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 tract symptoms (Chronic 02/09/15) Medical History Gross hematuria Stroke 10/05/2022 Hyperlipidemia (07/27/16) Essential hypertension (07/27/16) Benign prostate hyperplasia (12/11/07) Done by Surgical History History of colonoscopy (~08/06/20) History of esophagogastroduodenoscopy (EGD) (~08/06/20) S/P right inguinal hernia repair S/P TURP H/O hernia repair Vasectomy Tonsillectomy Repair of inguinal hernia (~1979) Left EGD w/ BX (07/2020) Weeks, 07/2020 @ [facility] Family History Other Cancer Social History Smoking/Tobacco Use Status: Former Tobacco Use Quit Date: 04/16/73 Pack-years: 16 Tobacco: How many years used: 16 Smoking risk assessment performed?: Yes Alcohol Intake: current Alcohol Intake frequency: a few times a month Alcohol type: beer and hard liquor Counseling given: No Drug use: Occasionally Substance use type: marijuana Adopted: No Household members: spouse Housing: house Number of Children: 3 number of grandchildren: 4 Communication Needs: Corrective Lenses Do you need help understanding health information?: Rarely 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 What is your relationship status?: How often do you talk on the phone with friends or family?: three or more times per week How often do you get together with friends or relatives?: three or more times per week Panel score (0-1 are the most socially isolated patients): 2 What type of physical activity do you participate in: other Details: physically active daily with work around his home Seatbelt use: always Helmet use: Yes Working smoke detector in home: Yes Carbon monox detector in home: Yes Do you feel safe at home: Yes Do you feel safe in your relationship?: Yes Readmission Within the Past 30 Days Yes or No: Yes Date of First Admission Date of 1st Admission: 05/31/23 Date of this Admission Date of Admission: 06/03/23 This admission was: Through ED Office Visit Since 1st Admission Have you seen your PCP in the office since discharge?: No Date of PCP Appointment: just discharge <24 hours ago Speicalist Appointments Have you seen any other specialist since your 1st Admission?: No I. Interview patient and/or Family Difficulty reaching your doctor or getting an office appt?: No Have you had trouble purchasing/ or taking medication?: No Have you had trouble with getting meals at home?: No Did you feel ready for discharge when you left the last time: Yes What services were received?: N/A Did you call your physician beore you came to the ED?: No ED visits How many ED visits in the past 12 months: 9 SDOH(Care Management) Screening Will the Patient Participate in the Screening?: Declined to provide
--- NOTE | 2023-06-03 10:07 | W.PM.HP.N ---
Date of service: 06/03/23 Time of Service: 10:07 Assessment and Plan Assessment and plan (1) Hematuria: Status: Acute Assessment and plan: The hematuria is not unexpected at this point in his recovery. He has not required CBI to be restarted but has been managed with increased oral intake alone. His Hgb has remained stable but we will continue to monitor. (2) Atrial fibrillation with RVR: Status: Acute Assessment and plan: Perhaps his atrial fibrillation is responsible for his weakness on presentation last evening (rather than blood loss anemia). Many thanks to our hospitalist team for their recommendations. We will plan to monitor him for another 24 hours to make sure his HR does not increase and his Hgb remains stable (3) Tachycardia: Status: Acute History of Present Illness History of Present Illness Chief Complaint: Hematuria Narrative: This is a 77 year old man who has a history of BPH with gross hematuria related to his enlarged prostate. He underwent a simple retropubic prostatectomy (rather than a TURP) because of the size of his prostate. His surgery was done 05/31. The surgery itself was uneventful, but later that day, he had a period of hypotension and a rapid response was called. His hemoglobin was 7.7 and he received 2 units of PRBC. His BP improved and his Hgb stabilized. He was maintained on continuous bladder irrigation for two postoperative days. He was discharged on POD #2 with his catheter still in place. He presented back to the ED less than 24 hours after discharge with worsening monster hematuria, weakness and tachycardia. Initially, we suspected his tachycardia was due to anemia, but his Hgb is essentially unchanged from his post-transfusion level. Ultimately he was found to have atrial fibrillation. He has no known history of atrial fibrillation but does describe tachycardia that occurs at night when he lies on his left side. The tachycardia will wake him from sleep and he will fell weak for the next day as well. He had been evaluated by cardiology a few years back but no specific abnormality was identified. He received metoprolol in the ED and was seen by our hospitalist colleagues last evening. The patient spontaneous converted from his atrial fibrillation and will be managed with prn diltiazem to keep his rate under control. Ultimately, Eliquis will be recommended. This morning, he feels well without any chest pain or shortness of breath. His urine has cleared with increased PO intake and CBI has not been needed. Review of Systems Constitutional Constitutional: Reports fatigue and Denies fever(s) Eyes Eyes: Denies loss of vision Cardiovascular Cardiovascular: Denies chest pain, Reports rapid heart rate, Reports irregular heart rhythm and Denies dyspnea Respiratory Respiratory: Denies cough and Denies dyspnea Gastrointestinal Gastrointestinal: Denies nausea and Denies vomiting Genitourinary Genitourinary: Reports hematuria Musculoskeletal Musculoskeletal: Denies abnormal gait and Denies joint swelling Neurologic Neurologic: Denies abnormal gait, Denies lack of coordination, Denies localized weakness and Denies loss of vision Endocrine Endocrine: Reports fatigue Hematologic/Lymphatic Hematologic/Lymphatic: Denies easy bleeding and Denies easy bruising 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) Palpitations (Chronic) Gastroesophageal reflux disease (Chronic 07/27/16) History of elevated prostate specific antigen (PSA) (Acute 01/18/16) GERD with esophagitis (Acute 12/06/11) Elevated BP without diagnosis of hypertension (Acute 12/21/16) 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 tract symptoms (Chronic 02/09/15) Medical History Gross hematuria Stroke 10/05/2022 Hyperlipidemia (07/27/16) Essential hypertension (07/27/16) Benign prostate hyperplasia (12/11/07) Done by Surgical History History of colonoscopy (~08/06/20) History of esophagogastroduodenoscopy (EGD) (~08/06/20) S/P right inguinal hernia repair S/P TURP H/O hernia repair Vasectomy Tonsillectomy Repair of inguinal hernia (~1979) Left EGD w/ BX (07/2020) Weeks, 07/2020 @ [facility] Family History Other Cancer Social History Smoking/Tobacco Use Status: Former Tobacco Use Quit Date: 04/16/73 Pack-years: 16 Tobacco: How many years used: 16 Smoking risk assessment performed?: Yes Alcohol Intake: current Alcohol Intake frequency: a few times a month Alcohol type: beer and hard liquor Counseling given: No Drug use: Occasionally Substance use type: marijuana Adopted: No Household members: spouse Housing: house Number of Children: 3 number of grandchildren: 4 Communication Needs: Corrective Lenses Do you need help understanding health information?: Rarely 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 What is your relationship status?: How often do you talk on the phone with friends or family?: three or more times per week How often do you get together with friends or relatives?: three or more times per week Panel score (0-1 are the most socially isolated patients): 2 What type of physical activity do you participate in: other Details: physically active daily with work around his home Seatbelt use: always Helmet use: Yes Working smoke detector in home: Yes Carbon monox detector in home: Yes Do you feel safe at home: Yes Do you feel safe in your relationship?: Yes Meds Allergies and Home Medications Allergies Allergy/AdvReac Type Severity Reaction Status Date / Time finasteride AdvReac Intermediate pale, weak Verified 06/03/23 00:47 sweating dutasteride [From Avodart] AdvReac weak, lame Verified 06/03/23 00:47 terazosin HCl [From Hytrin] AdvReac sweats Verified 06/03/23 00:47 Home Medications Medication Instructions Recorded Confirmed Type calcium carbonate 200 mg calcium 200 mg PO DAILY PRN 09/06/16 06/03/23 History (500 mg) chewable tablet (Tums) aspirin 81 mg chewable tablet 81 mg PO DAILY #0 tabs 10/06/22 06/03/23 Rx (Children's Aspirin) rosuvastatin 5 mg tablet 5 mg PO DAILY #30 tabs 12/25/22 06/03/23 Rx pantoprazole 20 mg tablet,delayed 20 mg PO DAILY #90 tabs 04/10/23 06/03/23 Rx release cephalexin 250 mg capsule 250 mg PO TID 7 days #21 caps 06/02/23 06/03/23 Rx oxybutynin chloride 5 mg tablet 5 mg PO Q8H PRN bladder spasms #20 02/17/24 02/18/24 Rx tabs Exam Const General: cooperative, comfortable and no acute distress Resp Effort & Inspection: normal respiratory effort Auscultation: clear to auscultation bilaterally Cardio Rate: tachycardic Rhythm: abnormal rhythm irregularly irregular GI Inspection: other (incision healing well without erythema or ecchymosis) Palpation: soft and no masses Other: Rueda in place with clear urine in tubing Neuro General: patient alert, patient awake and patient oriented x3 Results Labs 06/03/23 01:08 06/03/23 01:08 Labs: Laboratory Results - last 24 hr 06/03/23 06/03/23 01:08 01:24 WBC 13.83 H RBC 3.67 L Hgb 9.4 L Hct 29.2 L MCV 80 MCH 25.6 L MCHC 32.2 RDW 15.5 H Plt Count 220 MPV 9.4 Immature Gran % 0.4 Neutrophils % 76.5 Lymphocytes % 15.8 Monocytes % 5.8 Eosinophils % 1.1 Basophils % 0.4 Nucleated RBC % 0.0 Absolute Neutrophils 10.58 H Absolute Lymphocytes 2.19 Absolute Monocytes 0.80 Absolute Eosinophils 0.15 Absolute Basophils 0.06 PT 10.1 INR 1.0 APTT 24.8 VBG Lactate 1.5 H Sodium 141 Potassium 3.4 L Chloride 104 Carbon Dioxide 24.9 Anion Gap 12.1 H BUN 13 Creatinine 0.9 Est GFR (CKD-EPI 2020) 86.88 Glucose 120 H Calcium 8.5 Total Bilirubin 0.7 AST 39 H ALT 23 Alkaline Phosphatase 65 Troponin I < 50 Total Protein 6.4 Albumin 3.0 L Urine Color Red Urine Clarity Sl Cloudy Urine pH 6.5 Ur Specific [place] 1.020 Urine Protein >=300 H Urine Ketones 15 H Urine Blood Large H Urine Nitrite Positive H Urine Bilirubin Small H Urine Urobilinogen 1.0 H Ur Leukocyte Esterase Large H Urine RBC >50 H Urine WBC Not Applicable Ur Epithelial Cells Not Applicable Urine Crystals Not Applicable Urine Bacteria Not Applicable Urine Mucus Not Applicable Ur Culture Indicated? Yes Urine Glucose Negative Patient ABO/Rh O Positive Antibody Screen NEGATIVE Crossmatch See Detail Last Vital Signs Temp 36.8 C 06/03/23 09:06 Pulse 103 H 06/03/23 09:06 Resp 18 06/03/23 09:06 BP 125/68 06/03/23 09:06 Pulse Ox 98 06/03/23 09:06 Time Spent Time spent with Patient: <40 minutes Time was spent: other
[2023-06-03] MEDS: Metoprolol 12.5 MG TAB PO ×2 (12:53→21:02)
[2023-06-03] MEDS: Rosuvastatin 5 MG TAB PO (21:02)
[2023-06-04] VITALS (7 sets, daily range): BP systolic 128–150; BP diastolic 49–84; PULSE 87–96; RESP 17–20; TEMP 36.4–37.7; O2SAT 94–100
[2023-06-04 07:33] LABS: Abs Immature Grans 0.04 10^3/uL (0.0-0.06); Absolute Basophil Count 0.08 10^3/uL (0.0-0.2); Absolute Monocyte Count 0.61 10^3/uL (0.1-0.8); Absolute Neutrophil Count 6.44 10^3/uL (1.2-6.7); Basophils % 0.7; Eosinophils % 2.7; HCT 29.1 % (40.0-50.0); HGB 9.3 g/dL (13.5-17.5); Immature Grans % 0.4; Lymphocytes % 31.9; MCH 26.1 pg (27.0-33.0); MCV 82 fL (80-95); MPV 9.6 fL (8.0-11.0); Monocytes % 5.6; Neutrophils % 58.7; Platelet Count 279 10^3/uL (130-400); RBC 3.57 10^6/uL (4.36-5.78); RDW 16.2 % (11.8-14.1); RDW-SD 46.7 fL; WBC 10.97 10^3/uL (4.4-10.8)
[2023-06-04 07:47] LABS: Anion Gap 9.2 mmol/L (3-11); BUN 10 mg/dL (7-18); CO2 25.8 mmol/L (21.0-32.0); CREATININE 0.9 mg/dL (0.70-1.30); Calcium 8.4 mg/dL (8.5-10.1); Chloride 106 mmol/L (98-107); Estimated GFR 86.88 (mL/min/1.73m2); Glucose 94 mg/dL (74-106); Potassium 3.7 mmol/L (3.5-5.1); Sodium 141 mmol/L (136-145)
[2023-06-04] MEDS: Pantoprazole 20 MG TABCR PO (08:01)
[2023-06-04] MEDS: Cephalexin 250 MG CAP PO ×2 (08:01→13:42)
[2023-06-04] MEDS: Metoprolol 12.5 MG TAB PO ×2 (08:01→20:36)
[2023-06-04] MEDS: Normal Saline Flush 10 ML SYR IVP ×2 (08:01→20:36)
--- NOTE | 2023-06-04 12:04 | W.PM.PROGNOT ---
Date of Service Date of service: 06/04/23 Time of Service: 12:04 Assessment and Plan Assessment and plan (1) Atrial fibrillation with RVR: Status: Acute Assessment and plan: in sinus rhythm, added low dose beta jt. (2) Hematuria: Status: Acute Assessment and plan: The hematuria is not unexpected at this point in his recovery. He has not required CBI to be restarted but has been managed with increased oral intake alone. His Hgb has remained stable but we will continue to monitor. Subjective Subjective Patient reports: no new complaints, feels better, tolerating liquids well, tolerating a regular diet and afebrile Interval history since last seen: still having clots, but no [place] blood off continuous irrigation Exam Const General: cooperative, comfortable and no acute distress Nutritional Appearance: average body habitus Orientation: alert, awake and oriented x3 HENMT Head: normal to inspection and normocephalic Mouth: oral mucosae normal Eyes General: appearance normal, both eyes and all related structures Neck Neck: no JVD Chest Chest: normal inspection of the chest Resp Effort & Inspection: normal respiratory effort Auscultation: clear to auscultation bilaterally Cardio Rate: regular rate Rhythm: regular rhythm and other (sinus rhythm on the monitor) GI Inspection: other (incision healing well without erythema or ecchymosis) Palpation: soft Other: Rueda in place with clear urine with some blood clots Skin Rashes: no rashes Neuro General: patient alert, patient awake and patient oriented x3 Extrem General: normal to inspection and full ROM Objective Last Vital Signs Temp 36.7 C 06/04/23 08:13 Pulse 89 06/04/23 08:13 Resp 17 06/04/23 08:13 BP 139/70 06/04/23 08:13 Pulse Ox 98 06/04/23 08:13 Laboratory Results - last 24 hr 06/04/23 06:53 WBC 10.97 H RBC 3.57 L Hgb 9.3 L Hct 29.1 L MCV 82 MCH 26.1 L MCHC 32.0 RDW 16.2 H Plt Count 279 MPV 9.6 Immature Gran % 0.4 Neutrophils % 58.7 Lymphocytes % 31.9 Monocytes % 5.6 Eosinophils % 2.7 Basophils % 0.7 Nucleated RBC % 0.0 Absolute Neutrophils 6.44 Absolute Lymphocytes 3.50 H Absolute Monocytes 0.61 Absolute Eosinophils 0.30 Absolute Basophils 0.08 Sodium 141 Potassium 3.7 Chloride 106 Carbon Dioxide 25.8 Anion Gap 9.2 BUN 10 Creatinine 0.9 Est GFR (CKD-EPI 2020) 86.88 Glucose 94 Calcium 8.4 L Time Spent with Patient Time Spent with Patient: 25-34 minutes Time was spent: preparing to see the patient(eg.review tests), obtaining and/or reviewing separately otained hiistory, ordering medications,tests, procedures, indepentently interpreting results and counseling the patient
--- NOTE | 2023-06-04 12:45 | W.PM.PROGNOT ---
Date of Service Date of service: 06/04/23 Time of Service: 12:45 Assessment and Plan Assessment and plan (1) Atrial fibrillation with RVR: Status: Acute Assessment and plan: He has converted to sinus rhythm and no longer is tachycardic. We will start Eliquis in another week or so after his catheter has been removed. (2) Hematuria: Status: Acute Assessment and plan: With the gram negatives growing in his urine, I will expand his antibiotic coverage until the final C&S is available. I expect we will be able to discharge him tomorrow on oral antibiotics (based on the C&S). Subjective Subjective Interval history since last seen: Feels better today with no weakness, lightheadedness or dizziness. He does notice some blood in his catheter if he moves around too much. He has noticed a small clot that came through. Exam Narrative Exam Narrative: He looks well His vital signs are documented elsewhere His abdomen is soft His urine is clear at this time. He has not required bladder irrigation.. He is awake and alert His labs show that his hemoglobin is stable as is his renal function. He does have gram-negative's growing in his urine and the final culture and sensitivity is pending. Objective Last Vital Signs Temp 37.3 C 06/04/23 12:26 Pulse 94 H 06/04/23 12:26 Resp 17 06/04/23 12:26 BP 145/65 H 06/04/23 12:26 Pulse Ox 100 06/04/23 12:26 Laboratory Results - last 24 hr 06/04/23 06:53 WBC 10.97 H RBC 3.57 L Hgb 9.3 L Hct 29.1 L MCV 82 MCH 26.1 L MCHC 32.0 RDW 16.2 H Plt Count 279 MPV 9.6 Immature Gran % 0.4 Neutrophils % 58.7 Lymphocytes % 31.9 Monocytes % 5.6 Eosinophils % 2.7 Basophils % 0.7 Nucleated RBC % 0.0 Absolute Neutrophils 6.44 Absolute Lymphocytes 3.50 H Absolute Monocytes 0.61 Absolute Eosinophils 0.30 Absolute Basophils 0.08 Sodium 141 Potassium 3.7 Chloride 106 Carbon Dioxide 25.8 Anion Gap 9.2 BUN 10 Creatinine 0.9 Est GFR (CKD-EPI 2020) 86.88 Glucose 94 Calcium 8.4 L Time Spent with Patient Time Spent with Patient: <25 minutes Time was spent: other
[2023-06-04] MEDS: cefTRIAXone 1 GM/50 ML BAG IVPB (14:53)
[2023-06-04] MEDS: Rosuvastatin 5 MG TAB PO (20:36)
[2023-06-04] MEDS: Acetaminophen 325 MG TAB 650 MG PO (20:46)
[2023-06-05 03:31] VITALS: BP 137/73; PULSE 85; RESP 19; TEMP 36.7; O2SAT 99
[2023-06-05 04:45] VITALS: BP 161/81; PULSE 88; RESP 18; TEMP 36.4; O2SAT 99
--- NOTE | 2023-06-05 07:19 | W.PM.PROGNOT ---
Date of Service Date of service: 06/05/23 Time of Service: 07:19 Assessment and Plan Assessment and plan (1) Atrial fibrillation with RVR: Status: Acute (2) Tachycardia: Status: Acute (3) Hematuria: Status: Acute Assessment and plan: We will discharge him today with his Rueda catheter in place. We will change his antibiotic coverage based on his culture and sensitivity results He will not be sent home on any new cardiac medications, but we will plan to start Eliquis after his catheter has been removed. We will coordinate any subsequent cardiac testing with his primary care providers. The surgical pathology from his simple prostatectomy is still pending. Subjective Subjective Interval history since last seen: He has not had any tachycardia through the night. He has not required continuous bladder irrigation. He has no fevers or chills and has been able to tolerate oral medications Exam Narrative Exam Narrative: He appears comfortable His vital signs are documented elsewhere His catheter was hand irrigated and no clots were obtained He is awake and alert Objective Last Vital Signs Temp 36.4 C L 06/05/23 04:45 Pulse 88 06/05/23 04:45 Resp 18 06/05/23 04:45 BP 161/81 H 06/05/23 04:45 Pulse Ox 99 06/05/23 04:45 Laboratory Results - last 24 hr 06/04/23 06:53 WBC 10.97 H RBC 3.57 L Hgb 9.3 L Hct 29.1 L MCV 82 MCH 26.1 L MCHC 32.0 RDW 16.2 H Plt Count 279 MPV 9.6 Immature Gran % 0.4 Neutrophils % 58.7 Lymphocytes % 31.9 Monocytes % 5.6 Eosinophils % 2.7 Basophils % 0.7 Nucleated RBC % 0.0 Absolute Neutrophils 6.44 Absolute Lymphocytes 3.50 H Absolute Monocytes 0.61 Absolute Eosinophils 0.30 Absolute Basophils 0.08 Sodium 141 Potassium 3.7 Chloride 106 Carbon Dioxide 25.8 Anion Gap 9.2 BUN 10 Creatinine 0.9 Est GFR (CKD-EPI 2020) 86.88 Glucose 94 Calcium 8.4 L Time Spent with Patient Time Spent with Patient: <25 minutes Time was spent: other
--- NOTE | 2023-06-05 07:22 | W.PM.DS.N ---
Date of service: 06/05/23 Time of Service: 07:22 DS: Diagnosis Discharge Diagnosis (1) Atrial fibrillation with RVR: Status: Acute (2) Tachycardia: Status: Acute (3) Hematuria: Status: Acute Discharge Plan Disposition Patient Disposition: Home Condition: Improving Discharge Details Reason For Visit: Hematuria Admit Date/Time: 06/03/23 01:40 Admit Provider: Fredy Mcgrath Attending Provider: Fredy Mcgrath Primary Care Provider: Brooklyn Farah Hospital Course Hospital Course: The patient presented back to the emergency department less than 24 hours after his discharge. He complained of weakness and with gross hematuria. We were concerned that he may be more anemic, but his hemoglobin level was actually stable. He did not require any further transfusion or bladder irrigation. Instead, we found that he was in atrial fibrillation with a rapid ventricular response. He was given IV metoprolol and diltiazem to help control his rate. He was admitted and placed on a secured entrance monitor. Eliquis was not started given his recent surgery and hematuria status He spontaneously converted back to a sinus rhythm. He remained in sinus rhythm for the remainder of his hospitalization. When he came into the emergency department, a urine culture was obtained. A low colony count of gram-negative rods was identified. He was given broad-spectrum antibiotics intravenously while he was hospitalized. He is being discharged on oral antibiotics. Home Meds and New Rx's Prescriptions: New ciprofloxacin HCl [Cipro] 250 mg tablet 250 mg PO BID Qty: 10 0RF Continued pantoprazole 20 mg tablet,delayed release (DR/EC) 20 mg PO DAILY Qty: 90 3RF calcium carbonate [Tums] 200 MG tablet,chewable 200 mg PO DAILY PRN rosuvastatin 5 mg tablet 5 mg PO DAILY Qty: 30 3RF Hold Instructions: Pt Stopped/Never Started oxybutynin chloride 5 mg tablet 5 mg PO Q8H PRN (Reason: bladder spasms) Qty: 20 0RF Held aspirin [Children's Aspirin] 81 mg Tablet,Chewable 81 mg PO DAILY Qty: 0 0RF Hold Instructions: Resume on 06/11/23. Discontinued cephalexin 250 mg capsule 250 mg PO TID 7 Days Qty: 21 0RF Discharge Instructions Additional Instructions: Rueda to gravity drainage Follow-up in my office in 3 to 7 days to have the catheter removed Referrals: Fredy Mcgrath MD [ [facility] STAFF PHYSICIAN] - 06/14/23 1:30 pm Brooklyn Farah NP [Primary Care Provider] - 06/20/23 9:00 am Activity:: No lifting over 10 pounds Equipment/Supplies:: Rueda to gravity drainage Diet:: As Tolerated Discharge Orders Discharge Orders: Discharge Order (Routine); Ordered 06/05/23 Ordered By: Fredy Mcgrath DS: Summary Time Spent with Patient providing and/or coordinating discharge services: Less than 30 minutes Status at Discharge Functional status at discharge: independent ambulation Overall status at discharge: patient is progressing back to baseline Mental Status: mental status grossly normal Speech and Movement: speech and movement normal Mood: congruent mood Affect: normal affect Quality:SDOH Health Related Social Needs: No Data to Display Exam Narrative Exam Narrative: He appears comfortable His vital signs are documented elsewhere His lungs are clear. He does not appear short of breath at rest Cardiac exam shows a regular rate and rhythm His abdomen is soft. Surgical incision is healing well A Rueda catheter is in place and is draining transparent urine. The urine is pink-tinged. And irrigation of the catheter revealed no clots He is awake and alert Psych Mental Status: mental status grossly normal Speech and Movement: speech and movement normal Mood: congruent mood Affect: normal affect DS: Data Vitals/I&O Vitals and I&O: Vital Signs Temperature 36.4 C L 06/05/23 04:45 Temperature Source Tympanic 06/05/23 04:45 Pulse 88 06/05/23 04:45 Pulse Rhythm Regular 06/05/23 04:45 Respiratory Rate 18 06/05/23 04:45 Respiratory Effort Normal, Non-Labored 06/05/23 04:45 Respiratory Depth Normal 06/04/23 20:49 Respiratory Pattern Normal 06/04/23 20:49 Blood Pressure 161/81 H 06/05/23 04:45 Blood Pressure Position Supine 06/03/23 02:34 Pulse Oximetry 99 06/05/23 04:45 Oxygen Delivery Method Room Air 06/05/23 04:45 Oxygen Flow Rate 0 06/05/23 04:45 Pain Level 0 06/05/23 04:45 Intake & Output 06/04/23 06/04/23 06/05/23 11:59 23:59 11:59 Intake Total 370 / 620 250 / 620 1200 / 1200 Output Total 1850 / 4150 2300 / 4150 1200 / 1200 Balance -1480 / -3530 -2050 / -3530 0 / 0 Intake: IV Oral 360 / 600 240 / 600 1200 / 1200 Output: Urine 1850 / 4150 2300 / 4150 1200 / 1200 Other: Urine Color Bright Red [place] [address] [place] Urine Appearance Sediment Hematuria Clear Comment Urine is keli pink in the tubing, resident denies cramping or pain, declines offer for irrigation, states will request this if he feels it is necessary. No clots noted. Data Completed and Pending Labs on day of discharge: Labs from last 24 hours 06/04/23 06:53 WBC 10.97 H RBC 3.57 L Hgb 9.3 L Hct 29.1 L MCV 82 MCH 26.1 L MCHC 32.0 RDW 16.2 H Plt Count 279 MPV 9.6 Immature Gran % 0.4 Neutrophils % 58.7 Lymphocytes % 31.9 Monocytes % 5.6 Eosinophils % 2.7 Basophils % 0.7 Nucleated RBC % 0.0 Absolute Neutrophils 6.44 Absolute Lymphocytes 3.50 H Absolute Monocytes 0.61 Absolute Eosinophils 0.30 Absolute Basophils 0.08 Sodium 141 Potassium 3.7 Chloride 106 Carbon Dioxide 25.8 Anion Gap 9.2 BUN 10 Creatinine 0.9 Est GFR (CKD-EPI 2020) 86.88 Glucose 94 Calcium 8.4 L Preliminary micro results at discharge 06/03/23 01:24 Urine Culture - Preliminary Urine - Reflex from Ua Gram Negative [place] PFSH All Active Problems Atrial fibrillation with RVR (Acute) Tachycardia (Acute) Hematuria (Acute) Vertebral artery occlusion (Acute) Intra-abdominal lymphadenopathy (Acute) SBO (small bowel obstruction) (Acute) Statin declined (Acute) Erectile dysfunction (Acute) 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) Palpitations (Chronic) Gastroesophageal reflux disease (Chronic 07/27/16) History of elevated prostate specific antigen (PSA) (Acute 01/18/16) GERD with esophagitis (Acute 12/06/11) Elevated BP without diagnosis of hypertension (Acute 12/21/16) 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 tract symptoms (Chronic 02/09/15) Medical History Gross hematuria Stroke 10/05/2022 Hyperlipidemia (07/27/16) Essential hypertension (07/27/16) Benign prostate hyperplasia (12/11/07) Done by Surgical History History of colonoscopy (~08/06/20) History of esophagogastroduodenoscopy (EGD) (~08/06/20) S/P right inguinal hernia repair S/P TURP H/O hernia repair Vasectomy Tonsillectomy Repair of inguinal hernia (~1979) Left EGD w/ BX (07/2020) Weeks, 07/2020 @ [facility] Family History Other Cancer Social History Smoking/Tobacco Use Status: Former Tobacco Use Quit Date: 04/16/73 Pack-years: 16 Tobacco: How many years used: 16 Smoking risk assessment performed?: Yes Alcohol Intake: current Alcohol Intake frequency: a few times a month Alcohol type: beer and hard liquor Counseling given: No Drug use: Occasionally Substance use type: marijuana Adopted: No Household members: spouse Housing: house Number of Children: 3 number of grandchildren: 4 Communication Needs: Corrective Lenses Do you need help understanding health information?: Rarely 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 What is your relationship status?: How often do you talk on the phone with friends or family?: three or more times per week How often do you get together with friends or relatives?: three or more times per week Panel score (0-1 are the most socially isolated patients): 2 What type of physical activity do you participate in: other Details: physically active daily with work around his home Seatbelt use: always Helmet use: Yes Working smoke detector in home: Yes Carbon monox detector in home: Yes Do you feel safe at home: Yes Do you feel safe in your relationship?: Yes Time Spent with Patient Time Spent with Patient: <45 minutes Time was spent: other
[2023-06-05 07:50] VITALS: BP 131/70; PULSE 84; TEMP 36.2; O2SAT 99
[2023-06-05] MEDS: Pantoprazole 20 MG TABCR PO (08:08)
[2023-06-05] MEDS: Metoprolol 12.5 MG TAB PO (08:09)
== END 2023-06-05 10:52 | disposition home or self-care (01) | DRG 310 ==
LOC: ER 02:36 → MS 02:40
PROVIDERS: Admitting Provider Urology; Emergency Provider Student in an Organized Health Care Education/Training Program; PCP Nurse Practitioner; Visit Provider Urology
DX: I48.91 Unspecified atrial fibrillation (principal); R53.1 Weakness; R31.0 Gross hematuria; K21.9 Gastro-esophageal reflux disease without esophagitis; Z98.890 Other specified postprocedural states; E78.5 Hyperlipidemia, unspecified; I10 Essential (primary) hypertension; Z86.73 Personal history of transient ischemic attack (TIA), and cerebral infarction without residual deficits; F12.90 Cannabis use, unspecified, uncomplicated; Z87.891 Personal history of nicotine dependence; I65.09 Occlusion and stenosis of unspecified vertebral artery
CPT/HCPCS: 00123; 36415; 80048; 80053; 86850; 86900; 86901; 86920; 93005; 96365; 96368; 96375; 99285; 81003; 81015; 83605; 84484; 85025; 85610; 85730; 87086; 93010; 99222; J0696; J2020; J2543; J3490

== ENCOUNTER → 2023-06-08 07:47 | Outpatient (BNVA) | payer MEDICARE, SELFPAY | PROVIDERS: PCP Nurse Practitioner; Referring Provider Nurse Practitioner; Visit Provider Urology | DX: N40.1 Benign prostatic hyperplasia with lower urinary tract symptoms (principal); R33.8 Other retention of urine ==

== ENCOUNTER → 2023-06-14 13:03 | Outpatient (BNVA) | payer MEDICARE, SELFPAY | PROVIDERS: PCP Nurse Practitioner; Referring Provider Nurse Practitioner; Visit Provider Urology | DX: Z48.816 Encounter for surgical aftercare following surgery on the genitourinary system (principal); N40.0 Benign prostatic hyperplasia without lower urinary tract symptoms; R31.0 Gross hematuria ==

== ENCOUNTER 2023-06-22 15:41 | Outpatient (CLI) | payer MEDICARE, SELFPAY ==
--- NOTE | 2023-06-22 15:30 | RT.EKG_ITS ---
APPROVED REPORT Exam: Resting ECG Reason for Exam: Tachycardia Patient Location: O HR:87 bpm ECG Measurements Heart Rate 87 AXIS WY 172 P 27 QRSd 80 QRS -5 QT 351 T 20 QTc 423 Conclusion Sinus rhythm...normal P axis, V-rate 50- 99 Normal Electrocardiogram
== END 2023-06-22 15:42 | disposition home or self-care (01) ==
LOC: DI.KIM 15:42
PROVIDERS: PCP Nurse Practitioner; Visit Provider Family Medicine
DX: I48.91 Unspecified atrial fibrillation (principal)
CPT/HCPCS: 93010

== ENCOUNTER → 2023-07-10 12:05 | Outpatient (BNVA) | payer MEDICARE, SELFPAY | PROVIDERS: PCP Nurse Practitioner; Referring Provider Nurse Practitioner; Visit Provider Urology | DX: Z48.816 Encounter for surgical aftercare following surgery on the genitourinary system (principal); N40.1 Benign prostatic hyperplasia with lower urinary tract symptoms; R33.8 Other retention of urine ==

== ENCOUNTER → 2023-08-07 14:35 | Outpatient (BNVA) | payer MEDICARE, SELFPAY | PROVIDERS: PCP Nurse Practitioner; Visit Provider Urology | DX: N40.1 Benign prostatic hyperplasia with lower urinary tract symptoms (principal); R33.8 Other retention of urine; R97.20 Elevated prostate specific antigen [PSA] ==

== ENCOUNTER 2023-11-27 02:33 | Outpatient (CLI) | payer MEDICARE, SELFPAY ==
[2023-11-27 21:46] LABS: PSA, Diagnostic 0.5 ng/mL (<=6.5)
== END 2023-11-27 02:34 | disposition home or self-care (01) ==
LOC: LBO 02:33
PROVIDERS: PCP Nurse Practitioner; Visit Provider Urology
DX: R97.20 Elevated prostate specific antigen [PSA] (principal)
CPT/HCPCS: 36415; 84153

== ENCOUNTER → 2023-12-04 09:41 | Outpatient (BNVA) | payer MEDICARE, SELFPAY | PROVIDERS: PCP Nurse Practitioner; Visit Provider Urology | DX: N40.1 Benign prostatic hyperplasia with lower urinary tract symptoms (principal); R33.8 Other retention of urine; R97.20 Elevated prostate specific antigen [PSA] | CPT/HCPCS: 99213 ==

== ENCOUNTER 2024-01-21 15:23 | Outpatient (CLI) | payer MEDICARE, SELFPAY ==
[2024-01-21 16:01] LABS: Abs Immature Grans 0.03 10^3/uL (0.0-0.06); Absolute Basophil Count 0.06 10^3/uL (0.0-0.2); Absolute Eosinophil Count 0.28 10^3/uL (0.0-0.7); Absolute Lymphocyte Count 3.22 10^3/uL (1.2-3.4); Absolute Monocyte Count 0.59 10^3/uL (0.1-0.8); Absolute Neutrophil Count 4.56 10^3/uL (1.2-6.7); Basophils % 0.7 %; Eosinophils % 3.2 %; HCT 36.3 % (40.0-50.0); HGB 11.1 g/dL (13.5-17.5); Immature Grans % 0.3 %; Lymphocytes % 36.8 %; MCH 24.8 pg (27.0-33.0); MCHC 30.6 % (32.0-36.0); MCV 81 fL (80-95); MPV 8.7 fL (8.0-11.0); Monocytes % 6.8 %; Neutrophils % 52.2 %; Platelet Count 253 10^3/uL (130-400); RBC 4.48 10^6/uL (4.36-5.78); RDW 16.1 % (11.8-14.1); RDW-SD 46.9 fL; WBC 8.74 10^3/uL (4.4-10.8)
[2024-01-21 17:07] LABS: ALT 24 U/L (16-63); AST 18 U/L (15-37); Alkaline Phosphatase 94 U/L (46-116); Anion Gap 10.5 mmol/L (3-11); BUN 21 mg/dL (7-18); Bilirubin, Total 0.29 mg/dL (0.2-1.0); CO2 25.5 mmol/L (21.0-32.0); CREATININE 1.1 mg/dL (0.70-1.30); Calcium 8.9 mg/dL (8.5-10.1); Chloride 110 mmol/L (98-107); Estimated GFR 67.86 (mL/min/1.73m2); Ferritin 10 ng/mL (26-388); Glucose 113 mg/dL (74-106); Potassium 4.2 mmol/L (3.5-5.1); Sodium 146 mmol/L (136-145); Total Protein 7.1 g/dL (6.4-8.2); Vitamin B12 374 pg/mL (193-986); Vitamin D 25 Total 26.4 ng/mL (30-100)
== END 2024-01-21 15:24 | disposition home or self-care (01) ==
LOC: LBO 15:24
PROVIDERS: PCP Nurse Practitioner; Visit Provider Nurse Practitioner
DX: D64.9 Anemia, unspecified (principal); R53.83 Other fatigue; I10 Essential (primary) hypertension; E55.9 Vitamin D deficiency, unspecified
CPT/HCPCS: 36415; 80053; 82306; 82607; 82728; 84443; 85025

== ENCOUNTER 2024-03-11 15:57 | Outpatient (CLI) | payer MEDICARE, SELFPAY ==
--- NOTE | 2024-03-11 15:45 | RT.EKG_ITS ---
APPROVED REPORT Exam: Resting ECG Reason for Exam: A fib Patient Location: O HR:72 bpm ECG Measurements Heart Rate 72 AXIS PA 166 P 32 QRSd 83 QRS 7 QT 374 T 31 QTc 410 Conclusion Sinus rhythm...normal P axis, V-rate 50- 99 Normal Electrocardiogram
== END 2024-03-11 15:58 | disposition home or self-care (01) ==
LOC: DI.KIM 15:58
PROVIDERS: PCP Nurse Practitioner; Visit Provider Nurse Practitioner
DX: I48.0 Paroxysmal atrial fibrillation (principal)
CPT/HCPCS: 93010

== ENCOUNTER 2024-04-29 07:39 | Outpatient (CLI) | payer MEDICARE, SELFPAY ==
--- NOTE | 2024-04-29 07:30 | RT.EKG_ITS ---
APPROVED REPORT Exam: Resting ECG Reason for Exam: dizziness, lightheaded Patient Location: O HR:77 bpm ECG Measurements Heart Rate 77 AXIS IN 181 P 18 QRSd 83 QRS -9 QT 366 T 25 QTc 415 Conclusion Sinus rhythm...normal P axis, V-rate 50- 99 Normal Electrocardiogram
== END 2024-04-29 07:40 | disposition home or self-care (01) ==
LOC: DI.KIM 07:40
PROVIDERS: PCP Nurse Practitioner; Visit Provider Nurse Practitioner
DX: R42 Dizziness and giddiness (principal)
CPT/HCPCS: 93010

== ENCOUNTER 2024-11-05 13:31 | Outpatient (CLI) | payer MEDICARE, SELFPAY ==
--- NOTE | 2024-11-05 13:30 | RT.EKG_ITS ---
APPROVED REPORT Exam: Resting ECG Reason for Exam: afib Patient Location: O HR:89 bpm ECG Measurements Heart Rate 89 AXIS DC 168 P 72 QRSd 90 QRS 2 QT 354 T 44 QTc 431 Conclusion Sinus rhythm...normal P axis, V-rate 50- 99 Normal Electrocardiogram
== END 2024-11-05 13:32 | disposition home or self-care (01) ==
LOC: DI.CARD 13:36
PROVIDERS: PCP Nurse Practitioner; Referring Provider Nurse Practitioner; Visit Provider Registered Nurse
DX: R00.2 Palpitations (principal); I48.91 Unspecified atrial fibrillation
CPT/HCPCS: 93010

== ENCOUNTER → 2024-11-05 13:31 | Outpatient (BNVA) | payer MEDICARE, SELFPAY | PROVIDERS: PCP Nurse Practitioner; Referring Provider Nurse Practitioner; Visit Provider Registered Nurse | DX: I48.0 Paroxysmal atrial fibrillation (principal); I10 Essential (primary) hypertension | CPT/HCPCS: 99215 ==

== ENCOUNTER → 2024-11-20 09:01 | Outpatient (BNVA) | payer MEDICARE, SELFPAY | PROVIDERS: PCP Nurse Practitioner; Referring Provider Nurse Practitioner; Visit Provider Internal Medicine Cardiovascular Disease | DX: I48.0 Paroxysmal atrial fibrillation (principal); I10 Essential (primary) hypertension; Z79.01 Long term (current) use of anticoagulants | CPT/HCPCS: 99213 ==

== ENCOUNTER 2024-11-25 03:15 | Outpatient (CLI) | payer MEDICARE, SELFPAY ==
[2024-11-25 21:30] LABS: PSA, Diagnostic 0.6 ng/mL (<=6.5)
== END 2024-11-25 03:16 | disposition home or self-care (01) ==
LOC: LBO 03:17
PROVIDERS: PCP Nurse Practitioner; Visit Provider Urology
DX: R97.20 Elevated prostate specific antigen [PSA] (principal)
CPT/HCPCS: 36415; 84153

== ENCOUNTER → 2024-12-02 09:30 | Outpatient (BNVA) | payer MEDICARE, SELFPAY | PROVIDERS: PCP Nurse Practitioner; Visit Provider Urology | DX: N40.1 Benign prostatic hyperplasia with lower urinary tract symptoms (principal); R33.8 Other retention of urine; R97.20 Elevated prostate specific antigen [PSA]; Z79.01 Long term (current) use of anticoagulants | CPT/HCPCS: 99214 ==